=== PATIENT | female | born 1990 | race Caucasian/White ===

== ENCOUNTER 2017-01-31 23:05 | Emergency (ER) | payer OTHER, SELFPAY | END 2017-02-01 01:00 | disposition home or self-care (01) | PROVIDERS: Emergency Provider Emergency Medicine; Family Provider Nurse Practitioner Family; Visit Provider Emergency Medicine | DX: S80.11XA Contusion of right lower leg, initial encounter (principal); S80.12XA Contusion of left lower leg, initial encounter; F41.8 Other specified anxiety disorders; F17.210 Nicotine dependence, cigarettes, uncomplicated; J45.909 Unspecified asthma, uncomplicated; Z88.0 Allergy status to penicillin; Z88.2 Allergy status to sulfonamides; Z88.6 Allergy status to analgesic agent; Z88.7 Allergy status to serum and vaccine | CPT/HCPCS: 73590; 99282 ==

== ENCOUNTER 2017-02-27 19:20 | Emergency (ER) | payer OTHER, SELFPAY | END 2017-02-27 21:00 | disposition home or self-care (01) | PROVIDERS: Emergency Provider Emergency Medicine; Family Provider Nurse Practitioner Family; Visit Provider Emergency Medicine | DX: S83.91XA Sprain of unspecified site of right knee, initial encounter (principal); X50.1XXA Overexertion from prolonged static or awkward postures, initial encounter; Y92.019 Unspecified place in single-family (private) house as the place of occurrence of the external cause; J45.909 Unspecified asthma, uncomplicated; Z72.0 Tobacco use; F41.8 Other specified anxiety disorders; Z88.0 Allergy status to penicillin; Z88.1 Allergy status to other antibiotic agents; Z88.2 Allergy status to sulfonamides; Z88.8 Allergy status to other drugs, medicaments and biological substances | CPT/HCPCS: 73562; 99283 ==

== ENCOUNTER 2017-03-09 03:46 | Emergency (ER) | payer OTHER, SELFPAY | END 2017-03-09 04:45 | disposition home or self-care (01) | PROVIDERS: Emergency Provider Emergency Medicine; Family Provider Nurse Practitioner Family; Visit Provider Emergency Medicine | DX: M79.661 Pain in right lower leg (principal); G89.29 Other chronic pain; J45.909 Unspecified asthma, uncomplicated; F41.8 Other specified anxiety disorders; Z88.0 Allergy status to penicillin; Z88.2 Allergy status to sulfonamides; Z88.7 Allergy status to serum and vaccine; Z88.6 Allergy status to analgesic agent | CPT/HCPCS: 96372 ==

== ENCOUNTER → 2017-04-01 13:24 | Outpatient (CLI) | payer OTHER, SELFPAY ==
--- NOTE | 2017-04-01 13:28 | MR_ITS ---
MR knee RT wo con HISTORY: Right knee pain. Knee gives out ORDERING PHYSICIAN: Rajat Marsh MD PATIENT AGE: 26 years COMPARISON: Radiograph of 02/27/2017 TECHNIQUE: Standard multiplanar multiecho sequences are performed without contrast. FINDINGS: Artifact is present from the previous tibial tuberosity osteotomy over the proximal tibial region. The cruciate ligaments and collateral ligaments appear intact. No meniscal tear Patellar cartilage is intact. There is a small knee joint effusion. No significant degenerative change apparent. No bone marrow edema. No fracture or dislocation. IMPRESSION: 1. No evidence of internal derangement 2. Small knee joint effusion. 3. Artifact from prior proximal tibial surgery
== END ==
PROVIDERS: Family Provider Nurse Practitioner Family; PCP Nurse Practitioner Family; Visit Provider Orthopaedic Surgery
DX: T84.84XA Pain due to internal orthopedic prosthetic devices, implants and grafts, initial encounter (principal); M25.361 Other instability, right knee
CPT/HCPCS: 73721

== ENCOUNTER 2017-04-15 19:36 | Emergency (ER) | payer OTHER, SELFPAY ==
[2017-04-15 20:06] VITALS: BP 112/85; PULSE 98; RESP 14; O2SAT 98; BMI 27.7
--- NOTE | 2017-04-15 21:49 | HMH.EDEYEP ---
ED Disposition Clinical Impression: Blepharitis of both upper and lower eyelid of left eye Qualifiers: Blepharitis type: unspecified type Qualified Code(s): H01.004 - Unspecified blepharitis left upper eyelid; H01.005 - Unspecified blepharitis left lower eyelid Disposition: Home, Self-Care Condition on Discharge: Good Instructions: DI for Blepharitis Additional Instructions: see dr sanz in am Referrals: Deidre Orozco APRN [Primary Care Provider] - - Critical Care Critical Care Time: No Attestation: On 04/15/17, the high probability of a clinically significant, sudden or life threatening deterioration of the following system(s) required my full and direct attention, intervention and personal management. The time I documented below is in addition to time spent performing reported procedures but includes the following listed in this critical care notation. Medical Decision Making - Medical Records Medical records reviewed: Yes: I reviewed the patient's medical records. Vital Signs: 04/15/17 20:06 Pulse Rate [Left Brachial] 98 H Respiratory Rate 14 Blood Pressure [Left Arm] 112/85 Blood Pressure Mean [Left Arm] 94 02 Sat by Pulse Oximetry 98 Oxygen Delivery Method Room Air - Donta Inquiry Pt receiving controlled substance: No Eye Problem HPI - General Chief complaint: Eye Problems Stated complaint: spider bite left eye Time Seen by Provider: 04/15/17 21:51 Mode of Arrival: Ambulatory Source of Information: Patient Limitations: No Limitations - History of Present Illness HPI Narrative: reported insect bite lt eyelid swelling over the lt eyelid over the last 2 days MD chief complaint: eye pain Onset (ago): day(s) Onset description: gradual Duration: constant Location: left eye Eye Symptoms: blurry vision Mechanism: other (insect bite ) If Pain, Quality: aching - Related Data Allergies Allergy/AdvReac Type Severity Reaction Status Date / Time Penicillins [PENICILLINS] Allergy Severe THROAT Unverified 02/25/17 14:53 SWELLING, HIVES, VOMITTING amoxicillin [From AUGMENTIN] Allergy Intermediate I-HIVES Unverified 02/25/17 14:53 clavulanic acid Allergy Intermediate I-HIVES Unverified 02/25/17 14:53 [From AUGMENTIN] diphenhydramine Allergy Intermediate I-HIVES Unverified 02/25/17 14:53 [From BENADRYL] ibuprofen [IBUPROFEN] Allergy Intermediate I-HIVES Unverified 02/25/17 14:53 metoclopramide [From REGLAN] Allergy Intermediate I-HIVES Unverified 02/25/17 14:53 Sulfa (Sulfonamide Allergy Intermediate I-HIVES Unverified 02/25/17 14:53 Antibiotics) [SULFA (SULFONAMIDE ANTIBIOTICS)] tetanus toxoid, adsorbed Allergy Intermediate I-RASH Unverified 02/25/17 14:53 [TETANUS TOXOID, ADSORBED] naproxen [NAPROXEN] Allergy Unknown Unverified 02/25/17 14:53 paroxetine [From PAXIL] Allergy Unknown numbness Unverified 02/25/17 14:53 tongue atomoxetine [From Strattera] AdvReac Mild NA-HALLUCIN Unverified 02/25/17 14:53 ATIONS CONTRAST DYE Allergy Unknown Uncoded 02/25/17 14:53 RUBBING ALCOHOL Allergy Unknown Uncoded 02/27/17 19:33 [facility] History I have reviewed the patient's past medical history: Yes ROS Obtained: Yes All systems reviewed & no additional complaints - Constitutional Constitutional: Denies fever(s) - Eyes Eyes: Reports as per HPI, Reports change in vision, Denies eye discharge, Denies loss of peripheral vision, Denies loss of vision, Reports eye pain - ENT Ears, Nose, Mouth, and Throat: Denies sore throat - Cardiovascular Cardiovascular: Denies chest pain at rest - Respiratory Respiratory: No chest congestion, No cough - Gastrointestinal Gastrointestingal: Denies: vomiting - Musculoskeletal Musculoskeletal: Denies joint pain, Denies joint stiffness - Integumentary/Breasts Skin/Breast: Denies rash - Neurologic Neurologic: Denies seizure-like activity Physical Exam - General General appearance: alert, in no
--- NOTE | 2017-04-15 21:53 | ED_ITS ---
ED Disposition Clinical Impression: Blepharitis of both upper and lower eyelid of left eye Qualifiers: Blepharitis type: unspecified type Qualified Code(s): H01.004 - Unspecified blepharitis left upper eyelid; H01.005 - Unspecified blepharitis left lower eyelid Disposition: Home, Self-Care Condition on Discharge: Good Instructions: DI for Blepharitis Additional Instructions: see dr sanz in am Referrals: Deidre Orozco APRN [Primary Care Provider] - - Critical Care Critical Care Time: No Attestation: On 04/15/17, the high probability of a clinically significant, sudden or life threatening deterioration of the following system(s) required my full and direct attention, intervention and personal management. The time I documented below is in addition to time spent performing reported procedures but includes the following listed in this critical care notation. Medical Decision Making - Medical Records Medical records reviewed: Yes: I reviewed the patient's medical records. Vital Signs: 04/15/17 20:06 Pulse Rate [Left Brachial] 98 H Respiratory Rate 14 Blood Pressure [Left Arm] 112/85 Blood Pressure Mean [Left Arm] 94 02 Sat by Pulse Oximetry 98 Oxygen Delivery Method Room Air - Donta Inquiry Pt receiving controlled substance: No Eye Problem HPI - General Chief complaint: Eye Problems Stated complaint: spider bite left eye Time Seen by Provider: 04/15/17 21:51 Mode of Arrival: Ambulatory Source of Information: Patient Limitations: No Limitations - History of Present Illness HPI Narrative: reported insect bite lt eyelid swelling over the lt eyelid over the last 2 days MD chief complaint: eye pain Onset (ago): day(s) Onset description: gradual Duration: constant Location: left eye Eye Symptoms: blurry vision Mechanism: other (insect bite ) If Pain, Quality: aching - Related Data Allergies Allergy/AdvReac Type Severity Reaction Status Date / Time Penicillins [PENICILLINS] Allergy Severe THROAT Unverified 02/25/17 14:53 SWELLING, HIVES, VOMITTING amoxicillin [From AUGMENTIN] Allergy Intermediate I-HIVES Unverified 02/25/17 14 :53 clavulanic acid Allergy Intermediate I-HIVES Unverified 02/25/17 14:53 [From AUGMENTIN] diphenhydramine Allergy Intermediate I-HIVES Unverified 02/25/17 14:53 [From BENADRYL] ibuprofen [IBUPROFEN] Allergy Intermediate I-HIVES Unverified 02/25/17 14:53 metoclopramide [From REGLAN] Allergy Intermediate I-HIVES Unverified 02/25/17 14 :53 Sulfa (Sulfonamide Allergy Intermediate I-HIVES Unverified 02/25/17 14:53 Antibiotics) [SULFA (SULFONAMIDE ANTIBIOTICS)] tetanus toxoid, adsorbed Allergy Intermediate I-RASH Unverified 02/25/17 14:53 [TETANUS TOXOID, ADSORBED] naproxen [NAPROXEN] Allergy Unknown Unverified 02/25/17 14:53 paroxetine [From PAXIL] Allergy Unknown numbness Unverified 02/25/17 14:53 tongue atomoxetine [From Strattera] AdvReac Mild NA-HALLUCIN Unverified 02/25/17 14:53 ATIONS CONTRAST DYE Allergy Unknown Uncoded 02/25/17 14:53 RUBBING ALCOHOL Allergy Unknown Uncoded 02/27/17 19:33 [facility] History I have reviewed the patient's past medical history: Yes ROS Obtained: Yes All systems reviewed & no additional complaints - Constitutional Constitut
[2017-04-15 22:51] VITALS: BP 0/0; PULSE 0; RESP 18; TEMP -17.7; TEMP 0
== END 2017-04-15 22:40 | disposition home or self-care (01) ==
PROVIDERS: Emergency Provider Emergency Medicine; Family Provider Nurse Practitioner Family; PCP Nurse Practitioner Family
DX: H01.005 Unspecified blepharitis left lower eyelid (principal); H01.004 Unspecified blepharitis left upper eyelid; S00.262A Insect bite (nonvenomous) of left eyelid and periocular area, initial encounter
CPT/HCPCS: 99203

== ENCOUNTER 2017-05-01 15:10 | Emergency (ER) | payer OTHER, SELFPAY ==
[2017-05-01 15:18] VITALS: BP 145/78; PULSE 132; RESP 18; TEMP 38; O2SAT 98; BMI 28.3
--- NOTE | 2017-05-01 15:28 | XR_ITS ---
XR chest 2V HISTORY: ITS.REASON: cough ORDERING PHYSICIAN: Russell Gillespie MD PATIENT AGE: 26 years COMPARISON: 04/24/2013 FINDINGS: The cardiomediastinal silhouette and pulmonary vascularity are within normal limits. The lungs are clear without infiltrates, suspicious nodules, or pleural effusions. There is mild lower thoracic curvature convex left and mild kyphosis of the thoracolumbar junction unchanged No acute bony abnormalities. IMPRESSION: No acute finding
--- NOTE | 2017-05-01 16:06 | HMH.EDGENADL ---
ED Disposition Clinical Impression: Influenza A, Myalgia, Dehydration Disposition: Home, Self-Care Condition on Discharge: Fair Prescriptions: Oseltamivir Phosphate [Tamiflu 75mg Capsule] 75 mg PO BID #9 cap Referrals: Deidre Orozco APRN [Primary Care Provider] - - Critical Care Critical Care Time: No Attestation: On 05/01/17, the high probability of a clinically significant, sudden or life threatening deterioration of the following system(s) required my full and direct attention, intervention and personal management. The time I documented below is in addition to time spent performing reported procedures but includes the following listed in this critical care notation. Medical Decision Making - Medical Records Medical records reviewed: Yes: I reviewed the patient's medical records. Vital Signs: 05/01/17 15:18 Temperature 100.4 F H Temperature Source Oral Pulse Rate [Right Brachial] 132 H Respiratory Rate 18 Blood Pressure [Right Arm] 145/78 Blood Pressure Mean [Right Arm] 100 Blood Pressure Source [Right Arm] Automatic Cuff Blood Pressure Position [Right Arm] Supine 02 Sat by Pulse Oximetry 98 Oxygen Delivery Method Room Air - Lab Data Lab Results 05/01/17 15:20: Influenza Type A Ag Negative, Influenza Type B Ag Positive A 05/01/17 16:20: WBC 5.3, RBC 4.61, Hgb 14.0, Hct 40.9, MCV 88.6, MCH 30.4, MCHC 34.3, RDW 12.4, Plt Count 159, MPV 9.2, Neut % (Auto) 81.3 H, Lymph % (Auto) 12.8, [place] % (Auto) 4.6, Eos % (Auto) 1.0, Baso % (Auto) 0.2, Neut # (Auto) 4.3, Lymph # (Auto) 0.7, [place] # (Auto) 0.3, Eos # (Auto) 0.1, Baso # (Auto) 0.0 05/01/17 16:20: Sodium 137, Potassium 3.8, Chloride 101, Carbon Dioxide 28, Anion Gap 11.8, BUN 7, Creatinine 1.01, Estimated Creat Clear 99, Estimated GFR 66, Est GFR ( Amer) 80, Glucose 86 Result diagrams: 05/01/17 16:20 05/01/17 16:20 Orders (Tests/Meds): ED MEDICATIONS Generic Name Dose Route Start Last Admin Trade Name Carli PRN Reason Stop Dose Admin Sodium Chloride 1,000 mls @ 999 mls/hr 05/01/17 16:15 Sod Chlor 0.9% 1000ml Bag IV 05/01/17 17:15 .Q1H1M ERIKA Oseltamivir Phosphate 75 mg 05/02/17 09:00 Tamiflu 75mg Capsule PO 05/16/17 08:59 DAILY ERIKA Discontinued Medications Generic Name Dose Route Start Last Admin Trade Name Carli PRN Reason Stop Dose Admin Acetaminophen 1,000 mg 05/01/17 16:10 Tylenol 500mg Tablet PO 05/01/17 16:11 ONCE ONE Azithromycin 500 mg/ Sodium 250 mls @ 250 mls/hr 05/01/17 16:27 Chloride IV 05/01/17 16:28 ONCE ONE Protocol ORDERS Category Date Time Status Urinalysis and Microscopic Stat Lab 05/01/17 16:10 Ordered - Radiology Data #1 Image(s): Chest Image Reviewed: Yes I reviewed the patient's radiology image Preliminary Findings: Normal/NAD - Donta Inquiry Pt receiving controlled substance: No Donta was queried for this patient: No Medical Decision Making Narrative: I advised the patient for supportive care and Gatorade. She stated to have no money so I started IV fluids and give her Tylenol. General Adult HPI - General Chief complaint: Fever Stated complaint: Cough, Chills, Runny Nose Mode of Arrival: Family Vehicle Limitations: No Limitations Description of Symptoms (Recalled from ER Triage Doc. by RN): cough,congestion,fever x 4 days - History of Present Illness HPI narrative: 26 years old white female with multiple allergies who presented to the ED with a chief complaint is of cough body aches fever or chills and decreased p.o. intake. She has no primary care physician she has no money. Onset (ago): day(s) (4 days) Radiation: non-radiation (Generalized body ache.) Severity: moderate Consistency: constant Relieving factors: none Exacerbating factors: none Associated symptoms: cough, fever/chills, headaches Treatments prior to arrival: none - Related Data Home Medications Medication Instructions Jean-Pual
--- NOTE | 2017-05-01 16:09 | ED_ITS ---
ED Disposition Clinical Impression: Influenza A, Myalgia, Dehydration Disposition: Home, Self-Care Condition on Discharge: Fair Prescriptions: Oseltamivir Phosphate [Tamiflu 75mg Capsule] 75 mg PO BID #9 cap Referrals: Deidre Orozco APRN [Primary Care Provider] - - Critical Care Critical Care Time: No Attestation: On 05/01/17, the high probability of a clinically significant, sudden or life threatening deterioration of the following system(s) required my full and direct attention, intervention and personal management. The time I documented below is in addition to time spent performing reported procedures but includes the following listed in this critical care notation. Medical Decision Making - Medical Records Medical records reviewed: Yes: I reviewed the patient's medical records. Vital Signs: 05/01/17 15:18 Temperature 100.4 F H Temperature Source Oral Pulse Rate [Right Brachial] 132 H Respiratory Rate 18 Blood Pressure [Right Arm] 145/78 Blood Pressure Mean [Right Arm] 100 Blood Pressure Source [Right Arm] Automatic Cuff Blood Pressure Position [Right Arm] Supine 02 Sat by Pulse Oximetry 98 Oxygen Delivery Method Room Air - Lab Data Lab Results 05/01/17 15:20: Influenza Type A Ag Negative, Influenza Type B Ag Positive A 05/01/17 16:20: WBC 5.3, RBC 4.61, Hgb 14.0, Hct 40.9, MCV 88.6, MCH 30.4, MCHC 34.3, RDW 12.4, Plt Count 159, MPV 9.2, Neut % (Auto) 81.3 H, Lymph % (Auto) 12.8, [place] % (Auto) 4.6, Eos % (Auto) 1.0, Baso % (Auto) 0.2, Neut # (Auto) 4.3 , Lymph # (Auto) 0.7, [place] # (Auto) 0.3, Eos # (Auto) 0.1, Baso # (Auto) 0.0 05/01/17 16:20: Sodium 137, Potassium 3.8, Chloride 101, Carbon Dioxide 28, Anion Gap 11.8, BUN 7, Creatinine 1.01, Estimated Creat Clear 99, Estimated GFR 66, Est GFR ( Amer) 80, Glucose 86 Result diagrams: 05/01/17 16:20 05/01/17 16:20 Orders (Tests/Meds): ED MEDICATIONS Generic Name Dose Route Start Last Admin Trade Name Carli PRN Reason Stop Dose Admin Sodium Chloride 1,000 mls @ 999 mls/hr 05/01/17 16:15 Sod Chlor 0.9% 1000ml Bag IV 05/01/17 17:15 .Q1H1M ERIKA Oseltamivir Phosphate 75 mg 05/02/17 09:00 Tamiflu 75mg Capsule PO 05/16/17 08:59 DAILY ERIKA Discontinued Medications Generic Name Dose Route Start Last Admin Trade Name Carli PRN Reason Stop Dose Admin Acetaminophen 1,000 mg 05/01/17 16:10 Tylenol 500mg Tablet PO 05/01/17 16:11 ONCE ONE Azithromycin 500 mg/ Sodium 250 mls @ 250 mls/hr 05/01/17 16:27 Chloride IV 05/01/17 16:28 ONCE ONE Protocol ORDERS Category Date Time Status Urinalysis and Microscopic Stat Lab 05/01/17 16:10 Ordered - Radiology Data #1 Image(s): Chest Image Reviewed: Yes I reviewed the patient's radiology image Preliminary Findings: Normal/NAD - Donta Inquiry Pt receiving controlled substance: No Donta was queried for this patient: No Medical Decision Making Narrative: I advised the patient for supportive care and Gatorade. She stated to have no money so I started IV fluids and give her Tylenol. General Adult HPI - General Chief complaint: Fever Stated complaint: Cough, Chills, Runny Nose Mode of Arrival: Family Vehicle Limitations
[2017-05-01 16:27] LABS: Basophils % 0.2 % (0.1-2.0); Eosinophils # 0.1 K/mm3 (0.0-0.4); Hematocrit 40.9 % (37.0-47.0); Lymphocytes # 0.7 K/mm3 (0.7-4.5); Lymphocytes % 12.8 K/mm3 (10-50); Mean Corpuscular HGB Conc 34.3 g/dL (31.8-35.4); Mean Corpuscular Hemoglobin 30.4 pg (27.0-31.2); Mean Corpuscular Volume 88.6 fl (81-99); Mean Platelet Volume 9.2 fl (7.4-10.4); Monocytes # 0.3 K/mm3 (0.1-1.0); Monocytes % 4.6 % (1.7-9.3); Neutrophils # 4.3 K/mm3 (1.8-7.8); Neutrophils % 81.3 % (37.0-80.0); Platelet Count 159 K/mm3 (142-424); Red Blood Count 4.61 M/mm3 (4.20-5.40); Red Cell Distribution Width 12.4 % (11.5-17.5); White Blood Count 5.3 K/mm3 (4.8-10.8)
[2017-05-01 16:37] LABS: Anion Gap 11.8 mEq/L (5-15); Blood Urea Nitrogen 7 mg/dL (7-18); Carbon Dioxide 28 mmol/L (21.0-32.0); Chloride 101 mmol/L (98-107); Creatinine Clearance Estimated 99 mL/min (0-300); Creatinine,Serum 1.01 mg/dL (0.55-1.02); Estimated Glomerular Filt Rate 66 ml/min (>60); GFR (African American) 80 ML/MIN (>60); Glucose 86 mg/dL (74-106); Potassium 3.8 mmoL/L (3.5-5.1); Sodium 137 mmol/L (136-145)
[2017-05-01 17:40] VITALS: BP 123/80; PULSE 80; RESP 18; TEMP 36.7; O2SAT 99
== END 2017-05-01 17:39 | disposition home or self-care (01) ==
PROVIDERS: Emergency Provider Emergency Medicine; Family Provider Nurse Practitioner Family; PCP Nurse Practitioner Family
DX: J11.1 Influenza due to unidentified influenza virus with other respiratory manifestations (principal); E86.0 Dehydration; F41.9 Anxiety disorder, unspecified; I10 Essential (primary) hypertension; F17.210 Nicotine dependence, cigarettes, uncomplicated; Z90.49 Acquired absence of other specified parts of digestive tract; Z88.0 Allergy status to penicillin; Z88.2 Allergy status to sulfonamides; Z88.7 Allergy status to serum and vaccine; Z88.8 Allergy status to other drugs, medicaments and biological substances
CPT/HCPCS: 71046; 80048; 85025; 87275; 87276; 96365; 96367; 99281

== ENCOUNTER → 2017-05-22 10:42 | Outpatient (CLI) | payer OTHER, SELFPAY ==
[2017-05-22 11:17] LABS: Basophils % 0.2 % (0.1-2.0); Eosinophils # 0.2 K/mm3 (0.0-0.4); Eosinophils % 1.5 % (0.1-12.0); Hematocrit 45.7 % (37.0-47.0); Hemoglobin 14.8 g/dL (12.2-16.2); Lymphocytes # 1.7 K/mm3 (0.7-4.5); Mean Corpuscular HGB Conc 32.3 g/dL (31.8-35.4); Mean Corpuscular Hemoglobin 29.4 pg (27.0-31.2); Mean Corpuscular Volume 90.8 fl (81-99); Mean Platelet Volume 9.6 fl (7.4-10.4); Monocytes # 0.7 K/mm3 (0.1-1.0); Monocytes % 5.5 % (1.7-9.3); Neutrophils # 9.7 K/mm3 (1.8-7.8); Neutrophils % 78.7 % (37.0-80.0); Platelet Count 269 K/mm3 (142-424); Red Blood Count 5.03 M/mm3 (4.20-5.40); Red Cell Distribution Width 12.6 % (11.5-17.5); White Blood Count 12.3 K/mm3 (4.8-10.8)
[2017-05-22 14:21] LABS: Anion Gap 13.8 mEq/L (5-15); Blood Urea Nitrogen 9 mg/dL (7-18); Carbon Dioxide 27 mmol/L (21.0-32.0); Chloride 103 mmol/L (98-107); Creatinine,Serum 0.71 mg/dL (0.55-1.02); Estimated Glomerular Filt Rate 99 ml/min (>60); GFR (African American) 119 ML/MIN (>60); Glucose 78 mg/dL (74-106); Potassium 4.8 mmoL/L (3.5-5.1); Sodium 139 mmol/L (136-145)
[2017-05-22 14:25] LABS: HCG,Quantitative 0 mIU/mL
== END ==
PROVIDERS: PCP Nurse Practitioner Family; Visit Provider Nurse Practitioner Family
DX: T84.84XA Pain due to internal orthopedic prosthetic devices, implants and grafts, initial encounter (principal); M25.361 Other instability, right knee; Z01.818 Encounter for other preprocedural examination
CPT/HCPCS: 36415; 80048; 84702; 85025

== ENCOUNTER 2017-06-02 07:03 | Day surgery (SDC) | payer OTHER, SELFPAY ==
[2017-05-30 14:09] VITALS: BMI 27.1
[2017-06-02] VITALS (13 sets, daily range): BP systolic 96–118; BP diastolic 62–76; PULSE 55–89; RESP 13–20; TEMP 36.3–43; O2SAT 95–100
--- NOTE | 2017-06-02 | XR_ITS ---
XR knee RT 2V HISTORY: ITS.REASON: NEW LIGAMENT REPLACED IN RT KNEE ORDERING PHYSICIAN: Rajat Marsh MD PATIENT AGE: 26 years COMPARISON: 02/27/2017 FINDINGS: Lateral views obtained of the knee with the C-arm with overlying artifact. Fluoroscopy time: 25 seconds. IMPRESSION: Limited lateral view obtained during surgery with C-arm
--- NOTE | 2017-06-02 07:06 | SUR.PREOP ---
Addendum entered by Sheila Adorno RN 06/02/17 07:07: Original Note: DR COKER NOTIFIED OF ABNORMAL WHITE COUNT ON 05/02/17 VIA PHONE. NO NEW ORDERS.
[2017-06-02 08:02] LABS: Urine Pregnancy, HCG Qual. Negative (Negative)
[2017-06-02 08:20] LABS: Basophils % 0.2 % (0.1-2.0); Eosinophils # 0.3 K/mm3 (0.0-0.4); Hemoglobin 15.1 g/dL (12.2-16.2); Lymphocytes # 1.9 K/mm3 (0.7-4.5); Lymphocytes % 31.4 K/mm3 (10-50); Mean Corpuscular HGB Conc 34.3 g/dL (31.8-35.4); Mean Corpuscular Hemoglobin 30.3 pg (27.0-31.2); Mean Corpuscular Volume 88.3 fl (81-99); Mean Platelet Volume 9.8 fl (7.4-10.4); Monocytes # 0.4 K/mm3 (0.1-1.0); Monocytes % 5.7 % (1.7-9.3); Neutrophils # 3.6 K/mm3 (1.8-7.8); Neutrophils % 58.7 % (37.0-80.0); Platelet Count 249 K/mm3 (142-424); Red Blood Count 4.98 M/mm3 (4.20-5.40); Red Cell Distribution Width 12.5 % (11.5-17.5); White Blood Count 6.2 K/mm3 (4.8-10.8)
--- NOTE | 2017-06-02 09:14 | P.PN_ITS ---
[facility] Anesthesia Checklist - Patient Identification Patient Identification: Arm Band - Structural Data Admitted From: Home Consent for Planned Operative Procedure(s) Verified: Yes Verified Documents: Surgical Consent, History and Physical - NPO Status Verified Time NPO: 00:00 - Additional verifications Patient : No Anesthesia Reactions: No - Airway Assessment C-Spine Mobility Assessed: Yes TMJ Mobility Assessed: Yes Dentition: Edentulous - Neurological Assessment Level of Consciousness: Awake Hx Seizures: No Numbness or tingling in extremities: No - Anesthesia Plan Anesthesia Risk discussed: Yes Anesthesia Plan: Verified ASA Class: II Anesthesia Type: Spinal [facility] Anesthesia HX I have reviewed the patient's past medical history: Yes Medical History: Reports:: Anxiety, Asthma, Hypertension, MRSA Denies:: Cancer, Diabetes Mellitus Type 1, Diabetes Mellitus Type 2, Seizures Other Medical History: Reports: Other. Denies: Blood Transfusion Reaction Laterality Cases: Bilateral: Arthroscopy Knee, Tonsillectomy Other Surgeries: Yes: Other Amputation: No Fractures: Yes *Family Hx:: Hypertension, Cancer, Diabetes, Thyroid Disorder
--- NOTE | 2017-06-02 12:19 | HMH.ANESI ---
[facility] Anesthesia Record Part I Intake, IV Amount: 1,800 Estimated blood loss (mL): 20 Urine output (mL): 0 Blood Products used (#): none Blood Pressure: 104/70 SaO2: 95 Pulse Rate: 81 Respiratory Rate: 13 Temperature: 98.1 F Patient is:: Awake Stable to PACU at:: 12:15
--- NOTE | 2017-06-02 12:20 | HMH.ANESII ---
[facility] Anesthesia Record Part II Discharge Time: 12:45 Destination: Medical Surgical Department PACU nurse assessment reviewed?: Yes Patient Condition:: Good Anesthesia Complications:: None
--- NOTE | 2017-06-02 13:07 | PC.NURSE ---
06/02/17 1240 Elio from physical therapy dept in regarding order for locked T-scope brace to be applied in PACU. States will apply brace in postop when pt is more awake.
--- NOTE | 2017-06-03 09:20 | HMH.OPNOTE ---
Date of procedure: 06/03/17 Pre-op Diagnosis:: Right patella instability Retained hardware right tibia Post-op Diagnosis:: Same Procedure performed:: #1 repair of medial patellofemoral ligament #2 reconstruction of medial patella quadriceps tendon femoral ligament with quadriceps tendon autograft #3 arthroscopy right knee #4 removal hardware right proximal tibia Surgeon:: Rajat Marsh MD Bi Developer(s):: Dr. Riddle Anesthesia: regional, spinal Estimated blood loss (mL): 5 Operative findings:: Findings showed all previous surgical incisions to have healed uneventfully. Previously placed screws to secure an campbell-medialization of the tibial tubercle are palpable but are not tenting the skin, causing redness or erythema, or showing signs of backing out. He graphically the osteotomy has healed uneventfully. The right patella is mobile and can manually be displaced 1.5 quadrants laterally. With the knee flexed, the patella is stabilized by the trochlea. Arthroscopically, the patella contacts the lateral aspect of the trochlea at approximately 30-35? of flexion and then proceeds to centralize at around 45?. No cartilage defects of the patellofemoral joint, medial femoral condyle, lateral femoral condyle, or trochlea are noted. Operative note:: The patient was taken to the operating room after a spinal anesthetic is been applied, the right lower extremity was prepped and draped in the usual sterile fashion. C arm was utilized to confirm the location of the hardware and a previous incision reopened to allow access to the 2 Synthes 3.5 mm fully threaded cortical screws. These were removed, the screw tracks irrigated and curetted, and the tissue was closed with 3-0 Vicryl and 4-0 nylon. Attention was then directed to evaluating patella stability. We were able to laterally displace the patella approximately 1.5 quadrants before a solid endpoint was encountered. We could not manually sublux the patella more than this. The anteroinferior lateral portal site was evaluated and incised with a #11 blade. A 4 mm arthroscope was introduced and used to examine the knee with the above findings. We then withdrew the arthroscope and place the knee and a bone foam hope. We then exsanguinated the limb, inflated the tourniquet, and made an incision just medial to the midline to access the quadriceps tendon and also the attachment of the medial patellofemoral ligament (MPFL) to the patella and quadriceps mechanism. Bluntly dissected down and elevated a portion of the VMO to access the detached portion of the MPFL. We took down the ligament to ensure that it had integrity and did not find conclusive evidence clinically that it was detached from its femoral insertion. As there was just a bit of play in it though we elected to repair it and also to augment with a strip of quadriceps tendon. We centered the knee and the bone foam so that we could obtain a true lateral with the C arm. We then used this to determine the location of Schottle's point and then made a longitudinal incision over this area. The saddle between the medial epicondyle and the abductor tubercle was palpated and a guidepin placed here. We then fine tuned this to coincide with Schottle's point and placed a Beath pin just into the femoral cortex here. We exposed the quadriceps tendon and cleared the anterior aspect of the tendon with a small peraza elevator. Using 1/2 of a sterile vaginal speculum to elevate the soft tissues above the tendon, we harvested a 1 cm wide, 2-3 mm thick portion of the tendon approximately 9 cm long. We had measured the necessary length at 8 cm. Carefully harvested this leaving it attached to the superior patella and reflected it so that the deep surface was now the outermost surface. We sutured a #1 Vicryl into the and of the quadriceps tendon graft for traction. We then carefully dissected between layers 2 and 3 of the medial collateral ligament and passed the gra
--- NOTE | 2017-06-03 09:25 | P.OP_ITS ---
Date of procedure: 06/03/17 Pre-op Diagnosis:: Right patella instability Retained hardware right tibia Post-op Diagnosis:: Same Procedure performed:: #1 repair of medial patellofemoral ligament #2 reconstruction of medial patella quadriceps tendon femoral ligament with quadriceps tendon autograft #3 arthroscopy right knee #4 removal hardware right proximal tibia Surgeon:: Rajat Marsh MD [employer] Attendant(s):: Dr. Riddle Anesthesia: regional, spinal Estimated blood loss (mL): 5 Operative findings:: Findings showed all previous surgical incisions to have healed uneventfully. Previously placed screws to secure an campbell-medialization of the tibial tubercle are palpable but are not tenting the skin, causing redness or erythema , or showing signs of backing out. He graphically the osteotomy has healed uneventfully. The right patella is mobile and can manually be displaced 1.5 quadrants laterally. With the knee flexed, the patella is stabilized by the trochlea. Arthroscopically, the patella contacts the lateral aspect of the trochlea at approximately 30-35? of flexion and then proceeds to centralize at around 45?. No cartilage defects of the patellofemoral joint, medial femoral condyle, lateral femoral condyle, or trochlea are noted. Operative note:: The patient was taken to the operating room after a spinal anesthetic is been applied, the right lower extremity was prepped and draped in the usual sterile fashion. C arm was utilized to confirm the location of the hardware and a previous incision reopened to allow access to the 2 Synthes 3.5 mm fully threaded cortical screws. These were removed, the screw tracks irrigated and curetted, and the tissue was closed with 3-0 Vicryl and 4-0 nylon. Attention was then directed to evaluating patella stability. We were able to laterally displace the patella approximately 1.5 quadrants before a solid endpoint was encountered. We could not manually sublux the patella more than this. The anteroinferior lateral portal site was evaluated and incised with a # 11 blade. A 4 mm arthroscope was introduced and used to examine the knee with the above findings. We then withdrew the arthroscope and place the knee and a bone foam hope. We then exsanguinated the limb, inflated the tourniquet, and made an incision just medial to the midline to access the quadriceps tendon and also the attachment of the medial patellofemoral ligament (MPFL) to the patella and quadriceps mechanism. Bluntly dissected down and elevated a portion of the VMO to access the detached portion of the MPFL. We took down the ligament to ensure that it had integrity and did not find conclusive evidence clinically that it was detached from its femoral insertion. As there was just a bit of play in it though we elected to repair it and also to augment with a strip of quadriceps tendon. We centered the knee and the bone foam so that we could obtain a true lateral with the C arm. We then used this to determine the location of Schottle's point and then made a longitudinal incision over this area. The saddle between the medial epicondyle and the abductor tubercle was palpated and a guidepin placed here. We then fine tuned this to coincide with Schottle's point and placed a Beath pin just into the femoral cortex here. We exposed the quadriceps tendon and cleared the anterior aspect of the tendon with a small peraza elevator. Using 1/2 of a sterile vaginal speculum to elevate the soft tissues above the tendon, we harvested a 1 cm wide, 2-3 mm thick portion of the tendon approximately 9 cm long. We had measured the necessary length at 8 cm. Carefully harvested this leaving it attached to the superior patella
== END 2017-06-02 13:50 | disposition home or self-care (01) ==
PROVIDERS: Family Provider Nurse Practitioner Family; PCP Nurse Practitioner Family; Visit Provider Orthopaedic Surgery
PROC: (CPT 20680; principal; 2017-06-02 08:45)
DX: T84.126A Displacement of internal fixation device of bone of right lower leg, initial encounter (principal); M23.51 Chronic instability of knee, right knee
CPT/HCPCS: 20680; 27427; 73560; 76000; 81025; 85025; 96374; J2405

== ENCOUNTER 2017-06-14 21:40 | Emergency (ER) | payer OTHER, SELFPAY ==
[2017-06-14 22:17] VITALS: BP 117/69; PULSE 79; RESP 20; TEMP 36.8; O2SAT 98; BMI 27.1
[2017-06-15 00:21] VITALS: BP 112/76; PULSE 75; RESP 20; O2SAT 100
--- NOTE | 2017-06-15 00:21 | HMH.EDSKAF ---
ED Disposition Clinical Impression: Post-op pain Disposition: Home, Self-Care Condition on Discharge: Good Instructions: DI for Laceration Repair Additional Instructions: keep appt with pcp as planned Referrals: Deidre Orozco APRN [Primary Care Provider] - - Critical Care Critical Care Time: No Attestation: On 06/14/17, the high probability of a clinically significant, sudden or life threatening deterioration of the following system(s) required my full and direct attention, intervention and personal management. The time I documented below is in addition to time spent performing reported procedures but includes the following listed in this critical care notation. Medical Decision Making - Medical Records Medical records reviewed: Yes: I reviewed the patient's medical records. - Donta Inquiry Pt receiving controlled substance: No Vital Signs: 06/14/17 22:17 Temperature 98.3 F Temperature Source Oral Pulse Rate [Left Radial] 79 Respiratory Rate 20 Blood Pressure [Right Arm] 117/69 Blood Pressure Mean [Right Arm] 85 Blood Pressure Source [Right Arm] Automatic Cuff Blood Pressure Position [Right Arm] Sitting 02 Sat by Pulse Oximetry 98 Oxygen Delivery Method Room Air Skin/Abscess/FB HPI - General Chief complaint: Extremity Injury, Lower Stated complaint: surgery [id number] incision looks infected Time Seen by Provider: 06/15/17 00:21 Mode of Arrival: Ambulatory Source of Information: Patient, Medical Record Limitations: No Limitations Description of Symptoms (Recalled from ER Triage Doc. by RN): pt feels right leg surgical site is red, had surgery on it at end of May, pt is alert and oriented, no fever, no outward sign of infection, has taken no increased interventions and has not called physician - History of Present Illness HPI narrative: concerned about possible infection to surg site complaint: other (surg site) Onset (ago): day(s) Tetanus up to date: yes Location: RLE Severity: moderate Context: other (recent surg) Treatments prior to arrival: none - Related Data Home Medications Medication Instructions Recorded Confirmed albuterol sulfate HFA 90 2 puff INHALATION Q6H 04/23/17 06/14/17 mcg/actuation aerosol inhaler alprazolam 1 mg tablet 0.5 mg PO TID 04/23/17 06/14/17 Allergies Allergy/AdvReac Type Severity Reaction Status Date / Time Penicillins [PENICILLINS] Allergy Severe THROAT Verified 06/14/17 22:31 SWELLING, HIVES, VOMITTING amoxicillin [From AUGMENTIN] Allergy Intermediate I-HIVES Verified 06/14/17 22:31 clavulanic acid Allergy Intermediate I-HIVES Verified 06/14/17 22:31 [From AUGMENTIN] diphenhydramine Allergy Intermediate I-HIVES Verified 06/14/17 22:31 [From BENADRYL] ibuprofen [IBUPROFEN] Allergy Intermediate I-HIVES Verified 06/14/17 22:31 metoclopramide [From REGLAN] Allergy Intermediate I-HIVES Verified 06/14/17 22:31 Sulfa (Sulfonamide Allergy Intermediate I-HIVES Verified 06/14/17 22:31 Antibiotics) [SULFA (SULFONAMIDE ANTIBIOTICS)] tetanus toxoid, adsorbed Allergy Intermediate I-RASH Verified 06/14/17 22:31 [TETANUS TOXOID, ADSORBED] naproxen [NAPROXEN] Allergy Unknown Hives, Verified 06/14/17 22:31 Vomiting paroxetine [From PAXIL] Allergy Unknown numbness Verified 06/14/17 22:31 tongue atomoxetine [From Strattera] AdvReac Mild NA-HALLUCIN Verified 06/02/17 07:55 ATIONS CONTRAST DYE Allergy Unknown Hives, Uncoded 05/30/17 14:01 Vomiting [facility] History I have reviewed the patient's past medical history: Yes Medical History: Reports:: Anxiety, Asthma, Hypertension, MRSA Denies:: Cancer, Diabetes Mellitus Type 1, Diabetes Mellitus Type 2, Seizures Other Medical History: Reports: Other. Denies: Blood Transfusion Reaction Comment: PTSD, Bipolar Laterality Cases: Bilateral: Tonsillectomy Other Surgeries: Yes: Other Amputation: No Fractures: No - Social History Smoking St
--- NOTE | 2017-06-15 00:25 | ED_ITS ---
ED Disposition Clinical Impression: Post-op pain Disposition: Home, Self-Care Condition on Discharge: Good Instructions: DI for Laceration Repair Additional Instructions: keep appt with pcp as planned Referrals: Deidre Orozco APRN [Primary Care Provider] - - Critical Care Critical Care Time: No Attestation: On 06/14/17, the high probability of a clinically significant, sudden or life threatening deterioration of the following system(s) required my full and direct attention, intervention and personal management. The time I documented below is in addition to time spent performing reported procedures but includes the following listed in this critical care notation. Medical Decision Making - Medical Records Medical records reviewed: Yes: I reviewed the patient's medical records. - Donta Inquiry Pt receiving controlled substance: No Vital Signs: 06/14/17 22:17 Temperature 98.3 F Temperature Source Oral Pulse Rate [Left Radial] 79 Respiratory Rate 20 Blood Pressure [Right Arm] 117/69 Blood Pressure Mean [Right Arm] 85 Blood Pressure Source [Right Arm] Automatic Cuff Blood Pressure Position [Right Arm] Sitting 02 Sat by Pulse Oximetry 98 Oxygen Delivery Method Room Air Skin/Abscess/FB HPI - General Chief complaint: Extremity Injury, Lower Stated complaint: surgery [id number] incision looks infected Time Seen by Provider: 06/15/17 00:21 Mode of Arrival: Ambulatory Source of Information: Patient, Medical Record Limitations: No Limitations Description of Symptoms (Recalled from ER Triage Doc. by RN): pt feels right leg surgical site is red, had surgery on it at end of May, pt is alert and oriented, no fever, no outward sign of infection, has taken no increased interventions and has not called physician - History of Present Illness HPI narrative: concerned about possible infection to surg site complaint: other (surg site) Onset (ago): day(s) Tetanus up to date: yes Location: RLE Severity: moderate Context: other (recent surg) Treatments prior to arrival: none - Related Data Home Medications Medication Instructions Recorded Confirmed albuterol sulfate HFA 90 2 puff INHALATION Q6H 04/23/17 06/14/17 mcg/actuation aerosol inhaler alprazolam 1 mg tablet 0.5 mg PO TID 04/23/17 06/14/17 Allergies Allergy/AdvReac Type Severity Reaction Status Date / Time Penicillins [PENICILLINS] Allergy Severe THROAT Verified 06/14/17 22:31 SWELLING, HIVES, VOMITTING amoxicillin [From AUGMENTIN] Allergy Intermediate I-HIVES Verified 06/14/17 22: 31 clavulanic acid Allergy Intermediate I-HIVES Verified 06/14/17 22:31 [From AUGMENTIN] diphenhydramine Allergy Intermediate I-HIVES Verified 06/14/17 22:31 [From BENADRYL] ibuprofen [IBUPROFEN] Allergy Intermediate I-HIVES Verified 06/14/17 22:31 metoclopramide [From REGLAN] Allergy Intermediate I-HIVES Verified 06/14/17 22: 31 Sulfa (Sulfonamide Allergy Intermediate I-HIVES Verified 06/14/17 22:31 Antibiotics) [SULFA (SULFONAMIDE ANTIBIOTICS)] tetanus toxoid, adsorbed Allergy Intermediate I-RASH Verified 06/14/17 22:31 [TETANUS TOXOID, ADSORBED] naproxen [NAPROXEN] Allergy Unknown Hives, Verified 06/14/17 22:31 Vomiting
[2017-06-15 00:31] VITALS: BP 112/76; PULSE 75; RESP 16; TEMP 37; O2SAT 100
== END 2017-06-15 00:32 | disposition home or self-care (01) ==
PROVIDERS: Emergency Provider Emergency Medicine; Family Provider Nurse Practitioner Family; PCP Nurse Practitioner Family
DX: G89.18 Other acute postprocedural pain (principal); M25.561 Pain in right knee; I10 Essential (primary) hypertension; F41.9 Anxiety disorder, unspecified; J45.909 Unspecified asthma, uncomplicated; Z88.0 Allergy status to penicillin; Z88.2 Allergy status to sulfonamides; Z88.7 Allergy status to serum and vaccine
CPT/HCPCS: 99282

== ENCOUNTER → 2017-06-17 09:30 | Outpatient (CLI) | payer OTHER, SELFPAY ==
--- NOTE | 2017-06-17 09:33 | XR_ITS ---
XR knee RT 2V HISTORY: ITS.REASON: S/P RT knee hardware removal and MPFL reconstructi ORDERING PHYSICIAN: Rajat Marsh MD PATIENT AGE: 26 years COMPARISON: 02/27/2017 FINDINGS: The previously noted 2 screws within the tibial tuberosity have been removed.. Prior osteotomy of the tibial tuberosity once again noted. There is some thickening of the region of the quadriceps tendon. There is a faint opacity noted at the medial femoral condyle and may be related to previous surgery versus overlying artifact. IMPRESSION: Postsurgical changes as described above
== END ==
PROVIDERS: PCP Nurse Practitioner Family; Visit Provider Orthopaedic Surgery
DX: Z48.89 Encounter for other specified surgical aftercare (principal)
CPT/HCPCS: 73560

== ENCOUNTER → 2017-09-12 13:55 | Outpatient (CLI) | payer OTHER, SELFPAY ==
[2017-09-12 15:03] LABS: Basophils % 0.5 % (0.1-2.0); Eosinophils # 0.3 K/mm3 (0.0-0.4); Eosinophils % 5.7 % (0.1-12.0); Hematocrit 44.9 % (37.0-47.0); Lymphocytes # 1.7 K/mm3 (0.7-4.5); Lymphocytes % 29.6 K/mm3 (10-50); Mean Corpuscular HGB Conc 31.3 g/dL (31.8-35.4); Mean Corpuscular Hemoglobin 27.9 pg (27.0-31.2); Mean Corpuscular Volume 89.4 fl (81-99); Mean Platelet Volume 8.8 fl (7.4-10.4); Monocytes # 0.3 K/mm3 (0.1-1.0); Monocytes % 5.4 % (1.7-9.3); Neutrophils # 3.4 K/mm3 (1.8-7.8); Neutrophils % 58.7 % (37.0-80.0); Platelet Count 274 K/mm3 (142-424); Red Blood Count 5.02 M/mm3 (4.20-5.40); Red Cell Distribution Width 13.4 % (11.5-17.5); White Blood Count 5.7 K/mm3 (4.8-10.8)
[2017-09-12 15:06] LABS: Anion Gap 10.1 mEq/L (5-15); Blood Urea Nitrogen 6 mg/dL (7-18); Calcium 8.8 mg/dL (8.5-10.1); Carbon Dioxide 29 mmol/L (21.0-32.0); Chloride 102 mmol/L (98-107); Creatinine,Serum 0.91 mg/dL (0.55-1.02); Estimated Glomerular Filt Rate 74 ml/min (>60); GFR (African American) 90 ML/MIN (>60); Glucose 138 mg/dL (74-106); Potassium 4.1 mmoL/L (3.5-5.1); Sodium 137 mmol/L (136-145)
[2017-09-12 19:48] LABS: HCG Qualitative, Serum Negative (Negative)
== END ==
PROVIDERS: Visit Provider Surgery
DX: Z01.818 Encounter for other preprocedural examination (principal); K64.9 Unspecified hemorrhoids
CPT/HCPCS: 36415; 80048; 84703; 85025

== ENCOUNTER → 2017-12-17 10:54 | Outpatient (CLI) | payer OTHER, SELFPAY ==
[2017-12-17 11:12] LABS: Basophils % 0.4 % (0.1-2.0); Eosinophils # 0.4 K/mm3 (0.0-0.4); Eosinophils % 6.9 % (0.1-12.0); Hemoglobin 13.6 g/dL (12.2-16.2); Lymphocytes # 1.7 K/mm3 (0.7-4.5); Lymphocytes % 31.1 K/mm3 (10-50); Mean Corpuscular HGB Conc 33.2 g/dL (31.8-35.4); Mean Corpuscular Hemoglobin 29.6 pg (27.0-31.2); Mean Corpuscular Volume 88.9 fl (81-99); Mean Platelet Volume 7.6 fl (7.4-10.4); Monocytes # 0.3 K/mm3 (0.1-1.0); Monocytes % 4.8 % (1.7-9.3); Neutrophils # 3.2 K/mm3 (1.8-7.8); Neutrophils % 56.7 % (37.0-80.0); Platelet Count 360 K/mm3 (142-424); Red Blood Count 4.61 M/mm3 (4.20-5.40); Red Cell Distribution Width 13.2 % (11.5-17.5); White Blood Count 5.6 K/mm3 (4.8-10.8)
[2017-12-17 11:36] LABS: Anion Gap 11.8 mEq/L (5-15); Blood Urea Nitrogen 4 mg/dL (7-18); Calcium 8.7 mg/dL (8.5-10.1); Carbon Dioxide 27 mmol/L (21.0-32.0); Chloride 107 mmol/L (98-107); Creatinine,Serum 0.68 mg/dL (0.55-1.02); Estimated Glomerular Filt Rate 103 ml/min (>60); GFR (African American) 125 ML/MIN (>60); Glucose 90 mg/dL (74-106); Potassium 3.8 mmoL/L (3.5-5.1); Sodium 142 mmol/L (136-145)
[2017-12-17 11:46] LABS: HCG Qualitative, Serum Negative (Negative)
== END ==
PROVIDERS: Family Provider Nurse Practitioner Family; PCP Nurse Practitioner Family; Visit Provider Surgery
DX: K64.9 Unspecified hemorrhoids (principal)
CPT/HCPCS: 36415; 80048; 84703; 85025

== ENCOUNTER → 2018-01-21 11:15 | Outpatient (CLI) | payer OTHER, SELFPAY ==
[2018-01-21 11:54] LABS: Hematocrit 43.1 % (37.0-47.0); Hemoglobin 13.8 g/dL (12.2-16.2)
== END ==
PROVIDERS: Visit Provider Surgery
DX: K64.9 Unspecified hemorrhoids (principal)
CPT/HCPCS: 36415; 85014; 85018

== ENCOUNTER → 2018-03-09 14:29 | Outpatient (CLI) | payer OTHER, SELFPAY ==
--- NOTE | 2018-03-09 14:32 | XR_ITS ---
XR knee LT 4V Ordering Physician: Nazia Acosta MD Patient Age: 27 years: Female HISTORY: ITS.REASON: Lt knee pain Left knee pain TECHNIQUE: Technique: Weightbearing AP, lateral and Menjivar views were performed as well as oblique. COMPARISON : A left lower leg study from 02/01/2017 & right knee 2 view from June 2017 . Also there is a preoperative left knee available in PACS from June 2015 & December 2013 left knee which can be found [facility] FINDINGS 2 threaded screws enter at the anterior lateral aspect of the tibial tubercle here at proximal LEFT TIBIA. These appear unchanged position since January 2017 left lower leg study.. There does seems to been progressive bone healing of at what may been osteotomy site here of tibial tubercle since that 2016 study. On previous study 2016 there was somewhat inhomogeneous appearing bone here but there has been interval healing. Also note that contralateral RIGHT knee radiograph from 2017. June showed tracts of similar positioned previously removed screws here at proximal right tibia . Patellofemoral relationships appear satisfactory on the sunrise view. Only borderline narrowing at the lateral patellofemoral joint. No joint effusion. The medial lateral compartment joint spaces well-maintained. IMPRESSION ...... 2 screws enter at the anterior lateral aspect of the tibial tubercle reflect reflecting the previous procedure here . Knee/otherwise unremarkable Joint spaces well-maintained. No effusion.
== END ==
PROVIDERS: PCP Nurse Practitioner Family; Visit Provider Orthopaedic Surgery
DX: M25.569 Pain in unspecified knee (principal)
CPT/HCPCS: 73564

== ENCOUNTER → 2018-03-25 13:54 | Outpatient (CLI) | payer OTHER, SELFPAY ==
--- NOTE | 2018-03-25 13:56 | XR_ITS ---
XR tibia fibula LT 2V CLINICAL INDICATION: ITS.REASON: Status post hardware removal ORDERING PHYSICIAN: Nazia Acosta MD PATIENT AGE: 27 years Comparison: 03/09/2018 FINDINGS: Proximal tibial screws have been removed with tracks present from no screws. Normal alignment. The remaining tib-fib has an unremarkable appearance. No fracture or dislocation. IMPRESSION: Interval hardware removal otherwise negative
== END ==
PROVIDERS: PCP Nurse Practitioner Family; Visit Provider Orthopaedic Surgery
DX: Z98.890 Other specified postprocedural states (principal)
CPT/HCPCS: 73590

== ENCOUNTER → 2018-11-19 11:24 | Outpatient (CLI) | payer OTHER, SELFPAY ==
--- NOTE | 2018-11-19 11:35 | XR_ITS ---
PROCEDURE: XR THORACIC SPINE 3V CLINICAL INDICATION: THORACIC SPINE PAIN Scoliosis COMPARISON: TSP THORACIC SPINE-3V SWIMMERS from 02/09/2016 FINDINGS: There is a mild lower thoracic scoliosis convex left measuring 10 degrees previously measuring 4 degrees. There is a lumbar scoliosis convex right measuring 18 degrees not previously measurable. No congenital anomaly evident. There are degenerative changes at the thoracolumbar junction with mild kyphosis. There is mild wedging involving T11 and T12 not significantly changed IMPRESSION: Thoracolumbar scoliosis as described above which is increased from the previous exam with kyphosis at the thoracolumbar junction Dictated by: Elias Copeland MD 11/19/2018 17:25 Electronically signed by Elias Copeland MD in [place] 11/19/2018 17:25
== END ==
PROVIDERS: PCP Nurse Practitioner; Visit Provider Nurse Practitioner
DX: M54.6 Pain in thoracic spine (principal)
CPT/HCPCS: 72072

== ENCOUNTER → 2019-02-24 14:11 | Outpatient (CLI) | payer OTHER, SELFPAY ==
--- NOTE | 2019-02-24 14:13 | US_ITS ---
PROCEDURE: US EXTREMITY RT LIMITED CLINICAL INDICATION: CYST Palpable area in the right axilla COMPARISON: No exams were available for comparison FINDINGS: There is a subcutaneous hypoechoic nodule in the right axilla which measures 5 by 5 mm. There is enhanced through transmission of sound with some low level echoes within the lesion. A 2nd area is also noted measuring 5 by 5 mm with enhanced through transmission of sound and no obvious internal echoes. These are consistent with cystic lesions. Definite etiology is indeterminate IMPRESSION: There are 2 subcutaneous cystic lesions in the right axilla as described Dictated by: Elias Copeland MD 02/24/2019 17:55 Electronically signed by Elias Copeland MD in [place] 02/24/2019 17:55
--- NOTE | 2019-02-24 14:30 | XR_ITS ---
PROCEDURE: XR CHEST 2V CLINICAL HISTORY: COUGH Cough, smoker COMPARISON: CXR1VP XR chest portable from 11/14/2017 CXR1VP XR chest portable from 06/02/2018 Chest from 08/24/2018 FINDINGS: The cardiomediastinal silhouette and pulmonary vascularity are within normal limits. The lungs are clear without infiltrates, suspicious nodules, or pleural effusions. Faint nodular opacity is present in the retrocardiac region on the lateral view possibly due to overlying summation artifact vessel in ribs. This may be confirmed follow-up. Mild thoracic curvature convex left. There is mild kyphosis of the lower thoracic spine. IMPRESSION: No acute findings. Nonspecific retrocardiac nodular opacity possibly due to summation density and may be confirmed with follow-up to exclude developing nodule Dictated by: Elias Copeland MD 02/24/2019 14:59 Electronically signed by Elias Copeland MD in [place] 02/24/2019 14:59
== END ==
PROVIDERS: PCP Nurse Practitioner; Visit Provider Nurse Practitioner
DX: L72.3 Sebaceous cyst (principal); R05 Cough
CPT/HCPCS: 71046; 76882

== ENCOUNTER → 2019-03-12 10:24 | Outpatient (CLI) | payer MEDICAID, SELFPAY ==
--- NOTE | 2019-03-12 10:30 | CT_ITS ---
PROCEDURE: CT CHEST W CON CLINCAL INDICATION: PULMONARY NODULE Cough, pulmonary nodule, abnormal chest x-ray COMPARISON: NECKWO CT SOFT TISSUE NECK W/O CONT from 10/07/2012 XR CHEST 2V from 02/24/2019 TECHNIQUE: IV Contrast: 75ml Optiray 350 Axial images obtained with sagittal and coronal reformats. All CT scans at the facility use one or more dose reduction, viz: automated exposure control, ma/kV adjustment per patient size (including targeted exams where dose is matched to indication, i.e. head), or iterative reconstruction technique. FINDINGS: Regarding the thyroid gland, there is a 7 mm nodule along the right aspect of the isthmus. Scattered small nodes are present in the axilla. No mediastinal or hilar mass or adenopathy. There is mild hyperinflation. No suspicious pulmonary nodules are evident. There is a small calcified lymph node along the left aspect of the mid esophagus which may have contributed to the radiographic abnormality. There are degenerative changes in the thoracic spine with mild kyphosis at the thoracolumbar junction. IMPRESSION: 1. No suspicious pulmonary nodule evident. 2. Hyperinflation suggesting small airway disease. 3. 7 mm nodule of the isthmus of the thyroid gland Dictated by: Elias Copeland MD 03/13/2019 10:31 Electronically signed by Elias Copeland MD in [place] 03/13/2019 10:31
== END ==
PROVIDERS: PCP Nurse Practitioner; Visit Provider Nurse Practitioner
DX: R91.1 Solitary pulmonary nodule (principal)
CPT/HCPCS: 71260; Q9967

== ENCOUNTER → 2019-03-17 14:08 | Outpatient (CLI) | payer MEDICAID, SELFPAY ==
[2019-03-17 15:13] LABS: HCG Qualitative, Serum Negative (Negative)
== END ==
PROVIDERS: Visit Provider Surgery
DX: L72.3 Sebaceous cyst (principal)
CPT/HCPCS: 36415; 84703

== ENCOUNTER → 2019-03-19 10:06 | Outpatient (CLI) | payer MEDICAID, SELFPAY ==
--- NOTE | 2019-03-19 10:17 | XR_ITS ---
PROCEDURE: XR KNEE RT 4V CLINICAL INDICATION: knee pain COMPARISON: [id number] XR knee LT 4V from 03/09/2018 KNEELMLT XR knee LT 2V from 03/17/2018 XR KNEE LT 3V from 11/06/2018 XR KNEE RT 3V from 11/06/2018 FINDINGS: No fracture or dislocation. No lytic or blastic change. There is normal mineralization. The joint spaces are well-preserved. No significant degenerative/arthritic changes. No erosive changes evident. Other findings:Lucencies are present in the proximal tibia from old screw tracks IMPRESSION: No change with no acute finding Dictated by: Elias Copeland MD 03/19/2019 11:14 Electronically signed by Elias Copeland MD in [place] 03/19/2019 11:14
--- NOTE | 2019-03-19 10:17 | XR_ITS ---
PROCEDURE: XR KNEE LT 4V CLINICAL INDICATION: knee pain COMPARISON: [id number] XR knee LT 4V from 03/09/2018 KNEELMLT XR knee LT 2V from 03/17/2018 XR KNEE LT 3V from 11/06/2018 XR KNEE RT 3V from 11/06/2018 FINDINGS: No fracture or dislocation. No lytic or blastic change. There is normal mineralization. The joint spaces are well-preserved. No significant degenerative/arthritic changes. No erosive changes evident. Other findings:Lucencies are present in the proximal tibia representing old screw tracks IMPRESSION: No change with no acute finding. Dictated by: Elias Copeland MD 03/19/2019 11:25 Electronically signed by Elias Copeland MD in [place] 03/19/2019 11:25
== END ==
PROVIDERS: PCP Nurse Practitioner; Visit Provider Orthopaedic Surgery
DX: M25.562 Pain in left knee (principal); M25.561 Pain in right knee
CPT/HCPCS: 73564

== ENCOUNTER → 2019-03-22 09:59 | Outpatient (CLI) | payer MEDICAID, SELFPAY ==
--- NOTE | 2019-03-22 10:01 | US_ITS ---
PROCEDURE: US THYROID CLINICAL INDICATION: THYROID NODULE COMPARISON: THY US THYROID from 02/03/2013 FINDINGS: Right lobe: 4.9 x 1.5 x 1.5 cm. Hypoechoic nodule lower pole at 7 mm unchanged.. 8 x 6 mm isoechoic nodule mid polar region unchanged Left lobe: 5.3 x 1.3 x 1.8 cm. Isthmus: 7 mm hypoechoic nodule which has developed in the interval. This is well-circumscribed with central area of increased echogenicity. Additional findings: Nodes are present in the right neck measuring up to 1.5 cm IMPRESSION: Enlarged thyroid gland. No change in the right-sided nodules. There is new nodule in the isthmus TR level 3. Six-month follow-up is suggested. Dictated by: Elias Copeland MD 03/23/2019 07:06 Electronically signed by Elias Copeland MD in [place] 03/23/2019 07:06
== END ==
PROVIDERS: PCP Nurse Practitioner; Visit Provider Nurse Practitioner
DX: E04.1 Nontoxic single thyroid nodule (principal)
CPT/HCPCS: 76536

== ENCOUNTER → 2019-04-02 14:35 | Outpatient (CLI) | payer MEDICAID, SELFPAY | LOC: LAB 14:36 → LAB.DROPOF 14:37 | PROVIDERS: Visit Provider Nurse Practitioner Obstetrics & Gynecology | DX: N76.4 Abscess of vulva (principal) | CPT/HCPCS: 87070; 87205 ==

== ENCOUNTER 2019-06-18 20:33 | Emergency (ER) | payer MEDICAID, SELFPAY ==
--- NOTE | 2019-06-18 20:44 | XR_ITS ---
PROCEDURE: XR ANKLE RT MIN 3V CLINICAL INDICATION: PAIN COMPARISON: No exams were available for comparison FINDINGS: Medial and lateral malleolus appear intact. The ankle mortise is normal. There is no significant soft tissue swelling. IMPRESSION: No acute findings. Dictated by: Dr. Alan Bellamy MD 06/19/2019 09:[address] Alan Bellamy MD in [place] 06/19/2019 09:19
[2019-06-18 21:08] VITALS: BP 125/87; PULSE 93; RESP 18; TEMP 36.4; O2SAT 99; BMI 32.1
--- NOTE | 2019-06-18 21:09 | HMH.EDUTC ---
[facility] Clinical Impression: Right ankle sprain Qualifiers: Encounter type: initial encounter Involved ligament of ankle: anterior talofibular ligament Qualified Code(s): S93.491A - Sprain of other ligament of right ankle, initial encounter Disposition: Home, Self-Care Condition on Discharge: Good Instructions: DI for Ankle Sprain Prescriptions: Diclofenac Sodium [Voltaren 100gm Topical Gel] 1 applicatio TP QID 10 Days #80 gm Transmission Status: Received by [facility] Referrals: Pauline Mansfield APRN [Primary Care Provider] - Time of Disposition: 21:16 Medical Decision Making - Donta Inquiry Pt receiving controlled substance: No Vital Signs: 06/18/19 21:08 Temperature 97.5 F L Temperature Source Oral Pulse Rate [Right Brachial] 93 H Respiratory Rate 18 Blood Pressure [Right Arm] 125/87 Blood Pressure Mean [Right Arm] 99 Blood Pressure Source [Right Arm] Automatic Cuff Blood Pressure Position [Right Arm] Sitting 02 Sat by Pulse Oximetry 99 Oxygen Delivery Method Room Air Orders (Tests/Meds): ORDERS Category Date Time Status Ankle XR -Right minimum 3 Views [XR ankle RT min 3V] Exams 06/18/19 20:44 Taken Stat - Radiology Data #1 Image(s): Ankle Image Reviewed: Yes I reviewed the patient's radiology image Preliminary Findings: Normal/NAD, No Fracture [place] [facility] [place] - General Stated complaint: R ankle pain Time Seen by Provider: 06/18/19 21:09 - History of Present Illness Provider Complaint: Right ankle pain X 1 week. No inciting injury. Has history of prior ankle injuries. Hurts with weight bearing and at rest. Can point and flex but cannot rotate ankle. Onset (ago): week(s) (1) Location: right, lower extremity Relieving factors: none Exacerbating factors: none Associated symptoms: denies other symptoms Treatments prior to arrival: cold therapy - Related Data Home Medications Medication Instructions Recorded Confirmed ALPRAZolam [Xanax 0.5mg tab] 0.5 mg PO BID 10/01/17 04/07/19 Cyclobenzaprine HCl 10 mg PO TID 01/06/19 04/07/19 [Cyclobenzaprine 10mg Tab] Previous Rx's Medication Instructions Recorded Albuterol Sulfate [Proventil-HFA 1 - 2 puffs IH Q6HP PRN #1 inh 11/14/17 90mcg/puff Inh] Diclofenac Sodium [Voltaren 100gm 1 applicatio TP QID 10 Days #80 gm 06/18/19 Topical Gel] Allergies Allergy/AdvReac Type Severity Reaction Status Date / Time Penicillins [PENICILLINS] Allergy Severe THROAT Verified 04/07/19 13:20 SWELLING, HIVES, VOMITTING amoxicillin [From AUGMENTIN] Allergy Intermediate I-HIVES Verified 04/07/19 13:20 clavulanic acid Allergy Intermediate I-HIVES Verified 04/07/19 13:20 [From AUGMENTIN] diphenhydramine Allergy Intermediate I-HIVES Verified 04/07/19 13:20 [From BENADRYL] ibuprofen [IBUPROFEN] Allergy Intermediate I-HIVES Verified 04/07/19 13:20 metoclopramide [From REGLAN] Allergy Intermediate I-HIVES Verified 04/07/19 13:20 Sulfa (Sulfonamide Allergy Intermediate I-HIVES Verified 04/07/19 13:20 Antibiotics) [SULFA (SULFONAMIDE ANTIBIOTICS)] tetanus toxoid, adsorbed Allergy Intermediate I-RASH Verified 04/07/19 13:20 [TETANUS TOXOID, ADSORBED] naproxen [NAPROXEN] Allergy Unknown Hives, Verified 04/07/19 13:20 Vomiting paroxetine [From PAXIL] Allergy Unknown numbness Verified 04/07/19 13:20 tongue atomoxetine [From Strattera] AdvReac Mild NA-HALLUCIN Verified 04/07/19 13:20 [facility] - Hepatitis A Screen Attestation statement:: This patient has been screened for Hepatitis A risk factors. I have reviewed the patient's past medical history: Yes Medical History: Reports:: Anxiety, Asthma, Hypertension, Lung Disease, Renal Disease Denies:: Cancer, Diabetes Mellitus Type 1, Diabetes Mellitus Type 2, Internal Pacemaker, MRSA, Seizures Other Medical History: Reports: Other. Denies: Blood Transfusion Reaction Commen
[2019-06-18 21:31] VITALS: BP 125/87; PULSE 93; RESP 18; TEMP 36.4; O2SAT 99
== END 2019-06-18 21:33 | disposition home or self-care (01) ==
PROVIDERS: Emergency Provider Physician Assistant; PCP Nurse Practitioner
DX: S93.491A Sprain of other ligament of right ankle, initial encounter (principal); F41.8 Other specified anxiety disorders; I10 Essential (primary) hypertension; J45.909 Unspecified asthma, uncomplicated; F17.210 Nicotine dependence, cigarettes, uncomplicated; Z90.49 Acquired absence of other specified parts of digestive tract; Z88.0 Allergy status to penicillin; Z88.8 Allergy status to other drugs, medicaments and biological substances
CPT/HCPCS: 29515; 73610; 99203

== ENCOUNTER 2019-07-05 18:35 | Emergency (ER) | payer MEDICAID, SELFPAY ==
[2019-07-05 18:54] VITALS: BP 140/94; PULSE 102; RESP 20; TEMP 36.5; O2SAT 100; BMI 28.4
--- NOTE | 2019-07-05 19:01 | HMH.EDUTC ---
[facility] [place]ression: Foot pain, right Disposition: Home, Self-Care Condition on Discharge: Good Instructions: DI for Chronic Pain -- Adult, How to Use a Walking Boot, How to Apply an Elliott Wrap Additional Instructions: Follow instructions given to you by Dr Stevens's office Make sure to check acewrap and walking boot frequently throughout the day to make sure that they are not too tight *Keep foot elevated when at rest and sitting Follow up with Dr Stevens immediately if symptoms continued or if discoloration returns Return if needed Straight to ER if any life threatening symptoms Referrals: Pauline Mansfield APRN [Primary Care Provider] - Pastora Stevens DPM [Staff Physician] - Time of Disposition: 19:18 Medical Decision Making - Donta Inquiry Pt receiving controlled substance: No Donta was queried for this patient: No Vital Signs: 07/05/19 18:54 Temperature 97.7 F Temperature Source Oral Pulse Rate [Right Brachial] 102 H Respiratory Rate 20 Blood Pressure [Right Arm] 140/94 H Blood Pressure Mean [Right Arm] 109 Blood Pressure Source [Right Arm] Automatic Cuff Blood Pressure Position [Right Arm] Sitting 02 Sat by Pulse Oximetry 100 Oxygen Delivery Method Room Air Medical Decision Narrative: Patient educated to make sure to check both acewrap and boot after application to make sure that they are not too tight and that she is able to get a finger between acewrap and foot, boot and foot. Applying them too tight can decrease circulation and cause discoloration. Patient verbalized understanding. Again no discoloration noted of toes or foot at this time. [facility] [place] - General Stated complaint: Pain R foot, toes purple Time Seen by Provider: 07/05/19 18:55 Mode of Arrival: Ambulatory Source of Information: Patient Limitations: No Limitations Description of Symptoms (Recalled from Triage Doc. by RN): PATIENT C/O RIGHT FOOT PAIN. SHE WAS SEEN AT [facility] A FEW WEEKS AGO AND FOLLOWED UP WITH DR. STEVENS FOR THE FOOT PAIN. HOWEVER TODAY SHE STATES SHE IS CONCERNED BECAUSE HER TOES ON HER RIGHT FOOT HAVE TURNED PURPLE AND THE PAIN IS STILL THERE HEENT Symptoms (Recalled from RN notes): No Resp Symptoms (Recalled from RN notes): No Skin Symptoms (Recalled from RN notes): No MS Symptoms (Recalled from RN notes): Yes Functional Status (Recalled from RN notes): WNL - History of Present Illness Provider Complaint: Patient states that she noticed earlier that her right toes looked a little swollen and bluish purple States that she has been seeing Dr Stevens States that she might have had her elliott wrap under her walking boot a little too tight but she wanted to come in and have someone look at it and help her reapply her acewrap and boot States that after she got here discoloration was gone but still wanted to have her foot looked at - Related Data Home Medications Medication Instructions Recorded Confirmed ALPRAZolam [Xanax 0.5mg tab] 0.5 mg PO BID 10/01/17 06/29/19 Cyclobenzaprine HCl 10 mg PO TID 01/06/19 06/29/19 [Cyclobenzaprine 10mg Tab] Previous Rx's Medication Instructions Recorded Albuterol Sulfate [Proventil-HFA 1 - 2 puffs IH Q6HP PRN #1 inh 11/14/17 90mcg/puff Inh] Allergies Allergy/AdvReac Type Severity Reaction Status Date / Time Penicillins [PENICILLINS] Allergy Severe THROAT Verified 06/29/19 10:46 SWELLING, HIVES, VOMITTING amoxicillin [From AUGMENTIN] Allergy Intermediate I-HIVES Verified 06/29/19 10:46 clavulanic acid Allergy Intermediate I-HIVES Verified 06/29/19 10:46 [From AUGMENTIN] diphenhydramine Allergy Intermediate I-HIVES Verified 06/29/19 10:46 [From BENADRYL] ibuprofen [IBUPROFEN] Allergy Intermediate I-HIVES Verified 06/29/19 10:46 metoclopramide [From REGLAN] Allergy Intermediate I-HIVES Verified 06/29/19 10:46 Sulfa (Sulfonamide Allergy Intermediate I-HIVES Verified 06/29/19 10:46 Antibiotics) [SULFA (SULFONAMIDE
[2019-07-05 19:26] VITALS: BP 140/94; PULSE 102; RESP 20; TEMP 36.5; O2SAT 100
== END 2019-07-05 19:29 | disposition home or self-care (01) ==
PROVIDERS: Emergency Provider Nurse Practitioner; PCP Nurse Practitioner
DX: M79.671 Pain in right foot (principal); R60.0 Localized edema; F41.9 Anxiety disorder, unspecified; J45.909 Unspecified asthma, uncomplicated; F17.210 Nicotine dependence, cigarettes, uncomplicated; I10 Essential (primary) hypertension; Z88.0 Allergy status to penicillin; Z88.2 Allergy status to sulfonamides; Z88.7 Allergy status to serum and vaccine; Z90.09 Acquired absence of other part of head and neck
CPT/HCPCS: 99201

== ENCOUNTER → 2019-07-28 09:07 | Outpatient (CLI) | payer MEDICAID, SELFPAY ==
--- NOTE | 2019-07-28 09:28 | MR_ITS ---
PROCEDURE: MR ANKLE RT WO/W CON CLINICAL INDICATION: Right Ankle pain Right ankle sprain, possible ATFL and peroneal tendon tear, pain and swelling COMPARISON: XR ANKLE RT MIN 3V from 06/18/2019 TECHNIQUE: Routine multiplanar multi echo sequences are performed without and with gadolinium enhancement. FINDINGS: No fracture or dislocation. No obvious bone marrow edema. Prominent soft tissue edema is present along the medial aspect of the ankle. Tibiofibular ligaments appear intact. A normal anterior talofibular ligament is not identified consistent with tear of the ATFL.. PT FL appears intact. There is some heterogeneous increased T2 signal at the deltoid ligament and could be due to sprain or partial tear. The peroneal tendons appear intact. There is some edema of the soft tissues around the peroneal tendons at the retro malleolar groove region but no definite tendon tear. There is a small amount of fluid between the tibialis posterior tendon and flexor digitorum longus. The Achilles tendon appears intact. There is small amount of fluid present at the posterior talocalcaneal region with small amount fluid in the adjacent soft tissues suggesting bursitis. IMPRESSION: 1. Findings compatible with tear of the ATFL 2. Heterogeneous signal intensity of the deltoid ligament suggesting sprain or partial tear 3. Small amount fluid in the posterior talocalcaneal junction with some suggestion of some bursitis in this area Dictated by: Elias Copeland MD 07/30/2019 11:37 Electronically signed by Elias Copeland MD in [place] 07/30/2019 11:37
== END ==
PROVIDERS: PCP Nurse Practitioner; Visit Provider Podiatrist
DX: M25.571 Pain in right ankle and joints of right foot (principal); R60.0 Localized edema; S93.491A Sprain of other ligament of right ankle, initial encounter
CPT/HCPCS: 73723; A9576

== ENCOUNTER 2019-08-31 18:16 | Emergency (ER) | payer MEDICAID, SELFPAY ==
[2019-08-31 18:24] VITALS: BP 133/95; PULSE 98; RESP 18; TEMP 36.7; O2SAT 98; BMI 25.0
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
[2019-08-31 19:29] VITALS: BP 133/95; PULSE 98; RESP 18; TEMP 36.7; O2SAT 98
== END 2019-08-31 19:31 | disposition home or self-care (01) ==
PROVIDERS: Emergency Provider Nurse Practitioner; PCP Nurse Practitioner
DX: S63.91XA Sprain of unspecified part of right wrist and hand, initial encounter (principal); W20.8XXA Other cause of strike by thrown, projected or falling object, initial encounter; Y92.018 Other place in single-family (private) house as the place of occurrence of the external cause; F41.9 Anxiety disorder, unspecified; J45.909 Unspecified asthma, uncomplicated; Z90.49 Acquired absence of other specified parts of digestive tract; I10 Essential (primary) hypertension; F17.210 Nicotine dependence, cigarettes, uncomplicated
CPT/HCPCS: 29125; 73130; 99201; 99202

== ENCOUNTER 2020-04-10 00:23 | Emergency (ER) | payer MEDICAID, SELFPAY ==
[2020-04-10 00:30] VITALS: BP 120/75; PULSE 112; RESP 16; TEMP 36.7; O2SAT 98; BMI 25.8
[2020-04-10 00:50] LABS: Microscopic, Urine URINE MICROSCOPIC (MICROSCOPIC)
[2020-04-10 00:54] LABS: Appearance,Urine CLEAR (Clear); Bilirubin,Urine Negative (Negative); Blood, Urine 3+ (Negative); Color,Urine YELLOW (Yellow); Glucose,Urine (UA) Negative (Negative); Ketones,Urine Negative (Negative); Leukocyte Esterase,Urine TRACE (Negative); Nitrate,Urine Negative (Negative); Protein,Urine TRACE (Negative); Specific Gravity, Urine <= 1.005 (1.005-1.030); Urobilinogen,Urine 0.2 EU/dl (0.2)
[2020-04-10 00:57] LABS: Urine Pregnancy, HCG Qual. Positive (Negative)
[2020-04-10 00:59] LABS: Basophils # 0.1 K/mm3 (0-0.2); Basophils % 0.7 % (0.1-2.0); Chloride 101 mmol/L (98-107); Eosinophils # 0.2 K/mm3 (0.0-0.4); Hematocrit 43.8 % (37.0-47.0); Hemoglobin 15.1 g/dL (12.2-16.2); Lymphocytes % 33.7 % (10-50); Mean Corpuscular HGB Conc 34.5 g/dL (31.8-35.4); Mean Corpuscular Hemoglobin 29.9 pg (27.0-31.2); Mean Corpuscular Volume 86.9 fl (81-99); Mean Platelet Volume 9.3 fl (7.4-10.4); Monocytes # 0.6 K/mm3 (0.1-1.0); Monocytes % 6.7 % (1.7-9.3); Neutrophils # 5.1 K/mm3 (1.8-7.8); Neutrophils % 56.9 % (37.0-80.0); Platelet Count 337 K/mm3 (142-424); Potassium 3.6 mmoL/L (3.5-5.1); Red Blood Count 5.04 M/mm3 (4.20-5.40); Red Cell Distribution Width 13.9 % (11.5-17.5); Sodium 137 mmol/L (136-145)
--- NOTE | 2020-04-10 01:00 | US_ITS ---
PROCEDURE: US OB TRANSVAGINAL CLINICAL INDICATION: vaginal bleeding Early with vaginal bleeding COMPARISON: No exams were available for comparison FINDINGS: There is an intrauterine gestational sac present. A pole is present and measures 0.32 cm with an estimated date of 6 weeks. Heart flicker is identified but heart tracings were not able to be obtained. There is a yolk sac present. There is a small amount fluid around the upper aspect of the gestational sac. Unremarkable adnexa. IMPRESSION: There is an intrauterine gestational sac present with a pole measuring 6 weeks. Heart flicker is present however heart tracings are unable to be obtained. Cannot definitely confirm viability at this time. Small amount of fluid is present along the upper aspect of the gestational sac. Recommend continued follow-up as well as correlation with serial beta HCGs to confirm viability. Dictated by: Elias Copeland MD 04/10/2020 05:28 Elias Copeland MD in [place] 04/10/2020 05:28
[2020-04-10 01:02] LABS: Anion Gap 15.6 mEq/L (5-15); Blood Urea Nitrogen 7 mg/dl (7-17); Calcium 9.9 mg/dl (8.4-10.2); Carbon Dioxide 24 mmol/L (22.0-30.0); Creatinine Clearance Estimated 118 mL/min (50-200); Estimated Glomerular Filt Rate 84 ml/min (>60); GFR (African American) 102 ML/MIN (>60); Glucose 139 mg/dl (74-100)
[2020-04-10 01:07] LABS: RBC,Urine 20-50 #/hpf (0-3)
[2020-04-10 01:08] LABS: Amphetamine/Metha Screen,Urine Negative ng/ml (<1000)
[2020-04-10 01:09] LABS: Barbiturates Screen,Urine Negative ng/ml (<200)
[2020-04-10 01:10] LABS: Benzodiazepines Screen,Urine Negative ng/ml (<200); Cannabinoid Screen,Urine Positive ng/ml (<50)
[2020-04-10 01:11] LABS: Cocaine Screen,Urine Negative ng/ml (<300); Methadone Screen,Urine Negative ng/ml (<300)
[2020-04-10 01:12] LABS: Opiate Screen,Urine Negative ng/ml (<300)
[2020-04-10 01:13] LABS: Phencyclidine Screen,Urine Negative ng/ml (<25)
[2020-04-10 01:26] LABS: HCG,Quantitative 3861 mIU/ml (0-5.42)
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
[2020-04-10 03:06] VITALS: BP 126/72; PULSE 92; RESP 16; TEMP 36.7; O2SAT 99
== END 2020-04-10 03:09 | disposition home or self-care (01) ==
PROVIDERS: Emergency Provider Emergency Medicine; PCP Nurse Practitioner
DX: O20.9 Hemorrhage in early pregnancy, unspecified (principal); Z3A.01 Less than 8 weeks gestation of pregnancy; F12.10 Cannabis abuse, uncomplicated; I10 Essential (primary) hypertension; F17.210 Nicotine dependence, cigarettes, uncomplicated; F41.9 Anxiety disorder, unspecified; Z88.0 Allergy status to penicillin; Z88.2 Allergy status to sulfonamides; Z88.7 Allergy status to serum and vaccine
CPT/HCPCS: 76817; 80048; 80305; 81001; 81025; 84702; 85025; 99283

== ENCOUNTER → 2020-04-11 12:12 | Outpatient (CLI) | payer MEDICAID, SELFPAY ==
[2020-04-11 12:55] LABS: Basophils % 0.5 % (0.1-2.0); Eosinophils # 0.1 K/mm3 (0.0-0.4); Eosinophils % 1.9 % (0.1-12.0); Hematocrit 43.1 % (37.0-47.0); Hemoglobin 14.3 g/dL (12.2-16.2); Lymphocytes # 1.5 K/mm3 (0.7-4.5); Mean Corpuscular Hemoglobin 29.8 pg (27.0-31.2); Mean Corpuscular Volume 90.3 fl (81-99); Mean Platelet Volume 8.8 fl (7.4-10.4); Monocytes # 0.3 K/mm3 (0.1-1.0); Monocytes % 5.2 % (1.7-9.3); Neutrophils # 4.3 K/mm3 (1.8-7.8); Neutrophils % 68.5 % (37.0-80.0); Platelet Count 307 K/mm3 (142-424); Red Blood Count 4.78 M/mm3 (4.20-5.40); Red Cell Distribution Width 13.7 % (11.5-17.5); White Blood Count 6.3 K/mm3 (4.8-10.8)
[2020-04-12 08:36] LABS: HIV Screen 4th Generation wRfx Non Reactive (Non Reactive)
[2020-04-12 13:44] LABS: Rapid Plasma Reagin Ab Titer Non Reactive (NonRea<1:1)
[2020-04-13 10:16] LABS: Hepatitis B Surface Antigen Negative (Negative); Hepatitis C Antibody <0.1 s/co ratio (0.0-0.9); Rubella Antibodies, IgG 0.97 index (Immune >0.99)
== END ==
PROVIDERS: Visit Provider Nurse Practitioner Obstetrics & Gynecology
DX: Z34.90 Encounter for supervision of normal pregnancy, unspecified, unspecified trimester (principal)
CPT/HCPCS: 36415; 85025; 86592; 86703; 86762; 86850; 87340; 87380; G0432

== ENCOUNTER 2020-04-13 18:07 | Emergency (ER) | payer MEDICAID, SELFPAY ==
[2020-04-13 18:09] VITALS: BP 131/87; PULSE 111; RESP 16; TEMP 37.1; O2SAT 98; BMI 26.6
--- NOTE | 2020-04-13 18:21 | HMH.EDGENADL ---
ED Disposition Clinical Impression: Threatened , First trimester bleeding Disposition: Home, Self-Care Condition on Discharge: Fair Instructions: DI for Vaginal Bleeding During , Early Bleeding Additional Instructions: You have been evaluated for vaginal bleeding in early . Concern for threatened miscarriage. Please monitor your symptoms at home. Use pelvic rest. Follow-up with your [employer], Dr. Snell, as soon as available. You need to have a repeat hCG in 24 to 48 hours. Return to the emergency department if you have any new or worsening symptoms. Prescriptions: Doxylamine/Pyridoxine HCl [Diclegis 10mg-10mg tablet] 1 tab PO Q8 PRN #24 tablet.[address] MELTON Reason: Nausea Transmission Status: Received by [facility] Referrals: Pauline Mansfield APRN [Primary Care Provider] - Time of Disposition: 19:30 - Critical Care Critical Care Time: No Attestation: On 04/13/20, the high probability of a clinically significant, sudden or life threatening deterioration of the following system(s) required my full and direct attention, intervention and personal management. The time I documented below is in addition to time spent performing reported procedures but includes the following listed in this critical care notation. Medical Decision Making - Medical Records Medical records reviewed: Yes: I reviewed the patient's medical records. - Donta Inquiry Pt receiving controlled substance: No Vital Signs: 04/13/20 18:09 Temperature 98.7 F Temperature Source Oral Pulse Rate [Radial] 111 H Respiratory Rate 16 Blood Pressure [Right Arm] 131/87 Blood Pressure Mean [Right Arm] 101 Blood Pressure Position [Right Arm] Sitting 02 Sat by Pulse Oximetry 98 Oxygen Delivery Method Room Air - Lab Data Lab Results 04/13/20 18:15: Urine Color Yellow, Urine Appearance Cloudy, Urine pH 6.0, Ur Specific [place] 1.025, Urine Protein 1+, Urine Glucose (UA) Negative, Urine Ketones Negative, Urine Blood 3+, Urine Nitrate Negative, Urine Bilirubin Negative, Urine Urobilinogen 1.0, Ur Leukocyte Esterase Negative, Urine RBC 5-10, Urine WBC 3-5, Ur Squamous Epith Cells 5-10, Urine Bacteria 2+ 04/13/20 18:40: WBC 6.2, RBC 4.49, Hgb 13.3, Hct 40.5, MCV 90.2, MCH 29.7, MCHC 32.9, RDW 13.2, Plt Count 325, MPV 8.8, Neut % (Auto) 65.4, Lymph % (Auto) 27.3, [place] % (Auto) 4.8, Eos % (Auto) 2.0, Baso % (Auto) 0.5, Neut # (Auto) 4.0, Lymph # (Auto) 1.7, [place] # (Auto) 0.3, Eos # (Auto) 0.1, Baso # (Auto) 0.0 04/13/20 18:40: HCG, Quant 8074 H Result diagrams: 04/13/20 18:40 Orders (Tests/Meds): ORDERS Category Date Time Status Urine Culture Stat Micro 04/13/20 18:15 Received - US Data US Images: Abdomen ED US Reviewed: Yes: I have viewed radiologist's interpretation Findings Narrative: US from 04/10/20 IMPRESSION: There is an intrauterine gestational sac present with a pole measuring 6 weeks. Heart flicker is present however heart tracings are unable to be obtained. Cannot definitely confirm viability at this time. Small amount of fluid is present along the upper aspect of the gestational sac. Recommend continued follow-up as well as correlation with serial beta HCGs to confirm viability. Medical Decision Narrative: In summary this is a 29-year-old female presenting to the emergency department with vaginal bleeding. Patient clinically stable on arrival. Vital signs within normal limits. Concern for threatened miscarriage, inevitable miscarriage, completed miscarriage. Will obtain CBC, hCG, urinalysis. Bedside ultrasound shows gestational sac in the uterus. Unable to visualize definitive fetus or heart tones. She is blood type is A positive. Does not require RhoGam. Pelvic exam shows closed cervical os. Small amount of dark red blood in the vaginal vault. No lesions, lacerations, other abnormalities. The hCG is uptrending, 8000 today. Most rec
[2020-04-13 18:35] LABS: Microscopic, Urine URINE MICROSCOPIC (MICROSCOPIC)
[2020-04-13 18:39] LABS: Appearance,Urine CLOUDY (Clear); Bilirubin,Urine Negative (Negative); Blood, Urine 3+ (Negative); Color,Urine YELLOW (Yellow); Glucose,Urine (UA) Negative (Negative); Ketones,Urine Negative (Negative); Leukocyte Esterase,Urine Negative (Negative); Nitrate,Urine Negative (Negative); Protein,Urine 1+ (Negative); Specific Gravity, Urine 1.025 (1.005-1.030)
[2020-04-13 18:52] LABS: Basophils % 0.5 % (0.1-2.0); Eosinophils # 0.1 K/mm3 (0.0-0.4); Hematocrit 40.5 % (37.0-47.0); Hemoglobin 13.3 g/dL (12.2-16.2); Lymphocytes # 1.7 K/mm3 (0.7-4.5); Lymphocytes % 27.3 % (10-50); Mean Corpuscular HGB Conc 32.9 g/dL (31.8-35.4); Mean Corpuscular Hemoglobin 29.7 pg (27.0-31.2); Mean Corpuscular Volume 90.2 fl (81-99); Mean Platelet Volume 8.8 fl (7.4-10.4); Monocytes # 0.3 K/mm3 (0.1-1.0); Monocytes % 4.8 % (1.7-9.3); Neutrophils % 65.4 % (37.0-80.0); Platelet Count 325 K/mm3 (142-424); Red Blood Count 4.49 M/mm3 (4.20-5.40); Red Cell Distribution Width 13.2 % (11.5-17.5); White Blood Count 6.2 K/mm3 (4.8-10.8)
[2020-04-13 18:56] LABS: Bacteria,Urine 2+ /lpf
--- NOTE | 2020-04-13 18:57 | PC.NURSE ---
pelvic exam per dr rivera with female nurse at bedside
[2020-04-13 19:17] LABS: HCG,Quantitative 8074 mIU/ml (0-5.42)
[2020-04-13 19:47] VITALS: BP 137/68; PULSE 98; RESP 18; TEMP 37.1; O2SAT 98
== END 2020-04-13 19:50 | disposition home or self-care (01) ==
PROVIDERS: Emergency Provider Emergency Medicine; PCP Nurse Practitioner
DX: O20.0 Threatened abortion (principal); Z3A.01 Less than 8 weeks gestation of pregnancy; F17.210 Nicotine dependence, cigarettes, uncomplicated; I10 Essential (primary) hypertension; Z88.0 Allergy status to penicillin; Z88.2 Allergy status to sulfonamides; Z88.7 Allergy status to serum and vaccine; Z88.8 Allergy status to other drugs, medicaments and biological substances
CPT/HCPCS: 81001; 84702; 85025; 87086; 99282

== ENCOUNTER 2020-04-15 18:32 | Emergency (ER) | payer MEDICAID, SELFPAY ==
[2020-04-15 18:34] VITALS: BP 143/82; PULSE 100; RESP 18; TEMP 36.9; O2SAT 100; BMI 27.1
[2020-04-15 19:00] VITALS: BP 111/71; PULSE 82; RESP 17; O2SAT 100
[2020-04-15 19:05] LABS: Microscopic, Urine URINE MICROSCOPIC (MICROSCOPIC)
[2020-04-15 19:08] LABS: Appearance,Urine CLOUDY (Clear); Bilirubin,Urine Negative (Negative); Blood, Urine 3+ (Negative); Color,Urine RED (Yellow); Glucose,Urine (UA) Negative (Negative); Ketones,Urine Negative (Negative); Leukocyte Esterase,Urine Negative (Negative); Nitrate,Urine Negative (Negative); Protein,Urine 2+ (Negative); Specific Gravity, Urine 1.025 (1.005-1.030)
[2020-04-15 19:09] LABS: RBC,Urine TNTC #/hpf (0-3)
[2020-04-15 19:30] VITALS: BP 121/80; PULSE 82; RESP 15; O2SAT 100
--- NOTE | 2020-04-15 19:32 | HMH.EDGENADL ---
ED Disposition Condition on Discharge: Fair - Critical Care Critical Care Time: No <RafNazario naidu - Last Filed: 04/15/20 20:18> <Andre Novoa - Last Filed: 04/15/20 21:44> Clinical Impression: Vaginal bleeding affecting early Disposition: Home, Self-Care Instructions: DI for Vaginal Bleeding During Additional Instructions: call ob on friday Referrals: Pauline Mansfield APRN [Primary Care Provider] - Attestation: On 04/15/20, the high probability of a clinically significant, sudden or life threatening deterioration of the following system(s) required my full and direct attention, intervention and personal management. The time I documented below is in addition to time spent performing reported procedures but includes the following listed in this critical care notation. Medical Decision Making - Medical Records Medical records reviewed: Yes: I reviewed the patient's medical records. MR Comment: Records reviewed from ED visit on 04/10 and 04/13 and OB visit reviewed from 04/11. Ultrasound result from 04/10/2020 reviewed, see below. Quantitative beta-hCG on 04/10 was 3861, on 04/13 was 8074. - Donta Inquiry Pt receiving controlled substance: No - Physician Consults Physician Consulted: Ela Time: 20:00 Reason -: Obstetrical Eval/Care Comment/Response: Requests US pelvis, call him back when result obtained. <Nazario Chahal - Last Filed: 04/15/20 20:18> - Lab Data Lab results reviewed: Yes: I reviewed the patient's lab results. - US Data US Images: Pelvis ED US Reviewed: Yes: I discussed the US results w/the radiologist <Andre Novoa - Last Filed: 04/15/20 21:44> Vital Signs: 04/15/20 18:34 04/15/20 19:00 04/15/20 19:30 Temperature 98.5 F Temperature Source Oral Pulse Rate [Right Radial] 100 H 82 82 Respiratory Rate 18 17 15 Blood Pressure [Right Arm] 143/82 H 111/71 121/80 Blood Pressure Mean [Right Arm] 102 84 93 Blood Pressure Source [Right Arm] Automatic Cuff Automatic Cuff Automatic Cuff Blood Pressure Position [Right Arm] Sitting Supine Supine 02 Sat by Pulse Oximetry 100 100 100 Oxygen Delivery Method Room Air Room Air Room Air 04/15/20 20:00 04/15/20 20:30 Temperature Temperature Source Pulse Rate [Right Radial] 78 78 Respiratory Rate 17 17 Blood Pressure [Right Arm] 132/87 141/79 H Blood Pressure Mean [Right Arm] 102 99 Blood Pressure Source [Right Arm] Automatic Cuff Automatic Cuff Blood Pressure Position [Right Arm] Supine Supine 02 Sat by Pulse Oximetry 98 99 Oxygen Delivery Method Room Air Room Air - Lab Data Lab Results 04/15/20 18:45: Urine Color Red, Urine Appearance Cloudy, Urine pH 6.0, Ur Specific [place] 1.025, Urine Protein 2+, Urine Glucose (UA) Negative, Urine Ketones Negative, Urine Blood 3+, Urine Nitrate Negative, Urine Bilirubin Negative, Urine Urobilinogen 1.0, Ur Leukocyte Esterase Negative, Urine RBC Tntc, Urine WBC 5-10, Ur Squamous Epith Cells 10-20 04/15/20 18:58: HCG, Quant 00130 H Orders (Tests/Meds): ORDERS Category Date Time Status US OB transvaginal Stat Ultrasound 04/15/20 20:01 Ordered - US Data Findings Narrative: viable fetus (Andre Novoa) Medical Decision Narrative: 8:00 PM: At shift change, I have discussed the patient with Dr. Novoa, who will assume care of the patient at this time. I have discussed all clinical information including history, physical and diagnostic study results. Preliminary diagnoses based on information available at this point have been recorded by me. Controlled substance administration and critical care statement are also preliminary, as of the time of handoff. (Nazario Chahal) u/s still with viable fetus at this time (Andre Novoa) General Adult HPI - General Mode of Arrival: Ambulatory Limitations: No Limitations Description of Symptoms (Recalled from ER Triage Doc. by RN): Pt reports possible miscarriage. 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
[2020-04-15 19:35] LABS: HCG,Quantitative 11255 mIU/ml (0-5.42)
--- NOTE | 2020-04-15 19:57 | PC.NURSE ---
Rodrigue Millan on phone with Dr garcia @ this time
[2020-04-15 20:00] VITALS: BP 132/87; PULSE 78; RESP 17; O2SAT 98
--- NOTE | 2020-04-15 20:01 | US_ITS ---
PROCEDURE: US OB TRANSVAGINAL Referring Doctor: Nazario Chahal Patient Age:29Y CLINICAL INDICATION: bleeding, , r/o miscarriage Early with bleeding. Passing clots rule out miscarriage. Patient had previous ultrasound 04/10/2020. Report called to Dr. Mahmood Follow-up ultrasound scheduled for Friday04/17/2020 COMPARISON: US US OB TRANSVAGINAL from 04/10/2020 FINDINGS: Small viable intrauterine gestation Small pole with with heartbeat identified, CRL = 4.6 mm = 6 weeks 2 days yolk sac identified = 4.2 mm size On previous April 10 2020 ultrasound there is a scant amount of fluid just at the superior aspect of the sac. On today's there is increased more pronounced fluid along superior aspect of gestational sac along.. Slight above this, more superiorly at endometrial cavity there seems to be some additional heterogeneous material possibly/questionably reflecting some clotted material.. Overall these findings suggest likely progression and additional subchorionic hemorrhage collection here since prior study. Understand patient been bleeding and passing some clots today. Also note g sac appears somewhat inferiorly positioned at the endometrial cavity Mean Sac Size today = 1.87 cm = 6 weeks 3 days. Average Ultrasound Age, AUA = 6 weeks 3 days (This is compared to Gestational Age 7 weeks 4 days based on LMP 02/22/2020) Ovaries appear normal in size. A with normal flow. No fluid at cul-de-sac. Right ovary 1.9 x 1.6 x 1.3 cm Left ovary 1.6 x 0.75 cm x 1.4 cm IMPRESSION: 1. Single viable intrauterine gestation.-. Faint cardiac activity visualized and documented CRL =6 weeks 2 days 2..Appearance suggest progressive subchorionic hemorrhage -noting increased size, and more pronounced collection superior to the gestational sac seen today than previous ultrasound of April 10, 2020 3 Close follow-up recommended Dictated by: Darron Ramos MD 04/22/2020 13:05 Darron Ramos MD in [place] 04/22/2020 13:05
[2020-04-15 20:30] VITALS: BP 141/79; PULSE 78; RESP 17; O2SAT 99
--- NOTE | 2020-04-15 21:40 | PC.NURSE ---
speaking to dr. garcia at this time.
[2020-04-15 21:48] VITALS: BP 136/80; PULSE 76; RESP 16; TEMP 36.9; O2SAT 98
== END 2020-04-15 21:54 | disposition home or self-care (01) ==
PROVIDERS: Emergency Provider Emergency Medicine; PCP Nurse Practitioner
DX: O20.9 Hemorrhage in early pregnancy, unspecified (principal); Z3A.08 8 weeks gestation of pregnancy; F41.9 Anxiety disorder, unspecified; I10 Essential (primary) hypertension; F17.210 Nicotine dependence, cigarettes, uncomplicated; Z88.0 Allergy status to penicillin; Z88.2 Allergy status to sulfonamides; Z88.7 Allergy status to serum and vaccine; Z88.8 Allergy status to other drugs, medicaments and biological substances
CPT/HCPCS: 76817; 81001; 84702; 99284

== ENCOUNTER → 2020-04-16 10:38 | Outpatient (CLI) | payer MEDICAID, SELFPAY ==
[2020-04-16 13:25] LABS: HCG,Quantitative 13372 mIU/ml (0-5.42)
== END ==
PROVIDERS: PCP Nurse Practitioner; Visit Provider Nurse Practitioner Obstetrics & Gynecology
DX: Z34.90 Encounter for supervision of normal pregnancy, unspecified, unspecified trimester (principal)
CPT/HCPCS: 36415; 84702

== ENCOUNTER 2020-04-29 21:51 | Emergency (ER) | payer MEDICAID, SELFPAY ==
[2020-04-29 21:53] VITALS: BP 120/82; PULSE 83; RESP 14; TEMP 36.6; O2SAT 100; BMI 27.2
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
[2020-04-29 23:22] VITALS: BP 124/70; PULSE 84; RESP 14; TEMP 37.1; O2SAT 97
== END 2020-04-29 23:24 | disposition home or self-care (01) ==
PROVIDERS: Emergency Provider Emergency Medicine; PCP Nurse Practitioner
DX: S60.221A Contusion of right hand, initial encounter (principal); S63.501A Unspecified sprain of right wrist, initial encounter; W22.8XXA Striking against or struck by other objects, initial encounter; Y92.89 Other specified places as the place of occurrence of the external cause; I10 Essential (primary) hypertension; J45.909 Unspecified asthma, uncomplicated; F41.9 Anxiety disorder, unspecified; F17.210 Nicotine dependence, cigarettes, uncomplicated; Z88.0 Allergy status to penicillin; Z88.2 Allergy status to sulfonamides; Z88.8 Allergy status to other drugs, medicaments and biological substances
CPT/HCPCS: 29125; 73110; 73130; 99282

== ENCOUNTER 2020-05-07 19:35 | Emergency (ER) | payer MEDICAID, SELFPAY ==
[2020-05-07 19:35] VITALS: BP 117/75; PULSE 88; RESP 20; TEMP 36.7; O2SAT 100; BMI 26.1
--- NOTE | 2020-05-07 19:53 | XR_ITS ---
PROCEDURE: XR WRIST RT MIN 3V CLINICAL INDICATION: injury Posttraumatic pain COMPARISON: CR WRR3 WRIST-3 VIEWS-RT from 04/09/2015 CR WRR3 WRIST-3 VIEWS-RT from 11/24/2015 CR XR WRIST RT MIN 3V from 11/06/2018 CR XR WRIST RT MIN 3V from 04/29/2020 FINDINGS: No fracture or dislocation. No lytic or blastic change. There is normal mineralization. The joint spaces are well-preserved. No significant degenerative/arthritic changes. No erosive changes evident. Other findings:None. IMPRESSION: No acute findings. Dictated by: Elias Copeland MD 05/08/2020 05:53 Elias Copeland MD in [place] 05/08/2020 05:53
--- NOTE | 2020-05-07 19:53 | XR_ITS ---
PROCEDURE: XR HAND RT MIN 3V CLINICAL INDICATION: injury Posttraumatic pain COMPARISON: CR HANDR3 HAND-RT 3 VIEWS from 11/22/2015 CR HANDR3 HAND-RT 3 VIEWS from 03/25/2016 CR XR HAND RT MIN 3V from 08/31/2019 CR XR HAND RT MIN 3V from 04/29/2020 FINDINGS: No fracture or dislocation. No lytic or blastic change. There is normal mineralization. The joint spaces are well-preserved. No significant degenerative/arthritic changes. No erosive changes evident. Other findings:None. IMPRESSION: No acute findings. Dictated by: Elias Copeland MD 05/08/2020 05:53 Elias Copeland MD in [place] 05/08/2020 05:53
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
[2020-05-07 20:26] VITALS: BP 117/75; PULSE 88; RESP 20; TEMP 36.7; O2SAT 100
== END 2020-05-07 20:27 | disposition home or self-care (01) ==
PROVIDERS: Emergency Provider Nurse Practitioner Family; PCP Nurse Practitioner
DX: M65.841 Other synovitis and tenosynovitis, right hand (principal); S67.21XD Crushing injury of right hand, subsequent encounter; I10 Essential (primary) hypertension; F41.9 Anxiety disorder, unspecified; F17.210 Nicotine dependence, cigarettes, uncomplicated; Z88.0 Allergy status to penicillin; Z88.2 Allergy status to sulfonamides; Z88.7 Allergy status to serum and vaccine
CPT/HCPCS: 73110; 73130; 99202; G0463

== ENCOUNTER 2020-07-19 17:06 | Emergency (ER) | payer MEDICAID, SELFPAY ==
[2020-07-19 17:11] VITALS: BP 131/94; PULSE 94; RESP 19; TEMP 36.8; O2SAT 100; BMI 25.4
--- NOTE | 2020-07-19 17:17 | XR_ITS ---
PROCEDURE INFORMATION: Exam: XR Right Ribs with PA Chest Exam date and time: 07/19/2020 5:17 PM Age: 29 years old Clinical indication: Other: PT awoke with right rib pain, this morning, no known injury. ; Patient HX: PT awoke with right rib pain this morning, no known injury. TECHNIQUE: Imaging protocol: XR Right ribs with PA chest. Views: 3 views COMPARISON: CT CHEST W CON 03/12/2019 10:47 AM FINDINGS: Lungs: Unremarkable. No consolidation. Pleural spaces: Unremarkable. No pleural effusion. No pneumothorax. Heart/Mediastinum: Unremarkable. No cardiomegaly. Bones/joints: No rib abnormality. Mild dextroconvex lumbar curvature. IMPRESSION: No acute findings.
[2020-07-19 17:22] VITALS: BP 131/94; PULSE 94; RESP 19; TEMP 36.8; O2SAT 100
--- NOTE | 2020-07-19 18:20 | HMH.EDUTC ---
[facility] [place]: Rib pain on right side, Pleurisy Disposition: Home, Self-Care Condition on Discharge: Good Additional Instructions: Drink plenty of fluids. Take ibuprofen for pain or fever. Take the medications as directed. Follow up with your regular doctor. GO TO THE ER FOR ANY WORSENING SYMPTOMS Referrals: Pauline Mansfield APRN [Primary Care Provider] - Time of Disposition: 18:33 Medical Decision Making - Medical Records Medical records reviewed: No: I reviewed the patient's medical records. - Donta Inquiry Pt receiving controlled substance: No Vital Signs: 07/19/20 17:11 07/19/20 17:22 Temperature 98.2 F 98.2 F Temperature Source Oral Pulse Rate 94 H Pulse Rate [Left] 94 H Respiratory Rate 19 19 Blood Pressure 131/94 H Blood Pressure [Right Arm] 131/94 H Blood Pressure Mean [Right Arm] 106 02 Sat by Pulse Oximetry 100 Oxygen Delivery Method Room Air [facility] [place] - General Stated complaint: rt side rib pain Time Seen by Provider: 07/19/20 18:20 Mode of Arrival: Ambulatory Source of Information: Patient Limitations: No Limitations Description of Symptoms (Recalled from Triage Doc. by RN): Right rib pain-No injury HEENT Symptoms (Recalled from RN notes): No Resp Symptoms (Recalled from RN notes): No Skin Symptoms (Recalled from RN notes): No MS Symptoms (Recalled from RN notes): Yes Functional Status (Recalled from RN notes): wnl - History of Present Illness Provider Complaint: She reports that since this morning she has had right rib pain that is worse when she breathes deep. She denies any injury of recent falls. She denies any cough or congestion. - Related Data Home Medications Medication Instructions Recorded Confirmed Albuterol Sulfate [Albuterol 2 puff IH Q6HP PRN 07/20/20 07/20/20 Sulfate Hfa] Allergies Allergy/AdvReac Type Severity Reaction Status Date / Time Penicillins [PENICILLINS] Allergy Severe THROAT Verified 07/19/20 17:22 SWELLING, HIVES, VOMITTING amoxicillin [From AUGMENTIN] Allergy Intermediate I-HIVES Verified 07/19/20 17:22 clavulanic acid Allergy Intermediate I-HIVES Verified 07/19/20 17:22 [From AUGMENTIN] diphenhydramine Allergy Intermediate I-HIVES Verified 07/19/20 17:22 [From BENADRYL] ibuprofen [IBUPROFEN] Allergy Intermediate I-HIVES Verified 07/19/20 17:22 metoclopramide [From REGLAN] Allergy Intermediate I-HIVES Verified 07/19/20 17:22 Sulfa (Sulfonamide Allergy Intermediate I-HIVES Verified 07/19/20 17:22 Antibiotics) [SULFA (SULFONAMIDE ANTIBIOTICS)] tetanus toxoid, adsorbed Allergy Intermediate I-RASH Verified 07/19/20 17:22 [TETANUS TOXOID, ADSORBED] naproxen [NAPROXEN] Allergy Unknown Hives, Verified 07/19/20 17:22 Vomiting paroxetine [From PAXIL] Allergy Unknown numbness Verified 07/19/20 17:22 tongue atomoxetine [From Strattera] AdvReac Mild NA-HALLUCIN Verified 07/19/20 17:22 ATIONS - Worker's Comp Is this a Worker's Comp case?: No H History - Hepatitis A Screen Drug use history?: No High risk sexual behaviors?: No History of sexually transmitted infection?: No Currently employed?: No Childcare worker?: No Do you have indoor plumbing?: Yes Do you have electricity?: Yes Attestation statement:: This patient has been screened for Hepatitis A risk factors. I have reviewed the patient's past medical history: Yes Medical History: Reports:: Anxiety, Asthma, Hypertension, Lung Disease, Renal Disease Denies:: Cancer, Diabetes Mellitus Type 1, Diabetes Mellitus Type 2, Internal Pacemaker, MRSA, Seizures Other Medical History: Reports: Other. Denies: Blood Transfusion Reaction Comment: PTSD, Bipolar Laterality Cases: Bilateral: Arthroscopy Knee, Tonsillectomy, Other Other Surgeries: Yes: Cholecystectomy, Colonoscopy, Diagnostic Lap, Other. No: Pacemaker Amputation: No Fractures: No Comment: hemorrhoidectomy, axillary/groin
== END 2020-07-19 18:40 | disposition home or self-care (01) ==
PROVIDERS: Emergency Provider Nurse Practitioner Family; PCP Nurse Practitioner
DX: R07.81 Pleurodynia (principal); R09.1 Pleurisy; I10 Essential (primary) hypertension; F41.9 Anxiety disorder, unspecified; Z88.0 Allergy status to penicillin; Z88.2 Allergy status to sulfonamides; Z88.7 Allergy status to serum and vaccine; Z88.8 Allergy status to other drugs, medicaments and biological substances
CPT/HCPCS: 71101; 99202; G0463

== ENCOUNTER 2020-07-20 15:50 | Emergency (ER) | payer MEDICAID, SELFPAY ==
[2020-07-20 16:00] VITALS: BP 139/87; PULSE 114; RESP 20; TEMP 37.1; O2SAT 97; BMI 25.3
[2020-07-20 16:36] LABS: UTC Strep Screen (Rapid) Negative (Negative)
[2020-07-20 16:37] LABS: UTC Influenza A Antigen Negative (Negative); UTC Influenza B Antigen Negative (Negative)
--- NOTE | 2020-07-20 17:16 | HMH.EDUTC ---
[facility] [place] Clinical Impression: Viral syndrome Disposition: Home, Self-Care Condition on Discharge: Good Instructions: DI for Viral Syndrome, Preventing the Spread of Coronavirus Discharge Instructions Additional Instructions: Drink plenty of fluids. Take tylenol for pain or fever. Return if you begin to have difficulty breathing. Follow up with your regular doctor. GO TO THE ER FOR ANY WORSENING SYMPTOMS Referrals: Pauline Mansfield APRN [Primary Care Provider] - Time of Disposition: 17:23 Medical Decision Making - Medical Records Medical records reviewed: No: I reviewed the patient's medical records. - Donta Inquiry Pt receiving controlled substance: No Vital Signs: 07/20/20 16:00 07/20/20 17:22 Temperature 98.7 F 98.7 F Temperature Source Oral Pulse Rate 114 H Pulse Rate [Right Brachial] 114 H Respiratory Rate 20 20 Blood Pressure 139/87 Blood Pressure [Right Arm] 139/87 Blood Pressure Mean [Right Arm] 104 Blood Pressure Source [Right Arm] Automatic Cuff Blood Pressure Position [Right Arm] Sitting 02 Sat by Pulse Oximetry 97 Oxygen Delivery Method Room Air - Lab Data Lab Results 07/20/20 16:05: Influenza Type A Ag Negative, Influenza Type B Ag Negative 07/20/20 16:05: Strep Scn Rapid Clinic Negative Orders (Tests/Meds): ED MEDICATIONS Discontinued Medications Generic Name Dose Route Start Last Admin Trade Name Carli PRN Reason Stop Dose Admin Acetaminophen 1,000 mg 07/20/20 16:51 07/20/20 16:51 Acetaminophen 500mg Tab PO 07/20/20 16:52 1,000 mg ONCE ONE Administration ORDERS Category Date Time Status Strep Screen Confirmation Stat Micro 07/20/20 16:05 Received [facility] [place] HPI - General Stated complaint: congestion,fever Time Seen by Provider: 07/20/20 17:16 Mode of Arrival: Ambulatory Source of Information: Patient Limitations: No Limitations Description of Symptoms (Recalled from Triage Doc. by RN): PATIENT C/O BODY ACHES, SORE THROAT, EAR PAIN, HEADACE, COUGHING, AND SNEEZING SINCE YESTERDA HEENT Symptoms (Recalled from RN notes): Yes Resp Symptoms (Recalled from RN notes): Yes Skin Symptoms (Recalled from RN notes): No MS Symptoms (Recalled from RN notes): No Functional Status (Recalled from RN notes): WNL - History of Present Illness Provider Complaint: She states that she started having chilling and fever during last night. She denies the rib pain today that she was having yesterday. - Related Data Home Medications Medication Instructions Recorded Confirmed Albuterol Sulfate [Albuterol 2 puff IH Q6HP PRN 07/20/20 07/20/20 Sulfate Hfa] Allergies Allergy/AdvReac Type Severity Reaction Status Date / Time Penicillins [PENICILLINS] Allergy Severe THROAT Verified 07/19/20 17:22 SWELLING, HIVES, VOMITTING amoxicillin [From AUGMENTIN] Allergy Intermediate I-HIVES Verified 07/19/20 17:22 clavulanic acid Allergy Intermediate I-HIVES Verified 07/19/20 17:22 [From AUGMENTIN] diphenhydramine Allergy Intermediate I-HIVES Verified 07/19/20 17:22 [From BENADRYL] ibuprofen [IBUPROFEN] Allergy Intermediate I-HIVES Verified 07/19/20 17:22 metoclopramide [From REGLAN] Allergy Intermediate I-HIVES Verified 07/19/20 17:22 Sulfa (Sulfonamide Allergy Intermediate I-HIVES Verified 07/19/20 17:22 Antibiotics) [SULFA (SULFONAMIDE ANTIBIOTICS)] tetanus toxoid, adsorbed Allergy Intermediate I-RASH Verified 07/19/20 17:22 [TETANUS TOXOID, ADSORBED] naproxen [NAPROXEN] Allergy Unknown Hives, Verified 07/19/20 17:22 Vomiting paroxetine [From PAXIL] Allergy Unknown numbness Verified 07/19/20 17:22 tongue atomoxetine [From Strattera] AdvReac Mild NA-HALLUCIN Verified 07/19/20 17:22 ATIONS - Worker's Comp Is this a Worker's Comp case?: No [facility] History - Hepatitis A Screen Drug use history?: No High risk sexual behaviors?: No History of sexually transmitted infe
[2020-07-20 17:22] VITALS: BP 139/87; PULSE 114; RESP 20; TEMP 37.1; O2SAT 97
== END 2020-07-20 17:25 | disposition home or self-care (01) ==
PROVIDERS: Emergency Provider Nurse Practitioner Family; PCP Nurse Practitioner
DX: B34.9 Viral infection, unspecified (principal); Z20.822 Contact with and (suspected) exposure to COVID-19; I10 Essential (primary) hypertension; F41.9 Anxiety disorder, unspecified; F17.210 Nicotine dependence, cigarettes, uncomplicated; Z88.0 Allergy status to penicillin; Z88.7 Allergy status to serum and vaccine; Z79.899 Other long term (current) drug therapy
CPT/HCPCS: 87804; 87880; 99202; G0463; U0003

== ENCOUNTER 2020-07-29 13:27 | Emergency (ER) | payer MEDICAID, SELFPAY ==
[2020-07-29 13:39] VITALS: BP 126/84; PULSE 95; RESP 17; TEMP 36.8; O2SAT 98; BMI 25.3
[2020-07-29 13:50] VITALS: BP 126/84; PULSE 95; RESP 17; TEMP 36.8; O2SAT 98
--- NOTE | 2020-07-29 14:09 | HMH.EDUTC ---
[facility] [place] Disposition Clinical Impression: Sinusitis Qualifiers: Sinusitis location: unspecified location Chronicity: acute Recurrence: non-recurrent Qualified Code(s): J01.90 - Acute sinusitis, unspecified Disposition: Home, Self-Care Condition on Discharge: Good Instructions: DI for Sinusitis Prescriptions: Doxycycline Hyclate [Doxycycline 100mg Capsule] 100 mg PO Q12 10 Days #20 cap Transmission Status: Received by [facility] predniSONE [Prednisone 20mg Tab] 20 mg PO BID 4 Days #8 tab [facility]: [facility] Referrals: Pauline Mansfield APRN [Primary Care Provider] - Medical Decision Making - Medical Records Medical records reviewed: No: I reviewed the patient's medical records. - Donta Inquiry Pt receiving controlled substance: No Vital Signs: 07/29/20 13:39 07/29/20 13:50 Temperature 98.2 F 98.2 F Temperature Source Oral Pulse Rate 95 H Pulse Rate [Left] 95 H Respiratory Rate 17 17 Blood Pressure 126/84 Blood Pressure [Right Arm] 126/84 Blood Pressure Mean [Right Arm] 98 02 Sat by Pulse Oximetry 98 [facility] [place] HPI - General Stated complaint: left facial swelling,cough Time Seen by Provider: 07/29/20 14:09 Mode of Arrival: Ambulatory Source of Information: Patient Limitations: No Limitations Description of Symptoms (Recalled from Triage Doc. by RN): Pt states that she thinks she has a sinus infection. Pt complain of sinus pressure in her jaw and green nasal drainage HEENT Symptoms (Recalled from RN notes): No Resp Symptoms (Recalled from RN notes): Yes Skin Symptoms (Recalled from RN notes): No MS Symptoms (Recalled from RN notes): No Functional Status (Recalled from RN notes): wnl - History of Present Illness Provider Complaint: She states that for the past 2 days she has had left sided facial tenderness and sinus drainage and congestion. She denies any fever or chills. - Related Data Home Medications Medication Instructions Recorded Confirmed Albuterol Sulfate [Albuterol 2 puff IH Q6HP PRN 07/20/20 07/20/20 Sulfate Hfa] Previous Rx's Medication Instructions Recorded Doxycycline Hyclate [Doxycycline 100 mg PO Q12 10 Days #20 cap 07/29/20 100mg Capsule] predniSONE [Prednisone 20mg 20 mg PO BID 4 Days #8 tab 07/29/20 Tab] Allergies Allergy/AdvReac Type Severity Reaction Status Date / Time Penicillins [PENICILLINS] Allergy Severe THROAT Verified 07/29/20 13:48 SWELLING, HIVES, VOMITTING amoxicillin [From AUGMENTIN] Allergy Intermediate I-HIVES Verified 07/29/20 13:48 clavulanic acid Allergy Intermediate I-HIVES Verified 07/29/20 13:48 [From AUGMENTIN] diphenhydramine Allergy Intermediate I-HIVES Verified 07/29/20 13:48 [From BENADRYL] ibuprofen [IBUPROFEN] Allergy Intermediate I-HIVES Verified 07/29/20 13:48 metoclopramide [From REGLAN] Allergy Intermediate I-HIVES Verified 07/29/20 13:48 Sulfa (Sulfonamide Allergy Intermediate I-HIVES Verified 07/29/20 13:48 Antibiotics) [SULFA (SULFONAMIDE ANTIBIOTICS)] tetanus toxoid, adsorbed Allergy Intermediate I-RASH Verified 07/29/20 13:48 [TETANUS TOXOID, ADSORBED] naproxen [NAPROXEN] Allergy Unknown Hives, Verified 07/29/20 13:48 Vomiting paroxetine [From PAXIL] Allergy Unknown numbness Verified 07/29/20 13:48 tongue atomoxetine [From Strattera] AdvReac Mild NA-HALLUCIN Verified 07/29/20 13:48 ATIONS - Worker's Comp Is this a Worker's Comp case?: No H History - Hepatitis A Screen Drug use history?: No High risk sexual behaviors?: No History of sexually transmitted infection?: No Currently employed?: No Childcare worker?: No Do you have indoor plumbing?: Yes Do you have electricity?: Yes Attestation statement:: This patient has been screened for Hepatitis A risk factors. I have reviewed the patient's past medical history: Yes Medical History: Reports:: Anxiety, Asthma, Hypert
== END 2020-07-29 14:18 | disposition home or self-care (01) ==
PROVIDERS: Emergency Provider Nurse Practitioner Family; PCP Nurse Practitioner
DX: J01.90 Acute sinusitis, unspecified (principal); I10 Essential (primary) hypertension; J45.909 Unspecified asthma, uncomplicated; F17.210 Nicotine dependence, cigarettes, uncomplicated; Z88.0 Allergy status to penicillin; Z88.2 Allergy status to sulfonamides; Z88.7 Allergy status to serum and vaccine; Z88.8 Allergy status to other drugs, medicaments and biological substances
CPT/HCPCS: 99202; G0463

== ENCOUNTER 2020-09-14 16:14 | Emergency (ER) | payer MEDICAID, SELFPAY ==
[2020-09-14 16:31] VITALS: BP 127/79; PULSE 91; RESP 19; TEMP 36.8; O2SAT 99; BMI 23.8
--- NOTE | 2020-09-14 17:03 | HMH.EDUTC ---
[facility] [place] Clinical Impression: Laceration of left index finger Qualifiers: Encounter type: initial encounter Damage to nail status: without damage Foreign body presence: without foreign body Qualified Code(s): S61.211A - Laceration without foreign body of left index finger without damage to nail, initial encounter Disposition: Home, Self-Care Condition on Discharge: Good Instructions: How to Care for a Laceration After Repair, DI for Laceration Repair Additional Instructions: Keep the wound clean and dry. Keep a dressing on it if you are going to be getting it dirty. Watch the for signs of infection, such as redness, swelling, drainage, fever. etc. Take tylenol for pain. Follow up with your regular doctor. Return in 10 days to have the sutures removed. GO TO THE ER FOR ANY WORSENING SYMPTOMS OR CONCERNS. Referrals: Pauline Mansfield APRN [Primary Care Provider] - Medical Decision Making - Medical Records Medical records reviewed: No: I reviewed the patient's medical records. - Donta Inquiry Pt receiving controlled substance: No Vital Signs: 09/14/20 16:31 09/14/20 17:56 Temperature 98.3 F 98 F Temperature Source Oral Pulse Rate 85 Pulse Rate [Right] 91 H Respiratory Rate 19 20 Blood Pressure 126/74 Blood Pressure [Right Arm] 127/79 Blood Pressure Mean [Right Arm] 95 02 Sat by Pulse Oximetry 99 [facility] [place]PI - General Stated complaint: [id number] cut index finger left hand Time Seen by Provider: 09/14/20 17:00 Mode of Arrival: Ambulatory Source of Information: Patient Limitations: No Limitations Description of Symptoms (Recalled from Triage Doc. by RN): pt presents with a lac on her left index finger. she states she cut it doing dishes around 1530. HEENT Symptoms (Recalled from RN notes): No Resp Symptoms (Recalled from RN notes): No Skin Symptoms (Recalled from RN notes): Yes (L index finger lac) MS Symptoms (Recalled from RN notes): No Functional Status (Recalled from RN notes): na - History of Present Illness Provider Complaint: She states that she was washing dishes when she stuck her hand into the water and touched a broken glass. She has a laceration on her left index finger. She states that she is allergic to tetanus immunizations. - Related Data Home Medications Medication Instructions Recorded Confirmed Albuterol Sulfate [Albuterol 2 puff IH Q6HP PRN 07/20/20 07/20/20 Sulfate Hfa] Previous Rx's Medication Instructions Recorded Doxycycline Hyclate [Doxycycline 100 mg PO Q12 10 Days #20 cap 07/29/20 100mg Capsule] predniSONE [Prednisone 20mg 20 mg PO BID 4 Days #8 tab 07/29/20 Tab] Allergies Allergy/AdvReac Type Severity Reaction Status Date / Time Penicillins [PENICILLINS] Allergy Severe THROAT Verified 09/14/20 16:36 SWELLING, HIVES, VOMITTING amoxicillin [From AUGMENTIN] Allergy Intermediate I-HIVES Verified 09/14/20 16:36 clavulanic acid Allergy Intermediate I-HIVES Verified 09/14/20 16:36 [From AUGMENTIN] diphenhydramine Allergy Intermediate I-HIVES Verified 09/14/20 16:36 [From BENADRYL] ibuprofen [IBUPROFEN] Allergy Intermediate I-HIVES Verified 09/14/20 16:36 metoclopramide [From REGLAN] Allergy Intermediate I-HIVES Verified 09/14/20 16:36 Sulfa (Sulfonamide Allergy Intermediate I-HIVES Verified 09/14/20 16:36 Antibiotics) [SULFA (SULFONAMIDE ANTIBIOTICS)] tetanus toxoid, adsorbed Allergy Intermediate I-RASH Verified 09/14/20 16:36 [TETANUS TOXOID, ADSORBED] naproxen [NAPROXEN] Allergy Unknown Hives, Verified 09/14/20 16:36 Vomiting paroxetine [From PAXIL] Allergy Unknown numbness Verified 09/14/20 16:36 tongue atomoxetine [From Strattera] AdvReac Mild NA-HALLUCIN Verified 07/29/20 13:48 ATIONS - Worker's Comp Is this a Worker's Comp case?: No [facility] History - Hepatitis A Screen Drug use history?: No High risk sexual behaviors?: No History of sexua
[2020-09-14 17:56] VITALS: BP 126/74; PULSE 85; RESP 20; TEMP 36.6
== END 2020-09-14 18:06 | disposition home or self-care (01) ==
PROVIDERS: Emergency Provider Nurse Practitioner Family; PCP Nurse Practitioner
DX: S61.211A Laceration without foreign body of left index finger without damage to nail, initial encounter (principal); W25.XXXA Contact with sharp glass, initial encounter; Y92.010 Kitchen of single-family (private) house as the place of occurrence of the external cause; I10 Essential (primary) hypertension; F41.9 Anxiety disorder, unspecified; Z88.0 Allergy status to penicillin; Z88.2 Allergy status to sulfonamides; Z88.6 Allergy status to analgesic agent; Z88.8 Allergy status to other drugs, medicaments and biological substances
CPT/HCPCS: 12001; 96372; 99202; G0463

== ENCOUNTER 2020-09-16 22:23 | Emergency (ER) | payer MEDICAID, SELFPAY ==
[2020-09-16 23:45] VITALS: BP 125/107; PULSE 92; RESP 16; TEMP 37.1; O2SAT 100; BMI 23.7
[2020-09-17 01:06] VITALS: BP 00/00; PULSE 0; RESP 0; TEMP -17.7; TEMP 0; O2SAT 0
== END 2020-09-17 01:07 | disposition left against medical advice (07) ==
LOC: ER 09-17 00:01
PROVIDERS: Emergency Provider Emergency Medicine; PCP Physician Assistant
DX: S61.211D Laceration without foreign body of left index finger without damage to nail, subsequent encounter (principal); R60.0 Localized edema
CPT/HCPCS: 99211

== ENCOUNTER 2020-10-05 17:15 | Emergency (ER) | payer MEDICAID, SELFPAY ==
[2020-10-05 17:20] VITALS: BP 116/75; PULSE 78; RESP 19; TEMP 36.8; O2SAT 98; BMI 23.7
--- NOTE | 2020-10-05 17:30 | HMH.EDUTC ---
[facility] [place] Disposition Clinical Impression: Ganglion cyst Disposition: Home, Self-Care Condition on Discharge: Good Instructions: Ganglion Cyst, DI Ganglion Cyst Additional Instructions: Over the counter Motrin may help with pain and discomfort and help with anti-inflammatory associations with the cyst Follow up with your Family Doctor if no improvement or any worsening of symptoms Return if needed Elliott bandage may help with pain and discomfort Straight to ER if any life threatening symptoms Referrals: Pauline Mansfield APRN [Primary Care Provider] - As needed Time of Disposition: 17:49 Medical Decision Making - Donta Inquiry Pt receiving controlled substance: No Donta was queried for this patient: No Vital Signs: 10/05/20 17:20 10/05/20 18:05 Temperature 98.2 F 98.3 F Temperature Source Oral Pulse Rate 82 Pulse Rate [Left] 78 Respiratory Rate 19 20 Blood Pressure 112/74 Blood Pressure [Right Arm] 116/75 Blood Pressure Mean [Right Arm] 88 02 Sat by Pulse Oximetry 98 - Radiology Data #1 Image(s): Ankle Image Reviewed: Yes I reviewed the patient's radiology image Preliminary Findings: No Fracture Seen [facility] [place] HPI - General Stated complaint: knot L foot Time Seen by Provider: 10/05/20 17:38 Mode of Arrival: Ambulatory Source of Information: Patient Limitations: No Limitations Description of Symptoms (Recalled from Triage Doc. by RN): pt c/o of a knot on the front of her L ankle. ongoing for one week. HEENT Symptoms (Recalled from RN notes): No Resp Symptoms (Recalled from RN notes): No Skin Symptoms (Recalled from RN notes): Yes (small nodule place on the front of the lower L leg) MS Symptoms (Recalled from RN notes): No Functional Status (Recalled from RN notes): na - History of Present Illness Provider Complaint: Patient states that she noticed a small bruised knot like area on her left ankle States that she wasnt sure if she may have hit it or if it was a small cyst States that she has a history of cysts States that area is tender to the touch and it is moveable so she came in tonight to get it checked - Related Data Home Medications Medication Instructions Recorded Confirmed Albuterol Sulfate [Albuterol 2 puff IH Q6HP PRN 07/20/20 07/20/20 Sulfate Hfa] Previous Rx's Medication Instructions Recorded Doxycycline Hyclate [Doxycycline 100 mg PO Q12 10 Days #20 cap 07/29/20 100mg Capsule] predniSONE [Prednisone 20mg 20 mg PO BID 4 Days #8 tab 07/29/20 Tab] Allergies Allergy/AdvReac Type Severity Reaction Status Date / Time Penicillins [PENICILLINS] Allergy Severe THROAT Verified 10/05/20 17:26 SWELLING, HIVES, VOMITTING amoxicillin [From AUGMENTIN] Allergy Intermediate I-HIVES Verified 10/05/20 17:26 clavulanic acid Allergy Intermediate I-HIVES Verified 10/05/20 17:26 [From AUGMENTIN] diphenhydramine Allergy Intermediate I-HIVES Verified 10/05/20 17:26 [From BENADRYL] ibuprofen [IBUPROFEN] Allergy Intermediate I-HIVES Verified 10/05/20 17:26 metoclopramide [From REGLAN] Allergy Intermediate I-HIVES Verified 10/05/20 17:26 Sulfa (Sulfonamide Allergy Intermediate I-HIVES Verified 10/05/20 17:26 Antibiotics) [SULFA (SULFONAMIDE ANTIBIOTICS)] tetanus toxoid, adsorbed Allergy Intermediate I-RASH Verified 10/05/20 17:26 [TETANUS TOXOID, ADSORBED] naproxen [NAPROXEN] Allergy Unknown Hives, Verified 10/05/20 17:26 Vomiting paroxetine [From PAXIL] Allergy Unknown numbness Verified 10/05/20 17:26 tongue atomoxetine [From Strattera] AdvReac Mild NA-HALLUCIN Verified 10/05/20 17:26 ATIONS - Worker's Comp Is this a Worker's Comp case?: No [facility] History - Hepatitis A Screen Drug use history?: No High risk sexual behaviors?: No History of sexually transmitted infection?: No Currently employed?: No Childcare worker?: No Do you have indoor plumbing?: Yes Do you have electricity?: Yes Attestation stat
--- NOTE | 2020-10-05 17:38 | XR_ITS ---
PROCEDURE INFORMATION: Exam: XR Left Ankle Exam date and time: 10/05/2020 5:38 PM Age: 29 years old Clinical indication: Ankle; Left; Patient HX: PT states pain x 2 wks lt ant TECHNIQUE: Imaging protocol: XR Left ankle. Views: 3 or more views. Total images: 3 COMPARISON: CR ANKCMLT XR ankle LT min 3V 10/01/2017 1:11 AM FINDINGS: Bones/joints: No fractures. No blastic or lytic lesions. The ankle mortise joint is well maintained. No joint effusion. The visualized hindfoot and midfoot are grossly well aligned. No hindfoot coalition. Soft tissues: No periostitis or osteolysis. No gross soft tissue abnormalities. No radiopaque foreign bodies. IMPRESSION: No acute findings.
[2020-10-05 18:05] VITALS: BP 112/74; PULSE 82; RESP 20; TEMP 36.8
== END 2020-10-05 18:05 | disposition home or self-care (01) ==
PROVIDERS: Emergency Provider Nurse Practitioner; PCP Nurse Practitioner
DX: M67.472 Ganglion, left ankle and foot (principal); I10 Essential (primary) hypertension; F41.9 Anxiety disorder, unspecified; F17.210 Nicotine dependence, cigarettes, uncomplicated; Z88.0 Allergy status to penicillin; Z88.2 Allergy status to sulfonamides; Z88.7 Allergy status to serum and vaccine
CPT/HCPCS: 73610; 99202; G0463

== ENCOUNTER 2020-10-12 14:22 | Emergency (ER) | payer MEDICAID, SELFPAY ==
[2020-10-12 14:25] VITALS: BP 129/86; PULSE 109; RESP 20; TEMP 36.7; O2SAT 99; BMI 23.7
[2020-10-12 14:36] VITALS: BMI 23.7
--- NOTE | 2020-10-12 14:37 | XR_ITS ---
PROCEDURE: XR RIBS RT MIN 3V W CXR1V CLINICAL INDICATION: FELT POP /PAIN COMPARISON: CR Chest from 08/24/2018 CR XR CHEST 2V from 02/24/[address] CHEST W CON from 03/12/2019 CR XR RIBS RT MIN 3V W CXR1V from 07/19/2020 FINDINGS: Frontal view of the chest shows no acute finding. Multiple views of the right ribs show no obvious fracture or dislocation. There is lumbar scoliosis convex right. IMPRESSION: No acute findings. Dictated by: Elias Copeland MD 10/12/2020 15:10 Elias Copeland MD in [place] 10/12/2020 15:12
[2020-10-12 14:45] VITALS: BP 129/86; PULSE 109; RESP 20; TEMP 36.7; O2SAT 99
--- NOTE | 2020-10-12 15:41 | HMH.EDUTC ---
[facility] [place] Disposition Clinical Impression: Rib pain on right side Costochondral separation Qualifiers: Encounter type: initial encounter Qualified Code(s): S23.29XA - Dislocation of other parts of thorax, initial encounter Disposition: Home, Self-Care Condition on Discharge: Good Instructions: DI for Rib Contusion Additional Instructions: Use the incentive spirometer 10 times every 2 hours while you are awake for the next 2 weeks or so. Take the medication as directed. Follow up with your primary care doctor. GO TO THE ER FOR ANY WORSENING SYMPTOMS OR CONCERNS Prescriptions: Cyclobenzaprine HCl [Cyclobenzaprine 10mg Tab] 10 mg PO BIDP PRN #20 tab PRN Reason: Muscle Spasm Transmission Status: Received by [email or web address] predniSONE [Prednisone 20mg Tab] 20 mg PO BID 5 Days #19 tab Transmission Status: Received by [facility] Referrals: Pauline Mansfield APRN [Primary Care Provider] - Time of Disposition: 15:48 Medical Decision Making - Medical Records Medical records reviewed: No: I reviewed the patient's medical records. - Donta Inquiry Pt receiving controlled substance: No Vital Signs: 10/12/20 14:25 10/12/20 14:45 Temperature 98.0 F 98.0 F Temperature Source Temporal Artery Scan Pulse Rate 109 H Pulse Rate [Right Brachial] 109 H Respiratory Rate 20 20 Blood Pressure 129/86 Blood Pressure [Right Arm] 129/86 Blood Pressure Mean [Right Arm] 100 Blood Pressure Source [Right Arm] Automatic Cuff Blood Pressure Position [Right Arm] Sitting 02 Sat by Pulse Oximetry 99 Oxygen Delivery Method Room Air Orders (Tests/Meds): ED MEDICATIONS Discontinued Medications Generic Name Dose Route Start Last Admin Trade Name Freq PRN Reason Stop Dose Admin Ketorolac Tromethamine 60 mg 10/12/20 14:57 10/12/20 15:02 Ketorolac 60mg/2ml Vial IM 10/12/20 14:58 60 mg ONCE ONE Administration - Radiology Data #1 Image(s): Chest Image Reviewed: Yes I reviewed the patient's radiology image, Yes I have reviewed radiologist's interpretation Preliminary Findings: Normal/NAD no fractured ribs [facility] [place] HPI - General Stated complaint: felt something pop Rt side Time Seen by Provider: 10/12/20 15:41 Mode of Arrival: Ambulatory Source of Information: Patient Limitations: No Limitations Description of Symptoms (Recalled from Triage Doc. by RN): PATIENT STATES SHE WAS HELPING A FAMILY MEMBER BUILD A DECK WHEN SHE FELT A POP TO HER RIGHT RIB AREA; C/O PAIN HEENT Symptoms (Recalled from RN notes): No Resp Symptoms (Recalled from RN notes): No Skin Symptoms (Recalled from RN notes): No MS Symptoms (Recalled from RN notes): Yes Functional Status (Recalled from RN notes): WNL - History of Present Illness Provider Complaint: She states that she was carrying boards to build a deck this morning when she felt a pop in her right ribs. She began having right rib pain after that. She states the pain is worse when she breathes deep or coughs. - Related Data Previous Rx's Medication Instructions Recorded Cyclobenzaprine HCl 10 mg PO BIDP PRN #20 tab 10/12/20 [Cyclobenzaprine 10mg Tab] predniSONE [Prednisone 20mg 20 mg PO BID 5 Days #19 tab 10/12/20 Tab] Allergies Allergy/AdvReac Type Severity Reaction Status Date / Time Penicillins [PENICILLINS] Allergy Severe THROAT Verified 10/05/20 17:26 SWELLING, HIVES, VOMITTING amoxicillin [From AUGMENTIN] Allergy Intermediate I-HIVES Verified 10/05/20 17:26 clavulanic acid Allergy Intermediate I-HIVES Verified 10/05/20 17:26 [From AUGMENTIN] diphenhydramine Allergy Intermediate I-HIVES Verified 10/05/20 17:26 [From BENADRYL] ibuprofen [IBUPROFEN] Allergy Intermediate I-HIVES Verified 10/05/20 17:26 metoclopramide [From REGLAN] Allergy Intermediate I-HIVES Verified 10/05/20 17:26 Sulfa (Sulfonamide Allergy Intermediate I-HIVES Verified 10/05/20 17:26 Antibiotics)
== END 2020-10-12 15:54 | disposition home or self-care (01) ==
PROVIDERS: Emergency Provider Nurse Practitioner Family; PCP Nurse Practitioner
DX: S23.29XA Dislocation of other parts of thorax, initial encounter (principal); X50.0XXA Overexertion from strenuous movement or load, initial encounter; Y92.89 Other specified places as the place of occurrence of the external cause; I10 Essential (primary) hypertension; J45.909 Unspecified asthma, uncomplicated; F17.210 Nicotine dependence, cigarettes, uncomplicated; Z88.0 Allergy status to penicillin; Z88.2 Allergy status to sulfonamides; Z88.8 Allergy status to other drugs, medicaments and biological substances
CPT/HCPCS: 71101; 96372; 99202; G0463

== ENCOUNTER 2020-10-25 17:26 | Emergency (ER) | payer MEDICAID, SELFPAY ==
[2020-10-25 19:29] VITALS: BP 0/0; PULSE 0; RESP 0; TEMP -17.7; TEMP 0
== END 2020-10-25 19:31 | disposition left against medical advice (07) ==
LOC: UTC 17:30
PROVIDERS: Emergency Provider Nurse Practitioner Family; PCP Nurse Practitioner
DX: Z53.21 Procedure and treatment not carried out due to patient leaving prior to being seen by health care provider (principal)
CPT/HCPCS: 99202; G0463

== ENCOUNTER 2020-10-25 23:05 | Emergency (ER) | payer MEDICAID, SELFPAY ==
[2020-10-25 23:07] VITALS: BP 115/75; PULSE 97; RESP 16; TEMP 36.8; O2SAT 100; BMI 23.8
--- NOTE | 2020-10-25 23:26 | XR_ITS ---
PROCEDURE INFORMATION: Exam: XR Right Shoulder Exam date and time: 10/25/2020 11:26 PM Age: 29 years old Clinical indication: Shoulder; Right; Patient HX: Pain and popping after picking something up TECHNIQUE: Imaging protocol: XR Right shoulder. Views: 2 or more views. Total images: 3 COMPARISON: CR XR SHOULDER RT MIN 2V 01/06/2019 4:48 PM FINDINGS: Bones/joints: Similar appearance of partial widening of the right acromioclavicular joint from prior though not convincingly pathological. Soft tissues: Unremarkable. IMPRESSION: 1. Similar appearance of partial widening of the right acromioclavicular joint from prior though not convincingly pathological. Recommend correlation for focal tenderness. 2. No acute fracture identified.
--- NOTE | 2020-10-25 23:41 | HMH.EDGENADL ---
ED Disposition Clinical Impression: Shoulder injury Qualifiers: Encounter type: initial encounter Laterality: right Qualified Code(s): S49.91XA - Unspecified injury of right shoulder and upper arm, initial encounter Disposition: Home, Self-Care Condition on Discharge: Good Instructions: DI for Shoulder Pain Additional Instructions: ice and use meds and see pcp and ortho for follow up Prescriptions: predniSONE [Prednisone 20mg Tab] 20 mg PO BID #10 tab Transmission Status: Pending to [facility] Referrals: Pauline Mansfield APRN [Primary Care Provider] - - Critical Care Critical Care Time: No Attestation: On , the high probability of a clinically significant, sudden or life threatening deterioration of the following system(s) required my full and direct attention, intervention and personal management. The time I documented below is in addition to time spent performing reported procedures but includes the following listed in this critical care notation. Medical Decision Making - Medical Records Medical records reviewed: Yes: I reviewed the patient's medical records. - Donta Inquiry Pt receiving controlled substance: No Vital Signs: 10/25/20 23:07 Temperature 98.3 F Temperature Source Oral Pulse Rate [Right Radial] 97 H Respiratory Rate 16 Blood Pressure [Right Arm] 115/75 Blood Pressure Mean [Right Arm] 88 Blood Pressure Source [Right Arm] Automatic Cuff Blood Pressure Position [Right Arm] Sitting 02 Sat by Pulse Oximetry 100 Oxygen Delivery Method Room Air - Lab Data Lab results reviewed: Yes: I reviewed the patient's lab results. Orders (Tests/Meds): ORDERS Category Date Time Status XR shoulder RT min 2V Stat Exams 10/25/20 23:26 Taken - Radiology Data #1 Image(s): Shoulder Image Reviewed: Yes I reviewed the patient's radiology image, Yes I have reviewed radiologist's interpretation Preliminary Findings: No Fracture Seen Medical Decision Narrative: acute rt shoulder tendenitis klever need meds and ortho eval General Adult HPI - General Chief complaint: PAIN Stated complaint: AO 10/25/20 12:00 Imjury to right shoulder Time Seen by Provider: 10/25/20 23:15 Mode of Arrival: Ambulatory Source of Information: Patient, Medical Record Limitations: No Limitations Description of Symptoms (Recalled from ER Triage Doc. by RN): Pt reports hurting her right shoulder when she went to lift up some cat litter at [employer] at noon. No obvious deformity. - History of Present Illness HPI narrative: rt shoulder injury lifting cat food and heard pop rt ant shoulder with pain and dec rom Onset (ago): hour(s) Location: upper extremity Severity: moderate Quality: sharp Consistency: constant Associated symptoms: denies other symptoms Treatments prior to arrival: none - Related Data Previous Rx's Medication Instructions Recorded Cyclobenzaprine HCl 10 mg PO BIDP PRN #20 tab 10/12/20 [Cyclobenzaprine 10mg Tab] predniSONE [Prednisone 20mg 20 mg PO BID 5 Days #19 tab 10/12/20 Tab] predniSONE [Prednisone 20mg 20 mg PO BID #10 tab 10/25/20 Tab] Allergies Allergy/AdvReac Type Severity Reaction Status Date / Time Penicillins [PENICILLINS] Allergy Severe THROAT Verified 10/05/20 17:26 SWELLING, HIVES, VOMITTING amoxicillin [From AUGMENTIN] Allergy Intermediate I-HIVES Verified 10/05/20 17:26 clavulanic acid Allergy Intermediate I-HIVES Verified 10/05/20 17:26 [From AUGMENTIN] diphenhydramine Allergy Intermediate I-HIVES Verified 10/05/20 17:26 [From BENADRYL] ibuprofen [IBUPROFEN] Allergy Intermediate I-HIVES Verified 10/05/20 17:26 metoclopramide [From REGLAN] Allergy Intermediate I-HIVES Verified 10/05/20 17:26 Sulfa (Sulfonamide Allergy Intermediate I-HIVES Verified 10/05/20 17:26 Antibiotics) [SULFA (SULFONAMIDE ANTIBIOTICS)] tetanus toxoid, adsorbed Allergy Intermediate I-RASH Verified 10/05/20 17:
[2020-10-26 01:02] VITALS: BP 115/75; PULSE 97; RESP 16; TEMP 36.6; O2SAT 100
== END 2020-10-26 01:04 | disposition home or self-care (01) ==
LOC: ER 23:54
PROVIDERS: Emergency Provider Emergency Medicine; PCP Nurse Practitioner
DX: S49.91XA Unspecified injury of right shoulder and upper arm, initial encounter (principal); X50.0XXA Overexertion from strenuous movement or load, initial encounter; Y92.89 Other specified places as the place of occurrence of the external cause; I10 Essential (primary) hypertension; F41.9 Anxiety disorder, unspecified; F17.210 Nicotine dependence, cigarettes, uncomplicated
CPT/HCPCS: 73030; 99282

== ENCOUNTER 2020-11-20 09:51 | Outpatient (RCR) | payer MEDICAID, SELFPAY ==
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
== END 2020-11-20 09:55 | disposition home or self-care (01) ==
LOC: OT 09:51
PROVIDERS: PCP Nurse Practitioner; Visit Provider Orthopaedic Surgery
DX: M25.511 Pain in right shoulder (principal)
CPT/HCPCS: 97165

== ENCOUNTER → 2020-11-28 09:16 | Outpatient (CLI) | payer MEDICAID, SELFPAY | PROVIDERS: PCP Nurse Practitioner; Visit Provider Nurse Practitioner | DX: Z20.822 Contact with and (suspected) exposure to COVID-19 (principal) | CPT/HCPCS: C9803; U0003; U0005 ==

== ENCOUNTER 2020-12-05 09:31 | Emergency (ER) | payer MEDICAID, SELFPAY ==
[2020-12-05 09:41] VITALS: BP 108/74; PULSE 97; RESP 21; TEMP 36.9; O2SAT 99; BMI 25.0
--- NOTE | 2020-12-05 10:04 | HMH.EDUTC ---
[facility] Clinical Impression: Bronchitis Sinusitis Qualifiers: Sinusitis location: unspecified location Chronicity: unspecified Qualified Code(s): J32.9 - Chronic sinusitis, unspecified Disposition: Home, Self-Care Condition on Discharge: Good Instructions: Sinusitis, DI for Sinusitis, DI for Cough -- Adult, Sore Throat Additional Instructions: *Monitor Temp, Over the counter Motrin or Tylenol as directed/as needed Tylenol every 4 hours and Motrin every 6 hours (as long as your family doctor has told you that you can take it) for fever or pain. and straight to ER if unable to lower temp less than 101.0 after medication given *Warm salt water gargles may help to soothe the throat *Throat Lozenges *Warm fluids like tea with honey may help to soothe the throat *Sleep elevated *Humidifier/Vaporizer Your throat swab was sent for culture. Those results are typically sent to your primary care. Be sure to follow up in 2-3 days with your family doctor/primary care physician if no improvement so they can review those result and treat if necessary. If you don?t have a primary care doctor, I recommend you get one but in the mean time, you will have to return to a walk in clinic Follow up IMMEDIATELY for new or worsening symptoms or no Noticeable improvement over the next 48-72 hours. 911 for difficulty breathing or swallowing You were tested for today for COVID19 your test result should be back in the next 24-48 hours, you may call to the [facility] to see if your test results are back in the next 48 hours [phone] [facility] hours are 9am-9pm You was given a handout with instructions for Self Quarantine and Self isolation for while you wait on test results and what to do if they are positive If you are positive the Health Dept will be contacting you also Make sure to take your Vitamins Vit. C Vit D and Zinc if you can take them Prescriptions: Albuterol Sulfate [Proventil-HFA 90mcg/puff Inh] 1 - 2 puffs IH Q6HP PRN #1 each PRN Reason: Shortness Of Breath Transmission Status: Pending to [facility] Doxycycline Monohydrate [Doxycycline [place] 100mg Tab] 100 mg PO Q12 7 Days #14 tab Transmission Status: Pending to [facility] predniSONE [Prednisone 20mg Tab] 20 mg PO BID 5 Days #10 tab Transmission Status: [facility] to [facility] Referrals: Pauline Mansfield APRN [Primary Care Provider] - As needed Forms: Work/School Release Time of Disposition: 10:30 Medical Decision Making - Donta Inquiry Pt receiving controlled substance: No Donta was queried for this patient: No Vital Signs: 12/05/20 09:41 12/05/20 10:07 Temperature 98.4 F 98.5 F Temperature Source Oral Pulse Rate 78 Pulse Rate [Left] 97 H Respiratory Rate 21 19 Blood Pressure 117/77 Blood Pressure [Right Arm] 108/74 L Blood Pressure Mean [Right Arm] 85 02 Sat by Pulse Oximetry 99 - Lab Data Lab results reviewed: Yes: I reviewed the patient's lab results. Lab Results 12/05/20 09:51: Strep Scn Rapid Clinic Negative Orders (Tests/Meds): ORDERS Category Date Time Status Strep Screen Confirmation Stat Micro 12/05/20 09:51 Received [facility] [place] - General Stated complaint: sore throat, cough, soa, headache Time Seen by Provider: 12/05/20 10:05 Mode of Arrival: Ambulatory Source of Information: Patient Limitations: No Limitations Description of Symptoms (Recalled from Triage Doc. by RN): pt c/o productive cough sneezing, runny nose, upset stomach, sore throat and painful ears. HEENT Symptoms (Recalled from RN notes): Yes (sneezing, sore throat, nasal drainage, and bilateral ear pain) Resp Symptoms (Recalled from RN notes): Yes (productive cough) Skin Symptoms (Recalled from RN notes): No MS Symptoms (Recalled from RN notes): No Functional Status (Recalled from RN notes): na - History of Present Illness Provider Complaint: Patient states that she has been having sore throat, sinu
[2020-12-05 10:07] VITALS: BP 117/77; PULSE 78; RESP 19; TEMP 36.9
[2020-12-05 10:18] LABS: UTC Strep Screen (Rapid) Negative (Negative)
== END 2020-12-05 10:39 | disposition home or self-care (01) ==
PROVIDERS: Emergency Provider Nurse Practitioner; PCP Nurse Practitioner
DX: J20.9 Acute bronchitis, unspecified (principal); J32.9 Chronic sinusitis, unspecified; Z20.822 Contact with and (suspected) exposure to COVID-19; I10 Essential (primary) hypertension; F17.210 Nicotine dependence, cigarettes, uncomplicated
CPT/HCPCS: 87880; 99203; C9803; G0463; U0003; U0005

== ENCOUNTER → 2021-01-02 14:02 | Outpatient (CLI) | payer MEDICAID, SELFPAY ==
--- NOTE | 2021-01-02 14:02 | MR_ITS ---
PROCEDURE INFORMATION: Exam: MR Right Upper Extremity Joint Without Contrast; Shoulder Exam date and time: 01/02/2021 2:02 PM Age: 30 years old Clinical indication: Pain; Shoulder; Right; Additional info: RT shoulder pain TECHNIQUE: Imaging protocol: MR of the Right upper extremity without contrast. Exam focused on the shoulder. COMPARISON: 1. CR XR SHOULDER RT MIN 2V 10/25/2020 11:23 PM 2. CR XR SHOULDER RT MIN 2V 01/06/2019 4:48 PM 3. CR SHOU3R [id number] VIEWS 10/03/2014 10:19 PM FINDINGS: Limitations: Motion artifact. Bones and cartilage: There is no acute fracture or dislocation. No aggressive bone lesions are present. A benign subchondral cyst with surrounding bone marrow edema involves the anterior humeral head near the subscapularis tendon insertion. The undersurface of the acromion is flat, consistent with a type I acromion. Joint spaces: A normal amount of fluid is present in the glenohumeral joint. Glenoid labrum: Unremarkable. No evidence of tear. Bursae: A mild amount of fluid is present in the subacromial-subdeltoid bursa. Supraspinatus tendon: No tear or significant tendinosis involves the supraspinatus tendon. Infraspinatus tendon: No tear or significant tendinosis involves the infraspinatus tendon. Subscapularis tendon: Mild tendinosis involves the subscapularis tendon. Teres minor tendon: No tear or significant tendinosis involves the teres minor tendon. Tendon of biceps brachii: The long head of the biceps tendon is normally situated within the bicipital groove. Glenohumeral ligaments: Unremarkable. Muscles: The rotator cuff musculature demonstrates no significant edema or atrophy. Soft tissues: Unremarkable. IMPRESSION: 1. Mild supraspinatus tendinosis. 2. Mild subacromial-subdeltoid bursitis. 3. Subchondral cyst with surrounding edema along the anterior aspect of the humeral head near the subscapularis tendon insertion. 4. No evidence of acromioclavicular separation injury.
== END ==
PROVIDERS: PCP Nurse Practitioner; Visit Provider Orthopaedic Surgery
DX: S43.101A Unspecified dislocation of right acromioclavicular joint, initial encounter (principal)
CPT/HCPCS: 73221

== ENCOUNTER 2021-01-09 19:12 | Emergency (ER) | payer MEDICAID, SELFPAY ==
--- NOTE | 2021-01-09 19:57 | XR_ITS ---
PROCEDURE INFORMATION: Exam: XR Right Foot Exam date and time: 01/09/2021 7:57 PM Age: 30 years old Clinical indication: Pain; Toes; Patient HX: PT stubbed right second toe, PT states its swollen and crooked TECHNIQUE: Imaging protocol: XR Right foot. Views: 3 or more views. COMPARISON: CR FTR3 FOOT-RT-3 VIEWS 01/09/2017 11:33 AM FINDINGS: Bones/joints: No fracture. No malalignment. Soft tissues: Normal. IMPRESSION: No acute findings. For persistent symptoms, recommend follow-up of the toe is in 7-10 days.
[2021-01-09 20:22] VITALS: BP 144/94; PULSE 88; RESP 16; TEMP 36.9; O2SAT 99; BMI 24.2
--- NOTE | 2021-01-09 20:46 | HMH.EDUTC ---
[facility] [place] Clinical Impression: Crushing injury of right foot and toe Qualifiers: Encounter type: initial encounter Qualified Code(s): S97.81XA - Crushing injury of right foot, initial encounter Disposition: Home, Self-Care Condition on Discharge: Good Instructions: DI for Toe Sprain, DI for Crush Injury Additional Instructions: Rest the extremity, Elevate the extremity as tolerated while you are resting. Take tylenol for pain Follow up with Dr. Stevens (podiatry). Sometimes there can be fractures that don't show up well on the first set of x-rays. So, you should follow up if you continue to have symptoms. I put in a referral but you need to call her office and schedule an appointment. Follow up with your regular doctor. GO TO THE ER FOR ANY WORSENING SYMPTOMS Referrals: Pauline Mansfield APRN [Primary Care Provider] - Pastora Stevens DPM [Staff Physician] - Time of Disposition: 20:51 Medical Decision Making - Medical Records Medical records reviewed: No: I reviewed the patient's medical records. - Donta Inquiry Pt receiving controlled substance: No Vital Signs: 01/09/21 20:22 01/09/21 20:53 Temperature 98.5 F 98.5 F Temperature Source Oral Pulse Rate 88 Pulse Rate [Left] 88 Respiratory Rate 16 18 Blood Pressure 144/94 H Blood Pressure [Right Arm] 144/94 H Blood Pressure Mean [Right Arm] 110 02 Sat by Pulse Oximetry 99 - Radiology Data #1 Image(s): Foot/Toes Image Reviewed: Yes I reviewed the patient's radiology image, Yes I have reviewed radiologist's interpretation Preliminary Findings: No Fracture Seen PROCEDURE INFORMATION: Exam: XR Right Foot Exam date and time: 01/09/2021 7:57 PM Age: 30 years old Clinical indication: Pain; Toes; Patient HX: PT stubbed right second toe, PT states its swollen and crooked TECHNIQUE: Imaging protocol: XR Right foot. Views: 3 or more views. COMPARISON: CR FTR3 FOOT-RT-3 VIEWS 01/09/2017 11:33 AM FINDINGS: Bones/joints: No fracture. No malalignment. Soft tissues: Normal. IMPRESSION: No acute findings. For persistent symptoms, recommend follow-up of the toe is in 7-10 days. [facility] [place] HPI - General Stated complaint: injured R 2nd toe Time Seen by Provider: 01/09/21 20:46 Mode of Arrival: Ambulatory Source of Information: Patient Limitations: No Limitations Description of Symptoms (Recalled from Triage Doc. by RN): pt caught her R foot middle toe in a door on 01/06. pt is still having pain in this foot. HEENT Symptoms (Recalled from RN notes): No Resp Symptoms (Recalled from RN notes): No Skin Symptoms (Recalled from RN notes): No MS Symptoms (Recalled from RN notes): Yes (R foot middle toe pain) Functional Status (Recalled from RN notes): na - History of Present Illness Provider Complaint: She states that 3 days ago a heavy wood door slammed and caught her rigth 1st and 2nd toe in it. Since then she has had pain and swelling of the 2nd toe. She denies any other injury. It did not hurt her nail or cause a wound. - Related Data Previous Rx's Medication Instructions Recorded Cyclobenzaprine HCl 10 mg PO BIDP PRN #20 tab 10/12/20 [Cyclobenzaprine 10mg Tab] Albuterol Sulfate [Proventil-HFA 1 - 2 puffs IH Q6HP PRN #1 each 12/05/20 90mcg/puff Inh] Doxycycline Monohydrate 100 mg PO Q12 7 Days #14 tab 12/05/20 [Doxycycline [place] 100mg Tab] Allergies Allergy/AdvReac Type Severity Reaction Status Date / Time Penicillins [PENICILLINS] Allergy Severe THROAT Verified 12/15/20 09:32 SWELLING, HIVES, VOMITTING amoxicillin [From AUGMENTIN] Allergy Intermediate I-HIVES Verified 12/15/20 09:32 clavulanic acid Allergy Intermediate I-HIVES Verified 12/15/20 09:32 [From AUGMENTIN] diphenhydramine Allergy Intermediate I-HIVES Verified 12/15/20 09:32 [From BENADRYL] ibuprofen [IBUPROFEN]
[2021-01-09 20:53] VITALS: BP 144/94; PULSE 88; RESP 18; TEMP 36.9
== END 2021-01-09 20:55 | disposition home or self-care (01) ==
PROVIDERS: Emergency Provider Nurse Practitioner Family; PCP Nurse Practitioner
DX: S97.81XA Crushing injury of right foot, initial encounter (principal); W23.1XXA Caught, crushed, jammed, or pinched between stationary objects, initial encounter; Y92.89 Other specified places as the place of occurrence of the external cause; I10 Essential (primary) hypertension; Z88.0 Allergy status to penicillin; Z88.2 Allergy status to sulfonamides
CPT/HCPCS: 73630; 99202; G0463

== ENCOUNTER 2021-01-10 20:59 | Emergency (ER) | payer MEDICAID, SELFPAY ==
[2021-01-10 21:01] VITALS: BP 132/94; PULSE 100; RESP 16; TEMP 36.9; O2SAT 100; BMI 24.2
[2021-01-10 21:48] VITALS: BP 118/78; PULSE 84; RESP 16; TEMP 36.9; O2SAT 98
--- NOTE | 2021-01-10 22:16 | HMH.EDUPEXT ---
ED Disposition Clinical Impression: Tendonitis of shoulder, right Disposition: Home, Self-Care Condition on Discharge: Fair Instructions: Shoulder Tendinopathy Additional Instructions: Limited use of your right upper extremity until cleared by your primary care physician. Apply cold packs followed by heat packs to the affected area. Take [id number] anti-inflammatory such as ibuprofen and/or Advil. Into the emergency department if you feel worse in any way. Referrals: Pauline Mansfield APRN [Primary Care Provider] - - Critical Care Critical Care Time: No Attestation: On 01/10/21, the high probability of a clinically significant, sudden or life threatening deterioration of the following system(s) required my full and direct attention, intervention and personal management. The time I documented below is in addition to time spent performing reported procedures but includes the following listed in this critical care notation. Medical Decision Making - Medical Records Medical records reviewed: Yes: I reviewed the patient's medical records. - Donta Inquiry Pt receiving controlled substance: No Vital Signs: 01/10/21 21:01 01/10/21 21:48 Temperature 98.4 F 98.4 F Temperature Source Oral Oral Pulse Rate 80 Pulse Rate [Left] 100 H Respiratory Rate 16 16 Blood Pressure 118/78 Blood Pressure [Left Arm] 132/94 H Blood Pressure Mean [Left Arm] 106 02 Sat by Pulse Oximetry 100 Oxygen Delivery Method Room Air Medical Decision Narrative: The results from the MRI performed on the of last month were reviewed by me. It does not show any evidence of AC separation but shows tendinitis consistent with the patient's pain. I feel that there is no need for further work-up. The patient needs to follow-up with her primary care providers for further management and possibly physical therapy. Upper Extremity HPI - General Chief Complaint: Extremity Injury, Upper Stated Complaint: R shoulder and neck pain AC seperation Time Seen by Provider: 01/10/21 22:16 Mode of Arrival: Ambulatory Limitations: No Limitations Description of Symptoms (Recalled from ER Triage Doc. by RN): pt states that she is in unbarable pain in the right shoulder down the arm that is from an injury. pt states she has an appointment to get her mri results on the 12 - History of Present Illness HPI narrative: Patient presents to the emergency department complaining of right shoulder pain that happened after lifting cat litter approximately several weeks ago. He had an MRI on 01/02 to rule out AC separation. Does not yet have the results for that. Denies any other problems. MD complaint: injury to: right, shoulder - Related Data Previous Rx's Medication Instructions Recorded Cyclobenzaprine HCl 10 mg PO BIDP PRN #20 tab 10/12/20 [Cyclobenzaprine 10mg Tab] Albuterol Sulfate [Proventil-HFA 1 - 2 puffs IH Q6HP PRN #1 each 12/05/20 90mcg/puff Inh] Doxycycline Monohydrate 100 mg PO Q12 7 Days #14 tab 12/05/20 [Doxycycline [place] 100mg Tab] Allergies Allergy/AdvReac Type Severity Reaction Status Date / Time Penicillins [PENICILLINS] Allergy Severe THROAT Verified 12/15/20 09:32 SWELLING, HIVES, VOMITTING amoxicillin [From AUGMENTIN] Allergy Intermediate I-HIVES Verified 12/15/20 09:32 clavulanic acid Allergy Intermediate I-HIVES Verified 12/15/20 09:32 [From AUGMENTIN] diphenhydramine Allergy Intermediate I-HIVES Verified 12/15/20 09:32 [From BENADRYL] ibuprofen [IBUPROFEN] Allergy Intermediate I-HIVES Verified 12/15/20 09:32 metoclopramide [From REGLAN] Allergy Intermediate I-HIVES Verified 12/15/20 09:32 Sulfa (Sulfonamide Allergy Intermediate I-HIVES Verified 12/15/20 09:32 Antibiotics) [SULFA (SULFONAMIDE ANTIBIOTICS)] tetanus toxoid, adsorbed Allergy Intermediate I-RASH Verified 12/15/20 09:32 [TETANUS TOXOID, ADSORBED] naproxen [NAPROXEN] Allergy Unknown Hives,
== END 2021-01-10 22:34 | disposition home or self-care (01) ==
PROVIDERS: Emergency Provider Emergency Medicine; PCP Nurse Practitioner
DX: M75.01 Adhesive capsulitis of right shoulder (principal); I10 Essential (primary) hypertension; F41.9 Anxiety disorder, unspecified; F17.210 Nicotine dependence, cigarettes, uncomplicated; Z88.0 Allergy status to penicillin; Z88.2 Allergy status to sulfonamides
CPT/HCPCS: 99281

== ENCOUNTER → 2021-02-12 12:41 | Outpatient (CLI) | payer MEDICAID, SELFPAY | PROVIDERS: PCP Nurse Practitioner; Visit Provider Nurse Practitioner | DX: Z20.822 Contact with and (suspected) exposure to COVID-19 (principal) | CPT/HCPCS: C9803; U0003; U0005 ==

== ENCOUNTER → 2021-04-10 17:35 | Outpatient (CLI) | payer MEDICAID, SELFPAY | PROVIDERS: PCP Nurse Practitioner; Visit Provider Nurse Practitioner | DX: U07.1 COVID-19 (principal) | CPT/HCPCS: C9803; U0003; U0005 ==

== ENCOUNTER 2021-05-16 14:00 | Outpatient (RCR) | payer MEDICAID, SELFPAY ==
--- NOTE | 2021-05-07 14:59 | HMH.OTOPEV ---
OT Inpatient Evaluation Rehab OT Outpatient Eval Start: 05/07/21 14:42 Freq: Status: Active Protocol: Document 05/07/21 14:42 GANESH (Rec: 05/07/21 14:58 GANESH [id number]) Electronically Signed By Lexus Hoang OT 05/07/21 14:42 Outpatient Therapy Subjective History Subjective History Patient is a 30-year-old right -hand-dominant female who presents to the office today for a follow-up for her right shoulder pain. She is accompanied today by her . She has previously been under the care of Dr. Richmond for her right shoulder who referred her to Dr. Riddle. She states that in October 2020 she injured her right shoulder lifting a 38 lb bag and felt/heard a loud pop in her shoulder at that time. She reports that she had immediate pain in the right shoulder that has not improved since that time. She reports that her pain is localized to the right shoulder but reports that she has tingling/ numbness that radiates down into her arm. She denies neck pain or back pain. She rates her pain a 6 out of 10 at its worst and states that any movements aggravate her pain. She reports that she had tried Tylenol, heat, and ice for her pain with little to no relief. Under the care of Dr Kalani Richmond, she completed formal physical therapy, had MRI of the right shoulder, and received a biceps tendon steroid injection with little to no relief. MRI findings: 1. Mild supraspinatus tendinosis. 2. Mild subacromial-subdeltoid bursitis. 3. Subchondral cyst with surrounding edema along the anterior aspect of the humeral
== END 2021-05-16 14:05 | disposition home or self-care (01) ==
LOC: OT 14:00
PROVIDERS: PCP Nurse Practitioner; Visit Provider Orthopaedic Surgery
DX: M25.511 Pain in right shoulder (principal)
CPT/HCPCS: 97010; 97014; 97035; 97140; 97165; 97530; G0283

== ENCOUNTER 2021-06-19 12:58 | Emergency (ER) | payer MEDICAID, SELFPAY ==
[2021-06-19 13:40] VITALS: BP 110/63; PULSE 121; RESP 22; TEMP 37.2; O2SAT 100; BMI 25.0
[2021-06-19 14:05] LABS: UTC Influenza A Antigen Positive (Negative); UTC Influenza B Antigen Negative (Negative)
[2021-06-19 14:18] VITALS: BP 110/63; PULSE 121; RESP 22; TEMP 37.2; O2SAT 100
--- NOTE | 2021-06-19 14:54 | HMH.EDUTC ---
[facility] – [place] Dis[place] Clinical Impression: Influenza A Disposition: Home, Self-Care Condition on Discharge: Good Instructions: Influenza, DI for Influenza -- Adult Additional Instructions: Drink plenty of fluids. Take tylenol or ibuprofen for pain or fever. Take the medications as directed. Follow up with your regular doctor. GO TO THE ER FOR ANY WORSENING SYMPTOMS Prescriptions: Albuterol Sulfate [Albuterol Sulfate Hfa] 2 puffs IH Q6HP PRN 30 Days #1 each PRN Reason: Shortness Of Breath Transmission Status: Received by [facility] Promethazine/Dextromethorphan [Promethazine-Dm Syrup] 5 ml PO Q6HP PRN #240 ml PRN Reason: Cough Transmission Status: Received by [facility] methylPREDNISolone [Medrol] 4 mg PO DIRECTED 6 Days #21 packet Transmission Status: Received by [facility] Oseltamivir Phosphate [Tamiflu 75mg Capsule] 75 mg PO BID #10 cap Transmission Status: Received by [facility] Azithromycin [Z-Ender 250mg Tab*] 250 mg PO UD DOSE PK #6 tab Transmission Status: Received by [facility] Referrals: Pauline Mansfield APRN [Primary Care Provider] - Forms: Work/School Release Time of Disposition: 14:57 Medical Decision Making - Medical Records Medical records reviewed: No: I reviewed the patient's medical records. - Donta Inquiry Pt receiving controlled substance: No Vital Signs: 06/19/21 13:40 06/19/21 14:18 Temperature 99.0 F 99.0 F Temperature Source Oral Pulse Rate 121 H Pulse Rate [Right Brachial] 121 H Respiratory Rate 22 22 Blood Pressure 110/63 Blood Pressure [Right Arm] 110/63 Blood Pressure Mean [Right Arm] 78 Blood Pressure Source [Right Arm] Automatic Cuff Blood Pressure Position [Right Arm] Sitting 02 Sat by Pulse Oximetry 100 Oxygen Delivery Method Room Air - Lab Data Lab results reviewed: Yes: I reviewed the patient's lab results. Lab Results 06/19/21 13:47: Influenza Type A Ag Positive A, Influenza Type B Ag Negative Orders (Tests/Meds): ED MEDICATIONS Discontinued Medications Generic Name Dose Route Start Last Admin Trade Name Freq PRN Reason Stop Dose Admin Acetaminophen 650 mg 06/19/21 14:02 06/19/21 14:05 Acetaminophen 325mg Tab PO 06/19/21 14:03 650 mg ONCE ONE Administration [facility] [place] HPI - General Stated complaint: bodyaches, chills, fever, cough Time Seen by Provider: 06/19/21 14:54 Mode of Arrival: Ambulatory Source of Information: Patient Limitations: No Limitations Description of Symptoms (Recalled from Triage Doc. by RN): PATEINT C/O COUGH, SNEEZING, RUNNY NOSE, HOT FLASHES AND COLD SWEATS THAT STARTED TODAY HEENT Symptoms (Recalled from RN notes): Yes Resp Symptoms (Recalled from RN notes): Yes Skin Symptoms (Recalled from RN notes): No MS Symptoms (Recalled from RN notes): No Functional Status (Recalled from RN notes): WNL - History of Present Illness Provider Complaint: She c/o sore throat, chills, body aches and malaise since this morning. - Related Data Previous Rx's Medication Instructions Recorded Albuterol Sulfate [Proventil-HFA 1 - 2 puffs IH Q6HP PRN #1 each 12/05/20 90mcg/puff Inh] Albuterol Sulfate [Albuterol 2 puffs IH Q6HP PRN 30 Days #1 each 06/19/21 Sulfate Hfa] Azithromycin [Z-Ender 250mg Tab*] 250 mg PO UD DOSE PK #6 tab 06/19/21 Oseltamivir Phosphate [Tamiflu 75 mg PO BID #10 cap 06/19/21 75mg Capsule] Promethazine/Dextromethorphan 5 ml PO Q6HP PRN #240 ml 06/19/21 [Promethazine-Dm Syrup] methylPREDNISolone [Medrol] 4 mg PO DIRECTED 6 Days #21 06/19/21 packet Allergies Allergy/AdvReac Type Severity Reaction Status Date / Time Penicillins [PENICILLINS] Allergy Severe THROAT Verified 05/24/21 09:43 SWELLING, HIVES, VOMITTING amoxicillin [From AUGMENTIN] Allergy Intermediate I-HIVES Verified 05/24/21 09:43 clavulanic acid Allergy Intermediate I-HIVES [place]
== END 2021-06-19 15:11 | disposition home or self-care (01) ==
PROVIDERS: Emergency Provider Nurse Practitioner Family; PCP Nurse Practitioner
DX: J10.1 Influenza due to other identified influenza virus with other respiratory manifestations (principal); I10 Essential (primary) hypertension; F41.9 Anxiety disorder, unspecified; F17.210 Nicotine dependence, cigarettes, uncomplicated; Z79.899 Other long term (current) drug therapy; Z88.0 Allergy status to penicillin; Z88.2 Allergy status to sulfonamides; Z88.8 Allergy status to other drugs, medicaments and biological substances
CPT/HCPCS: 87804

== ENCOUNTER → 2021-06-27 14:16 | Outpatient (CLI) | payer MEDICAID, SELFPAY ==
[2021-06-27 14:23] LABS: Microscopic, Urine URINE MICROSCOPIC (MICROSCOPIC)
--- NOTE | 2021-06-27 14:30 | XR_ITS ---
FINAL REPORT CLINICAL HISTORY: pre-op for shoulder surgery, asymptomatic at this time. COMPARISON: October 13 2019 FINDINGS: Two views of the chest were obtained. The heart size and pulmonary vascularity are within normal limits. The mediastinum is normal. No acute pulmonary abnormality is identified. There is no pneumothorax. The bony thorax is intact. IMPRESSION: No active cardiopulmonary disease. Reviewed, Interpreted and Dictated by Pablo Amezcua III, MD Transcribed by Hannah Perdomo Authenticated by Pablo Amezcua III, MD on 06/27/2021 04:10:43 PM [facility]
[2021-06-27 14:58] LABS: Basophils # 0.1 K/mm3 (0-0.2); Basophils % 1.7 % (0.1-2.0); Eosinophils # 0.2 K/mm3 (0.0-0.4); Eosinophils % 2.6 % (0.1-12.0); Hematocrit 42.6 % (37.0-47.0); Lymphocytes # 2.9 K/mm3 (0.7-4.5); Lymphocytes % 47.6 % (10-50); Mean Corpuscular Hemoglobin 29.5 pg (27.0-31.2); Mean Corpuscular Volume 89.4 fl (81-99); Mean Platelet Volume 10.4 fl (7.4-10.4); Monocytes # 0.3 K/mm3 (0.1-1.0); Monocytes % 5.6 % (1.7-9.3); Neutrophils # 2.6 K/mm3 (1.8-7.8); Neutrophils % 42.6 % (37.0-80.0); Platelet Count 286 K/mm3 (142-424); Red Blood Count 4.76 M/mm3 (4.20-5.40); Red Cell Distribution Width 14.4 % (11.5-17.5)
[2021-06-27 15:42] LABS: Alanine Aminotransferase 53 U/L (12-78); Albumin Level 4.5 g/dl (3.5-5.0); Albumin/Globulin Ratio 1.6 (1.1-1.8); Alkaline Phosphatase 53 U/L (38-126); Anion Gap 10.6 mEq/L (5-15); Aspartate Amino Transferase 32 U/L (14-36); Bilirubin,Total 0.3 mg/dl (0.2-1.3); Blood Urea Nitrogen 12 mg/dl (7-17); Calcium 9.1 mg/dl (8.4-10.2); Carbon Dioxide 29 mmol/L (22.0-30.0); Chloride 101 mmol/L (98-107); Estimated Glomerular Filt Rate 98 ml/min (>60); GFR (African American) 118 ML/MIN (>60); Globulin 2.9 g/dL (1.3-3.2); Glucose 112 mg/dl (74-100); Potassium 4.6 mmoL/L (3.5-5.1); Sodium 136 mmol/L (136-145); Total Protein,Serum 7.4 g/dl (6.3-8.2)
[2021-06-27 16:25] LABS: Urine Pregnancy, HCG Qual. Negative (Negative)
[2021-06-27 16:28] LABS: Bilirubin,Urine Negative (Negative); Blood, Urine Negative (Negative); Color,Urine YELLOW (Yellow); Glucose,Urine (UA) Negative (Negative); Ketones,Urine Negative (Negative); Leukocyte Esterase,Urine 2+ (Negative); Nitrate,Urine Negative (Negative); Protein,Urine Negative (Negative); Specific Gravity, Urine <= 1.005 (1.005-1.030); Urobilinogen,Urine 0.2 EU/dl (0.2)
[2021-06-27 16:29] LABS: Appearance,Urine Slightly Cloudy (Clear)
[2021-06-27 16:52] LABS: Bacteria,Urine Trace /lpf
== END ==
PROVIDERS: PCP Nurse Practitioner; Visit Provider Orthopaedic Surgery
DX: Z01.818 Encounter for other preprocedural examination (principal); M25.511 Pain in right shoulder; G89.29 Other chronic pain; M75.41 Impingement syndrome of right shoulder; M75.51 Bursitis of right shoulder; M75.21 Bicipital tendinitis, right shoulder
CPT/HCPCS: 36415; 71046; 80053; 81001; 81025; 85025; 86850; 87086

== ENCOUNTER → 2021-07-09 08:09 | Outpatient (CLI) | payer MEDICAID, SELFPAY | PROVIDERS: Visit Provider Orthopaedic Surgery | DX: Z01.812 Encounter for preprocedural laboratory examination (principal); Z11.52 Encounter for screening for COVID-19; M75.41 Impingement syndrome of right shoulder | CPT/HCPCS: C9803; U0003; U0005 ==

== ENCOUNTER 2021-07-11 07:42 | Day surgery (SDC) | payer MEDICAID, SELFPAY ==
[2021-07-09 10:18] VITALS: BMI 31.2
[2021-07-11] VITALS (10 sets, daily range): BP systolic 99–165; BP diastolic 60–98; PULSE 67–101; RESP 10–18; TEMP 36.1–43; O2SAT 92–100
[2021-07-11 08:46] LABS: Microscopic, Urine URINE MICROSCOPIC (MICROSCOPIC)
[2021-07-11 08:53] LABS: Urine Pregnancy, HCG Qual. Negative (Negative)
[2021-07-11 08:54] LABS: Appearance,Urine SL CLOUDY (Clear); Bilirubin,Urine Negative (Negative); Blood, Urine Negative (Negative); Color,Urine YELLOW (Yellow); Glucose,Urine (UA) Negative (Negative); Ketones,Urine Negative (Negative); Leukocyte Esterase,Urine 3+ (Negative); Nitrate,Urine Negative (Negative); Protein,Urine Negative (Negative); Specific Gravity, Urine 1.015 (1.005-1.030)
[2021-07-11 09:17] LABS: Bacteria,Urine 1+ /lpf
--- NOTE | 2021-07-11 11:13 | HMH.ANESCL ---
[facility] Anesthesia Checklist - Patient Identification Patient Identification: Arm Band, Verbal (Name & ) - Structural Data Admitted From: Home Planned Operative Procedure/s: Right Shoulder Arthroscopy Consent for Planned Operative Procedure(s) Verified: Yes Verified Documents: Surgical Consent - NPO Status Verified Time NPO: 00:00 - Chart Verification Results Verified: CBC - Additional verifications Anesthesia Reactions: No Hx Blood Transfusions: Yes Blood Transfusion Reaction: No - Airway Assessment C-Spine Mobility Assessed: Yes TMJ Mobility Assessed: Yes Dentition: Edentulous - Neurological Assessment Level of Consciousness: Awake, Alert, Appropriate - Anesthesia Plan Anesthesia Risk discussed: Yes ASA Class: II Anesthesia Type: General w/block [facility] History I have reviewed the patient's past medical history: Yes Medical History: Reports:: Anxiety, Asthma, Hypertension, Lung Disease, Renal Disease Denies:: Cancer, Diabetes Mellitus Type 1, Diabetes Mellitus Type 2, Internal Pacemaker, MRSA, Seizures *Have you ever received a pneumonia vaccine?: No *Have you received a flu vaccine this season?: No Other Medical History: Reports: Other. Denies: Blood Transfusion Reaction Anesthesia experience/problems:: none Laterality Cases: Bilateral: Arthroscopy Knee, Tonsillectomy, Other Other Surgeries: Yes: Cholecystectomy, Colonoscopy, Diagnostic Lap, Other. No: Pacemaker Amputation: No Fractures: Yes - *Social History Last grade of school completed: 11th or 12th Smoking Status: Current every day smoker Tobacco Type: cigarettes # Packs/Day (cigarettes): 1 Alcohol Intake: never Alcohol Intake Frequency:: holidays/special occasions only Substance Use Type: marijuana *Occupational Status:: employed Housing: house Household Members: none *Travel in the last 8 weeks: None - Psychiatric History Pschychiatric History:: Reports:: Anxiety Family Hx:: No significant family history
--- NOTE | 2021-07-11 13:40 | SUR.OPER ---
1340-family updated at this time per Melissa,RN
--- NOTE | 2021-07-11 13:56 | SUR.OPER ---
late entry- 1050-f/c was not inserted prior to procedure per MD orders r/t pt's urinalysis results of 3+ leuk bernice, and Anesthesia both aware
--- NOTE | 2021-07-11 15:27 | P.PN_ITS ---
[facility] [place] Anesthesia Record Part I Intake, IV Amount: 1,500 Estimated blood loss (mL): 20 Urine output (mL): 0 Blood Products used (#): none Blood Pressure: 128/75 SaO2: 93 Pulse Rate: 70 Respiratory Rate: 10 Temperature: 97.0 F Patient is:: Drowsy Stable to PACU at:: 15:18
--- NOTE | 2021-07-11 16:08 | PC.NURSE ---
154-detailed report called to [facility] 1873-pt transported to post op via stretcher w/kane rails up and left in care of [facility] with bed locked in lowest position, vss, pt stable
--- NOTE | 2021-07-11 18:50 | HMH.OPNOTE ---
Date of procedure: 07/11/21 Pre-op Diagnosis:: 1. Chronic pain, RIGHT shoulder 2. Biceps tendinitis, RIGHT shoulder 3. Subacromial bursitis, RIGHT shoulder 4. Subacromial impingement, RIGHT shoulder Post-op Diagnosis:: 1. Rotator cuff tear, RIGHT shoulder-small full-thickness tear of the anterior supraspinatus tendon 2. Subacromial bursitis, RIGHT shoulder 3. Subacromial impingement, RIGHT shoulder 4. Degenerative labrum, RIGHT glenohumeral joint 5. Biceps tendinitis, right shoulder Procedure performed:: 1. Arthroscopic rotator cuff repair, RIGHT shoulder. 2. Arthroscopic subacromial decompression with subacromial and subdeltoid bursectomy and bony acromioplasty, RIGHT shoulder. 3. Arthroscopic glenohumeral joint debridement, RIGHT shoulder. 4. Arthroscopic biceps tenodesis, RIGHT shoulder Surgeon:: Gilbert Riddle MD Conventional Machinist(s):: Tila Page PA-C WAREHOUSE PRICING AND INVENTORY CLERK:: Other (Shon Alcaraz) Anesthesia: GETA, regional (Interscalene nerve block) Estimated blood loss (mL): 5 Clinical Note:: Patient is a 30-year-old [id number] female with history of pain and disability in her right shoulder for a long time. Her symptoms started following an injury in October 2020. She has weakness and difficulty with the use of the arm. She failed to respond satisfactorily to prolonged course of conservative management including NSAIDs, local steroid injections and physical therapy. Preoperative evaluation was consistent with the above mentioned diagnosis. After discussion of the risks and benefits of the surgical versus nonsurgical management, patient elected to proceed with surgical remediation. Please refer to my office note for full details. Operative findings:: There was a small full-thickness rotator cuff tear involving the anterior supraspinatus tendon. The intra-articular biceps tendon was normal without any tearing or synovitis. The labrum was detached and frayed around the biceps anchor. The biceps tendon was pulled into the joint with a probe to visualize the extra-articular part. There was synovitis in the bicipital groove and some fraying of the extra-articular tendon. There was some minor scuffing of the superior border of the subscapularis tendon but overall the subscapular tendon was intact. The pouch was normal; the rotator interval was synovitic. The articular surface of the humerus and glenoid were without any significant degenerative changes. There was extensive subacromial and subdeltoid bursitis and the acromion had undersurface spurring over the anterolateral margin. Operative note:: On the day of the procedure, the patient was positively identified in the preoperative area; his surgical site was marked and initialed by me. I reviewed the clinical, x- ray and MRI findings with the patient. We again had a detailed discussion about the diagnosis, implications of the same, natural history and management options including both nonsurgical and surgical options for his shoulder. Nonsurgical alternatives explained as well which in his case would be physical therapy, activity modification and effective pain management. Given his symptoms, clinical and MRI findings, functional status, he is opting for surgical management. The proposed surgical management for him includes an arthroscopic glenohumeral joint debridement, biceps tenotomy versus tenodesis if indicated at the time of surgery, sub acromial decompression and rotator cuff repair. I told him that there were no guarantees with surgery; he could be no better or even worse. The complications discussed include but are not limited to infection, injury to nerves and blood vessels, bleeding, hematoma, tendon injury, fluid extravasation, chondrolysis, injury to the articular surface, instrument failure, DVT/PE, incomplete relief/continued pain, failure of the condition to improve, incomplete return of function, shoulder instability, arthritis, stiffness, complex regional pain syndrome (CRPS), recurrence,
[2021-07-12 07:44] VITALS: BP 143/82; PULSE 86; TEMP 36.3
--- NOTE | 2021-07-12 07:44 | HMH.ANESII ---
[facility] Anesthesia Record Part II Discharge Time: 15:48 Destination: Home PACU nurse assessment reviewed?: Yes Patient Condition:: Good Anesthesia Complications:: None none Swallowing reflex intact?: Yes Cyanosis?: No Blood Pressure: 143/82 Pulse Rate: 86 Temperature: 97.3 F Mental Status: Alert & Oriented Pain level:: 0 Nausea and/or vomitting:: None Intake, IV Amount: 0
== END 2021-07-11 16:23 | disposition home or self-care (01) ==
LOC: OR 07:43
PROVIDERS: PCP Nurse Practitioner; Visit Provider Orthopaedic Surgery
PROC: (CPT 29805; principal; 2021-07-11 10:30)
DX: M75.121 Complete rotator cuff tear or rupture of right shoulder, not specified as traumatic (principal); M75.21 Bicipital tendinitis, right shoulder; M75.41 Impingement syndrome of right shoulder
CPT/HCPCS: 29827; 29828; 29826; 81001; 81025; 87086; 96374; C1713; J2405

== ENCOUNTER 2021-09-05 15:00 | Outpatient (RCR) | payer MEDICAID, SELFPAY ==
--- NOTE | 2021-08-10 16:46 | HMH.OTOPEV ---
OT Inpatient Evaluation Rehab OT Outpatient Eval Start: 08/10/21 16:22 Freq: Status: Active Protocol: Document 08/10/21 16:23 ANNALISACALISTA (Rec: 08/10/21 16:42 GANESH [id number]) Electronically Signed By Lexus Hoang OT 08/10/21 16:23 Outpatient Therapy Subjective History Subjective History 30 year old female referred to skilled OP OT skilled services for s/p arthroscopic rotator cuff repair-partial thickness tear of the anterior supraspinatus tendon, arthroscopic subacromial decompression with subacromial and subdeltoid bursectomy and bony acromioplasty, right shoulder. Arthroscopic glenhumeral joint debridement, right shoulder and arthroscopic bicepes tendosis, right shoulder. 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 Patient verbalize no pain during rest and/or movement. Chief Complaint Pain,Weakness,Decreased Liability Claims Adjuster Strength Prior Functional Limitations None Current Functional Limitations Reaching,Lifting,Recreation Activity Symptom Description Constant and Continuous Level of pain today (0-10) 0 Pain scale - at its best (0-10) 0 Pain scale - at its worst (0-10) 0 Shoulder/Elbow Eval Shoulder Objective Measurements Shoulder ROM Right Shoulder Abduction Active Range of 145 Motion (degrees) Shoulder Flexion Active Range of Motion 135 (degrees) Query Text: Shoulder External Rotation Active Range 70 of Motion (degrees) Shoulder Internal Rotation Active Range 70 of Motion (degrees) Shoulder MMT Shoulder Abduction Strength Grade 3 Fair Shoulder Extension Strength Grade 3 Fair Shoulder Flexion Strength Grade 3 Fair Shoulder Horizontal Abduction Strength 3 Fair Grade Shoulder Horizontal Adduction Strength 3 Fair Grade Infraspinatus/Teres Minor Strength Grade 3 Fair Shoulder External Rotation Strength 3 Fair Grade Shoulder Internal Rotation Strength 3 Fair Grade Elbow Objective Measurements Wrist/Hand Eval Liability Claims Adjuster/Pinch Strength Right
== END 2021-09-05 15:05 | disposition home or self-care (01) ==
LOC: OT 15:00
PROVIDERS: PCP Physician Assistant; Visit Provider Orthopaedic Surgery
DX: M25.511 Pain in right shoulder (principal); G89.29 Other chronic pain; M75.41 Impingement syndrome of right shoulder; M75.51 Bursitis of right shoulder; M75.21 Bicipital tendinitis, right shoulder
CPT/HCPCS: 97010; 97014; 97110; 97140; 97165; 97530; G0283

== ENCOUNTER 2021-09-26 09:20 | Emergency (ER) | payer MEDICAID, SELFPAY ==
--- NOTE | 2021-09-26 09:33 | HMH.EDUTC ---
[facility] [place] Disposition Clinical Impression: Viral syndrome, Exposure to COVID-19 virus Disposition: Home, Self-Care Condition on Discharge: Good Instructions: DI for Viral Syndrome, DI for COVID-19 (Suspected or Confirmed ), Preventing the Spread of Coronavirus Discharge Instructions Additional Instructions: Drink plenty of fluids. Take tylenol or ibuprofen for pain or fever. Take the medications as directed. Follow up with your regular doctor. GO TO THE ER FOR ANY WORSENING SYMPTOMS Quarantine until you know the results of your covid-19 test. Notify your school or workplace of your results and follow their instructions regarding return to work/school. Prescriptions: Ondansetron [Zofran 4mg ODT] 4 mg PO Q8HP PRN #12 tab PRN Reason: Nausea Transmission Status: Received by [facility] Benzonatate [Benzonatate 100mg cap] 100 mg PO TIDP PRN #30 cap PRN Reason: Cough Transmission Status: Received by [facility] Azithromycin [Z-Ender 250mg Tab*] 250 mg PO UD DOSE PK #6 tab Transmission Status: Received by [facility] Referrals: Gisele Mansfield PA [Primary Care Provider] - Forms: Work/School Release Time of Disposition: 10:12 Medical Decision Making - Medical Records Medical records reviewed: No: I reviewed the patient's medical records. - Donta Inquiry Pt receiving controlled substance: No Vital Signs: 09/26/21 09:56 09/26/21 10:24 Temperature 97.5 F L 97.5 F L Temperature Source Oral Oral Pulse Rate 81 Pulse Rate [Left Radial] 79 Respiratory Rate 18 17 Blood Pressure 119/77 Blood Pressure [Right Arm] 120/87 Blood Pressure Mean [Right Arm] 98 02 Sat by Pulse Oximetry 100 Oxygen Delivery Method Room Air [facility] [place] HPI - General Stated complaint: cough,wheezing,runny nose Time Seen by Provider: 09/26/21 09:33 - History of Present Illness Provider Complaint: She c/o body aches, chills, sore throat and feeling bad for the past 2 days. - Related Data Previous Rx's Medication Instructions Recorded Albuterol Sulfate [Albuterol 2 puffs IH Q6HP PRN 30 Days #1 each 06/19/21 Sulfate Hfa] cyclobenzaprine 5 mg tablet 5 mg PO TID PRN #20 tab 07/11/21 ondansetron HCl 4 mg tablet 4 mg PO Q8H PRN #20 tab 07/11/21 Azithromycin [Z-Ender 250mg Tab*] 250 mg PO UD DOSE PK #6 tab 09/26/21 Benzonatate [Benzonatate 100mg 100 mg PO TIDP PRN #30 cap 09/26/21 cap] Ondansetron [Zofran 4mg ODT] 4 mg PO Q8HP PRN #12 tab 09/26/21 Allergies Allergy/AdvReac Type Severity Reaction Status Date / Time Penicillins [PENICILLINS] Allergy Severe THROAT Verified 09/04/21 13:42 SWELLING, HIVES, VOMITTING amoxicillin [From AUGMENTIN] Allergy Intermediate I-HIVES Verified 09/04/21 13:42 clavulanic acid Allergy Intermediate I-HIVES Verified 09/04/21 13:42 [From AUGMENTIN] diphenhydramine Allergy Intermediate I-HIVES Verified 09/04/21 13:42 [From BENADRYL] ibuprofen [IBUPROFEN] Allergy Intermediate I-HIVES Verified 09/04/21 13:42 metoclopramide [From REGLAN] Allergy Intermediate I-HIVES Verified 09/04/21 13:42 Sulfa (Sulfonamide Allergy Intermediate I-HIVES Verified 09/04/21 13:42 Antibiotics) [SULFA (SULFONAMIDE ANTIBIOTICS)] tetanus toxoid, adsorbed Allergy Intermediate I-RASH Verified 09/04/21 13:42 [TETANUS TOXOID, ADSORBED] naproxen [NAPROXEN] Allergy Unknown Hives, Verified 09/04/21 13:42 Vomiting paroxetine [From PAXIL] Allergy Unknown numbness Verified 09/04/21 13:42 tongue atomoxetine [From Strattera] AdvReac Mild NA-HALLUCIN Verified 09/04/21 13:42 [facility] History - Hepatitis A Screen Attestation statement:: This patient has been screened for Hepatitis A risk factors. I have reviewed the patient's past medical history: Yes Medical History: Reports:: Anxiety, Asthma, Hypertension, Lung Disease, Renal Disease Denies:: Cancer, Diabetes Mellitus Type 1,
[2021-09-26 09:56] VITALS: BP 120/87; PULSE 79; RESP 18; TEMP 36.4; O2SAT 100; BMI 24.3
[2021-09-26 10:24] VITALS: BP 119/77; PULSE 81; RESP 17; TEMP 36.4; O2SAT 100
== END 2021-09-26 10:25 | disposition home or self-care (01) ==
PROVIDERS: Emergency Provider Nurse Practitioner Family; PCP Physician Assistant
DX: Z20.822 Contact with and (suspected) exposure to COVID-19 (principal); R05.9 Cough, unspecified; R06.2 Wheezing; J02.9 Acute pharyngitis, unspecified; R50.9 Fever, unspecified
CPT/HCPCS: 99212; C9803; G0463; U0003; U0005

== ENCOUNTER → 2021-10-02 14:28 | Outpatient (CLI) | payer MEDICAID, SELFPAY ==
--- NOTE | 2021-10-02 14:38 | XR_ITS ---
FINAL REPORT CLINICAL HISTORY: shoulder pain COMPARISON: October 25, 2020 FINDINGS: Internal and external rotation views of the right shoulder were obtained. There is no fracture or dislocation. On the frontal view there appears to be slight elevation of the distal clavicle with respect to the acromion which is possibly positional given that there is no widening the acromioclavicular joint. The glenohumeral joint is intact. Soft tissues are normal. IMPRESSION: Elevation of the distal clavicle without widening of the acromioclavicular joint, possibly positional. Otherwise, no acute abnormality. Reviewed, Interpreted and Dictated by Clara Dubose MD Transcribed by Pauline Chanel Authenticated and [facility]
== END ==
PROVIDERS: PCP Nurse Practitioner; Visit Provider Physician Assistant Surgical
DX: M25.511 Pain in right shoulder (principal); Z09 Encounter for follow-up examination after completed treatment for conditions other than malignant neoplasm
CPT/HCPCS: 73030

== ENCOUNTER 2021-10-06 10:45 | Emergency (ER) | payer MEDICAID, SELFPAY ==
[2021-10-06 11:06] VITALS: BP 117/70; PULSE 91; RESP 16; TEMP 36.7; O2SAT 99; BMI 24.2
--- NOTE | 2021-10-06 11:15 | HMH.EDUTC ---
[facility] [place] Disposition Clinical Impression: Acute bronchitis Qualifiers: Bronchitis organism: unspecified organism Qualified Code(s): J20.9 - Acute bronchitis, unspecified Disposition: Home, Self-Care Condition on Discharge: Good Instructions: DI for Viral Syndrome Additional Instructions: Drink plenty of fluids. Take tylenol or ibuprofen for pain or fever. Take the medications as directed. Follow up with your regular doctor. GO TO THE ER FOR ANY WORSENING SYMPTOMS Prescriptions: Ondansetron [Zofran 4mg ODT] 4 mg PO Q8HP PRN #20 tab PRN Reason: Nausea Transmission Status: Received by [facility] [employer] methylPREDNISolone [Medrol] 4 mg PO DIRECTED 6 Days #21 packet Transmission Status: Received by [facility] Referrals: Pauline Mansfield APRN [Primary Care Provider] - Forms: Work/School Release Time of Disposition: 11:54 Medical Decision Making - Medical Records Medical records reviewed: No: I reviewed the patient's medical records. - Donta Inquiry Pt receiving controlled substance: No Vital Signs: 10/06/21 11:06 10/06/21 12:02 Temperature 98.0 F 98.0 F Temperature Source Oral Pulse Rate 91 H Pulse Rate [Left] 91 H Respiratory Rate 16 16 Blood Pressure 117/70 Blood Pressure [Right Arm] 117/70 Blood Pressure Mean [Right Arm] 85 02 Sat by Pulse Oximetry 99 - Lab Data Lab Results 10/06/21 11:04: Strep Scn Rapid Clinic Negative Orders (Tests/Meds): ORDERS Category Date Time Status Strep Screen Confirmation Stat Micro 10/06/21 11:04 Received [facility] [place] HPI - General Stated complaint: runny nose, cough, sore throat Time Seen by Provider: 10/06/21 11:15 Mode of Arrival: Ambulatory Source of Information: Patient Limitations: No Limitations Description of Symptoms (Recalled from Triage Doc. by RN): patient comes in with complaints of cough, sore throat, painful period cramps. patient states symptoms have continued since last visit and has not gotten better. HEENT Symptoms (Recalled from RN notes): Yes Resp Symptoms (Recalled from RN notes): Yes Skin Symptoms (Recalled from RN notes): No MS Symptoms (Recalled from RN notes): No Functional Status (Recalled from RN notes): n/a - History of Present Illness Provider Complaint: She c/o cough and chest congestion for the past 2 weeks. She denies any fever or chills. Her significant other has similar symptoms - Related Data Previous Rx's Medication Instructions Recorded Albuterol Sulfate [Albuterol 2 puffs IH Q6HP PRN 30 Days #1 each 06/19/21 Sulfate Hfa] cyclobenzaprine 5 mg tablet 5 mg PO TID PRN #20 tab 07/11/21 Azithromycin [Z-Ender 250mg Tab*] 250 mg PO UD DOSE PK #6 tab 09/26/21 Benzonatate [Benzonatate 100mg 100 mg PO TIDP PRN #30 cap 09/26/21 cap] Ondansetron [Zofran 4mg ODT] 4 mg PO Q8HP PRN #12 tab 09/26/21 Ondansetron [Zofran 4mg ODT] 4 mg PO Q8HP PRN #20 tab 10/06/21 methylPREDNISolone [Medrol] 4 mg PO DIRECTED 6 Days #21 10/06/21 packet Allergies Allergy/AdvReac Type Severity Reaction Status Date / Time Penicillins [PENICILLINS] Allergy Severe THROAT Verified 10/06/21 11:10 SWELLING, HIVES, VOMITTING amoxicillin [From AUGMENTIN] Allergy Intermediate I-HIVES Verified 10/06/21 11:10 clavulanic acid Allergy Intermediate I-HIVES Verified 10/06/21 11:10 [From AUGMENTIN] diphenhydramine Allergy Intermediate I-HIVES Verified 10/06/21 11:10 [From BENADRYL] ibuprofen [IBUPROFEN] Allergy Intermediate I-HIVES Verified 10/06/21 11:10 metoclopramide [From REGLAN] Allergy Intermediate I-HIVES Verified 10/06/21 11:10 Sulfa (Sulfonamide Allergy Intermediate I-HIVES Verified 10/06/21 11:10 Antibiotics) [SULFA (SULFONAMIDE ANTIBIOTICS)] tetanus toxoid, adsorbed Allergy Intermediate I-RASH Verified 10/06/21 11:10 [TETANUS TOXOID, ADSORBED] naproxen [NAPROXEN] Allergy Unknown Hives, Verified 10/06/21 11:10 Vomiting
[2021-10-06 11:20] LABS: UTC Strep Screen (Rapid) Negative (Negative)
[2021-10-06 12:02] VITALS: BP 117/70; PULSE 91; RESP 16; TEMP 36.7
== END 2021-10-06 12:03 | disposition home or self-care (01) ==
PROVIDERS: Emergency Provider Nurse Practitioner Family; PCP Nurse Practitioner
DX: J20.9 Acute bronchitis, unspecified (principal); F17.210 Nicotine dependence, cigarettes, uncomplicated; Z20.822 Contact with and (suspected) exposure to COVID-19
CPT/HCPCS: 87880; 99212; C9803; G0463; U0003; U0005

== ENCOUNTER 2021-10-14 13:17 | Emergency (ER) | payer MEDICAID, SELFPAY ==
[2021-10-14 13:30] VITALS: BP 122/75; PULSE 90; RESP 18; TEMP 36.5; O2SAT 98; BMI 24.9
--- NOTE | 2021-10-14 13:44 | XR_ITS ---
PROCEDURE INFORMATION: Exam: XR Chest Exam date and time: 10/14/2021 1:40 PM Age: 30 years old Clinical indication: Cough and shortness of breath TECHNIQUE: Imaging protocol: Radiologic exam of the chest. Views: 2 views. COMPARISON: CR XR CHEST 2V 06/27/2021 2:33 PM FINDINGS: Airway: Patent Lungs: Bilateral perihilar interstitial prominence. Bilateral segmental bronchial wall thickening. No airspace consolidations. Pleural spaces: Unremarkable. No pleural effusion. No pneumothorax. Heart/Mediastinum: Normal cardiomediastinal silhouette and central airways. Bones/joints: Acute skeletal abnormality or aggressive osseous lesion. IMPRESSION: Findings favor a mild acute viral illness/bronchitis. No evidence for lobar pneumonia.
--- NOTE | 2021-10-14 13:49 | HMH.EDUTC ---
[facility] [place] Disposition Clinical Impression: Bronchitis Disposition: Home, Self-Care Condition on Discharge: Good Instructions: DI for Acute Bronchitis, Acute Bronchitis, Tips to Help You Stop Smoking, Serious Ways to Stop Smoking Additional Instructions: ? Monitor temp. Tylenol every 4 hours as needed and / or ibuprofen every 6 hours as needed ( As long as your primary care physician has told you that it ok to take both. For fever/aches/pains ER if no less than 101 despite Tylenol or Motrin ? Humidifier/vaporizer or hot steamy shower ? Inhaler every 4-6 hours as needed like we discussed. If unsure how to use it, ask pharmacist to demonstrate how. Should help open airways and improve cough, wheezing, and shortness of breath *Promethazine DM cough syrup will cause drowsiness. Use only at night. No driving, operating machinery or caring for small children after taking it Stop smoking Follow up IMMEDIATELY for new or worsening of symptoms OR no noticeable improvement over the next 48-72 hours. 911 immediately for any life threatening symptoms such as chest pain or difficulty breathing Prescriptions: Promethazine/Dextromethorphan [Promethazine-Dm Syrup] 2.5 - 5 ml PO Q6H PRN #150 ml PRN Reason: Cough Transmission Status: Pending to [facility] Referrals: Pauline Mansfield APRN [Primary Care Provider] - As needed Forms: Work/School Release Time of Disposition: 14:28 Medical Decision Making - Donta Inquiry Pt receiving controlled substance: No Donta was queried for this patient: No Vital Signs: 10/14/21 13:30 Temperature 97.7 F Temperature Source Oral Pulse Rate [Left Brachial] 90 Respiratory Rate 18 Blood Pressure [Left Arm] 122/75 Blood Pressure Mean [Left Arm] 90 Blood Pressure Source [Left Arm] Automatic Cuff Blood Pressure Position [Left Arm] Sitting 02 Sat by Pulse Oximetry 98 Oxygen Delivery Method Room Air - Radiology Data #1 Image(s): Chest Image Reviewed: Yes I have reviewed radiologist's interpretation IMPRESSION: Findings favor a mild acute viral illness/bronchitis. No evidence for lobar pneumonia. [facility] [place] HPI - General Stated complaint: cough, congestion, runny nose Time Seen by Provider: 10/14/21 13:49 Mode of Arrival: Ambulatory Source of Information: Patient Limitations: No Limitations Description of Symptoms (Recalled from Triage Doc. by RN): PATIENT C/O SORE THROAT, COUGH, AND RUNNY NOSE X 3 WEEKS. SHE STATES SHE HAS BEEN ON A FEW ANTIBIOTICS AND IS NOT BETTER HEENT Symptoms (Recalled from RN notes): Yes Resp Symptoms (Recalled from RN notes): Yes Skin Symptoms (Recalled from RN notes): No MS Symptoms (Recalled from RN notes): No Functional Status (Recalled from RN notes): WNL - History of Present Illness Provider Complaint: Patient states that she has been having cough, congestion and runny nose for about 3 weeks States that last night she was up most of the night coughing again States that today she wasnt able to work so she came in to get checked out - Related Data Previous Rx's Medication Instructions Recorded Albuterol Sulfate [Albuterol 2 puffs IH Q6HP PRN 30 Days #1 each 06/19/21 Sulfate Hfa] cyclobenzaprine 5 mg tablet 5 mg PO TID PRN #20 tab 07/11/21 Azithromycin [Z-Ender 250mg Tab*] 250 mg PO UD DOSE PK #6 tab 09/26/21 Benzonatate [Benzonatate 100mg 100 mg PO TIDP PRN #30 cap 09/26/21 cap] Ondansetron [Zofran 4mg ODT] 4 mg PO Q8HP PRN #12 tab 09/26/21 Ondansetron [Zofran 4mg ODT] 4 mg PO Q8HP PRN #20 tab 10/06/21 methylPREDNISolone [Medrol] 4 mg PO DIRECTED 6 Days #21 10/06/21 packet Promethazine/Dextromethorphan 2.5 - 5 ml PO Q6H PRN #150 ml 10/14/21 [Promethazine-Dm Syrup] Allergies Allergy/AdvReac Type Severity Reaction Status Date / Time Penicillins [PENICILLINS] Allergy Severe THROAT Verified 10/06/21 11:10 SWELLING, HIVES, VOMITTING amoxicillin [From AUGMENTIN] Allergy Intermediate I-HIVES Verifie
[2021-10-14 14:39] VITALS: BP 122/75; PULSE 90; RESP 18; TEMP 36.5; O2SAT 98
[2021-10-14 15:00] LABS: Adenovirus,PCR Not Detected (NotDetected); Bordetella Pertussis Not Detected (NotDetected); Chlamydophila Pneumoniae, PCR Not Detected (NotDetected); Coronavirus 19, PCR Not Detected (NotDetected); Coronavirus 229E Not Detected (NotDetected); Coronavirus NL63 Not Detected (NotDetected); Coronavirus OC43 Not Detected (NotDetected); Coronovirus HKU1,PCR Not Detected (NotDetected); Human Metapneumovirus Not Detected (NotDetected); Influenza A, PCR Not Detected (NotDetected); Influenza AH1, 2009 Not Detected (NotDetected); Influenza AH1, PCR Not Detected (NotDetected); Influenza AH3,PCR Not Detected (NotDetected); Influenza B, PCR Not Detected (NotDetected); Mycoplasma Pneumoniae, PCR Not Detected (NotDetected); Parainfluenza 1, PCR Not Detected (NotDetected); Parainfluenza 2, PCR Not Detected (NotDetected); Parainfluenza 3, PCR Not Detected (NotDetected); Parainfluenza 4, PCR Not Detected (NotDetected); Respiratory Syncytial Virus Not Detected (NotDetected); Rhinovirus/Enterovirus Not Detected (NotDetected)
== END 2021-10-14 14:46 | disposition home or self-care (01) ==
PROVIDERS: Emergency Provider Nurse Practitioner; PCP Nurse Practitioner
DX: J40 Bronchitis, not specified as acute or chronic (principal); B34.9 Viral infection, unspecified; F17.210 Nicotine dependence, cigarettes, uncomplicated
CPT/HCPCS: 71046; 87581; 87632; 87798; 99212; C9803; G0463; U0003; U0005

== ENCOUNTER 2021-11-07 11:55 | Emergency (ER) | payer MEDICAID, SELFPAY ==
--- NOTE | 2021-11-07 12:44 | EXP.UTC ---
Discharge Plan Disposition Patient Disposition: Home, Self-Care Condition: Good Prescriptions Prescriptions: New ondansetron 4 mg Tablet,Disintegrating 4 mg PO Q8H PRN (Reason: Nausea) Qty: 20 0RF No Action cyclobenzaprine 5 mg tablet 5 mg PO TID PRN (Reason: muscle spasm) Qty: 20 0RF methylprednisolone 4 MG tablets,dose pack 4 mg PO DIRECTED 6 Days Qty: 21 0RF ondansetron 4 MG tablet,disintegrating 4 mg PO Q8HP PRN (Reason: Nausea) Qty: 20 0RF albuterol sulfate 8.5 GM HFA aerosol inhaler 2 puffs IH Q6HP PRN (Reason: Shortness Of Breath) 30 Days Qty: 1 5RF azithromycin 250 MG tablet 250 mg PO UD DOSE PK Qty: 6 0RF Rx Instructions: Take two (2) tablets today, then one (1) tablet days #2 thru #5 ondansetron 4 MG tablet,disintegrating 4 mg PO Q8HP PRN (Reason: Nausea) Qty: 12 0RF benzonatate 100 MG capsule 100 mg PO TIDP PRN (Reason: Cough) Qty: 30 0RF promethazine-DM 120 ML syrup 2.5 - 5 ml PO Q6H PRN (Reason: Cough) Qty: 150 0RF Referrals Follow up/Referrals: Gisele Mansfield PA [Primary Care Provider] - See instructions Activity Restrictions/Add. Instructions Additional Instructions/Restrictions: Drink plenty of fluids. Take tylenol for pain or fever. Take the medications as directed. Follow up with your regular doctor. GO TO THE ER FOR ANY WORSENING SYMPTOMS Clinical Impressions Clinical Impression: Gastroenteritis Stand Alone Forms Stand Alone Forms: Work/School Release Instructions Patient Instructions: DI for Viral Gastroenteritis -- Adult Discharge ED Provider: Rajat Alvarez [facility] General Stated complaint: stomach pain, vomiting Time Seen by Provider: 11/07/21 12:44 History of Present Illness Provider Complaint: She states that since about 0600 am today she has had n/v. She has vomited multiple times. She always has diarrhea, so she cannot tell a difference in her b.m.s. She denies abdominal pain but she has had some cramping. Related Data Previous Rx's Medication Instructions Recorded albuterol sulfate 90 mcg/actuation 2 puffs inhalation Q6HP PRN 06/19/21 aerosol inhaler Shortness Of Breath 30 days #1 ea cyclobenzaprine 5 mg tablet 5 mg PO TID PRN muscle spasm #20 07/11/21 tabs azithromycin 250 mg tablet 250 mg PO UD DOSE PK #6 tabs 09/26/21 benzonatate 100 mg capsule 100 mg PO TIDP PRN Cough #30 caps 09/26/21 ondansetron 4 mg disintegrating 4 mg PO Q8HP PRN Nausea #12 tabs 09/26/21 tablet methylprednisolone 4 mg tablets in 4 mg PO DIRECTED 6 days #21 10/06/21 a dose pack packets ondansetron 4 mg disintegrating 4 mg PO Q8HP PRN Nausea #20 tabs 10/06/21 tablet promethazine-DM 6.25 mg-15 mg/5 mL 2.5 - 5 ml PO Q6H PRN Cough #150 mL 10/14/21 oral syrup ondansetron 4 mg disintegrating 4 mg PO Q8H PRN Nausea #20 tabs 11/07/21 tablet Allergies Allergy/AdvReac Type Severity Reaction Status Date / Time Penicillins [PENICILLINS] Allergy Severe THROAT Verified 11/07/21 12:48 SWELLING, HIVES, VOMITTING amoxicillin [From AUGMENTIN] Allergy Intermediate I-HIVES Verified 11/07/21 12:48 clavulanic acid Allergy Intermediate I-HIVES Verified 11/07/21 12:48 [From AUGMENTIN] diphenhydramine Allergy Intermediate I-HIVES Verified 11/07/21 12:48 [From BENADRYL] ibuprofen [IBUPROFEN] Allergy Intermediate I-HIVES Verified 11/07/21 12:48 metoclopramide [From REGLAN] Allergy Intermediate I-HIVES Verified 11/07/21 12:48 Sulfa (Sulfonamide Allergy Intermediate I-HIVES Verified 11/07/21 12:48 Antibiotics) [SULFA (SULFONAMIDE ANTIBIOTICS)] tetanus toxoid, adsorbed Allergy Intermediate I-RASH Verified 11/07/21 12:48 [TETANUS TOXOID, ADSORBED] naproxen [NAPROXEN] Allergy Unknown Hives, Verified 11/07/21 12:48 Vomiting paroxetine [From PAXIL] Allergy Unknown numbness Verified 11/07/21 12:48 tongue atomoxetine [From Strattera] AdvReac Mild NA-HALLUCIN Verified 11/07/21 12
[2021-11-07 12:46] VITALS: BP 112/70; PULSE 65; RESP 17; TEMP 36.5; O2SAT 99; BMI 24.2
[2021-11-07 12:50] LABS: UTC Strep Screen (Rapid) Negative (Negative)
[2021-11-07 13:32] VITALS: BP 112/70; PULSE 65; RESP 17; TEMP 36.5
== END 2021-11-07 13:33 | disposition home or self-care (01) ==
PROVIDERS: Emergency Provider Nurse Practitioner Family; PCP Physician Assistant
DX: K52.9 Noninfective gastroenteritis and colitis, unspecified (principal); Z20.822 Contact with and (suspected) exposure to COVID-19
CPT/HCPCS: 87880; 99212; C9803; G0463; U0003; U0005

== ENCOUNTER 2021-11-08 15:26 | Emergency (ER) | payer MEDICAID, SELFPAY ==
--- NOTE | 2021-11-08 15:48 | EXP.UTC ---
Discharge Plan Disposition Patient Disposition: Home, Self-Care Condition: Good Prescriptions Prescriptions: No Action cyclobenzaprine 5 mg tablet 5 mg PO TID PRN (Reason: muscle spasm) Qty: 20 0RF methylprednisolone 4 MG tablets,dose pack 4 mg PO DIRECTED 6 Days Qty: 21 0RF ondansetron 4 MG tablet,disintegrating 4 mg PO Q8HP PRN (Reason: Nausea) Qty: 20 0RF albuterol sulfate 8.5 GM HFA aerosol inhaler 2 puffs IH Q6HP PRN (Reason: Shortness Of Breath) 30 Days Qty: 1 5RF azithromycin 250 MG tablet 250 mg PO UD DOSE PK Qty: 6 0RF Rx Instructions: Take two (2) tablets today, then one (1) tablet days #2 thru #5 ondansetron 4 MG tablet,disintegrating 4 mg PO Q8HP PRN (Reason: Nausea) Qty: 12 0RF benzonatate 100 MG capsule 100 mg PO TIDP PRN (Reason: Cough) Qty: 30 0RF promethazine-DM 120 ML syrup 2.5 - 5 ml PO Q6H PRN (Reason: Cough) Qty: 150 0RF ondansetron 4 mg Tablet,Disintegrating 4 mg PO Q8H PRN (Reason: Nausea) Qty: 20 0RF Referrals Follow up/Referrals: Gisele Mansfield PA [Primary Care Provider] - See instructions Clinical Impressions Clinical Impression: Fibroid Abdominal pain Qualifiers: Abdominal location: generalized Qualified Code(s): R10.84 - Generalized abdominal pain Stand Alone Forms Stand Alone Forms: Work/School Release Instructions Patient Instructions: DI for Acute Abdominal Pain Discharge ED Provider: Aleks Leon [facility] General Chief complaint: Abdominal Pain Stated complaint: stomach ache Time Seen by Provider: 11/08/21 15:49 History of Present Illness Provider Complaint: She c/o abdominal pain. She was seen here yesterday with nausea and gi cramps. But, she states that since this morning she has had continuous abdominal pain. Related Data Previous Rx's Medication Instructions Recorded albuterol sulfate 90 mcg/actuation 2 puffs inhalation Q6HP PRN 06/19/21 aerosol inhaler Shortness Of Breath 30 days #1 ea cyclobenzaprine 5 mg tablet 5 mg PO TID PRN muscle spasm #20 07/11/21 tabs azithromycin 250 mg tablet 250 mg PO UD DOSE PK #6 tabs 09/26/21 benzonatate 100 mg capsule 100 mg PO TIDP PRN Cough #30 caps 09/26/21 ondansetron 4 mg disintegrating 4 mg PO Q8HP PRN Nausea #12 tabs 09/26/21 tablet methylprednisolone 4 mg tablets in 4 mg PO DIRECTED 6 days #21 10/06/21 a dose pack packets ondansetron 4 mg disintegrating 4 mg PO Q8HP PRN Nausea #20 tabs 10/06/21 tablet promethazine-DM 6.25 mg-15 mg/5 mL 2.5 - 5 ml PO Q6H PRN Cough #150 mL 10/14/21 oral syrup ondansetron 4 mg disintegrating 4 mg PO Q8H PRN Nausea #20 tabs 11/07/21 tablet Allergies Allergy/AdvReac Type Severity Reaction Status Date / Time Penicillins [PENICILLINS] Allergy Severe THROAT Verified 11/07/21 12:48 SWELLING, HIVES, VOMITTING amoxicillin [From AUGMENTIN] Allergy Intermediate I-HIVES Verified 11/07/21 12:48 clavulanic acid Allergy Intermediate I-HIVES Verified 11/07/21 12:48 [From AUGMENTIN] diphenhydramine Allergy Intermediate I-HIVES Verified 11/07/21 12:48 [From BENADRYL] ibuprofen [IBUPROFEN] Allergy Intermediate I-HIVES Verified 11/07/21 12:48 metoclopramide [From REGLAN] Allergy Intermediate I-HIVES Verified 11/07/21 12:48 Sulfa (Sulfonamide Allergy Intermediate I-HIVES Verified 11/07/21 12:48 Antibiotics) [SULFA (SULFONAMIDE ANTIBIOTICS)] tetanus toxoid, adsorbed Allergy Intermediate I-RASH Verified 11/07/21 12:48 [TETANUS TOXOID, ADSORBED] naproxen [NAPROXEN] Allergy Unknown Hives, Verified 11/07/21 12:48 Vomiting paroxetine [From PAXIL] Allergy Unknown numbness Verified 11/07/21 12:48 tongue atomoxetine [From Strattera] AdvReac Mild NA-HALLUCIN Verified 11/07/21 12:48 [facility] Social History Smoking Status: Current every day smoker tobacco type: cigarettes packs per day: 1 second hand exposure:
[2021-11-08 15:54] VITALS: BP 122/58; PULSE 75; RESP 16; TEMP 37.1; O2SAT 99; BMI 24.2
[2021-11-08 16:05] VITALS: BP 154/83; PULSE 73; RESP 16; TEMP 37.1; O2SAT 98; BMI 24.2
[2021-11-08 16:37] LABS: Microscopic, Urine URINE MICROSCOPIC (MICROSCOPIC)
--- NOTE | 2021-11-08 16:41 | CT_ITS ---
PROCEDURE INFORMATION: Exam: CT Abdomen And Pelvis With Contrast Exam date and time: 11/08/2021 4:46 PM Age: 31 years old Clinical indication: Abdominal pain; Additional info: Diffuse abdominal pain TECHNIQUE: Imaging protocol: Computed tomography of the abdomen and pelvis with contrast. Radiation optimization: All CT scans at this facility use at least one of these dose optimization techniques: automated exposure control; mA and/or kV adjustment per patient size (includes targeted exams where dose is matched to clinical indication); or iterative reconstruction. Contrast material: ISOVUE; Contrast volume: 75 ml; Contrast route: IV; COMPARISON: US OB TRANSVAGINAL 04/15/2020 9:06 PM FINDINGS: Liver: Normal. No mass. Gallbladder and bile ducts: Cholecystectomy. 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 No surrounding inflammatory change. Spleen: Normal. No splenomegaly. Adrenal glands: Normal. No mass. Kidneys and ureters: Normal. No hydronephrosis. Stomach and bowel: No diverticulitis. No bowel obstruction or evidence of appendicitis. Appendix: Normal appendix. Intraperitoneal space: Unremarkable. No free air. No significant fluid collection. Vasculature: Unremarkable. No abdominal aortic aneurysm. Lymph nodes: Unremarkable. No enlarged lymph nodes. Urinary bladder: Unremarkable as visualized. Reproductive: Possible uterine fibroids with heterogeneous appearance to the uterus. Bones/joints: Unremarkable. No acute fracture. Soft tissues: Unremarkable. Other findings: No other acute pathology seen. As above. IMPRESSION: 1. No diverticulitis. No bowel obstruction or evidence of appendicitis. 2. 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 No surrounding inflammatory change. 3. Possible uterine fibroids with heterogeneous appearance to the uterus. 4. No other acute pathology seen. As above.
[2021-11-08 16:42] LABS: Appearance,Urine CLEAR (Clear); Bilirubin,Urine Negative (Negative); Blood, Urine Negative (Negative); Color,Urine YELLOW (Yellow); Glucose,Urine (UA) Negative (Negative); Ketones,Urine Negative (Negative); Leukocyte Esterase,Urine Negative (Negative); Nitrate,Urine Negative (Negative); Protein,Urine Negative (Negative); Specific Gravity, Urine 1.025 (1.005-1.030); Urine Pregnancy, HCG Qual. Negative (Negative); Urobilinogen,Urine 0.2 EU/dl (0.2)
[2021-11-08 16:43] LABS: Basophils # 0.1 K/mm3 (0-0.2); Basophils % 1.2 % (0.1-2.0); Eosinophils # 0.2 K/mm3 (0.0-0.4); Eosinophils % 2.8 % (0.1-12.0); Hematocrit 41.7 % (37.0-47.0); Hemoglobin 13.4 g/dL (12.2-16.2); Lymphocytes # 2.1 K/mm3 (0.7-4.5); Lymphocytes % 35.3 % (10-50); Mean Corpuscular HGB Conc 32.2 g/dL (31.8-35.4); Mean Corpuscular Hemoglobin 29.1 pg (27.0-31.2); Mean Corpuscular Volume 90.2 fl (81-99); Mean Platelet Volume 9.3 fl (7.4-10.4); Monocytes # 0.3 K/mm3 (0.1-1.0); Monocytes % 5.1 % (1.7-9.3); Neutrophils # 3.3 K/mm3 (1.8-7.8); Neutrophils % 55.5 % (37.0-80.0); Platelet Count 354 K/mm3 (142-424); Red Blood Count 4.62 M/mm3 (4.20-5.40); Red Cell Distribution Width 13.5 % (11.5-17.5); White Blood Count 5.9 K/mm3 (4.8-10.8)
--- NOTE | 2021-11-08 16:43 | HMH.EDGENADL ---
Discharge Plan Disposition Patient Disposition: Home, Self-Care Condition: Good Prescriptions Prescriptions: No Action cyclobenzaprine 5 mg tablet 5 mg PO TID PRN (Reason: muscle spasm) Qty: 20 0RF methylprednisolone 4 MG tablets,dose pack 4 mg PO DIRECTED 6 Days Qty: 21 0RF ondansetron 4 MG tablet,disintegrating 4 mg PO Q8HP PRN (Reason: Nausea) Qty: 20 0RF albuterol sulfate 8.5 GM HFA aerosol inhaler 2 puffs IH Q6HP PRN (Reason: Shortness Of Breath) 30 Days Qty: 1 5RF azithromycin 250 MG tablet 250 mg PO UD DOSE PK Qty: 6 0RF Rx Instructions: Take two (2) tablets today, then one (1) tablet days #2 thru #5 ondansetron 4 MG tablet,disintegrating 4 mg PO Q8HP PRN (Reason: Nausea) Qty: 12 0RF benzonatate 100 MG capsule 100 mg PO TIDP PRN (Reason: Cough) Qty: 30 0RF promethazine-DM 120 ML syrup 2.5 - 5 ml PO Q6H PRN (Reason: Cough) Qty: 150 0RF ondansetron 4 mg Tablet,Disintegrating 4 mg PO Q8H PRN (Reason: Nausea) Qty: 20 0RF Referrals Follow up/Referrals: Gisele Mansfield PA [Primary Care Provider] - See instructions Clinical Impressions Clinical Impression: Fibroid Abdominal pain Qualifiers: Abdominal location: generalized Qualified Code(s): R10.84 - Generalized abdominal pain Stand Alone Forms Stand Alone Forms: Work/School Release Instructions Patient Instructions: DI for Acute Abdominal Pain Discharge ED Provider: Aleks Leon General Adult HPI General Chief complaint: Abdominal Pain Stated complaint: stomach ache Time Seen by Provider: 11/08/21 15:49 Mode of Arrival: Ambulatory Limitations: No Limitations Description of Symptoms (Recalled from ER Triage Doc. by RN): to ed pt sent from [facility] for eval due to abd pain pt seen yesterday in [facility] for same. pt states pain worse. pt c/o generalized abd pain radiating to rt side back, nausea, vomiting x 2 day. c/o chronic diarrhea after having gallbladder removed. pt states last po intake at 1pm today pizza and bread sticks . History of Present Illness HPI narrative: This is a 31-year-old female with history of asthma and anxiety who is presenting with abdominal pain. Abdominal pain started 2 days ago while she was lying in bed and has been crescendo in nature. It is diffuse, radiates to the right flank, associated with nausea and vomiting. Vomiting is nonbloody, nonbilious. Patient has diarrhea at baseline secondary to cholecystectomy in 2017, bowel movements have not changed. Nonbloody, not mucousy. She has not noticed anything that makes it better and nothing in particular makes it worse other than moving around. Denies dysuria, hematuria, fevers, chills, cough, chest pain, shortness of breath, abnormal vaginal discharge or bleeding, recent travel, trauma, or any other concerning history Related Data Previous Rx's Medication Instructions Recorded albuterol sulfate 90 mcg/actuation 2 puffs inhalation Q6HP PRN 06/19/21 aerosol inhaler Shortness Of Breath 30 days #1 ea cyclobenzaprine 5 mg tablet 5 mg PO TID PRN muscle spasm #20 07/11/21 tabs azithromycin 250 mg tablet 250 mg PO UD DOSE PK #6 tabs 09/26/21 benzonatate 100 mg capsule 100 mg PO TIDP PRN Cough #30 caps 09/26/21 ondansetron 4 mg disintegrating 4 mg PO Q8HP PRN Nausea #12 tabs 09/26/21 tablet methylprednisolone 4 mg tablets in 4 mg PO DIRECTED 6 days #21 10/06/21 a dose pack packets ondansetron 4 mg disintegrating 4 mg PO Q8HP PRN Nausea #20 tabs 10/06/21 tablet promethazine-DM 6.25 mg-15 mg/5 mL 2.5 - 5 ml PO Q6H PRN Cough #150 mL 10/14/21 oral syrup ondansetron 4 mg disintegrating 4 mg PO Q8H PRN Nausea #20 tabs 11/07/21 tablet Allergies Allergy/AdvReac Type Severity Reaction Status Date / Time Penicillins [PENICILLINS] Allergy Severe THROAT Verified 11/07/21 12:48 SWELLING, HIVES, VOMITTING amoxicillin [From AUGMENTIN] Allergy Intermediate I-HIVES Verified 11/07/21 12:48 clavulanic acid Larry
--- NOTE | 2021-11-08 16:54 | PC.NURSE ---
PT GONE TO CT
[2021-11-08 16:55] LABS: Alanine Aminotransferase 17 U/L (12-78); Albumin Level 4.6 g/dl (3.5-5.0); Albumin/Globulin Ratio 1.5 (1.1-1.8); Alkaline Phosphatase 60 U/L (38-126); Anion Gap 9.9 mEq/L (5-15); Aspartate Amino Transferase 29 U/L (14-36); Blood Urea Nitrogen 5 mg/dl (7-17); Calcium 9.3 mg/dl (8.4-10.2); Carbon Dioxide 28 mmol/L (22.0-30.0); Chloride 107 mmol/L (98-107); Creatinine Clearance Estimated 124 mL/min (50-200); Estimated Glomerular Filt Rate 97 ml/min (>60); GFR (African American) 117 ML/MIN (>60); Globulin 3.1 g/dL (1.3-3.2); Glucose 109 mg/dl (74-100); Lactic Acid 0.8 mmol/L (0.7-2.1); Lipase 103 U/L (23-300); Potassium 3.9 mmoL/L (3.5-5.1); Sodium 141 mmol/L (136-145); Total Protein,Serum 7.7 g/dl (6.3-8.2)
[2021-11-08 16:58] LABS: Bilirubin,Total < 0.1 mg/dl (0.2-1.3)
[2021-11-08 17:17] LABS: Bacteria,Urine Trace /lpf; Squamous Epithelial Cell,Urine Occasional #/hpf (0-5); WBC,Urine Occasional #/hpf (0-3)
[2021-11-08 18:48] VITALS: BP 133/85; PULSE 70; RESP 18; TEMP 37.1; O2SAT 99
== END 2021-11-08 18:50 | disposition home or self-care (01) ==
LOC: UTC 15:54 → ER 16:01
PROVIDERS: Emergency Provider Emergency Medicine; PCP Physician Assistant
DX: D21.4 Benign neoplasm of connective and other soft tissue of abdomen (principal); Z79.899 Other long term (current) drug therapy; Z88.0 Allergy status to penicillin; Z88.1 Allergy status to other antibiotic agents; Z88.2 Allergy status to sulfonamides; Z88.8 Allergy status to other drugs, medicaments and biological substances; Z88.7 Allergy status to serum and vaccine; Z72.0 Tobacco use; F14.90 Cocaine use, unspecified, uncomplicated
CPT/HCPCS: 74177; 80053; 81001; 81025; 83605; 83690; 85025; 96374; 96375; 99284; J2405; Q9967

== ENCOUNTER 2021-11-16 13:26 | Emergency (ER) | payer MEDICAID, SELFPAY ==
[2021-11-16 14:26] VITALS: BP 129/84; PULSE 87; RESP 18; TEMP 36.8; O2SAT 99; BMI 24.2
--- NOTE | 2021-11-16 14:39 | EXP.UTC ---
Discharge Plan Disposition Patient Disposition: Home, Self-Care Condition: Good Prescriptions Prescriptions: New mupirocin 2 % ointment 1 applic topical BID Qty: 22 0RF No Action cyclobenzaprine 5 mg tablet 5 mg PO TID PRN (Reason: muscle spasm) Qty: 20 0RF methylprednisolone 4 MG tablets,dose pack 4 mg PO DIRECTED 6 Days Qty: 21 0RF ondansetron 4 MG tablet,disintegrating 4 mg PO Q8HP PRN (Reason: Nausea) Qty: 20 0RF albuterol sulfate 8.5 GM HFA aerosol inhaler 2 puffs IH Q6HP PRN (Reason: Shortness Of Breath) 30 Days Qty: 1 5RF azithromycin 250 MG tablet 250 mg PO UD DOSE PK Qty: 6 0RF Rx Instructions: Take two (2) tablets today, then one (1) tablet days #2 thru #5 ondansetron 4 MG tablet,disintegrating 4 mg PO Q8HP PRN (Reason: Nausea) Qty: 12 0RF benzonatate 100 MG capsule 100 mg PO TIDP PRN (Reason: Cough) Qty: 30 0RF promethazine-DM 120 ML syrup 2.5 - 5 ml PO Q6H PRN (Reason: Cough) Qty: 150 0RF ondansetron 4 mg Tablet,Disintegrating 4 mg PO Q8H PRN (Reason: Nausea) Qty: 20 0RF Referrals Follow up/Referrals: Pauline Mansfield APRN [Primary Care Provider] - See instructions Activity Restrictions/Add. Instructions Additional Instructions/Restrictions: Follow up with Pauline Mansfield if not improving Keep clean and dry Watch for signs of infection Clinical Impressions Clinical Impression: Acute pain of right wrist, Fall, Abrasion of skin of right upper arm, Superficial laceration of right hand Instructions Patient Instructions: DI for Abrasion Discharge ED Provider: Gisele Mansfield [facility] [place] General Stated complaint: AO [id number] FALL, RIGHT ARM PAIN Mode of Arrival: Ambulatory Source of Information: Patient Limitations: No Limitations Time Seen by Provider: 11/16/21 15:00 Description of Symptoms (Recalled from Triage Doc. by RN): pt comes in with laceration to her right hand. pt states she was fishing and slid down the bank. incident happened toay HEENT Symptoms (Recalled from RN notes): No Resp Symptoms (Recalled from RN notes): No Skin Symptoms (Recalled from RN notes): Yes MS Symptoms (Recalled from RN notes): No Functional Status (Recalled from RN notes): n/a History of Present Illness Provider Complaint: Patient was fishing earlier today, got tangled up, slid down the [place] bank. Fell on outstretched right hand. Lacerations to palm of hand and forearm. Pain and swelling in left wrist. Onset (ago): hour(s) (3) Location: right and upper extremity Radiation: non-radiation Quality: burning Consistency: constant Relieving factors: immobilization Exacerbating factors: movement Associated symptoms: denies other symptoms Treatments prior to arrival: none Related Data Previous Rx's Medication Instructions Recorded albuterol sulfate 90 mcg/actuation 2 puffs inhalation Q6HP PRN 06/19/21 aerosol inhaler Shortness Of Breath 30 days #1 ea cyclobenzaprine 5 mg tablet 5 mg PO TID PRN muscle spasm #20 07/11/21 tabs azithromycin 250 mg tablet 250 mg PO UD DOSE PK #6 tabs 09/26/21 benzonatate 100 mg capsule 100 mg PO TIDP PRN Cough #30 caps 09/26/21 ondansetron 4 mg disintegrating 4 mg PO Q8HP PRN Nausea #12 tabs 09/26/21 tablet methylprednisolone 4 mg tablets in 4 mg PO DIRECTED 6 days #21 10/06/21 a dose pack packets ondansetron 4 mg disintegrating 4 mg PO Q8HP PRN Nausea #20 tabs 10/06/21 tablet promethazine-DM 6.25 mg-15 mg/5 mL 2.5 - 5 ml PO Q6H PRN Cough #150 mL 10/14/21 oral syrup ondansetron 4 mg disintegrating 4 mg PO Q8H PRN Nausea #20 tabs 11/07/21 tablet mupirocin 2 % topical ointment 1 applic topical BID #22 grams 11/16/21 Allergies Allergy/AdvReac Type Severity Reaction Status Date / Time Penicillins [PENICILLINS] Allergy Severe THROAT Verified 11/16/21 14:29 SWELLING, HIVES, VOMITTING amoxicillin [From AUGMENTIN] Allergy Intermediate I-HIVES Verified 11/16/21 14:29 clavulanic acid Larry
--- NOTE | 2021-11-16 14:44 | XR_ITS ---
FINAL REPORT CLINICAL HISTORY: fall FINDINGS: RIGHT WRIST Three views of the right wrist demonstrate no acute fracture or dislocation. The visualized joint spaces are normally aligned. The soft tissues are unremarkable. IMPRESSION: No acute bony abnormality. Reviewed, Interpreted and Dictated by Pablo Amezcua III, MD Transcribed by Hannah Perdomo Authenticated and [facility]
--- NOTE | 2021-11-16 14:44 | XR_ITS ---
FINAL REPORT CLINICAL HISTORY: fall COMPARISON: May 07, 2020 FINDINGS: RIGHT HAND Three views of the right hand demonstrate no acute fracture or dislocation. The visualized joint spaces are normally aligned. The soft tissues are unremarkable. IMPRESSION: No acute bony abnormality. Reviewed, Interpreted and Dictated by Pablo Amezcua III, MD Transcribed by Hannah Perdomo Authenticated and . [facility]
[2021-11-16 15:55] VITALS: BP 129/84; PULSE 87; RESP 18; TEMP 36.8
== END 2021-11-16 15:59 | disposition home or self-care (01) ==
PROVIDERS: Emergency Provider Physician Assistant; PCP Nurse Practitioner
DX: S51.811A Laceration without foreign body of right forearm, initial encounter (principal); S61.411A Laceration without foreign body of right hand, initial encounter; M25.531 Pain in right wrist; M25.532 Pain in left wrist; R06.02 Shortness of breath; M62.838 Other muscle spasm; R11.2 Nausea with vomiting, unspecified; I10 Essential (primary) hypertension; I25.2 Old myocardial infarction; J45.909 Unspecified asthma, uncomplicated; F10.20 Alcohol dependence, uncomplicated; F17.210 Nicotine dependence, cigarettes, uncomplicated; Z79.899 Other long term (current) drug therapy; Z88.1 Allergy status to other antibiotic agents; Z88.2 Allergy status to sulfonamides; Z88.3 Allergy status to other anti-infective agents; Z88.6 Allergy status to analgesic agent; Z88.8 Allergy status to other drugs, medicaments and biological substances; Z88.7 Allergy status to serum and vaccine; Z85.9 Personal history of malignant neoplasm, unspecified; W17.89XA Other fall from one level to another, initial encounter
CPT/HCPCS: 73110; 73130; 99213; G0463

== ENCOUNTER → 2021-11-27 14:34 | Outpatient (CLI) | payer MEDICAID, SELFPAY ==
[2021-11-27 17:04] LABS: Basophils # 0.1 K/mm3 (0-0.2); Basophils % 0.7 % (0.1-2.0); Eosinophils # 0.1 K/mm3 (0.0-0.4); Eosinophils % 2.2 % (0.1-12.0); Hematocrit 40.2 % (37.0-47.0); Hemoglobin 13.1 g/dL (12.2-16.2); Lymphocytes # 2.1 K/mm3 (0.7-4.5); Lymphocytes % 33.1 % (10-50); Mean Corpuscular HGB Conc 32.7 g/dL (31.8-35.4); Mean Corpuscular Hemoglobin 29.1 pg (27.0-31.2); Mean Platelet Volume 10.1 fl (7.4-10.4); Monocytes # 0.4 K/mm3 (0.1-1.0); Monocytes % 6.6 % (1.7-9.3); Neutrophils # 3.6 K/mm3 (1.8-7.8); Neutrophils % 57.4 % (37.0-80.0); Platelet Count 298 K/mm3 (142-424); Red Blood Count 4.51 M/mm3 (4.20-5.40); Red Cell Distribution Width 13.2 % (11.5-17.5); White Blood Count 6.3 K/mm3 (4.8-10.8)
[2021-11-27 17:58] LABS: Alanine Aminotransferase 16 U/L (12-78); Albumin Level 4.4 g/dl (3.5-5.0); Albumin/Globulin Ratio 1.5 (1.1-1.8); Alkaline Phosphatase 52 U/L (38-126); Anion Gap 17.2 mEq/L (5-15); Aspartate Amino Transferase 27 U/L (14-36); Blood Urea Nitrogen 8 mg/dl (7-17); Calcium 8.9 mg/dl (8.4-10.2); Carbon Dioxide 25 mmol/L (22.0-30.0); Chloride 99 mmol/L (98-107); Estimated Glomerular Filt Rate 97 ml/min (>60); GFR (African American) 117 ML/MIN (>60); Glucose 82 mg/dl (74-100); Potassium 4.2 mmoL/L (3.5-5.1); Sodium 137 mmol/L (136-145); Total Protein,Serum 7.4 g/dl (6.3-8.2)
[2021-11-27 18:16] LABS: Bilirubin,Total 0.1 mg/dl (0.2-1.3)
[2021-11-27 20:42] LABS: Thyroid Stimulating Hormone 2.11 uIU/mL (0.465-4.68)
== END ==
PROVIDERS: PCP Physician Assistant; Visit Provider Obstetrics & Gynecology
DX: R10.9 Unspecified abdominal pain (principal); R09.89 Other specified symptoms and signs involving the circulatory and respiratory systems
CPT/HCPCS: 36415; 80053; 84443; 85025

== ENCOUNTER → 2021-11-28 13:23 | Outpatient (CLI) | payer MEDICAID, SELFPAY ==
--- NOTE | 2021-11-28 13:23 | US_ITS ---
FINAL REPORT CLINICAL HISTORY: pelvic pain; heavy, painful, prolonged periods FINDINGS: Transvaginal sonographic images of the pelvis were obtained. The endometrium is prominent at 2 cm. There is a hyperechoic myometrial mass near the fundus of the uterus eccentric to the right measuring 2.2 cm consistent with a fibroid. The ovaries are unremarkable. There are small follicles bilaterally. There is no free fluid in the pelvis. IMPRESSION: Prominent endometrium. Small follicles bilaterally. Fibroid uterus. Reviewed, Interpreted and Dictated by Marc Moreno MD Transcribed by Ana Paula Lozano Authenticated and [facility]
== END ==
PROVIDERS: PCP Nurse Practitioner; Visit Provider Obstetrics & Gynecology
DX: R10.2 Pelvic and perineal pain (principal)
CPT/HCPCS: 76830

== ENCOUNTER 2021-12-28 12:51 | Emergency (ER) | payer MEDICAID, SELFPAY ==
--- NOTE | 2021-12-28 13:01 | XR_ITS ---
FINAL REPORT CLINICAL HISTORY: Lt ankle pain, stepped off porch twisted ankle 1 day ago, pain to lateral side. COMPARISON: 10/05/2020 FINDINGS: Left ankle Three views were obtained. There is no acute fracture or dislocation. The joint spaces appear normal. There is mild irregularity of the inferior lateral malleolus which is stable, may represent sequela of prior injury. There is lateral soft tissue swelling. IMPRESSION: No acute process. Reviewed, Interpreted and Dictated by Pablo Amezcua III, MD Transcribed by Ana Paula Lozano Authenticated and . [facility]
[2021-12-28 13:13] VITALS: BP 115/76; PULSE 112; RESP 19; TEMP 36.6; O2SAT 97; BMI 25.8
--- NOTE | 2021-12-28 13:30 | EXP.UTC ---
Discharge Plan Disposition Patient Disposition: Home, Self-Care Condition: Good Prescriptions Prescriptions: No Action ondansetron 8 mg tablet,disintegrating 8 mg PO Q8H PRN (Reason: nausea and vomiting) Qty: 30 0RF meloxicam 15 mg tablet 15 mg PO DAILY Qty: 30 2RF albuterol sulfate 8.5 GM HFA aerosol inhaler 2 puffs IH Q6HP PRN (Reason: Shortness Of Breath) 30 Days Qty: 1 5RF Referrals Follow up/Referrals: Gisele Mansfield PA [Primary Care Provider] - See instructions Activity Restrictions/Add. Instructions Additional Instructions/Restrictions: REST, ICE, COMPRESSION, ELEVATION Clinical Impressions Clinical Impression: Left ankle sprain Discharge ED Provider: Gisele Mansfield [facility] General Stated complaint: AO [id number], left ankle home accident Mode of Arrival: Ambulatory Source of Information: Patient Limitations: No Limitations Time Seen by Provider: 12/28/21 13:30 Description of Symptoms (Recalled from Triage Doc. by RN): Pt c/o lt ankle pain after falling off the porch HEENT Symptoms (Recalled from RN notes): No Resp Symptoms (Recalled from RN notes): No Skin Symptoms (Recalled from RN notes): No MS Symptoms (Recalled from RN notes): Yes (Lt ankle pain) Functional Status (Recalled from RN notes): n/a History of Present Illness Provider Complaint: Left ankle pain after falling off the porch last night. Pain on the outside of left ankle. Onset (ago): day(s) Location: left and lower extremity Radiation: non-radiation Quality: aching Relieving factors: immobilization Associated symptoms: denies other symptoms Treatments prior to arrival: none Related Data Previous Rx's Medication Instructions Recorded albuterol sulfate 90 mcg/actuation 2 puffs inhalation Q6HP PRN 06/19/21 aerosol inhaler Shortness Of Breath 30 days #1 ea meloxicam 15 mg tablet 15 mg PO DAILY #30 tabs 12/12/21 ondansetron 8 mg disintegrating 8 mg PO Q8H PRN nausea and 12/12/21 tablet vomiting #30 tabs Allergies Allergy/AdvReac Type Severity Reaction Status Date / Time Penicillins [PENICILLINS] Allergy Severe THROAT Verified 12/12/21 09:21 SWELLING, HIVES, VOMITTING amoxicillin [From AUGMENTIN] Allergy Intermediate I-HIVES Verified 12/12/21 09:21 clavulanic acid Allergy Intermediate I-HIVES Verified 12/12/21 09:21 [From AUGMENTIN] diphenhydramine Allergy Intermediate I-HIVES Verified 12/12/21 09:21 [From BENADRYL] ibuprofen [IBUPROFEN] Allergy Intermediate I-HIVES Verified 12/12/21 09:21 metoclopramide [From REGLAN] Allergy Intermediate I-HIVES Verified 12/12/21 09:21 Sulfa (Sulfonamide Allergy Intermediate I-HIVES Verified 12/12/21 09:21 Antibiotics) [SULFA (SULFONAMIDE ANTIBIOTICS)] tetanus toxoid, adsorbed Allergy Intermediate I-RASH Verified 12/12/21 09:21 [TETANUS TOXOID, ADSORBED] naproxen [NAPROXEN] Allergy Unknown Hives, Verified 12/12/21 09:21 Vomiting paroxetine [From PAXIL] Allergy Unknown numbness Verified 12/12/21 09:21 tongue atomoxetine [From Strattera] AdvReac Mild NA-HALLUCIN Verified 12/12/21 09:21 ATIONS Worker's Comp Is this a Worker's Comp case?: No [facility] Medical History (Updated 12/28/21 @ 14:02 by BRIT Manriquez) Costochondral separation Ganglion cyst History of deviated nasal septum Nausea & vomiting Surgical History History of cholecystectomy History of tonsillectomy and adenoidectomy Family History Other Alcoholism Asthma Cancer Diabetes Heart attack Hyperlipidemia Hypertension Social History Smoking Status: Current every day smoker tobacco type: cigarettes packs per day: 1 second hand exposure: No alcohol intake: current counseling provided: none substance use type: marijuana current occupational status: e
[2021-12-28 14:15] VITALS: BP 115/76; PULSE 112; RESP 19; TEMP 36.6; O2SAT 97
== END 2021-12-28 14:15 | disposition home or self-care (01) ==
PROVIDERS: Emergency Provider Physician Assistant; PCP Physician Assistant
DX: S93.402A Sprain of unspecified ligament of left ankle, initial encounter (principal); W17.89XA Other fall from one level to another, initial encounter; Y92.008 Other place in unspecified non-institutional (private) residence as the place of occurrence of the external cause
CPT/HCPCS: 73610; 99212; G0463

== ENCOUNTER → 2022-01-15 10:17 | Outpatient (CLI) | payer MEDICAID, SELFPAY ==
[2022-01-15 11:13] LABS: Basophils # 0.1 K/mm3 (0-0.2); Basophils % 1.1 % (0.1-2.0); Eosinophils # 0.1 K/mm3 (0.0-0.4); Hemoglobin 14.6 g/dL (12.2-16.2); Lymphocytes # 1.4 K/mm3 (0.7-4.5); Lymphocytes % 26.3 % (10-50); Mean Corpuscular HGB Conc 32.5 g/dL (31.8-35.4); Mean Corpuscular Hemoglobin 28.9 pg (27.0-31.2); Mean Corpuscular Volume 88.9 fl (81-99); Monocytes # 0.3 K/mm3 (0.1-1.0); Monocytes % 5.3 % (1.7-9.3); Neutrophils # 3.5 K/mm3 (1.8-7.8); Neutrophils % 65.2 % (37.0-80.0); Platelet Count 393 K/mm3 (142-424); Red Blood Count 5.06 M/mm3 (4.20-5.40); Red Cell Distribution Width 12.9 % (11.5-17.5); White Blood Count 5.3 K/mm3 (4.8-10.8)
[2022-01-15 12:02] LABS: Chloride 103 mmol/L (98-107); Potassium 4.7 mmoL/L (3.5-5.1); Sodium 141 mmol/L (136-145)
[2022-01-15 12:04] LABS: Alanine Aminotransferase 18 U/L (12-78); Aspartate Amino Transferase 27 U/L (14-36); Blood Urea Nitrogen 7 mg/dl (7-17); Estimated Glomerular Filt Rate 97 ml/min (>60); GFR (African American) 117 ML/MIN (>60)
[2022-01-15 12:05] LABS: Albumin Level 4.9 g/dl (3.5-5.0); Albumin/Globulin Ratio 1.8 (1.1-1.8); Alkaline Phosphatase 51 U/L (38-126); Anion Gap 15.7 mEq/L (5-15); Bilirubin,Total 0.3 mg/dl (0.2-1.3); Calcium 10.1 mg/dl (8.4-10.2); Carbon Dioxide 27 mmol/L (22.0-30.0); Globulin 2.8 g/dL (1.3-3.2); Glucose 88 mg/dl (74-100); Total Protein,Serum 7.7 g/dl (6.3-8.2)
[2022-01-15 12:26] LABS: HCG,Quantitative < 2 mIU/ml (0-5.42)
== END ==
PROVIDERS: PCP Physician Assistant; Visit Provider Obstetrics & Gynecology
DX: Z01.812 Encounter for preprocedural laboratory examination (principal); D25.9 Leiomyoma of uterus, unspecified
CPT/HCPCS: 36415; 80053; 84702; 85025

== ENCOUNTER 2022-01-17 06:23 | Observation (INO) | payer MEDICAID, SELFPAY ==
[2022-01-16 10:00] VITALS: BMI 25.8
[2022-01-17] VITALS (29 sets, daily range): BP systolic 102–162; BP diastolic 60–112; PULSE 79–116; RESP 14–24; TEMP 36.3–43; O2SAT 90–100
--- NOTE | 2022-01-17 07:00 | HMH.PHAINT1 ---
Pharmacy Intervention Comments: MEDICATION RECONCILIATION COMPLETED ON PATIENT USING EXTERNAL FILL HISTORY FROM PHARMACY. -STEPHANIE LOGAN, KRISTYD
--- NOTE | 2022-01-17 07:12 | EXP.ANES.CKL ---
[facility] Medical History Abdominal pain Abnormal uterine bleeding Allergies Anxiety Asthma Costochondral separation Depression Eczema Ganglion cyst Hearing loss in right ear Hemorrhoid History of COVID-19 History of deviated nasal septum Migraine Nausea Nausea & vomiting Scoliosis Uterine fibroid Surgical History History of cholecystectomy History of surgery History of surgery History of surgery History of tonsillectomy and adenoidectomy Family History Other Alcoholism Asthma Cancer Diabetes Heart attack Hyperlipidemia Hypertension Social History (Updated 01/17/22 @ 06:23 by Suzanne Lopez, [facility]) Smoking Status: Current every day smoker tobacco type: cigarettes packs per day: 1 years smoked: 16 second hand exposure: Yes alcohol intake: current counseling provided: none substance use type: denies use current occupational status: disabled Travel in the last 8 weeks: None household members: family and children housing: house current occupation: [employer] current occupational exposures/hazards: No caffeine: Yes [facility] Anesthesia Checklist Patient Identification Patient Identification: Arm Band and Family Structural Data Admitted From: Home Planned Operative Procedure/s: Laproscopic RJ Consent for Planned Operative Procedure(s) Verified: Yes Verified Documents: Surgical Consent and History and Physical NPO Status Verified Time NPO: 00:00 Additional verifications Patient : No Anesthesia Reactions: No Hx Blood Transfusions: Yes Blood Transfusion Reaction: No Cephalosporin Allergy: No Previous Colonoscopy: No Airway Assessment C-Spine Mobility Assessed: Yes TMJ Mobility Assessed: Yes Dentition: Edentulous Neurological Assessment Level of Consciousness: Awake, Appropriate and Follows Commands Hx Seizures: Yes Numbness or tingling in extremities: Yes Genitourinary Assessment 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
[2022-01-17 07:18] LABS: Coronavirus 19, PCR Not Detected (NotDetected); Influenza A, PCR Not Detected (NotDetected); Influenza B, PCR Not Detected (NotDetected)
--- NOTE | 2022-01-17 07:19 | EXP.HP ---
History of Present Illness *Admission Date: 01/17/22 *Reason for visit:: Abnormal uterine bleeding, dysmenorrhea, uterine fibroid *History of present illness: Ms Natividad Snell is a 31 yo [address] [facility] for scheduled surgery. ?She complains of abdominal pain and nausea. She went to the ED 11/07 for nausea, vomiting and abdominal pain. She states BMs are always loose since cholecystectomy. CT scan demonstrated?no diverticulitis. No bowel obstruction or evidence of appendicitis. 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 No surrounding inflammatory change. Possible uterine fibroids with heterogeneous appearance to the uterus.. She reports periods have always been very heavy, painful and irregular.?Pelvic ultrasound 11/28 revealed prominent endometrium at 2 cm; a hyperechoic myometrial mass near the fundus of the uterus eccentric to the right measuring 2.2 cm consistent with a fibroid.? The ovaries are unremarkable.? There are small follicles bilaterally.? There is no free fluid in the pelvis. History of x 1. History of cholecystectomy. She desires definitive surgical intervention with hysterectomy [facility] Medical History (Updated 01/17/22 @ 07:23 by Devika Luu DO) Abdominal pain Abnormal uterine bleeding Allergies Anxiety Asthma Costochondral separation Depression Dysmenorrhea Eczema Ganglion cyst Hearing loss in right ear Hemorrhoid History of COVID-19 History of deviated nasal septum Migraine Nausea Nausea & vomiting Scoliosis Uterine fibroid Surgical History History of cholecystectomy History of surgery History of surgery History of surgery History of tonsillectomy and adenoidectomy Family History Other Alcoholism Asthma Cancer Diabetes Heart attack Hyperlipidemia Hypertension Social History Smoking Status: Current every day smoker tobacco type: cigarettes packs per day: 1 years smoked: 16 second hand exposure: Yes alcohol intake: current counseling provided: none substance use type: denies use current occupational status: disabled Travel in the last 8 weeks: None household members: family and children housing: house current occupation: [employer] current occupational exposures/hazards: No caffeine: Yes Meds Home Medications and Allergies Home Medications Medication Instructions Recorded Confirmed Type albuterol sulfate 90 mcg/actuation 2 puffs inhalation Q6HP PRN 06/19/21 01/17/22 Rx aerosol inhaler Shortness Of Breath 30 days #1 ea meloxicam 15 mg tablet 15 mg PO DAILY Pain 01/17/22 01/17/22 History ondansetron 8 mg disintegrating 8 mg PO Q8HP PRN nausea and 01/17/22 01/17/22 History tablet vomiting New Prescriptions to Start Prescriptions: Allergies Allergy/AdvReac Type Severity Reaction Status Date / Time Penicillins [PENICILLINS] Allergy Severe THROAT Verified 01/17/22 06:19 SWELLING, HIVES, VOMITTING amoxicillin [From AUGMENTIN] Allergy Intermediate I-HIVES Verified 01/17/22 06:19 clavulanic acid Allergy Intermediate I-HIVES Verified 01/17/22 06:19 [From AUGMENTIN] diphenhydramine Allergy Intermediate I-HIVES Verified 01/17/22 06:19 [From BENADRYL] ibuprofen [IBUPROFEN] Allergy Intermediate I-HIVES Verified 01/17/22 06:19 metoclopramide [From REGLAN] Allergy Intermediate I-HIVES Verified 01/17/22 06:19 Sulfa (Sulfonamide Allergy Intermediate I-HIVES Verified 01/17/22 06:19 Antibiotics) [SULFA (SULFONAMIDE ANTIBIOTICS)] tetanus toxoid, adsorbed Allergy Intermediate I-RASH Verified 01/17/22 06:19 [TETANUS TOXOID, ADSORBED] naproxen [NAPROXEN] Allergy Unknown Hives, Verified 01/17/22 06:19 Vomiting paroxetine [From PAXIL] Allergy Unknown numbness Verified 01/17/22 06:19 tongue atomoxetine [From Strattera] AdvReac Mild NA-HALLU
--- NOTE | 2022-01-17 08:50 | SUR.OPER ---
0850- pt family updated of current status via audie keen
--- NOTE | 2022-01-17 10:48 | P.PNANES_ITS ---
[facility] Anesthesia Record Part I Anesthesia Record I Intake, IV Amount: 1,000 Estimated blood loss (mL): 100 Urine output (mL): 0 Blood Pressure: 156/112 SaO2: 98 Pulse Rate: 114 Respiratory Rate: 24 Temperature: 97.3 F Patient is:: Drowsy and Stable Stable to PACU at:: 10:40
--- NOTE | 2022-01-17 11:31 | EXP.OP.NOTE ---
Date of procedure: 01/17/22 Pre-op Diagnosis:: 1. Abnormal uterine bleeding 2. Abdominal pain 3. Dysmenorrhea 4. Uterine fibroid 5. Nausea Post-op Diagnosis:: 1. Abnormal uterine bleeding 2. Abdominal pain 3. Dysmenorrhea 4. Uterine fibroid 5. Nausea 6. Vaginal discharge 7. Bilateral patent ureters 8. Lesion in the bladder Procedure performed:: Total laparoscopic hysterectomy, bilateral salpingectomy, right oophorectomy, cystoscopy Surgeon:: Devika Luu DO Speech And Language Assistant(s):: Lexus Marshall MD Anesthesia: GETA Estimated blood loss (mL): 100 Clinical Note:: Ms Natividad Snell is a 31 yo 1011 who presents to [facility] for scheduled surgery. ?She complains of abdominal pain and nausea. She went to the ED 11/07 for nausea, vomiting and abdominal pain. She states BMs are always loose since cholecystectomy. CT scan demonstrated?no diverticulitis. No bowel obstruction or evidence of appendicitis. 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 No surrounding inflammatory change. Possible uterine fibroids with heterogeneous appearance to the uterus.. She reports periods have always been very heavy, painful and irregular.?Pelvic ultrasound 11/28 revealed prominent endometrium at 2 cm; a hyperechoic myometrial mass near the fundus of the uterus eccentric to the right measuring 2.2 cm consistent with a fibroid.? The ovaries are unremarkable.? There are small follicles bilaterally.? There is no free fluid in the pelvis. History of x 1. History of cholecystectomy. She desires definitive surgical intervention with hysterectomy. Operative findings:: Upon bimanual exam, uterus retroverted and slightly enlarged. No adenxal masses palpated. White discharge noted covering cervix and vaginal jean. Upon laparoscopic exam, grossly normal appearing liver, stomach, bowel and omentum. Gallbladder surgically absent. Grossly normal appearing uterus, cervix, bilateral fallopian tubes and ovaries. No evidence of adhesions or endometriosis. Operative note:: Discussed risks, benefits, alternatives, expectations and possible complications of surgery. All questions addressed and answered. Patient wished to proceed with surgery. Patient was wheeled back to the operating room and placed under general anesthesia without difficulty. She was placed in the dorsal lithotomy position. She was prepped and draped in normal sterile fashion. Beginning at the vagina, a rangel catheter was inserted into the bladder and draining clear urine prior to the start of the procedure. Weighted Auvuard was placed in the vaginal vault. Anterior lip of the cervix was grasped with single tooth tenaculum. Uterus sounded to 10. Kyler dilators were used to dilate the cervix. Advincula uterine manipulator was inserted into the cervix with the colpotomy cup covering the cervix. Single tooth tenaculum was removed prior to complete placement of colpotomy cup over cervix. Uterine balloon was filled with 10cc of air. Vaginal balloon was filled with 60 cc of air. Weighted Auvard was removed. Attention was then turned to the abdomen. Skin just below the umbilicus was injected with 0.5% marcaine. A 2cm infraumbilical incision was made. Veress needle was tested and inserted intrabdominally. Opening pressure was 6 mm Hg. The peritoneal cavity was insulflated to 15 mm Hg. Laparoscope within 11 mm blunt trocar was inserted intrabdominally under direct visualization. Obturator and scope were removed. Laparoscope was inserted into the trocar sleeve. Abdomen and pelvis was viewed in its entirety. Examination of the peritoneal cavity revealed no signs of injury from entry and normal anatomic structures. See findings above. Pictures were taken. Bowel was swept cephalad with blunt probe. RLQ port site was transilluminated and injected with 0.5% marcaine. A 2 cm incision was made and 11m trocar was inserted intraabdominally under direct laparoscopic visualization. Obturator was removed and sleeve was left in place. Same procedure was performed in [facility]
--- NOTE | 2022-01-17 11:43 | SUR.OPER ---
1020- family updated of pt current staus via audie keen
--- NOTE | 2022-01-17 12:00 | PC.NURSE ---
PATIENT ARRIVED TO FLOOR AT THIS TIME. POC EXPLAINED AND SHE V/U. BED LOCKED IN LOWEST POSITION. PATIENT ASLEEP- AWAKENS TO VERBAL STIMULI. VITALS WNL
--- NOTE | 2022-01-17 12:19 | EXP.ANES.II ---
[facility] Anesthesia Record Part II Anesthesia Record Part II Discharge Time: 11:40 Destination: Obstetric PACU nurse assessment reviewed?: Yes Patient Condition:: Good Anesthesia Complications:: None Swallowing reflex intact?: Yes Cyanosis?: No Blood Pressure: 130/78 Pulse Rate: 88 Temperature: 97.3 F Mental Status: Alert & Oriented Pain level:: 0 Nausea and/or vomitting:: None Intake, IV Amount: 0
--- NOTE | 2022-01-17 16:22 | PC.NURSE ---
reassessment completed at this time. no changes noted from previous assessment. lungs cta, bowels active x4. iv infusing at this time without difficulty. scuds in place bilat. no edema noted. a/ox4. Has rested most of this shift. no nausea/vomiting. call light within reach
--- NOTE | 2022-01-17 17:10 | PC.NURSE ---
3 LAP SITES NOTED- UNCHANGED FROM PREVIOUS ASSESSMENT. DERMABOND OVER INCISIONS
[2022-01-18] VITALS: BP 130/74; PULSE 85; RESP 18; TEMP 36.7; O2SAT 100
[2022-01-18 03:38] VITALS: RESP 18
[2022-01-18 03:51] VITALS: BP 154/80; PULSE 90; RESP 18; TEMP 36.8; O2SAT 100
--- NOTE | 2022-01-18 03:52 | PC.NURSE ---
Addendum entered by Arlet Nazario RN 01/18/22 03:57: ADDENDUM: PT C/O R SHOULDER AND RIB PAIN MORE THAN ABDOMINAL PAIN. PRN SIMETHICONE HAS BEEN GIVEN AND PT HAS BEEN ENCOURAGED TO AMBULATE. INCENTIVE SPIROMETER HAS ALSO BEEN GIVEN AND EXPLAINED, HOWEVER PT HAS NOT USED. Original Note: PT HAS RESTED BETWEEN ORAL PRN PAIN MEDICINE ADMINISTRATION. PT ONLY BECOMES TEARFUL AND VOICES DISCOMFORT WHEN AMBULATING. PT REQUIRES AT LEAST ONE PERSON TO WALK WITH HER TO AND FROM THE BATHROOM. LUNGS ARE CTA BILATERALLY. ABDOMINAL INCISIONS ARE CDI WITH DERMABOND IN PLACE, NO SIGNS OF INFECTION NOTED. BS ARE PRESENT AND NORMOACTIVE IN ALL QUADRANTS. SCANT VAGINAL BLEEDING PRESENT ON PAD. PT IS VOIDING WITHOUT DIFFICULTY. REFUSES TO WEAR BLE SCUDDS. REMAINS AT BEDSIDE. CALL LIGHT WITHIN REACH.
--- NOTE | 2022-01-18 06:59 | PC.NURSE ---
06:30 PT AMBULATED IN HALLWAY WITH THIS RN AND TOLERATED WELL.
--- NOTE | 2022-01-18 07:58 | PC.NURSE ---
DR. POWERS AT BEDSIDE.
[2022-01-18 08:05] VITALS: BP 97/63; PULSE 74; RESP 18; TEMP 36.8; O2SAT 99
--- NOTE | 2022-01-18 08:05 | PC.NURSE ---
patient assessment completed. lungs cta, and bowel sounds active x4. Reports passing gas- no bm. 3 lap sites noted. no drainage noted. iv saline locked. no edema noted. small amont vag bleeding per patient. pt eager to go home.
--- NOTE | 2022-01-18 08:18 | EXP.DC.SUM ---
General Admission date:: 01/17/22 Discharge date: 01/18/22 HPI HPI HPI: POD # 1 s/p TLH, BS, right oophorectomy, cystoscopy Doing okay. Pain controlled. Tolerating regular diet. No nausea or vomiting. Voiding without difficulty. Passing flatus. Denies fever/chills, chest pain and shortness of breath. No lower extremity swelling. Hospital Course Hospital Course Hospital Course: Ms Natividad Snell is a 31 yo 1011 who presents to [facility] for scheduled surgery. ?She complains of abdominal pain and nausea. She went to the ED 11/07 for nausea, vomiting and abdominal pain. She states BMs are always loose since cholecystectomy. CT scan demonstrated?no diverticulitis. No bowel obstruction or evidence of appendicitis. 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 No surrounding inflammatory change. Possible uterine fibroids with heterogeneous appearance to the uterus.. She reports periods have always been very heavy, painful and irregular.?Pelvic ultrasound 11/28 revealed prominent endometrium at 2 cm; a hyperechoic myometrial mass near the fundus of the uterus eccentric to the right measuring 2.2 cm consistent with a fibroid.? The ovaries are unremarkable.? There are small follicles bilaterally.? There is no free fluid in the pelvis. History of x 1. History of cholecystectomy. She desires definitive surgical intervention with hysterectomy POD #1 she was doing well postoperatively. Pain controlled. She was tolerating regular diet. Voiding without difficulty. and passing flatus. Heart was regular rate and rhythm. Lungs clear to auscultation. Abdomen soft, appropriate tenderness to palpation, normal BS. Vital signs stable, afebrile. Normal hospital course. AM labs are pending. Exam Data for Last 24 hours Vital signs and Labs for Last 24 Hours: Temp Pulse Resp BP Pulse Ox 98.2 F 90 18 154/80 H 100 01/18/22 03:51 01/18/22 03:51 01/18/22 03:51 01/18/22 03:51 01/18/22 03:51 I & O for Last 24 hours: Intake & Output 01/15/22 01/16/22 01/17/22 01/18/22 23:59 23:59 23:59 23:59 Intake Total 1000 / 1000 1452 / 1452 Output Total 1450 / 1450 1950 / 1950 Balance -450 / -450 -498 / -498 Weight 160 lb Constitutional Constitutional: no acute distress and cooperative *Routine HEENT Exam Head: Present normocephalic Eye: Absent conjunctivae pink ENT: Present mucous membranes moist; Absent dentition normal *Routine Neck Exam Neck: Present full ROM *Routine Respiratory Exam Respiratory: Present CTA bilaterally and normal respiratory effort *Routine Cardiovascular Exam Cardiovascular: Present RRR *Routine Abdominal Exam Abdominal: Present soft, normoactive bowel sounds and tenderness (appropriate tenderness to palpation); Absent distended or guarding Comments: Laparoscopic incisions without drainage. Dermabond covering incisions. No erythema, no drainage *Routine Extremities Exam Extremities: Present full ROM; Absent edema or calf tenderness *Routine Neurological Exam Neurological: Present alert, oriented X3 and moving all extremities Routine Psychiatric Exam Psychiatric: Present normal affect and cooperative DS: Diagnosis Discharge Diagnosis (1) Abnormal uterine bleeding: Status: Acute (2) Abdominal pain: Status: Acute (3) Dysmenorrhea: Status: Acute (4) Nausea: Status: Acute (5) Uterine fibroid: Status: Acute (6) Cigarette smoker: Status: Chronic Meds Home Medications and Allergies Home Medications Medication Instructions Recorded Confirmed Type albuterol sulfate 90 mcg/actuation 2 puffs inhalation Q6HP PRN 06/19/21 01/17/22 Rx aerosol inhaler Shortness Of Breath 30 days #1 ea meloxicam 15 mg tablet 15 mg PO DAILY Pain 01/17/22 01/17/22 History ondansetron 8 mg disintegrating 8 mg PO Q8HP PRN nausea and 01/17/22 01/17/22 History tablet vomiting acetaminophen 500 mg capsule 500 mg PO Q6H PRN fever #30 caps 01/18/22 Rx oxycodone 5 mg tablet 5 mg PO Q4HP PRN Modera
--- NOTE | 2022-01-18 08:25 | PC.NURSE ---
LAB AT BEDSIDE
[2022-01-18 08:36] LABS: Basophils % 0.2 % (0.1-2.0); Eosinophils # 0.1 K/mm3 (0.0-0.4); Eosinophils % 0.3 % (0.1-12.0); Hematocrit 35.9 % (37.0-47.0); Hemoglobin 11.8 g/dL (12.2-16.2); Lymphocytes # 1.7 K/mm3 (0.7-4.5); Lymphocytes % 10.8 % (10-50); Mean Corpuscular HGB Conc 32.8 g/dL (31.8-35.4); Mean Corpuscular Hemoglobin 29.3 pg (27.0-31.2); Mean Corpuscular Volume 89.4 fl (81-99); Mean Platelet Volume 9.3 fl (7.4-10.4); Monocytes # 0.7 K/mm3 (0.1-1.0); Monocytes % 4.2 % (1.7-9.3); Neutrophils # 13.2 K/mm3 (1.8-7.8); Neutrophils % 84.5 % (37.0-80.0); Platelet Count 309 K/mm3 (142-424); Red Blood Count 4.01 M/mm3 (4.20-5.40); Red Cell Distribution Width 13.4 % (11.5-17.5); White Blood Count 15.6 K/mm3 (4.8-10.8)
[2022-01-18 08:37] LABS: MANUAL DIFFERENTIAL MANUAL DIFFERENTIAL (MANUAL DIFF)
[2022-01-18 08:49] LABS: Lymphocytes % 16 % (10-50); Monocytes % 3 % (2-9); Neutrophils % 81 % (42-76); Platelet Estimate Normal; RBC Morphology Normal; Total Cells Counted 100
[2022-01-18 08:56] LABS: Blood Urea Nitrogen 5 mg/dl (7-17); Calcium 8.7 mg/dl (8.4-10.2); Carbon Dioxide 22 mmol/L (22.0-30.0); Chloride 103 mmol/L (98-107); Creatinine Clearance Estimated 154 mL/min (50-200); Estimated Glomerular Filt Rate 116 ml/min (>60); GFR (African American) 140 ML/MIN (>60); Glucose 188 mg/dl (74-100); Sodium 138 mmol/L (136-145)
[2022-01-18 09:01] LABS: Anion Gap 16.8 mEq/L (5-15); Potassium 3.8 mmoL/L (3.5-5.1)
--- NOTE | 2022-01-18 09:15 | PC.NURSE ---
D/C EDUCATION PROVIDED AT THIS TIME. ENCOURAGED QUESTIONS. SHE V/U
== END 2022-01-18 09:18 | disposition home or self-care (01) ==
LOC: OB 06:23
PROVIDERS: Admitting Provider Obstetrics & Gynecology; PCP Physician Assistant; Visit Provider Obstetrics & Gynecology
PROC: (CPT 58552; principal; 2022-01-17 07:30)
DX: N94.6 Dysmenorrhea, unspecified (principal); D25.9 Leiomyoma of uterus, unspecified; D41.4 Neoplasm of uncertain behavior of bladder; F17.210 Nicotine dependence, cigarettes, uncomplicated; Z20.822 Contact with and (suspected) exposure to COVID-19
CPT/HCPCS: 58552; 80048; 85007; 85025; 96374; C9803; G0378; J2405; U0003; U0005

== ENCOUNTER 2022-03-02 13:07 | Emergency (ER) | payer MEDICAID, SELFPAY ==
[2022-03-02 13:20] VITALS: BP 104/62; PULSE 88; RESP 18; TEMP 36.1; O2SAT 98; BMI 28.3
--- NOTE | 2022-03-02 13:44 | EXP.UTC ---
Discharge Plan Disposition Patient Disposition: Home, Self-Care Condition: Good Prescriptions Prescriptions: New benzonatate 100 mg capsule 100 mg PO TID PRN (Reason: cough) Qty: 30 0RF No Action ondansetron 8 mg tablet,disintegrating 8 mg PO Q12H PRN (Reason: nausea and vomiting) Qty: 20 0RF prazosin 1 mg capsule 1 mg PO HS Qty: 30 2RF duloxetine [Cymbalta] 20 mg capsule,delayed release(DR/EC) 20 mg PO BID Qty: 60 2RF duloxetine [Cymbalta] 30 mg capsule,delayed release(DR/EC) 30 mg PO BID Qty: 60 2RF pregabalin [Lyrica] 25 mg capsule 25 mg PO BID Qty: 60 2RF prazosin 2 mg capsule 2 mg PO HS Qty: 30 2RF albuterol sulfate 8.5 GM HFA aerosol inhaler 2 puffs IH Q6HP PRN (Reason: Shortness Of Breath) 30 Days Qty: 1 5RF Referrals Follow up/Referrals: Gisele Mansfield PA [Primary Care Provider] - See instructions Activity Restrictions/Add. Instructions Additional Instructions/Restrictions: *Monitor Temp, Over the counter Motrin or Tylenol as directed/as needed Tylenol every 4 hours and Motrin every 6 hours (as long as your family doctor has told you that you can take it) for fever or pain. and straight to ER if unable to lower temp less than 101.0 after medication given *Warm salt water gargles may help to soothe the throat *Throat Lozenges? *Warm fluids like tea with honey may help to soothe the throat? *Sleep elevated *Humidifier/Vaporizer *Flonase 2 sprays in each nostril daily but be aware that it may take 2-3 days before you notice improvement *Bromfed may cause drowsiness. Know how it effects you (your child) before driving, caring for small child, or sending your child to school. Not other antihistamines/allergy medications while taking bromfed Your throat swab was sent for culture. Those results are typically sent to your primary care. Be sure to follow up in 2-3 days with your family doctor/primary care physician if no improvement so they can review those result and treat if necessary. If you don?t have a primary care doctor, I recommend you get one but in the mean time, you will have to return to a walk in clinic Follow up IMMEDIATELY for new or worsening symptoms or no Noticeable improvement over the next 48-72 hours. 911 for difficulty breathing or swallowing You were tested for today for Upper Respiratory Panel with COVID19 your test result should be back in the next 24-48 hours, you may check your results on the [facility] Clinical Impressions Clinical Impression: Viral upper respiratory tract infection with cough Stand Alone Forms Stand Alone Forms: Work/School Release Instructions Patient Instructions: Cough, DI for Viral Upper Respiratory Infection -- Adult Discharge ED Provider: Rocío Gomez [facility] HPI General Stated complaint: cough, runny nose, sore throat Mode of Arrival: Ambulatory Source of Information: Patient Limitations: No Limitations Time Seen by Provider: 03/02/22 13:44 Description of Symptoms (Recalled from Triage Doc. by RN): PATIENT C/O WHEEZING, SORE THROAT, COUGH, AND BODY ACHES THAT STARTED TODAY HEENT Symptoms (Recalled from RN notes): Yes Resp Symptoms (Recalled from RN notes): Yes Skin Symptoms (Recalled from RN notes): No MS Symptoms (Recalled from RN notes): No Functional Status (Recalled from RN notes): WNL History of Present Illness Provider Complaint: Patient states that she woke up not feeling well States that she has had a cough, nasal congestion and had a little wheezing earlier with body aches Related Data Previous Rx's Medication Instructions Recorded albuterol sulfate 90 mcg/actuation 2 puffs inhalation Q6HP PRN 06/19/21 aerosol inhaler Shortness Of Breath 30 days #1 ea duloxetine 20 mg capsule,delayed 20 mg PO BID #60 caps 02/04/22 release (Cymbalta) ondansetron 8 mg disintegrating 8 mg PO Q12H PRN nausea and 02/04/22 tablet vomiting #20 tabs prazosin 1 mg capsule 1 mg PO HS
[2022-03-02 13:47] LABS: UTC Influenza A Antigen Negative (Negative); UTC Influenza B Antigen Negative (Negative); UTC Strep Screen (Rapid) Negative (Negative)
[2022-03-02 13:53] VITALS: BP 104/62; PULSE 88; RESP 18; TEMP 36.1; O2SAT 98
== END 2022-03-02 14:04 | disposition home or self-care (01) ==
PROVIDERS: Emergency Provider Nurse Practitioner; PCP Physician Assistant
DX: J06.9 Acute upper respiratory infection, unspecified (principal)
CPT/HCPCS: 87804; 87880; 99212; G0463

== ENCOUNTER 2022-03-09 12:35 | Emergency (ER) | payer MEDICAID, SELFPAY ==
--- NOTE | 2022-03-09 14:20 | EXP.UTC ---
Discharge Plan Disposition Patient Disposition: Home, Self-Care Condition: Good Prescriptions Prescriptions: New methylprednisolone 4 mg Tablets,Dose Pack 4 mg PO DIRECTED Qty: 21 0RF guaifenesin [Mucinex] 600 mg tablet extended release 12hr 600 - 1,200 mg PO BIDP PRN (Reason: Congestion) Qty: 30 0RF azithromycin [Zithromax] 250 mg tablet 250 mg PO UD DOSE PK Qty: 6 0RF Rx Instructions: Take two (2) tablets today, then one (1) tablet days #2 thru #5 promethazine-DM 6.25-15 mg/5 mL Syrup 5 ml PO Q6H PRN (Reason: Cough) Qty: 240 0RF No Action ondansetron 8 mg tablet,disintegrating 8 mg PO Q12H PRN (Reason: nausea and vomiting) Qty: 20 0RF prazosin 1 mg capsule 1 mg PO HS Qty: 30 2RF duloxetine [Cymbalta] 20 mg capsule,delayed release(DR/EC) 20 mg PO BID Qty: 60 2RF duloxetine [Cymbalta] 30 mg capsule,delayed release(DR/EC) 30 mg PO BID Qty: 60 2RF pregabalin [Lyrica] 25 mg capsule 25 mg PO BID Qty: 60 2RF prazosin 2 mg capsule 2 mg PO HS Qty: 30 2RF benzonatate 100 mg capsule 100 mg PO TID PRN (Reason: cough) Qty: 30 0RF albuterol sulfate 8.5 GM HFA aerosol inhaler 2 puffs IH Q6HP PRN (Reason: Shortness Of Breath) 30 Days Qty: 1 5RF Referrals Follow up/Referrals: Gisele Mansfield PA [Primary Care Provider] - See instructions Activity Restrictions/Add. Instructions Additional Instructions/Restrictions: Drink plenty of fluids. Take tylenol or ibuprofen for pain or fever. Take the medications as directed. Follow up with your regular doctor. GO TO THE ER FOR ANY WORSENING SYMPTOMS Clinical Impressions Clinical Impression: Acute bronchitis, Acute viral syndrome Stand Alone Forms Stand Alone Forms: Work/School Release Instructions Patient Instructions: DI for Acute Bronchitis, DI for Viral Syndrome Discharge ED Provider: Rajat Alvarez [facility] General Stated complaint: Cough,Runny nose,Sore throat Time Seen by Provider: 03/09/22 14:20 History of Present Illness Provider Complaint: she c/o cough, chest congestion, sinus congestion and malaise for the past 4 days. She is coughing up yellowish sputum. Related Data Previous Rx's Medication Instructions Recorded albuterol sulfate 90 mcg/actuation 2 puffs inhalation Q6HP PRN 06/19/21 aerosol inhaler Shortness Of Breath 30 days #1 ea duloxetine 20 mg capsule,delayed 20 mg PO BID #60 caps 02/04/22 release (Cymbalta) ondansetron 8 mg disintegrating 8 mg PO Q12H PRN nausea and 02/04/22 tablet vomiting #20 tabs prazosin 1 mg capsule 1 mg PO HS #30 caps 02/04/22 duloxetine 30 mg capsule,delayed 30 mg PO BID #60 caps 02/20/22 release (Cymbalta) prazosin 2 mg capsule 2 mg PO HS #30 caps 02/20/22 pregabalin 25 mg capsule (Lyrica) 25 mg PO BID #60 caps 02/20/22 benzonatate 100 mg capsule 100 mg PO TID PRN cough #30 caps 03/02/22 azithromycin 250 mg tablet 250 mg PO UD DOSE PK #6 tabs 03/09/22 (Zithromax) guaifenesin 600 mg tablet, 600 - 1,200 mg PO BIDP PRN 03/09/22 extended release 12 hr (Mucinex) Congestion #30 tabs methylprednisolone 4 mg tablets in 4 mg PO DIRECTED #21 tabs 03/09/22 a dose pack promethazine-DM 6.25 mg-15 mg/5 mL 5 ml PO Q6H PRN Cough #240 mL 03/09/22 oral syrup Allergies Allergy/AdvReac Type Severity Reaction Status Date / Time Penicillins [PENICILLINS] Allergy Severe THROAT Verified 03/09/22 14:33 SWELLING, HIVES, VOMITTING amoxicillin [From AUGMENTIN] Allergy Intermediate I-HIVES Verified 03/09/22 14:33 clavulanic acid Allergy Intermediate I-HIVES Verified 03/09/22 14:33 [From AUGMENTIN] diphenhydramine Allergy Intermediate I-HIVES Verified 03/09/22 14:33 [From BENADRYL] ibuprofen [IBUPROFEN] Allergy Intermediate I-HIVES Verified 03/09/22 14:33 metoclopramide [From REGLAN] Allergy Intermediate I-HIVES Verified 03/09/22 14:33 Sulfa (Sulfonamide Allergy Intermediate I-HIVES Verified 03/09/22 14:33 Antibioti
--- NOTE | 2022-03-09 14:28 | XR_ITS ---
PROCEDURE INFORMATION: Exam: XR Chest Exam date and time: 03/09/2022 2:24 PM Age: 31 years old Clinical indication: Shortness of breath; Additional info: Cough TECHNIQUE: Imaging protocol: Radiologic exam of the chest. Views: 2 views. COMPARISON: CR XR CHEST 2V 10/14/2021 1:40 PM FINDINGS: Lungs: Unremarkable. No consolidation. Pleural spaces: Unremarkable. No pleural effusion. No pneumothorax. Heart/Mediastinum: Unremarkable. No cardiomegaly. Bones/joints: Chronic compression fracture deformities in the lower thoracic spine. Findings stable IMPRESSION: No evidence of acute cardiopulmonary disease.
[2022-03-09 14:31] VITALS: BP 123/92; PULSE 111; RESP 16; TEMP 36.8; O2SAT 96; BMI 25.8
[2022-03-09 15:55] VITALS: BP 123/92; PULSE 111; RESP 16; TEMP 36.8
[2022-03-09 16:12] LABS: Adenovirus,PCR Not Detected (NotDetected); Bordetella Pertussis Not Detected (NotDetected); Chlamydophila Pneumoniae, PCR Not Detected (NotDetected); Coronavirus 19, PCR Not Detected (NotDetected); Coronavirus 229E Not Detected (NotDetected); Coronavirus NL63 Not Detected (NotDetected); Coronavirus OC43 Not Detected (NotDetected); Coronovirus HKU1,PCR Not Detected (NotDetected); Human Metapneumovirus Not Detected (NotDetected); Influenza A, PCR Not Detected (NotDetected); Influenza AH1, 2009 Not Detected (NotDetected); Influenza AH1, PCR Not Detected (NotDetected); Influenza AH3,PCR Not Detected (NotDetected); Influenza B, PCR Not Detected (NotDetected); Mycoplasma Pneumoniae, PCR Not Detected (NotDetected); Parainfluenza 1, PCR Not Detected (NotDetected); Parainfluenza 2, PCR Not Detected (NotDetected); Parainfluenza 3, PCR Not Detected (NotDetected); Parainfluenza 4, PCR Not Detected (NotDetected); Respiratory Syncytial Virus Not Detected (NotDetected)
[2022-03-09 19:25] LABS: Rhinovirus/Enterovirus Detected (NotDetected)
== END 2022-03-09 15:56 | disposition home or self-care (01) ==
PROVIDERS: Emergency Provider Nurse Practitioner Family; PCP Physician Assistant
DX: J20.6 Acute bronchitis due to rhinovirus (principal)
CPT/HCPCS: 71046; 87581; 87632; 87798; 96372; 99212; 99213; C9803; G0463; U0003; U0005

== ENCOUNTER 2022-03-11 01:12 | Emergency (ER) | payer MEDICAID, SELFPAY ==
[2022-03-11 01:15] VITALS: BP 146/94; PULSE 77; RESP 19; TEMP 36.5; O2SAT 100; BMI 25.8
--- NOTE | 2022-03-11 02:10 | HMH.EDWNDL ---
Discharge Plan Disposition Patient Disposition: Home, Self-Care Chief Complaint: Wound/Laceration Prescriptions Prescriptions: No Action prazosin 1 mg capsule 1 mg PO HS Qty: 30 2RF duloxetine [Cymbalta] 20 mg capsule,delayed release(DR/EC) 20 mg PO BID Qty: 60 2RF duloxetine [Cymbalta] 30 mg capsule,delayed release(DR/EC) 30 mg PO BID Qty: 60 2RF pregabalin [Lyrica] 25 mg capsule 25 mg PO BID Qty: 60 2RF prazosin 2 mg capsule 2 mg PO HS Qty: 30 2RF benzonatate 100 mg capsule 100 mg PO TID PRN (Reason: cough) Qty: 30 0RF guaifenesin [Mucinex] 600 mg tablet extended release 12hr 600 - 1,200 mg PO BIDP PRN (Reason: Congestion) Qty: 30 0RF albuterol sulfate 8.5 GM HFA aerosol inhaler 2 puffs IH Q6HP PRN (Reason: Shortness Of Breath) 30 Days Qty: 1 5RF Referrals Follow up/Referrals: Gisele Mansfield PA [Primary Care Provider] - See instructions Clinical Impressions Clinical Impression: Laceration Instructions Patient Instructions: DI for Laceration Repair Discharge ED Provider: Andre Novoa Wound/Laceration HPI General Chief Complaint: Wound/Laceration Stated Complaint: AO 03/11/22 00:13 Laceration right thumb Time Seen by Provider: 03/11/22 02:10 Mode of Arrival: Family Vehicle Source of Information: Patient, Significant Other and Medical Record Limitations: No Limitations Description of Symptoms (Recalled from ER Triage Doc. by RN): Pt c/o laceration to R thumb that occured 1 hr [employer] (0030). States she was cleaning dishes when a knife cut it. Scant amount of blood present when bandaid removed. Pt refuses tetanus injection at this time. History of Present Illness HPI narrative: lac distal rt thumb while cleaning dishes Onset (ago): hour(s) Extremity Location: Right: hand Place: home Patient tetanus UTD: No Context: accidental Associated symptoms: none Related Data Previous Rx's Medication Instructions Recorded albuterol sulfate 90 mcg/actuation 2 puffs inhalation Q6HP PRN 06/19/21 aerosol inhaler Shortness Of Breath 30 days #1 ea duloxetine 20 mg capsule,delayed 20 mg PO BID #60 caps 11/28/22 release (Cymbalta) prazosin 1 mg capsule 1 mg PO HS #30 caps 02/04/22 duloxetine 30 mg capsule,delayed 30 mg PO BID #60 caps 02/20/22 release (Cymbalta) prazosin 2 mg capsule 2 mg PO HS #30 caps 02/20/22 pregabalin 25 mg capsule (Lyrica) 25 mg PO BID #60 caps 02/20/22 benzonatate 100 mg capsule 100 mg PO TID PRN cough #30 caps 03/02/22 guaifenesin 600 mg tablet, 600 - 1,200 mg PO BIDP PRN 03/09/22 extended release 12 hr (Mucinex) Congestion #30 tabs Allergies Allergy/AdvReac Type Severity Reaction Status Date / Time Penicillins [PENICILLINS] Allergy Severe THROAT Verified 03/09/22 14:33 SWELLING, HIVES, VOMITTING amoxicillin [From AUGMENTIN] Allergy Intermediate I-HIVES Verified 03/09/22 14:33 clavulanic acid Allergy Intermediate I-HIVES Verified 03/09/22 14:33 [From AUGMENTIN] diphenhydramine Allergy Intermediate I-HIVES Verified 03/09/22 14:33 [From BENADRYL] ibuprofen [IBUPROFEN] Allergy Intermediate I-HIVES Verified 03/09/22 14:33 metoclopramide [From REGLAN] Allergy Intermediate I-HIVES Verified 03/09/22 14:33 Sulfa (Sulfonamide Allergy Intermediate I-HIVES Verified 03/09/22 14:33 Antibiotics) [SULFA (SULFONAMIDE ANTIBIOTICS)] tetanus toxoid, adsorbed Allergy Intermediate I-RASH Verified 03/09/22 14:33 [TETANUS TOXOID, ADSORBED] naproxen [NAPROXEN] Allergy Unknown Hives, Verified 03/09/22 14:33 Vomiting paroxetine [From PAXIL] Allergy Unknown numbness Verified 03/09/22 14:33 tongue atomoxetine [From Strattera] AdvReac Mild NA-HALLUCIN Verified 03/09/22 14:33 [facility] Disclaimer: The information contained in this section may have been updated after the patient was seen, as this information can be updated by other users. Medical History (Reviewed 03/10/22 @ 21:08 by Rajat Ruggiero
[2022-03-11 02:19] VITALS: BP 139/78; PULSE 70; RESP 16; TEMP 36.5; O2SAT 100
== END 2022-03-11 02:24 | disposition home or self-care (01) ==
PROVIDERS: Emergency Provider Emergency Medicine; PCP Physician Assistant
DX: S61.011A Laceration without foreign body of right thumb without damage to nail, initial encounter (principal); W26.0XXA Contact with knife, initial encounter; Y93.G1 Activity, food preparation and clean up; F17.210 Nicotine dependence, cigarettes, uncomplicated
CPT/HCPCS: 12001; 99283; 99284

== ENCOUNTER 2022-03-23 12:40 | Emergency (ER) | payer MEDICAID, SELFPAY ==
[2022-03-23 12:50] VITALS: BP 135/83; PULSE 90; RESP 20; TEMP 36.6; O2SAT 100; BMI 28.9
--- NOTE | 2022-03-23 12:59 | XR_ITS ---
PROCEDURE INFORMATION: Exam: XR Right Ankle Exam date and time: 03/23/2022 1:04 PM Age: 31 years old Clinical indication: Pain; Ankle and knee; Right; Bilateral TECHNIQUE: Imaging protocol: Radiologic exam of the Right ankle. Views: 3 or more views. Total images: 3 COMPARISON: MR ANKLE RT WO/W CON 07/28/2019 9:57 AM FINDINGS: Bones/joints: No evidence of acute fracture or dislocation. Soft tissues: Soft tissues are within normal limits. IMPRESSION: No evidence of acute fracture or dislocation.
--- NOTE | 2022-03-23 12:59 | XR_ITS ---
PROCEDURE INFORMATION: Exam: XR Right Knee Exam date and time: 03/23/2022 1:01 PM Age: 31 years old Clinical indication: Pain; Ankle and knee; Right; Bilateral TECHNIQUE: Imaging protocol: Radiologic exam of the Right knee. Views: 3 views. Total images: 3 COMPARISON: CR XR KNEE RT 4V 03/19/2019 10:30 AM FINDINGS: Bones/joints: No evidence of acute fracture or dislocation. Soft tissues: Soft tissues are within normal limits. IMPRESSION: No evidence of acute fracture or dislocation.
--- NOTE | 2022-03-23 14:10 | EXP.UTC ---
Discharge Plan Disposition Patient Disposition: Home, Self-Care Condition: Good Prescriptions Prescriptions: No Action prazosin 1 mg capsule 1 mg PO HS Qty: 30 2RF duloxetine [Cymbalta] 20 mg capsule,delayed release(DR/EC) 20 mg PO BID Qty: 60 2RF cefdinir 300 mg capsule 300 mg PO Q12H 10 Days Qty: 20 0RF prednisone 20 mg tablet 20 mg PO DAILY Qty: 18 0RF Rx Instructions: TID X 3 days, BID X 3 days, QD X 3 days albuterol sulfate 90 mcg/actuation HFA aerosol inhaler 2 inh inhalation Q6HP PRN (Reason: Shortness Of Breath) 30 Days Qty: 1 5RF duloxetine [Cymbalta] 30 mg capsule,delayed release(DR/EC) 30 mg PO BID Qty: 60 2RF pregabalin [Lyrica] 25 mg capsule 25 mg PO BID Qty: 60 2RF prazosin 2 mg capsule 2 mg PO HS Qty: 30 2RF promethazine-codeine 6.25-10 mg/5 mL syrup 5 ml PO Q6H PRN (Reason: cough) Qty: 60 0RF Dulera 50-5 mcg/actuation HFA aerosol inhaler 2 puff inhalation Q12H Qty: 13 2RF benzonatate 100 mg capsule 100 mg PO TID PRN (Reason: cough) Qty: 30 0RF guaifenesin [Mucinex] 600 mg tablet extended release 12hr 600 - 1,200 mg PO BIDP PRN (Reason: Congestion) Qty: 30 0RF Referrals Follow up/Referrals: Gisele Mansfield PA [Primary Care Provider] - See instructions Activity Restrictions/Add. Instructions Additional Instructions/Restrictions: Follow up with ortho. Clinical Impressions Clinical Impression: Chronic joint pain Instructions Patient Instructions: How To Perform RICE (Rest, Ice, Compress, Elevate) Discharge ED Provider: Carmella Romero [facility] General Stated complaint: no accident, Right Knee and ankle Mode of Arrival: Ambulatory Source of Information: Patient and Spouse Time Seen by Provider: 03/23/22 13:16 Description of Symptoms (Recalled from Triage Doc. by RN): right knee pain, and right swollen ankle. Has had knee surgery in past. HAs appt 04/12/2022 with surgeon. HEENT Symptoms (Recalled from RN notes): Yes Resp Symptoms (Recalled from RN notes): No Skin Symptoms (Recalled from RN notes): No MS Symptoms (Recalled from RN notes): No Functional Status (Recalled from RN notes): n/a History of Present Illness Provider Complaint: Pt states that she has had several surgeries on her knees and is having a lot of pain in her right knee and ankle. She has taken Tylenol for her symptoms. Related Data Previous Rx's Medication Instructions Recorded duloxetine 20 mg capsule,delayed 20 mg PO BID #60 caps 02/04/22 release (Cymbalta) prazosin 1 mg capsule 1 mg PO HS #30 caps 02/04/22 duloxetine 30 mg capsule,delayed 30 mg PO BID #60 caps 02/20/22 release (Cymbalta) prazosin 2 mg capsule 2 mg PO HS #30 caps 02/20/22 pregabalin 25 mg capsule (Lyrica) 25 mg PO BID #60 caps 02/20/22 benzonatate 100 mg capsule 100 mg PO TID PRN cough #30 caps 03/02/22 guaifenesin 600 mg tablet, 600 - 1,200 mg PO BIDP PRN 03/09/22 extended release 12 hr (Mucinex) Congestion #30 tabs albuterol sulfate 90 mcg/actuation 2 inh inhalation Q6HP PRN 03/14/22 aerosol inhaler Shortness Of Breath 30 days #1 ea cefdinir 300 mg capsule 300 mg PO Q12H 10 days #20 caps 03/14/22 prednisone 20 mg tablet 20 mg PO DAILY #18 tabs 03/14/22 promethazine 6.25 mg-codeine 10 5 ml PO Q6H PRN cough #60 mL 03/14/22 mg/5 mL syrup mometasone-formoterol HFA 50 mcg-5 2 puff inhalation Q12H #13 grams 03/21/22 mcg/actuation aerosol inhaler (Dulera) Allergies Allergy/AdvReac Type Severity Reaction Status Date / Time Penicillins [PENICILLINS] Allergy Severe THROAT Verified 03/23/22 12:59 SWELLING, HIVES, VOMITTING amoxicillin [From AUGMENTIN] Allergy Intermediate I-HIVES Verified 03/23/22 12:59 clavulanic acid Allergy Intermediate I-HIVES Verified 03/23/22 12:59 [From AUGMENTIN] diphenhydramine Allergy Intermediate I-HIVES Verified 03/23/22 12:59 [From BENADRYL] ibuprofen [IBUPROFEN] Allergy Intermediate I-HIVES Verified
[2022-03-23 14:39] VITALS: BP 134/83; PULSE 90; RESP 22; TEMP 36.6; O2SAT 100
== END 2022-03-23 14:39 | disposition home or self-care (01) ==
PROVIDERS: Emergency Provider Nurse Practitioner Family; PCP Physician Assistant
DX: G89.29 Other chronic pain (principal); M25.561 Pain in right knee; M25.571 Pain in right ankle and joints of right foot
CPT/HCPCS: 73562; 73610; 99213; G0463

== ENCOUNTER 2022-04-01 11:24 | Emergency (ER) | payer MEDICAID, SELFPAY ==
[2022-04-01 12:25] VITALS: BP 154/94; PULSE 107; RESP 20; TEMP 36.7; O2SAT 98; BMI 29.0
--- NOTE | 2022-04-01 12:30 | EXP.UTC ---
Discharge Plan Disposition Patient Disposition: Home, Self-Care Condition: Good Prescriptions Prescriptions: New triamcinolone acetonide 0.1 % cream 1 applic topical BID PRN (Reason: itching) Qty: 15 0RF methylprednisolone 4 mg Tablets,Dose Pack 4 mg PO DIRECTED Qty: 21 0RF No Action prazosin 1 mg capsule 1 mg PO HS Qty: 30 2RF duloxetine [Cymbalta] 20 mg capsule,delayed release(DR/EC) 20 mg PO BID Qty: 60 2RF cefdinir 300 mg capsule 300 mg PO Q12H 10 Days Qty: 20 0RF prednisone 20 mg tablet 20 mg PO DAILY Qty: 18 0RF Rx Instructions: TID X 3 days, BID X 3 days, QD X 3 days albuterol sulfate 90 mcg/actuation HFA aerosol inhaler 2 inh inhalation Q6HP PRN (Reason: Shortness Of Breath) 30 Days Qty: 1 5RF duloxetine [Cymbalta] 30 mg capsule,delayed release(DR/EC) 30 mg PO BID Qty: 60 2RF pregabalin [Lyrica] 25 mg capsule 25 mg PO BID Qty: 60 2RF prazosin 2 mg capsule 2 mg PO HS Qty: 30 2RF Dulera 50-5 mcg/actuation HFA aerosol inhaler 2 puff inhalation Q12H Qty: 13 2RF ondansetron 8 mg tablet,disintegrating See Rx Instructions .ROUTE .COMPLEX Qty: 30 0RF Dose Instruction: DISSOLVE 1 TABLET ON THE TONGUE EVERY 8 HOURS NEEDED FOR NAUSEA AND VOMITING Rx Instructions: DISSOLVE 1 TABLET ON THE TONGUE EVERY 8 HOURS NEEDED FOR NAUSEA AND VOMITING benzonatate 100 mg capsule 100 mg PO TID PRN (Reason: cough) Qty: 30 0RF guaifenesin [Mucinex] 600 mg tablet extended release 12hr 600 - 1,200 mg PO BIDP PRN (Reason: Congestion) Qty: 30 0RF Referrals Follow up/Referrals: Yolande Coronado MD [Referring] - See instructions Gisele Mansfield PA [Primary Care Provider] - See instructions Activity Restrictions/Add. Instructions Additional Instructions/Restrictions: Try to avoid contact with anything that might be contributing to this rash. Don't put the topical steroids (triamcinolone) on your face or your groin. Follow up with your regular doctor. I put in a referral to a sanitary engineering teacher (Dr. Coronado). You should call and get an appointment with her to be checked. GO TO THE ER FOR ANY WORSENING SYMPTOMS OR CONCERNS Clinical Impressions Clinical Impression: Contact dermatitis Stand Alone Forms Stand Alone Forms: Work/School Release Instructions Patient Instructions: Contact Dermatitis, DI for Contact Dermatitis Discharge ED Provider: Rajat Alvarez [facility] General Stated complaint: rash Time Seen by Provider: 04/01/22 12:30 History of Present Illness Provider Complaint: She states that since yesterday she has had a rash on her trunk and face. She states that is has itched and been uncomfortable. She denies any exposure to any known allergens. She denies fever/chills/body aches. Related Data Previous Rx's Medication Instructions Recorded duloxetine 20 mg capsule,delayed 20 mg PO BID #60 caps 02/04/22 release (Cymbalta) prazosin 1 mg capsule 1 mg PO HS #30 caps 02/04/22 duloxetine 30 mg capsule,delayed 30 mg PO BID #60 caps 02/20/22 release (Cymbalta) prazosin 2 mg capsule 2 mg PO HS #30 caps 02/20/22 pregabalin 25 mg capsule (Lyrica) 25 mg PO BID #60 caps 02/20/22 benzonatate 100 mg capsule 100 mg PO TID PRN cough #30 caps 03/02/22 guaifenesin 600 mg tablet, 600 - 1,200 mg PO BIDP PRN 03/09/22 extended release 12 hr (Mucinex) Congestion #30 tabs albuterol sulfate 90 mcg/actuation 2 inh inhalation Q6HP PRN 03/14/22 aerosol inhaler Shortness Of Breath 30 days #1 ea cefdinir 300 mg capsule 300 mg PO Q12H 10 days #20 caps 03/14/22 prednisone 20 mg tablet 20 mg PO DAILY #18 tabs 03/14/22 mometasone-formoterol HFA 50 mcg-5 2 puff inhalation Q12H #13 grams 03/21/22 mcg/actuation aerosol inhaler (Dulera) ondansetron 8 mg disintegrating See Rx Instructions .Route 03/28/22 tablet .COMPLEX #30 tabs methylprednisolone 4 mg tablets in 4 mg PO DIRECTED #21 tabs 04/01/22 a dose pack triamcinolone
[2022-04-01 13:39] VITALS: BP 154/94; PULSE 107; RESP 20; TEMP 36.7; O2SAT 98
== END 2022-04-01 13:38 | disposition home or self-care (01) ==
PROVIDERS: Emergency Provider Nurse Practitioner Family; PCP Physician Assistant
DX: L25.9 Unspecified contact dermatitis, unspecified cause (principal); B95.7 Other staphylococcus as the cause of diseases classified elsewhere; Z16.39 Resistance to other specified antimicrobial drug
CPT/HCPCS: 87070; 87077; 87186; 87205; 99212; 99214; G0463

== ENCOUNTER 2022-04-02 16:10 | Emergency (ER) | payer MEDICAID, SELFPAY ==
[2022-04-02 16:12] VITALS: BP 138/94; PULSE 98; RESP 18; TEMP 36.7; O2SAT 96; BMI 29.0
--- NOTE | 2022-04-02 16:23 | PC.NURSE ---
DR. CALDERA AT BEDSIDE FOR EVALUATION
--- NOTE | 2022-04-02 16:36 | HMH.EDGENADL ---
Discharge Plan Disposition Patient Disposition: Home, Self-Care Condition: Good Prescriptions Prescriptions: New prednisone 20 mg tablet 20 mg PO DAILY Qty: 18 0RF Rx Instructions: Please take 3 tablets daily for 3 days, 2 tablets daily for 3 days followed by 1 tablet daily for 3 days No Action prazosin 1 mg capsule 1 mg PO HS Qty: 30 2RF duloxetine [Cymbalta] 20 mg capsule,delayed release(DR/EC) 20 mg PO BID Qty: 60 2RF cefdinir 300 mg capsule 300 mg PO Q12H 10 Days Qty: 20 0RF prednisone 20 mg tablet 20 mg PO DAILY Qty: 18 0RF Rx Instructions: TID X 3 days, BID X 3 days, QD X 3 days albuterol sulfate 90 mcg/actuation HFA aerosol inhaler 2 inh inhalation Q6HP PRN (Reason: Shortness Of Breath) 30 Days Qty: 1 5RF duloxetine [Cymbalta] 30 mg capsule,delayed release(DR/EC) 30 mg PO BID Qty: 60 2RF pregabalin [Lyrica] 25 mg capsule 25 mg PO BID Qty: 60 2RF prazosin 2 mg capsule 2 mg PO HS Qty: 30 2RF Dulera 50-5 mcg/actuation HFA aerosol inhaler 2 puff inhalation Q12H Qty: 13 2RF ondansetron 8 mg tablet,disintegrating See Rx Instructions .ROUTE .COMPLEX Qty: 30 0RF Dose Instruction: DISSOLVE 1 TABLET ON THE TONGUE EVERY 8 HOURS NEEDED FOR NAUSEA AND VOMITING Rx Instructions: DISSOLVE 1 TABLET ON THE TONGUE EVERY 8 HOURS NEEDED FOR NAUSEA AND VOMITING benzonatate 100 mg capsule 100 mg PO TID PRN (Reason: cough) Qty: 30 0RF guaifenesin [Mucinex] 600 mg tablet extended release 12hr 600 - 1,200 mg PO BIDP PRN (Reason: Congestion) Qty: 30 0RF triamcinolone acetonide 0.1 % cream 1 applic topical BID PRN (Reason: itching) Qty: 15 0RF methylprednisolone 4 mg Tablets,Dose Pack 4 mg PO DIRECTED Qty: 21 0RF Referrals Follow up/Referrals: Gisele Mansfield PA [Primary Care Provider] - See instructions Clinical Impressions Clinical Impression: Contact dermatitis Instructions Patient Instructions: DI for Contact Dermatitis Discharge ED Provider: Case Vicente General Adult HPI General Chief complaint: Skin/Abscess/Foreign Body Stated complaint: rash Time Seen by Provider: 04/02/22 16:20 Mode of Arrival: Ambulatory Limitations: No Limitations Description of Symptoms (Recalled from ER Triage Doc. by RN): PT REPORTS RASH TO TRUNK THAT IS SPREADING TO ARMS AND WAIST, STARTED ABOUT 4 DAYS AGO. SEEN IN [place] YESTERDAY, STARTED ON STEROID PACK AND CREAM. STATES IT'S NOT HELPING History of Present Illness HPI narrative: Patient is a 31-year-old female who presents with concern for rash. She was seen in the urgent care yesterday and started on a steroid pack as well as a steroid cream. She says that its not getting better today so she wanted to come in for evaluation. She denies any fever or chills. She says it is very itchy. She says that they have washed all of her clothing and bed sheets already. She denies any shortness of breath. She says that are intermittently itchy and when she itches them they seem to ooze afterwards. Related Data Previous Rx's Medication Instructions Recorded duloxetine 20 mg capsule,delayed 20 mg PO BID #60 caps 02/04/22 release (Cymbalta) prazosin 1 mg capsule 1 mg PO HS #30 caps 02/04/22 duloxetine 30 mg capsule,delayed 30 mg PO BID #60 caps 02/20/22 release (Cymbalta) prazosin 2 mg capsule 2 mg PO HS #30 caps 02/20/22 pregabalin 25 mg capsule (Lyrica) 25 mg PO BID #60 caps 02/20/22 benzonatate 100 mg capsule 100 mg PO TID PRN cough #30 caps 03/02/22 guaifenesin 600 mg tablet, 600 - 1,200 mg PO BIDP PRN 03/09/22 extended release 12 hr (Mucinex) Congestion #30 tabs albuterol sulfate 90 mcg/actuation 2 inh inhalation Q6HP PRN 03/14/22 aerosol inhaler Shortness Of Breath 30 days #1 ea cefdinir 300 mg capsule 300 mg PO Q12H 10 days #20 caps 03/14/22 prednisone 20 mg tablet 20 mg PO DAILY #18 tabs 03/14/22 mometasone-formoterol HFA 50 mcg-5 2 puff inhalation Q12H #13 g
[2022-04-02 16:38] VITALS: BP 127/79; PULSE 88; RESP 17; TEMP 36.7; O2SAT 100
== END 2022-04-02 16:40 | disposition home or self-care (01) ==
PROVIDERS: Emergency Provider Student in an Organized Health Care Education/Training Program; PCP Physician Assistant
DX: L25.9 Unspecified contact dermatitis, unspecified cause (principal); F41.9 Anxiety disorder, unspecified; J45.909 Unspecified asthma, uncomplicated; N93.9 Abnormal uterine and vaginal bleeding, unspecified; M41.9 Scoliosis, unspecified; Z86.16 Personal history of COVID-19; Z90.49 Acquired absence of other specified parts of digestive tract; Z81.1 Family history of alcohol abuse and dependence; Z80.9 Family history of malignant neoplasm, unspecified; Z82.49 Family history of ischemic heart disease and other diseases of the circulatory system; Z82.5 Family history of asthma and other chronic lower respiratory diseases; Z83.3 Family history of diabetes mellitus; Z83.42 Family history of familial hypercholesterolemia; F17.210 Nicotine dependence, cigarettes, uncomplicated
CPT/HCPCS: 99283; 99284

== ENCOUNTER 2022-04-09 20:48 | Emergency (ER) | payer MEDICAID, SELFPAY ==
[2022-04-09 20:49] VITALS: BP 146/97; PULSE 98; RESP 14; TEMP 36.9; O2SAT 98; BMI 29.0
[2022-04-09 21:00] VITALS: BP 136/88; PULSE 102; RESP 18; O2SAT 98
--- NOTE | 2022-04-09 21:09 | PC.NURSE ---
Dr. Novoa speaking with pt
--- NOTE | 2022-04-09 21:25 | HMH.EDSKAF ---
Discharge Plan Disposition Patient Disposition: Home, Self-Care Prescriptions Prescriptions: New loratadine [Claritin] 10 mg tablet 10 mg PO DAILY Qty: 30 0RF No Action duloxetine [Cymbalta] 20 mg capsule,delayed release(DR/EC) 20 mg PO BID Qty: 60 2RF albuterol sulfate 90 mcg/actuation HFA aerosol inhaler 2 inh inhalation Q6HP PRN (Reason: Shortness Of Breath) 30 Days Qty: 1 5RF duloxetine [Cymbalta] 30 mg capsule,delayed release(DR/EC) 30 mg PO BID Qty: 60 2RF pregabalin [Lyrica] 25 mg capsule 25 mg PO BID Qty: 60 2RF prazosin 2 mg capsule 2 mg PO HS Qty: 30 2RF famotidine 20 mg tablet 20 mg PO DAILY Qty: 30 2RF tramadol 50 mg tablet 50 mg PO Q6H PRN (Reason: pain) Qty: 14 0RF Dulera 50-5 mcg/actuation HFA aerosol inhaler 2 puff inhalation Q12H Qty: 13 2RF ondansetron 8 mg tablet,disintegrating See Rx Instructions .ROUTE .COMPLEX Qty: 30 0RF Dose Instruction: DISSOLVE 1 TABLET ON THE TONGUE EVERY 8 HOURS NEEDED FOR NAUSEA AND VOMITING Rx Instructions: DISSOLVE 1 TABLET ON THE TONGUE EVERY 8 HOURS NEEDED FOR NAUSEA AND VOMITING guaifenesin [Mucinex] 600 mg tablet extended release 12hr 600 - 1,200 mg PO BIDP PRN (Reason: Congestion) Qty: 30 0RF triamcinolone acetonide 0.1 % cream 1 applic topical BID PRN (Reason: itching) Qty: 15 0RF methylprednisolone 4 mg Tablets,Dose Pack 4 mg PO DIRECTED Qty: 21 0RF prednisone 20 mg tablet 20 mg PO DAILY Qty: 18 0RF Rx Instructions: Please take 3 tablets daily for 3 days, 2 tablets daily for 3 days followed by 1 tablet daily for 3 days Referrals Follow up/Referrals: Gisele Mansfield PA [Primary Care Provider] - See instructions Clinical Impressions Clinical Impression: Pityriasis rosea Instructions Patient Instructions: DI for Pityriasis Rosea Discharge ED Provider: Bright (ED)Andre Skin/Abscess/FB HPI General Chief complaint: Skin/Abscess/Foreign Body Stated complaint: RASH Time Seen by Provider: 04/09/22 21:25 Mode of Arrival: Ambulatory Source of Information: Patient and Medical Record Limitations: No Limitations Description of Symptoms (Recalled from ER Triage Doc. by RN): pt c/o rash x 2 weeks and have several er visits and to pcp. pt states rash is no better History of Present Illness HPI narrative: ongoing rash to trunk with itching and seen ed and pcp - no response to steroids MD complaint: rash Onset (ago): week(s) Location: generalized Severity: moderate Associated symptoms: itching Treatments prior to arrival: corticosteroid Related Data Previous Rx's Medication Instructions Recorded duloxetine 20 mg capsule,delayed 20 mg PO BID #60 caps 02/04/22 release (Cymbalta) duloxetine 30 mg capsule,delayed 30 mg PO BID #60 caps 02/20/22 release (Cymbalta) prazosin 2 mg capsule 2 mg PO HS #30 caps 02/20/22 pregabalin 25 mg capsule (Lyrica) 25 mg PO BID #60 caps 02/20/22 guaifenesin 600 mg tablet, 600 - 1,200 mg PO BIDP PRN 03/09/22 extended release 12 hr (Mucinex) Congestion #30 tabs albuterol sulfate 90 mcg/actuation 2 inh inhalation Q6HP PRN 03/14/22 aerosol inhaler Shortness Of Breath 30 days #1 ea mometasone-formoterol HFA 50 mcg-5 2 puff inhalation Q12H #13 grams 03/21/22 mcg/actuation aerosol inhaler (Dulera) ondansetron 8 mg disintegrating See Rx Instructions .Route 03/28/22 tablet .COMPLEX #30 tabs methylprednisolone 4 mg tablets in 4 mg PO DIRECTED #21 tabs 04/01/22 a dose pack triamcinolone acetonide 0.1 % 1 applic topical BID PRN itching 04/01/22 topical cream #15 grams prednisone 20 mg tablet 20 mg PO DAILY #18 tabs 04/02/22 famotidine 20 mg tablet 20 mg PO DAILY #30 tabs 04/03/22 tramadol 50 mg tablet 50 mg PO Q6H PRN pain #14 tabs 04/03/22 loratadine 10 mg tablet (Claritin) 10 mg PO DAILY #30 tabs 04/09/22 Allergies Allergy/AdvReac Type Severity Reaction Status Date / Time Penicillins [PENICILLINS] Allergy Sev
[2022-04-09 21:37] VITALS: BP 123/87; PULSE 81; RESP 16; TEMP 36.9; O2SAT 97
== END 2022-04-09 21:38 | disposition home or self-care (01) ==
PROVIDERS: Emergency Provider Emergency Medicine; PCP Physician Assistant
DX: L42 Pityriasis rosea (principal); F41.9 Anxiety disorder, unspecified; J45.909 Unspecified asthma, uncomplicated; Z86.16 Personal history of COVID-19; M41.9 Scoliosis, unspecified; G43.909 Migraine, unspecified, not intractable, without status migrainosus; Z90.49 Acquired absence of other specified parts of digestive tract; Z80.9 Family history of malignant neoplasm, unspecified; Z83.3 Family history of diabetes mellitus; Z82.49 Family history of ischemic heart disease and other diseases of the circulatory system; F17.210 Nicotine dependence, cigarettes, uncomplicated
CPT/HCPCS: 99283; 99284

== ENCOUNTER → 2022-04-11 12:09 | Outpatient (CLI) | payer MEDICAID, SELFPAY ==
--- NOTE | 2022-04-11 12:20 | XR_ITS ---
FINAL REPORT CLINICAL HISTORY: R Knee pain COMPARISON: 03/23/2022 FINDINGS: RIGHT KNEE 4 views of the right knee were obtained. There are presumed postoperative changes in the proximal tibia, stable. There is no acute fracture or dislocation. The joint spaces are intact. There is no soft tissue abnormality. IMPRESSION: No acute bony abnormality. Reviewed, Interpreted and Dictated by Pablo Amezcua III, MD Transcribed by Hannah Perdomo Authenticated and [facility]
== END ==
PROVIDERS: PCP Physician Assistant; Visit Provider Nurse Practitioner Family
DX: M25.561 Pain in right knee (principal)
CPT/HCPCS: 73564

== ENCOUNTER 2022-05-08 08:51 | Emergency (ER) | payer MEDICAID, SELFPAY ==
--- NOTE | 2022-05-08 09:37 | EXP.UTC ---
Discharge Plan Disposition Patient Disposition: Home, Self-Care Condition: Good Prescriptions Prescriptions: New ondansetron 4 mg Tablet,Disintegrating 8 mg PO Q8H PRN (Reason: Nausea) Qty: 20 0RF No Action albuterol sulfate 90 mcg/actuation HFA aerosol inhaler 2 inh inhalation Q6HP PRN (Reason: Shortness Of Breath) 30 Days Qty: 1 5RF zinc oxide 5 % cream 1 applic topical QID Qty: 45 0RF pregabalin [Lyrica] 50 mg capsule 50 mg PO BID Qty: 60 1RF mometasone 0.1 % cream 1 applic topical DAILY PRN (Reason: itching) Qty: 45 3RF tramadol 50 mg tablet 50 mg PO TID PRN (Reason: pain) Qty: 45 0RF duloxetine [Cymbalta] 30 mg capsule,delayed release(DR/EC) 30 mg PO BID Qty: 60 2RF prazosin 2 mg capsule 2 mg PO HS Qty: 30 2RF Dulera 50-5 mcg/actuation HFA aerosol inhaler 2 puff inhalation Q12H Qty: 13 2RF ondansetron 8 mg tablet,disintegrating See Rx Instructions .ROUTE .COMPLEX Qty: 30 0RF Dose Instruction: DISSOLVE 1 TABLET ON THE TONGUE EVERY 8 HOURS NEEDED FOR NAUSEA AND VOMITING Rx Instructions: DISSOLVE 1 TABLET ON THE TONGUE EVERY 8 HOURS NEEDED FOR NAUSEA AND VOMITING ketoconazole 2 % shampoo 1 applic topical ONCE Qty: 120 1RF Rx Instructions: Apply like body wash from head to toe, leave on for 10 minutes, then rinse; repeat in 1 week betamethasone dipropionate 0.05 % ointment 1 applic topical QID Qty: 45 0RF mupirocin 2 % ointment 1 applic topical QID Qty: 22 0RF valacyclovir 1 gram tablet See Rx Instructions .ROUTE .COMPLEX Qty: 30 3RF Dose Instruction: TAKE ONE TABLET BY MOUTH 2 TIMES A DAY Rx Instructions: TAKE ONE TABLET BY MOUTH 2 TIMES A DAY triamcinolone acetonide 0.1 % cream 1 applic topical BID PRN (Reason: itching) Qty: 15 0RF loratadine [Claritin] 10 mg tablet 10 mg PO DAILY Qty: 30 0RF Referrals Follow up/Referrals: Gisele Mansfield PA [Primary Care Provider] - See instructions Activity Restrictions/Add. Instructions Additional Instructions/Restrictions: Drink plenty of fluids. Take tylenol or ibuprofen for pain or fever. Take the medications as directed. Follow up with your regular doctor. GO TO THE ER FOR ANY WORSENING SYMPTOMS Clinical Impressions Clinical Impression: Gastroenteritis Instructions Patient Instructions: DI for Viral Gastroenteritis -- Adult, Ondansetron Discharge ED Provider: Rajat Alvarez [facility] General Stated complaint: vomiting, diarrhea, TRAN Time Seen by Provider: 05/08/22 09:37 History of Present Illness Provider Complaint: She states that for the past 2 days she has had n/v/d. She denies any abdominal pain. She has had chilling but no documented fever. Related Data Previous Rx's Medication Instructions Recorded duloxetine 30 mg capsule,delayed 30 mg PO BID #60 caps 02/20/22 release (Cymbalta) prazosin 2 mg capsule 2 mg PO HS #30 caps 02/20/22 albuterol sulfate 90 mcg/actuation 2 inh inhalation Q6HP PRN 03/14/22 aerosol inhaler Shortness Of Breath 30 days #1 ea mometasone-formoterol HFA 50 mcg-5 2 puff inhalation Q12H #13 grams 03/21/22 mcg/actuation aerosol inhaler (Dulera) ondansetron 8 mg disintegrating See Rx Instructions .Route 03/28/22 tablet .COMPLEX #30 tabs triamcinolone acetonide 0.1 % 1 applic topical BID PRN itching 04/01/22 topical cream #15 grams loratadine 10 mg tablet (Claritin) 10 mg PO DAILY #30 tabs 04/09/22 pregabalin 50 mg capsule (Lyrica) 50 mg PO BID #60 caps 04/11/22 zinc oxide 5 % topical cream 1 applic topical QID #45 mL 04/11/22 betamethasone dipropionate 0.05 % 1 applic topical QID #45 grams 04/17/22 topical ointment ketoconazole 2 % shampoo 1 applic topical ONCE #120 mL 04/17/22 mupirocin 2 % topical ointment 1 applic topical QID #22 grams 04/17/22 valacyclovir 1 gram tablet See Rx Instructions .Route 04/22/22 .COMPLEX #30 tabs mometasone 0.1 % topical cream 1 applic topical
[2022-05-08 09:45] VITALS: BP 148/73; PULSE 97; RESP 20; TEMP 36.7; O2SAT 98; BMI 30.7
[2022-05-08 10:46] VITALS: BP 148/73; PULSE 97; RESP 20; TEMP 36.7; O2SAT 98
== END 2022-05-08 10:46 | disposition home or self-care (01) ==
PROVIDERS: Emergency Provider Nurse Practitioner Family; PCP Physician Assistant
DX: K52.9 Noninfective gastroenteritis and colitis, unspecified (principal)
CPT/HCPCS: 99212; 99213; G0463

== ENCOUNTER 2022-05-16 21:46 | Emergency (ER) | payer MEDICAID, SELFPAY ==
--- NOTE | 2022-05-16 21:56 | XR_ITS ---
PROCEDURE INFORMATION: Exam: XR Right Humerus Exam date and time: 05/16/2022 10:18 PM Age: 31 years old Clinical indication: Injury or trauma; Fall; Blunt trauma (contusions or hematomas); Arm, upper; Right; Prior surgery TECHNIQUE: Imaging protocol: Radiologic exam of the right humerus. Views: 2 or more views. COMPARISON: CR XR SHOULDER RT MIN 2V 10/02/2021 2:42 PM FINDINGS: Bones/joints: Normal. Soft tissues: Normal. IMPRESSION: No acute findings.
--- NOTE | 2022-05-16 21:56 | XR_ITS ---
PROCEDURE INFORMATION: Exam: XR Right Knee Exam date and time: 05/16/2022 10:07 PM Age: 31 years old Clinical indication: Injury or trauma; Fall; Blunt trauma; Knee; Right TECHNIQUE: Imaging protocol: Radiologic exam of the right knee. Views: 3 views. COMPARISON: CR XR KNEE RT 4V 04/11/2022 12:30 PM FINDINGS: Bones/joints: Normal. Soft tissues: Normal. IMPRESSION: No acute findings.
--- NOTE | 2022-05-16 21:56 | XR_ITS ---
PROCEDURE INFORMATION: Exam: XR Right Elbow Exam date and time: 05/16/2022 10:18 PM Age: 31 years old Clinical indication: Injury or trauma; Fall; Blunt trauma (contusions or hematomas); Elbow; Right TECHNIQUE: Imaging protocol: Radiologic exam of the right elbow. Views: 1 or 2 views. COMPARISON: CR XR ELBOW RT MIN 3V 11/06/2018 12:20 AM FINDINGS: Bones/joints: Normal. Soft tissues: Normal. IMPRESSION: No acute findings.
--- NOTE | 2022-05-16 21:56 | XR_ITS ---
PROCEDURE INFORMATION: Exam: XR Right Forearm Exam date and time: 05/16/2022 10:18 PM Age: 31 years old Clinical indication: Injury or trauma; Fall; Blunt trauma (contusions or hematomas); Arm, lower; Right TECHNIQUE: Imaging protocol: Radiologic exam of the right forearm. Views: 2 views. COMPARISON: CR XR WRIST RT MIN 3V 11/16/2021 2:48 PM FINDINGS: Bones/joints: Normal. Soft tissues: Normal. IMPRESSION: No acute findings.
--- NOTE | 2022-05-16 21:56 | XR_ITS ---
PROCEDURE INFORMATION: Exam: XR Right Hip Exam date and time: 05/16/2022 10:04 PM Age: 31 years old Clinical indication: Injury or trauma; Fall; Blunt trauma (contusions or hematomas); Right; Hip and pelvic region TECHNIQUE: Imaging protocol: Radiologic exam of the right hip. Views: 2 or 3 views hip with pelvis when performed. COMPARISON: CT ABDOMEN PELVIS W CON 11/08/2021 4:46 PM FINDINGS: Bones/joints: Unremarkable. No acute fracture. Soft tissues: Unremarkable. IMPRESSION: No acute findings.
--- NOTE | 2022-05-16 21:56 | XR_ITS ---
PROCEDURE INFORMATION: Exam: XR Right Femur Exam date and time: 05/16/2022 10:05 PM Age: 31 years old Clinical indication: Injury or trauma; Fall; Blunt trauma; Thigh or upper leg; Right TECHNIQUE: Imaging protocol: Radiologic exam of the right femur. Views: 2 views. COMPARISON: CR XR HIP RT 2-3V W/PELVIS 05/16/2022 10:04 PM FINDINGS: Bones/joints: Unremarkable. No acute fracture. Soft tissues: Unremarkable. IMPRESSION: No acute findings.
--- NOTE | 2022-05-16 21:56 | XR_ITS ---
PROCEDURE INFORMATION: Exam: XR Right Tibia and Fibula Exam date and time: 05/16/2022 10:08 PM Age: 31 years old Clinical indication: Injury or trauma; Fall; Blunt trauma; Lower leg; Right TECHNIQUE: Imaging protocol: Radiologic exam of the right tibia and fibula. Views: 2 views. COMPARISON: CR XR ANKLE RT MIN 3V 03/23/2022 1:04 PM FINDINGS: Bones/joints: Normal. Soft tissues: Normal. IMPRESSION: No acute findings.
--- NOTE | 2022-05-16 21:56 | XR_ITS ---
PROCEDURE INFORMATION: Exam: XR Right Shoulder Exam date and time: 05/16/2022 10:18 PM Age: 31 years old Clinical indication: Injury or trauma; Fall; Work related; Blunt trauma (contusions or hematomas); Shoulder; Right; Prior surgery TECHNIQUE: Imaging protocol: Radiologic exam of the right shoulder. Views: 2 or more views. COMPARISON: CR XR SHOULDER RT MIN 2V 10/02/2021 2:42 PM FINDINGS: Bones/joints: Normal. Soft tissues: Normal. IMPRESSION: No acute findings.
[2022-05-16 21:57] VITALS: BP 166/114; PULSE 113; RESP 19; TEMP 36.4; O2SAT 98; BMI 26.1
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
--- NOTE | 2022-05-16 22:39 | XR_ITS ---
PROCEDURE INFORMATION: Exam: XR Left Hand Exam date and time: 05/16/2022 10:53 PM Age: 31 years old Clinical indication: Injury or trauma; Fall; Blunt trauma (contusions or hematomas); Left; Middle finger TECHNIQUE: Imaging protocol: Radiologic exam of the left hand. Views: 3 or more views. COMPARISON: No relevant prior studies available. FINDINGS: Bones/joints: Normal. Soft tissues: Normal. IMPRESSION: No acute findings.
--- NOTE | 2022-05-16 22:39 | PC.NURSE ---
PT GONE TO SCAN
--- NOTE | 2022-05-16 22:45 | PC.NURSE ---
PT BACK IN ROOM
[2022-05-16 23:35] VITALS: BP 154/95; PULSE 85; RESP 19; TEMP 36.8; O2SAT 98
== END 2022-05-16 23:38 | disposition home or self-care (01) ==
PROVIDERS: Emergency Provider Student in an Organized Health Care Education/Training Program; PCP Physician Assistant
DX: M54.50 Low back pain, unspecified (principal); M25.561 Pain in right knee; M79.641 Pain in right hand; M25.521 Pain in right elbow; M25.511 Pain in right shoulder; W19.XXXA Unspecified fall, initial encounter; J45.909 Unspecified asthma, uncomplicated; F32.A Depression, unspecified; G43.909 Migraine, unspecified, not intractable, without status migrainosus; Z86.16 Personal history of COVID-19; Z90.49 Acquired absence of other specified parts of digestive tract; Z90.710 Acquired absence of both cervix and uterus; Z87.891 Personal history of nicotine dependence; Z81.1 Family history of alcohol abuse and dependence; Z80.9 Family history of malignant neoplasm, unspecified; Z83.3 Family history of diabetes mellitus; Z82.49 Family history of ischemic heart disease and other diseases of the circulatory system; Z82.5 Family history of asthma and other chronic lower respiratory diseases
CPT/HCPCS: 73030; 73060; 73070; 73090; 73130; 73502; 73552; 73562; 73590; 99285

== ENCOUNTER 2022-06-09 11:14 | Emergency (ER) | payer MEDICAID, SELFPAY ==
[2022-06-09 12:15] VITALS: BP 119/77; PULSE 89; RESP 22; TEMP 36.8; O2SAT 100; BMI 29.7
--- NOTE | 2022-06-09 12:58 | EXP.UTC ---
Discharge Plan Disposition Patient Disposition: Home, Self-Care Condition: Good Prescriptions Prescriptions: New methocarbamol 750 mg tablet 750 mg PO TID PRN (Reason: muscle spasm) Qty: 12 0RF No Action albuterol sulfate 90 mcg/actuation HFA aerosol inhaler 2 inh inhalation Q6HP PRN (Reason: Shortness Of Breath) 30 Days Qty: 1 5RF pregabalin [Lyrica] 50 mg capsule 50 mg PO BID Qty: 60 1RF ketoconazole 2 % shampoo 1 applic topical ONCE Qty: 120 1RF Rx Instructions: Apply like body wash from head to toe, leave on for 10 minutes, then rinse; repeat in 1 week betamethasone dipropionate 0.05 % ointment 1 applic topical QID Qty: 45 0RF duloxetine 30 mg capsule,delayed release(DR/EC) See Rx Instructions .ROUTE .COMPLEX Qty: 60 0RF Dose Instruction: TAKE ONE CAPSULE BY MOUTH 2 TIMES A DAY Rx Instructions: TAKE ONE CAPSULE BY MOUTH 2 TIMES A DAY prazosin 2 mg capsule See Rx Instructions .ROUTE .COMPLEX Qty: 30 0RF Dose Instruction: TAKE ONE CAPSULE BY MOUTH AT BEDTIME Rx Instructions: TAKE ONE CAPSULE BY MOUTH AT BEDTIME loratadine [Claritin] 10 mg tablet 10 mg PO DAILY Qty: 30 0RF methocarbamol [Methocarbamol] 750 mg tablet 750 mg PO Q6 PRN (Reason: Muscle Spasm) Qty: 30 0RF Referrals Follow up/Referrals: Gisele Mansfield PA [Primary Care Provider] - See instructions Activity Restrictions/Add. Instructions Additional Instructions/Restrictions: * Tylenol every 4 hours as needed if you need something else for pain *Ice 20 minutes every 2 hours for the first 48 hours after the initial injury followed by moist heat every 20 minutes 3-4 times a day to affected area *Muscle relaxer every 8 hours as needed for muscle spasms but remember, it WILL cause drowsiness You cannot take it and drive, operate machinery or care for small children. *Keep this area active, no movement leads to more stiffness, However take it easy and avoid heavy lifting pushing or pulling *Follow up with you family doctor if no improvement for further treatment Clinical Impressions Clinical Impression: Muscle spasm Instructions Patient Instructions: DI for Muscle Spasm Discharge ED Provider: Rocío Gomez [facility] General Stated complaint: ao fall 05/18, right shoulder pain Mode of Arrival: Ambulatory Source of Information: Patient Limitations: No Limitations Time Seen by Provider: 06/09/22 12:58 Description of Symptoms (Recalled from Triage Doc. by RN): PATIENT C/O RIGHT SHOULDER PAIN THAT RADIATES TO BACK OF NECK SINCE YESTERDAY. PATIENT HAS RECENTLY BEEN MOVING HEENT Symptoms (Recalled from RN notes): No Resp Symptoms (Recalled from RN notes): No Skin Symptoms (Recalled from RN notes): No MS Symptoms (Recalled from RN notes): Yes Functional Status (Recalled from RN notes): WNL History of Present Illness Provider Complaint: Patient states that she had a fall back around the and hurt her shoulder and was seen and treated for that States that she has been doing alot of heavy lifting and pulling and tugging and got it aggravated again and is having muscle spasm like pain in her right shoulder that goes up into her neck States that she hasnt fallen or anything and the pain started again after lifting heavy boxes and she is out of her muscle relaxers Related Data Previous Rx's Medication Instructions Recorded albuterol sulfate 90 mcg/actuation 2 inh inhalation Q6HP PRN 03/14/22 aerosol inhaler Shortness Of Breath 30 days #1 ea loratadine 10 mg tablet (Claritin) 10 mg PO DAILY #30 tabs 04/09/22 pregabalin 50 mg capsule (Lyrica) 50 mg PO BID #60 caps 04/11/22 betamethasone dipropionate 0.05 % 1 applic topical QID #45 grams 04/17/22 topical ointment ketoconazole 2 % shampoo 1 applic topical ONCE #120 mL 04/17/22 methocarbamol 750 mg tablet 750 mg PO Q6 PRN Muscle Spasm #30 05/16/22 tabs duloxetine 30 mg capsule,delayed See Rx Instructions .Route 05/29/22 relea
[2022-06-09 13:14] VITALS: BP 119/77; PULSE 89; RESP 22; TEMP 36.8; O2SAT 100
== END 2022-06-09 13:16 | disposition home or self-care (01) ==
PROVIDERS: Emergency Provider Nurse Practitioner; PCP Physician Assistant
DX: M25.511 Pain in right shoulder (principal); M62.838 Other muscle spasm; X50.0XXA Overexertion from strenuous movement or load, initial encounter
CPT/HCPCS: 99212; 99214; G0463

== ENCOUNTER 2022-06-23 13:06 | Emergency (ER) | payer MEDICAID, SELFPAY ==
--- NOTE | 2022-06-23 13:11 | XR_ITS ---
PROCEDURE INFORMATION: Exam: XR Right Shoulder Exam date and time: 06/23/2022 1:08 PM Age: 31 years old Clinical indication: Injury or trauma; Fall; Blunt trauma (contusions or hematomas); Shoulder; Right TECHNIQUE: Imaging protocol: Radiologic exam of the right shoulder. Views: 2 or more views. COMPARISON: CR XR SHOULDER RT MIN 2V 05/16/2022 10:18 PM FINDINGS: Bones/joints: Normal. Soft tissues: Normal. IMPRESSION: No acute findings.
--- NOTE | 2022-06-23 13:11 | XR_ITS ---
PROCEDURE INFORMATION: Exam: XR Left Knee Exam date and time: 06/23/2022 1:10 PM Age: 31 years old Clinical indication: Injury or trauma; Fall; Blunt trauma; Knee; Left TECHNIQUE: Imaging protocol: Radiologic exam of the left knee. Views: 3 views. COMPARISON: CR XR KNEE LT 4V 03/19/2019 10:30 AM FINDINGS: Bones/joints: No acute fracture or dislocation. Transverse tracts from previous surgical screws proximal tibia. Soft tissues: Normal. IMPRESSION: No acute findings.
[2022-06-23 13:30] VITALS: BP 133/85; PULSE 83; RESP 18; TEMP 37; O2SAT 99; BMI 33.6
--- NOTE | 2022-06-23 13:49 | EXP.UTC ---
Discharge Plan Disposition Patient Disposition: Home, Self-Care Condition: Good Prescriptions Prescriptions: No Action albuterol sulfate 90 mcg/actuation HFA aerosol inhaler 2 inh inhalation Q6HP PRN (Reason: Shortness Of Breath) 30 Days Qty: 1 5RF pregabalin [Lyrica] 50 mg capsule 50 mg PO BID Qty: 60 1RF ketoconazole 2 % shampoo 1 applic topical ONCE Qty: 120 1RF Rx Instructions: Apply like body wash from head to toe, leave on for 10 minutes, then rinse; repeat in 1 week betamethasone dipropionate 0.05 % ointment 1 applic topical QID Qty: 45 0RF duloxetine 30 mg capsule,delayed release(DR/EC) See Rx Instructions .ROUTE .COMPLEX Qty: 60 0RF Dose Instruction: TAKE ONE CAPSULE BY MOUTH 2 TIMES A DAY Rx Instructions: TAKE ONE CAPSULE BY MOUTH 2 TIMES A DAY prazosin 2 mg capsule See Rx Instructions .ROUTE .COMPLEX Qty: 30 0RF Dose Instruction: TAKE ONE CAPSULE BY MOUTH AT BEDTIME Rx Instructions: TAKE ONE CAPSULE BY MOUTH AT BEDTIME loratadine [Claritin] 10 mg tablet 10 mg PO DAILY Qty: 30 0RF methocarbamol [Methocarbamol] 750 mg tablet 750 mg PO Q6 PRN (Reason: Muscle Spasm) Qty: 30 0RF methocarbamol 750 mg tablet 750 mg PO TID PRN (Reason: muscle spasm) Qty: 12 0RF Referrals Follow up/Referrals: Gisele Mansfield PA [Primary Care Provider] - See instructions Activity Restrictions/Add. Instructions Additional Instructions/Restrictions: *weight bearing as tolerated *RICE, Rest the extremity, Ice 15-20 minutes 3-4 times daily, Compress- wear the dejuan wrap as discussed as much as possible to help reduce swelling and pain, Elevate the extremity when at rest *Elevate when resting? * Tylenol for pain Immediately follow up with your family doctor for new or worsening of symptoms, or no noticeable improvement over the next 3-5 days Clinical Impressions Clinical Impression: Fall Instructions Patient Instructions: Contusion, DI for Contusion Discharge ED Provider: Rocío Gomez [facility] HPI General Stated complaint: [email or web address] pain in Rt shoulder/left knee Time Seen by Provider: 06/23/22 13:54 History of Present Illness Provider Complaint: Patient states that she was packing boxes helping move lost her balance and fell into a pole States that she has a bruise on her right shoulder and having pain in her left knee States that she fell on Friday but it hasnt got any better Related Data Previous Rx's Medication Instructions Recorded albuterol sulfate 90 mcg/actuation 2 inh inhalation Q6HP PRN 03/14/22 aerosol inhaler Shortness Of Breath 30 days #1 ea loratadine 10 mg tablet (Claritin) 10 mg PO DAILY #30 tabs 04/09/22 pregabalin 50 mg capsule (Lyrica) 50 mg PO BID #60 caps 04/11/22 betamethasone dipropionate 0.05 % 1 applic topical QID #45 grams 04/17/22 topical ointment ketoconazole 2 % shampoo 1 applic topical ONCE #120 mL 04/17/22 methocarbamol 750 mg tablet 750 mg PO Q6 PRN Muscle Spasm #30 05/16/22 tabs duloxetine 30 mg capsule,delayed See Rx Instructions .Route 05/29/22 release .COMPLEX #60 caps prazosin 2 mg capsule See Rx Instructions .Route 05/29/22 .COMPLEX #30 caps methocarbamol 750 mg tablet 750 mg PO TID PRN muscle spasm #12 06/09/22 tabs Allergies Allergy/AdvReac Type Severity Reaction Status Date / Time Penicillins [PENICILLINS] Allergy Severe THROAT Verified 05/08/22 09:57 SWELLING, HIVES, VOMITTING amoxicillin [From AUGMENTIN] Allergy Intermediate I-HIVES Verified 05/08/22 09:57 clavulanic acid Allergy Intermediate I-HIVES Verified 05/08/22 09:57 [From AUGMENTIN] diphenhydramine Allergy Intermediate I-HIVES Verified 05/08/22 09:57 [From BENADRYL] ibuprofen [IBUPROFEN] Allergy Intermediate I-HIVES Verified 05/08/22 09:57 metoclopramide [From REGLAN] Allergy Intermediate I-HIVES Verified 05/08/22 09:57 Sulfa (Sulfonamide Allergy Intermediate I-HIVES Verified 05/08/22 09:
[2022-06-23 14:01] VITALS: BP 133/85; PULSE 83; RESP 18; TEMP 37; O2SAT 99
== END 2022-06-23 14:05 | disposition home or self-care (01) ==
PROVIDERS: Emergency Provider Nurse Practitioner; PCP Physician Assistant
DX: M25.562 Pain in left knee (principal); M25.511 Pain in right shoulder; W18.39XA Other fall on same level, initial encounter; Z87.891 Personal history of nicotine dependence
CPT/HCPCS: 73030; 73562; 99212; 99214; G0463

== ENCOUNTER 2022-10-23 19:14 | Emergency (ER) | payer MEDICAID, SELFPAY ==
[2022-10-23 19:14] VITALS: BP 153/98; PULSE 82; RESP 18; TEMP 36.5; O2SAT 97; BMI 29.8
--- NOTE | 2022-10-23 19:44 | EXP.UTC ---
Discharge Plan Disposition Patient Disposition: Home, Self-Care Condition: Good Prescriptions Prescriptions: New ondansetron 4 mg Tablet,Disintegrating 4 mg PO Q8H PRN (Reason: Nausea) Qty: 12 0RF No Action albuterol sulfate 90 mcg/actuation HFA aerosol inhaler 2 inh inhalation Q6HP PRN (Reason: Shortness Of Breath) 30 Days Qty: 1 5RF cetirizine 10 mg tablet 10 mg PO Dulera 100-5 mcg/actuation HFA aerosol inhaler inhalation ondansetron HCl 8 mg tablet 8 mg PO BID PRN (Reason: nausea and vomiting) Qty: 60 3RF pregabalin [Lyrica] 100 mg capsule 100 mg PO BID PRN (Reason: pain) Qty: 60 3RF prazosin 2 mg capsule See Rx Instructions .ROUTE .COMPLEX Qty: 90 3RF Dose Instruction: TAKE ONE CAPSULE BY MOUTH AT BEDTIME Rx Instructions: TAKE ONE CAPSULE BY MOUTH AT BEDTIME tramadol 50 mg tablet 50 mg PO BID PRN (Reason: pain) Qty: 20 0RF cyclobenzaprine 10 mg tablet 10 mg PO BID PRN (Reason: muscle spasm) Qty: 180 0RF duloxetine 30 mg capsule,delayed release(DR/EC) See Rx Instructions .ROUTE .COMPLEX Qty: 180 0RF Dose Instruction: TAKE ONE CAPSULE BY MOUTH 2 TIMES A DAY Rx Instructions: TAKE ONE CAPSULE BY MOUTH 2 TIMES A DAY ondansetron 8 mg tablet,disintegrating 8 mg PO Q12H PRN (Reason: nausea and vomiting) Qty: 30 0RF loratadine [Claritin] 10 mg tablet 10 mg PO DAILY Qty: 30 0RF Referrals Follow up/Referrals: Be Putnam MD [Primary Care Provider] - See instructions Activity Restrictions/Add. Instructions Additional Instructions/Restrictions: Drink plenty of fluids. Take tylenol or ibuprofen for pain or fever. Take the medications as directed. Follow up with your regular doctor. GO TO THE ER FOR ANY WORSENING SYMPTOMS Clinical Impressions Clinical Impression: Acute viral syndrome Stand Alone Forms Stand Alone Forms: Work/School Release Instructions Patient Instructions: DI for Viral Syndrome, Promethazine Discharge ED Provider: Rajat Alvarez [facility] General Stated complaint: fever,vomiting Mode of Arrival: Ambulatory Source of Information: Patient Limitations: No Limitations Time Seen by Provider: 10/23/22 19:44 Description of Symptoms (Recalled from Triage Doc. by RN): Patient reports throwing up, wheezing, and diarrhea since yesterday. HEENT Symptoms (Recalled from RN notes): No Resp Symptoms (Recalled from RN notes): No Skin Symptoms (Recalled from RN notes): No MS Symptoms (Recalled from RN notes): No Functional Status (Recalled from RN notes): wnl History of Present Illness Provider Complaint: She states that she has had n/v/d for the past 1 day. She denies abdominal pain. Related Data Home Medications Medication Instructions Recorded Confirmed cetirizine 10 mg tablet 10 mg PO 06/27/22 06/27/22 mometasone-formoterol HFA 100 g inhalation 06/27/22 06/27/22 mcg-5 mcg/actuation aerosol inhaler (Dulera) Previous Rx's Medication Instructions Recorded albuterol sulfate 90 mcg/actuation 2 inh inhalation Q6HP PRN 03/14/22 aerosol inhaler Shortness Of Breath 30 days #1 ea loratadine 10 mg tablet (Claritin) 10 mg PO DAILY #30 tabs 04/09/22 ondansetron HCl 8 mg tablet 8 mg PO BID PRN nausea and 06/27/22 vomiting #60 tabs prazosin 2 mg capsule See Rx Instructions .Route 06/27/22 .COMPLEX #90 caps pregabalin 100 mg capsule (Lyrica) 100 mg PO BID PRN pain #60 caps 06/27/22 tramadol 50 mg tablet 50 mg PO BID PRN pain #20 tabs 06/27/22 cyclobenzaprine 10 mg tablet 10 mg PO BID PRN muscle spasm #180 07/26/22 tabs duloxetine 30 mg capsule,delayed See Rx Instructions .Route 07/26/22 release .COMPLEX #180 caps ondansetron 8 mg disintegrating 8 mg PO Q12H PRN nausea and 07/26/22 tablet vomiting #30 tabs ondansetron 4 mg disintegrating 4 mg PO Q8H PRN Nausea #12 tabs 10/23/22 tablet Allergies Allergy/AdvReac Type Severity Reaction Status Date / Time Penicillins [PENICILL
[2022-10-23 20:00] VITALS: BP 153/98; PULSE 82; RESP 18; TEMP 36.5; O2SAT 97
== END 2022-10-23 20:01 | disposition home or self-care (01) ==
PROVIDERS: Emergency Provider Nurse Practitioner Family; PCP Family Medicine
DX: B34.9 Viral infection, unspecified (principal); R11.2 Nausea with vomiting, unspecified; R19.7 Diarrhea, unspecified; J45.909 Unspecified asthma, uncomplicated; F41.9 Anxiety disorder, unspecified; F32.A Depression, unspecified; Z87.891 Personal history of nicotine dependence
CPT/HCPCS: 99212; 99214; G0463

== ENCOUNTER → 2022-11-07 00:02 | Outpatient (CLI) | payer MEDICAID, SELFPAY | PROVIDERS: PCP Nurse Practitioner Family; Visit Provider Nurse Practitioner Family | DX: J02.9 Acute pharyngitis, unspecified (principal) | CPT/HCPCS: 87070 ==

== ENCOUNTER → 2022-11-07 11:29 | Outpatient (CLI) | payer MEDICAID, SELFPAY ==
--- NOTE | 2022-11-07 11:43 | XR_ITS ---
FINAL REPORT CLINICAL HISTORY: Dyspnea FINDINGS: TWO-VIEW CHEST The heart size is normal. The mediastinum is normal. The lungs are clear. There is no pneumothorax. IMPRESSION: No acute cardiopulmonary process. Reviewed, Interpreted and Dictated by Marc Moreno MD Transcribed by Ana Paula Lozano Authenticated and [facility]
[2022-11-07 11:55] LABS: Basophils % 0.1 % (0.1-2.0); Eosinophils # 0.1 K/mm3 (0.0-0.4); Eosinophils % 0.9 % (0.1-12.0); Hematocrit 41.8 % (37.0-47.0); Hemoglobin 13.7 g/dL (12.2-16.2); Lymphocytes # 0.8 K/mm3 (0.7-4.5); Lymphocytes % 8.5 % (10-50); Mean Corpuscular HGB Conc 32.8 g/dL (31.8-35.4); Mean Corpuscular Hemoglobin 27.4 pg (27.0-31.2); Mean Corpuscular Volume 83.4 fl (81-99); Mean Platelet Volume 9.1 fl (7.4-10.4); Monocytes # 0.4 K/mm3 (0.1-1.0); Neutrophils # 8.4 K/mm3 (1.8-7.8); Neutrophils % 86.5 % (37.0-80.0); Platelet Count 387 K/mm3 (142-424); Red Blood Count 5.01 M/mm3 (4.20-5.40); Red Cell Distribution Width 13.7 % (11.5-17.5); White Blood Count 9.7 K/mm3 (4.8-10.8)
[2022-11-07 12:11] LABS: MANUAL DIFFERENTIAL MANUAL DIFFERENTIAL (MANUAL DIFF)
[2022-11-07 12:37] LABS: Erythrocyte Sedimentation Rate 58 mm/hr (0-20)
[2022-11-07 12:59] LABS: Alanine Aminotransferase 28 U/L (12-78); Albumin Level 4.5 g/dl (3.5-5.0); Albumin/Globulin Ratio 1.2 (1.1-1.8); Alkaline Phosphatase 86 U/L (38-126); Anion Gap 20.7 mEq/L (5-15); Aspartate Amino Transferase 28 U/L (14-36); Blood Urea Nitrogen 12 mg/dl (7-17); Calcium 9.4 mg/dl (8.4-10.2); Carbon Dioxide 20 mmol/L (22.0-30.0); Chloride 102 mmol/L (98-107); Chol/HDL Ratio 4.7 (1-3.5); Cholesterol 218 mg/dl (140-200); Estimated Glomerular Filt Rate 83 ml/min (>60); GFR (African American) 100 ML/MIN (>60); Globulin 3.9 g/dL (1.3-3.2); Glucose 299 mg/dl (74-100); HDL Cholesterol 46 mg/dl (40-60); Potassium 4.7 mmoL/L (3.5-5.1); Sodium 138 mmol/L (136-145); Total Protein,Serum 8.4 g/dl (6.3-8.2); Triglycerides 137 mg/dl (30-150); VLDL Cholesterol 27 mg/dL (0-40)
[2022-11-07 13:00] LABS: Lymphocytes % 11 % (10-50); Monocytes % 4 % (2-9); Neutrophils % 85 % (42-76); Platelet Estimate Normal; RBC Morphology Normal; Total Cells Counted 100
[2022-11-07 13:01] LABS: Bilirubin,Total 0.1 mg/dl (0.2-1.3)
[2022-11-07 13:10] LABS: Direct LDL Cholesterol 129.43 mg/dL (100-129)
[2022-11-07 13:23] LABS: 25-OH Vitamin D, Total 38.7 ng/mL (30-100)
[2022-11-07 13:34] LABS: Thyroid Stimulating Hormone 0.47 uIU/mL (0.465-4.68)
[2022-11-07 14:03] LABS: C-Reactive Protein 16.1 mg/L (0-4)
[2022-11-07 16:16] LABS: Hemoglobin A1C 6.4 % (4.0-6.0)
[2022-11-08 13:22] LABS: Anti-Centromere B Antibodies <0.2 AI (0.0-0.9); Anti-Cyclic Citrullinated Pept 9 units (0-19); Anti-DNA (DS) Ab Qn <1 IU/mL (0-9); Anti-Jo-1 <0.2 AI (0.0-0.9); Anti-Smith Antibody <0.2 AI (0.0-0.9); Antichromatin Antibodies 0.6 AI (0.0-0.9); Antiscleroderma-70 Antibodies <0.2 AI (0.0-0.9); RA Latex Turbid. <10.0 IU/mL (<14.0); RNP Antibodies 0.2 AI (0.0-0.9); Sjogren's Anti-SS-A <0.2 AI (0.0-0.9); Sjogren's Anti-SS-B 0.2 AI (0.0-0.9)
[2022-11-10 00:08] LABS: Lupus Reflex Interpretation Comment: (.); PTT-LA 41.1 sec (0.0-43.5); dRVVT 32.7 sec (0.0-47.0)
== END ==
PROVIDERS: PCP Physician Assistant; Visit Provider Physician Assistant
DX: M25.50 Pain in unspecified joint (principal); J06.9 Acute upper respiratory infection, unspecified; R73.09 Other abnormal glucose; R06.02 Shortness of breath; E66.9 Obesity, unspecified; Z68.30 Body mass index [BMI] 30.0-30.9, adult
CPT/HCPCS: 36415; 71046; 80053; 80061; 82306; 83036; 84443; 85007; 85025; 85613; 85651; 86140; 86200; 86225; 86235; 86431

== ENCOUNTER → 2022-11-08 23:35 | Outpatient (CLI) | payer MEDICAID, SELFPAY ==
[2022-11-09 14:36] LABS: Coronavirus 19, PCR Not Detected (NotDetected); Influenza A, PCR Not Detected (NotDetected); Influenza B, PCR Not Detected (NotDetected)
== END ==
PROVIDERS: PCP Physician Assistant; Visit Provider Student in an Organized Health Care Education/Training Program
DX: J32.9 Chronic sinusitis, unspecified (principal)
CPT/HCPCS: 87581; 87632; 87636; 87798

== ENCOUNTER → 2022-12-25 14:05 | Outpatient (CLI) | payer MEDICAID, SELFPAY ==
[2022-12-25 14:49] LABS: Basophils # 0.1 K/mm3 (0-0.2); Basophils % 0.6 % (0.1-2.0); Eosinophils # 0.1 K/mm3 (0.0-0.4); Eosinophils % 1.3 % (0.1-12.0); Hematocrit 42.4 % (37.0-47.0); Hemoglobin 14.6 g/dL (12.2-16.2); Lymphocytes # 2.2 K/mm3 (0.7-4.5); Lymphocytes % 23.8 % (10-50); Mean Corpuscular HGB Conc 34.5 g/dL (31.8-35.4); Mean Corpuscular Volume 84.2 fl (81-99); Monocytes # 0.4 K/mm3 (0.1-1.0); Monocytes % 4.7 % (1.7-9.3); Neutrophils # 6.4 K/mm3 (1.8-7.8); Neutrophils % 69.5 % (37.0-80.0); Platelet Count 292 K/mm3 (142-424); Red Blood Count 5.03 M/mm3 (4.20-5.40); White Blood Count 9.2 K/mm3 (4.8-10.8)
[2022-12-25 15:21] LABS: Anion Gap 16.9 mEq/L (5-15); Blood Urea Nitrogen 6 mg/dl (7-17); Calcium 9.1 mg/dl (8.4-10.2); Carbon Dioxide 23 mmol/L (22.0-30.0); Chloride 101 mmol/L (98-107); Estimated Glomerular Filt Rate 96 ml/min (>60); GFR (African American) 117 ML/MIN (>60); Glucose 127 mg/dl (74-100); Potassium 3.9 mmoL/L (3.5-5.1); Sodium 137 mmol/L (136-145)
== END ==
PROVIDERS: PCP Physician Assistant; Visit Provider Surgery
DX: K64.9 Unspecified hemorrhoids (principal)
CPT/HCPCS: 36415; 80048; 85025

== ENCOUNTER 2023-01-02 08:41 | Day surgery (SDC) | payer MEDICAID, SELFPAY ==
[2022-12-31 14:38] VITALS: BMI 30.7
[2023-01-02] VITALS (11 sets, daily range): BP systolic 112–164; BP diastolic 68–110; PULSE 77–88; RESP 12–18; TEMP 36.2–36.6; O2SAT 93–99
[2023-01-02 10:10] LABS: POC Glucose,Bedside 103 (70-110)
--- NOTE | 2023-01-02 10:50 | P.PNANES_ITS ---
[facility] Disclaimer: The information contained in this section may have been updated after the patient was seen, as this information can be updated by other users. Medical History Abdominal pain Abnormal uterine bleeding Acute viral syndrome Allergies Anxiety Asthma Bilateral shoulder pain Contact dermatitis Contact dermatitis Costochondral separation Depression Dysmenorrhea Eczema Fall Fall Ganglion cyst Hearing loss in right ear Hemorrhoid History of COVID-19 History of deviated nasal septum Left ankle sprain Migraine Muscle spasm Nausea Nausea & vomiting Pityriasis rosea Recurrent pain of right knee Scoliosis Uterine fibroid Surgical History History of cholecystectomy History of surgery HEMORRHOID SX History of surgery RIGHT SHOULDER SX History of surgery DENTAL EXTRACTION History of tonsillectomy and adenoidectomy Status post laparoscopic hysterectomy Bilateral salpingectomy, right oophorectomy - 01/17/22 Family History Other Alcoholism Asthma Cancer Diabetes Heart attack Hyperlipidemia Hypertension Social History (Updated 01/02/23 @ 10:13 by Suzanne Lopez RN) Smoking Status: Current every day smoker tobacco type: cigarettes packs per day: 1 years smoked: 16 second hand exposure: Yes alcohol intake: former counseling provided: none substance use type: denies use current occupational status: disabled Travel in the last 8 weeks: None household members: family and children housing: house current occupation: [employer] current occupational exposures/hazards: No caffeine: Yes [facility] Anesthesia Checklist Patient Identification Patient Identification: Arm Band Structural Data Admitted From: Home Planned Operative Procedure/s: Exam Under Anesthesia, Hemmorrhoidectomy Consent for Planned Operative Procedure(s) Verified: Yes Verified Documents: Surgical Consent and History and Physical NPO Status Verified Time NPO: 00:00 Additional verifications Anesthesia Reactions: No Hx Blood Transfusions: Yes Blood Transfusion Reaction: No Airway Assessment Mallampati Score:: Class II C-Spine Mobility Assessed: Yes TMJ Mobility Assessed: Yes Dentition: Edentulous Neurological Assessment Level of Consciousness: Awake and Alert Anesthesia Plan Anesthesia Risk discussed: Yes Anesthesia Plan: Verified ASA Class: III Anesthesia Type: General
--- NOTE | 2023-01-02 12:13 | EXP.OP.NOTE ---
Date of procedure: 01/02/23 Pre-op Diagnosis:: Bleeding hemorrhoids Post-op Diagnosis:: Same Procedure performed:: Examination under anesthesia Hemorrhoidectomy Surgeon:: Bebo Charles MD Anesthesia: GETA Estimated blood loss (mL): 10 Operative findings:: Mildly dilated cluster of hemorrhoidal cushions along the left inferior lateral margin Mild to moderately dilated cluster of hemorrhoidal cushions along right lateral margin Operative note:: After informed consent was obtained the patient was taken to the operating room and placed in the supine position. General anesthesia was induced and she was then transferred to modified lithotomy position. Her perianal region was prepped and draped in a sterile fashion. Digital rectal exam and inspection confirmed a mildly dilated cluster of hemorrhoidal cushions along the left inferior lateral margin and a mild to moderately dilated cluster of hemorrhoidal cushions along the right lateral margin. Inspection revealed no other significant hemorrhoidal cushions/projections. Electrocautery was utilized to excise each of the above-stated cushions. Hemostasis was achieved with electrocautery and then mucosa at each resection site was reapproximated with running/locking Vicryl suture. Proctosol coated Gelfoam was then placed in the anal canal. Dressings were applied and the patient was transferred to recovery in stable condition. Condition: stable Disposition: PACU Specimens:: Left lateral/inferior hemorrhoidal cushion Right lateral hemorrhoidal cushion Complications:: No immediate
[2023-01-02 12:24] LABS: POC Glucose,Bedside 116 (70-110)
--- NOTE | 2023-01-02 12:40 | EXP.ANES.I ---
[facility] Anesthesia Record Part I Anesthesia Record I Intake, IV Amount: 400 Hydration: Adequate Estimated blood loss (mL): 10 Urine output (mL): 0 Blood Products used (#): none Blood Pressure: 158/110 SaO2: 94 Pulse Rate: 88 Airway Patency: Patent Respiratory Rate: 12 Temperature: 97.1 F Patient is:: Awake, Drowsy and Stable Stable to PACU at:: 12:20
--- NOTE | 2023-01-03 11:02 | P.PNANES_ITS ---
[facility] Anesthesia Record Part II Anesthesia Record Part II Discharge Time: 12:59 Destination: Surgical Day Care (OP Surgery) PACU nurse assessment reviewed?: Yes Patient Condition:: Good Anesthesia Complications:: None Swallowing reflex intact?: Yes Airway Patency: Patent Cyanosis?: No Blood Pressure: 136/90 SaO2: 95 Respiratory Rate: 17 Pulse Rate: 81 Temperature: 97.8 F Mental Status: Alert & Oriented Pain level:: 2 Nausea and/or vomitting:: None Intake, IV Amount: 0 Hydration: Adequate
[2023-01-03 11:03] VITALS: BP 136/90; PULSE 81; RESP 17; TEMP 36.6; O2SAT 95
== END 2023-01-02 13:35 | disposition home or self-care (01) ==
PROVIDERS: PCP Physician Assistant; Visit Provider Surgery
PROC: (CPT 46260; principal; 2023-01-02 10:45)
DX: K64.9 Unspecified hemorrhoids (principal)
CPT/HCPCS: 46260; 45990; 82962; 96374; J2405

== ENCOUNTER 2023-01-08 05:00 | Emergency (ER) | payer MEDICAID, SELFPAY ==
[2023-01-08 05:02] VITALS: BP 136/83; PULSE 111; RESP 20; TEMP 36.9; O2SAT 95; BMI 31.4
[2023-01-08 05:22] VITALS: BP 137/84; PULSE 102; O2SAT 95
--- NOTE | 2023-01-08 05:26 | HMH.EDGENADL ---
Discharge Plan Disposition Patient Disposition: Home, Self-Care Prescriptions Prescriptions: New lidocaine 5 % cream 1 applic topical TID PRN (Reason: pain) Qty: 15 0RF polyethylene glycol 3350 17 gram/dose powder 17 g PO DAILY Qty: 510 5RF Rx Instructions: 17 g (1 dose) twice daily until having soft bowel movements. 1 dose daily from then forward until having 1-2 soft bowel movement daily. No Action albuterol sulfate 90 mcg/actuation HFA aerosol inhaler 2 inh inhalation Q6HP PRN (Reason: Shortness Of Breath) 30 Days Qty: 1 5RF hydrocortisone [Proctocort] 1 % cream 1 applic topical TID PRN (Reason: itching) Qty: 28.4 0RF ondansetron 8 mg tablet,disintegrating 8 mg PO Q8H PRN (Reason: nausea and vomiting) 5 Days Qty: 30 0RF benzonatate 100 mg capsule 100 mg PO BID PRN (Reason: cough) Qty: 20 0RF triamcinolone acetonide 0.1 % cream 1 applic topical BID Qty: 15 0RF ofloxacin 0.3 % drops 10 drp otic (ear) DAILY 7 Days Qty: 5 0RF cetirizine 10 mg tablet 10 mg PO DAILY Dulera 100-5 mcg/actuation HFA aerosol inhaler 100 g inhalation DAILY prazosin 2 mg capsule See Rx Instructions .ROUTE .COMPLEX Qty: 90 3RF Dose Instruction: TAKE ONE CAPSULE BY MOUTH AT BEDTIME Rx Instructions: TAKE ONE CAPSULE BY MOUTH AT BEDTIME buprenorphine-naloxone [Suboxone] 8-2 mg film 2 film sublingual DAILY Hold Instructions: Resume on 01/06/23. hold while on post-op pain meds cyclobenzaprine 10 mg tablet 10 mg PO BID PRN (Reason: muscle spasm) Qty: 180 0RF pregabalin [Lyrica] 150 mg capsule 150 mg PO BID Qty: 60 3RF duloxetine 60 mg capsule,delayed release(DR/EC) 60 mg PO BID Qty: 60 2RF metformin 500 mg tablet extended release 24 hr 500 mg PO DAILY Qty: 90 3RF lisinopril 2.5 mg tablet 2.5 mg PO DAILY Qty: 90 3RF atorvastatin 10 mg tablet 10 mg PO DAILY Qty: 90 3RF aspirin 81 mg tablet,delayed release (DR/EC) 81 mg PO DAILY Qty: 90 3RF (DME) blood-glucose meter Kit See Rx Instructions .Route Qty: 1 0RF Rx Instructions: TEST GLUCOSE BID (DME) lancets [BD Ultra-Fine II Lancets] 30 gauge misc See Rx Instructions .Route Qty: 200 1RF Rx Instructions: TEST GLUCOSE BID alcohol swabs [Alcohol Prep Pads] Pads, Medicated 1 pad topical BID Qty: 200 1RF (DME) FreeStyle Lite Strips Strip See Rx Instructions .Route Qty: 100 12RF Rx Instructions: BID testing hydrocodone-acetaminophen 5-325 mg tablet 1 tab PO Q6H PRN (Reason: post-op pain) Qty: 13 0RF Rx Instructions: Do not take Suboxone while taking hydrocodone/acetaminophen loratadine [Claritin] 10 mg tablet 10 mg PO DAILY Qty: 30 0RF Referrals Follow up/Referrals: Provider,Referral, MD [Referring] - See instructions Activity Restrictions/Add. Instructions Additional Instructions/Restrictions: 2 capfuls of MiraLAX daily for 2 or 3 days until you are having soft, loose bowel movements. Once having regular, soft bowel movements, titrate back to 1 capful daily. If still having loose bowel movements, decrease slightly until having 1-2 soft bowel movements daily, the consistency of soft serve ice cream or toothpaste. Topical lidocaine cream 2-3 times daily. Routine follow-up with general surgery as scheduled and discussed. Call your family doctor to establish care for this visit to the emergency department and schedule follow-up within 48 hours to ensure improvement. If you have any worsening of your condition or any other concerning signs or symptoms, return to the emergency department or your primary care doctor for further evaluation. Clinical Impressions Clinical Impression: Status post hemorrhoidectomy Constipation Qualifiers: Constipation type: unspecified constipation type Qualified Code(s): K59.00 - Constipation, unspecified Discharge ED Provider: Ale[facility]
[2023-01-08 05:31] VITALS: BP 116/72; PULSE 95; O2SAT 97
[2023-01-08 05:32] LABS: Basophils % 0.2 % (0.1-2.0); Eosinophils # 0.1 K/mm3 (0.0-0.4); Eosinophils % 0.4 % (0.1-12.0); Hematocrit 40.7 % (37.0-47.0); Hemoglobin 13.9 g/dL (12.2-16.2); Lymphocytes # 1.4 K/mm3 (0.7-4.5); Lymphocytes % 10.4 % (10-50); Mean Corpuscular HGB Conc 34.2 g/dL (31.8-35.4); Mean Corpuscular Hemoglobin 28.4 pg (27.0-31.2); Mean Corpuscular Volume 83.2 fl (81-99); Mean Platelet Volume 9.5 fl (7.4-10.4); Monocytes # 0.5 K/mm3 (0.1-1.0); Monocytes % 3.8 % (1.7-9.3); Neutrophils # 11.1 K/mm3 (1.8-7.8); Neutrophils % 85.2 % (37.0-80.0); Platelet Count 281 K/mm3 (142-424); Red Blood Count 4.89 M/mm3 (4.20-5.40); Red Cell Distribution Width 14.2 % (11.5-17.5); White Blood Count 13.1 K/mm3 (4.8-10.8)
[2023-01-08 05:33] LABS: MANUAL DIFFERENTIAL MANUAL DIFFERENTIAL (MANUAL DIFF)
[2023-01-08 05:37] LABS: Alanine Aminotransferase 30 U/L (12-78); Albumin Level 4.2 g/dl (3.5-5.0); Albumin/Globulin Ratio 1.2 (1.1-1.8); Alkaline Phosphatase 93 U/L (38-126); Anion Gap 12.9 mEq/L (5-15); Aspartate Amino Transferase 31 U/L (14-36); Bilirubin,Total 0.2 mg/dl (0.2-1.3); Blood Urea Nitrogen 5 mg/dl (7-17); Calcium 8.9 mg/dl (8.4-10.2); Carbon Dioxide 25 mmol/L (22.0-30.0); Chloride 102 mmol/L (98-107); Creatinine Clearance Estimated 160 mL/min (50-200); Estimated Glomerular Filt Rate 96 ml/min (>60); GFR (African American) 117 ML/MIN (>60); Globulin 3.6 g/dL (1.3-3.2); Glucose 170 mg/dl (74-100); Potassium 3.9 mmoL/L (3.5-5.1); Sodium 136 mmol/L (136-145); Total Protein,Serum 7.8 g/dl (6.3-8.2)
[2023-01-08 05:43] LABS: Lactic Acid 1.1 mmol/L (0.7-2.1)
[2023-01-08 06:34] VITALS: BP 112/68; PULSE 86; RESP 18; TEMP 36.9; O2SAT 96
[2023-01-08 06:49] LABS: Lymphocytes % 11 % (10-50); Monocytes % 1 % (2-9); Neutrophils % 88 % (42-76); Total Cells Counted 100
[2023-01-08 06:50] LABS: Platelet Estimate Normal; RBC Morphology Normal
== END 2023-01-08 06:39 | disposition home or self-care (01) ==
PROVIDERS: Emergency Provider Emergency Medicine; PCP Physician Assistant
DX: G89.18 Other acute postprocedural pain (principal); K62.89 Other specified diseases of anus and rectum; K59.00 Constipation, unspecified; F17.210 Nicotine dependence, cigarettes, uncomplicated; J45.909 Unspecified asthma, uncomplicated; Z48.815 Encounter for surgical aftercare following surgery on the digestive system
CPT/HCPCS: 80053; 83605; 85007; 85025; 87040; 96374; 96375; 99285; J2405

== ENCOUNTER → 2023-03-04 23:39 | Outpatient (CLI) | payer MEDICAID, SELFPAY ==
[2023-03-04 17:47] LABS: Coronavirus 19, PCR Not Detected (NotDetected); Influenza A, PCR Not Detected (NotDetected); Influenza B, PCR Not Detected (NotDetected)
[2023-03-04 21:19] LABS: Amphetamine/Metha Screen,Urine Negative ng/ml (<1000); Barbiturates Screen,Urine Negative ng/ml (<200); Benzodiazepines Screen,Urine Negative ng/ml (<200); Cannabinoid Screen,Urine Negative ng/ml (<50); Cocaine Screen,Urine Negative ng/ml (<300); Opiate Screen,Urine Negative ng/ml (<300); Phencyclidine Screen,Urine Negative ng/ml (<25)
[2023-03-04 21:25] LABS: Methadone Screen,Urine Negative ng/ml (<300)
== END ==
LOC: LAB.DROPOF 23:39
PROVIDERS: PCP Physician Assistant; Visit Provider Family Medicine
DX: R06.02 Shortness of breath (principal); G89.29 Other chronic pain
CPT/HCPCS: 80307; 87636

== ENCOUNTER 2023-05-31 18:45 | Emergency (ER) | payer MEDICAID, SELFPAY ==
[2023-05-31 19:00] VITALS: BP 130/78; PULSE 96; RESP 18; TEMP 36.8; O2SAT 98; BMI 30.7
--- NOTE | 2023-05-31 19:06 | XR_ITS ---
PROCEDURE INFORMATION: Exam: XR Left Hand Exam date and time: 05/31/2023 7:29 PM Age: 32 years old Clinical indication: Injury or trauma; Fall; Blunt trauma (contusions or hematomas); Hand; Left TECHNIQUE: Imaging protocol: Radiologic exam of the left hand. Views: 3 or more views. COMPARISON: CR XR HAND LT MIN 3V 11/10/2022 22:53 FINDINGS: Bones/joints: No acute fracture or dislocation. Soft tissues: Normal. IMPRESSION: No acute fracture or dislocation.
--- NOTE | 2023-05-31 19:06 | XR_ITS ---
PROCEDURE INFORMATION: Exam: XR Facial Bones, Minimum of 3 Views, Complete Exam date and time: 05/31/2023 7:24 PM Age: 32 years old Clinical indication: Injury or trauma; Fall; Blunt trauma (contusions or hematomas); Other: Face TECHNIQUE: Imaging protocol: XR of the facial bones, minimum of 3 views. Complete exam. COMPARISON: [facility] CT cervical spine wo con 02/06/2018 17:42 FINDINGS: Sinuses: Well aerated. No opacification. Bones/joints: No acute fractures. Dental: Patient is edentulous. Soft tissues: Unremarkable. IMPRESSION: No acute fractures.
--- NOTE | 2023-05-31 19:06 | XR_ITS ---
PROCEDURE INFORMATION: Exam: XR Left Knee Exam date and time: 05/31/2023 7:31 PM Age: 32 years old Clinical indication: Injury or trauma; Fall; Blunt trauma; Knee; Left TECHNIQUE: Imaging protocol: Radiologic exam of the left knee. Views: 3 views. COMPARISON: CR XR KNEE LT 3V 23/06/2022 13:10 FINDINGS: Bones/joints: No acute fracture or dislocation. Soft tissues: Normal. IMPRESSION: No acute fracture or dislocation.
--- NOTE | 2023-05-31 20:08 | ED_ITS ---
Discharge Plan Disposition Patient Disposition: Home, Self-Care Condition: Good Prescriptions Prescriptions: No Action pregabalin [Lyrica] 150 mg capsule 150 mg PO BID Qty: 60 2RF cyclobenzaprine 10 mg tablet 10 mg PO BID PRN (Reason: muscle spasm) Qty: 60 0RF duloxetine 60 mg capsule,delayed release(DR/EC) 60 mg PO BID Qty: 60 2RF cetirizine 10 mg tablet 10 mg PO DAILY buprenorphine-naloxone [Suboxone] 8-2 mg film 2 film sublingual DAILY Hold Instructions: Resume on 01/06/23. hold while on post-op pain meds lidocaine 5 % cream 1 applic topical TID PRN (Reason: pain) Qty: 15 0RF albuterol sulfate 90 mcg/actuation HFA aerosol inhaler 2 inh inhalation Q6HP PRN (Reason: Shortness Of Breath) 30 Days Qty: 1 5RF Dulera 100-5 mcg/actuation HFA aerosol inhaler 100 inh inhalation DAILY Qty: 8.8 0RF (DME) blood-glucose meter Kit See Rx Instructions .Route Qty: 1 0RF Rx Instructions: TEST GLUCOSE BID (DME) lancets [BD Ultra-Fine II Lancets] 30 gauge misc See Rx Instructions .Route Qty: 200 1RF Rx Instructions: TEST GLUCOSE BID alcohol swabs [Alcohol Prep Pads] Pads, Medicated 1 pad topical BID Qty: 200 1RF (DME) FreeStyle Lite Strips Strip See Rx Instructions .ROUTE .COMPLEX Qty: 100 0RF Dose Instruction: TEST 2 TIMES A DAY Rx Instructions: TEST 2 TIMES A DAY loratadine [Claritin] 10 mg tablet 10 mg PO DAILY Qty: 30 0RF atorvastatin 10 mg tablet 10 mg PO DAILY lisinopril 2.5 mg tablet 2.5 mg PO DAILY Referrals Follow up/Referrals: Be Putnam MD [Primary Care Provider] - See instructions Clinical Impressions Clinical Impression: Fall with injury Qualifiers: Encounter type: initial encounter Qualified Code(s): W19.XXXA - Unspecified fall, initial encounter Instructions Patient Instructions: How To Perform RICE (Rest, Ice, Compress, Elevate) Discharge ED Provider: Carmella Romero [facility] [place] HPI General Stated complaint: AO06/07 fall hit face , LT hand, LT knee Mode of Arrival: Ambulatory Source of Information: Patient Limitations: No Limitations Time Seen by Provider: 05/31/23 19:11 Description of Symptoms (Recalled from Triage Doc. 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 She relates that she hurt her left knee and hand as well, but her face hurts the worst. Related Data Home Medications Medication Instructions Recorded Confirmed cetirizine 10 mg tablet 10 mg PO DAILY allergies 06/27/22 05/31/23 buprenorphine 8 mg-naloxone 2 mg 2 film sublingual DAILY addiction 10/30/22 05/31/23 sublingual film (Suboxone) atorvastatin 10 mg tablet 10 mg PO DAILY 05/31/23 05/31/23 lisinopril 2.5 mg tablet 2.5 mg PO DAILY 05/31/23 05/31/23 Previous Rx's Medication Instructions Recorded loratadine 10 mg tablet (Claritin) 10 mg PO DAILY #30 tabs 04/09/22 alcohol swabs (Alcohol Prep Pads) 1 pad topical BID USE BID TO CHECK 11/12/22 GLUCOSE #200 ea blood-glucose meter #1 ea 11/12/22 lancets 30 gauge (BD Ultra-Fine II #200 ea 11/12/22 Lancets) blood sugar diagnostic (FreeStyle #100 strips 01/08/23 Lite Strips) lidocaine 5 % topical cream 1 applic topical TID PRN pain #15 01/13/23 grams albuterol sulfate 90 mcg/actuation 2 inh inhalation Q6HP PRN 03/04/23 aerosol inhaler Shortness Of Breath 30 days #1 ea mometasone-formoterol HFA 100 100 inh inhalation DAILY Asthma 03/04/23 mcg-5 mcg/actuation aerosol #8.8 grams inhaler (Dulera) cyclobenzaprine 10 mg tablet 10 mg PO BID PRN muscle spasm #60 05/28/23 tabs duloxetine 60 mg capsule,delayed 60 mg PO BID #60 caps 05/28/23 release pregabalin 150 mg capsule (Lyrica) 150 mg PO BID #60 caps 05/28/23 Allergies Allergy/AdvReac Type Severity Reaction Status Date / Time Penicillins [PENICILLINS] Allergy Severe THROAT Verified 05/31/23 19:12 SWELLING, HIVES, VOMITTING amoxicillin [From AUGMENTIN] Allergy Intermediate I-HIVES Verified 05/31/23 19:12 clavulanic acid Allergy Intermediate I-HIVES Verified 05/31/23 19:12 [From AUGMENTIN] diphenhydramine Allergy Intermediate I-HIVES Verified 05/31/23 19:12 [From BENADRYL] ibuprofen [IBUPROFEN] Allergy Intermediate I-HIVES Verified 05/31/23 19:12 metoclopramide [From REGLAN] Allergy Intermediate I-HIVES Verified 05/31/23 19:12 Sulfa (Sulfonamide Allergy Intermediate I-HIVES Verified 05/31/23 19:12 Antibiotics) [SULFA (SULFONAMIDE ANTIBIOTICS)] tetanus toxoid, adsorbed Allergy Intermediate I-RASH Verified 05/31/23 19:12 [TETANUS TOXOID, ADSORBED] naproxen [NAPROXEN] Allergy Unknown Hives, Verified 05/31/23 19:12 Vomiting paroxetine [From PAXIL] Allergy Unknown numbness Verified 05/31/23 19:12 tongue atomoxetine [From Strattera] AdvReac Mild NA-HALLUCIN Verified 05/31/23 19:12 ATIONS Worker's Comp Is this a Worker's Comp case?: No [facility] Disclaimer: The information contained in this section may have been updated after the patient was seen, as this information can be updated by other users. Medical History Acute viral syndrome Fall Muscle spasm Fall Pityriasis rosea Recurrent pain of right knee Contact dermatitis Contact dermatitis Bilateral shoulder pain Dysmenorrhea Depression Anxiety Scoliosis Hearing loss in right ear History of COVID-19 Asthma Migraine Eczema Hemorrhoid Allergies Uterine fibroid Nausea Abdominal pain Abnormal uterine bleeding Left ankle sprain Nausea & vomiting History of deviated nasal septum Costochondral separation Ganglion cyst Surgical History Status post laparoscopic hysterectomy Bilateral salpingectomy, right oophorectomy - 01/17/22 History of surgery DENTAL EXTRACTION History of surgery RIGHT SHOULDER SX History of surgery HEMORRHOID SX History of tonsillectomy and adenoidectomy History of cholecystectomy Family History Other Alcoholism Asthma Cancer Diabetes Heart attack Hyperlipidemia Hypertension Social History Smoking Status: Current every day smoker tobacco type: cigarettes packs per day: 1 years smoked: 16 second hand exposure: Yes alcohol intake: former counseling provided: none substance use type: denies use current occupational status: disabled Travel in the last 8 weeks: None household members: family and children housing: house current occupation: [employer] current occupational exposures/hazards: No caffeine: Yes ROS Obtained: Yes All systems reviewed & no additional complaints except as documented Constitutional Constitutional: Reports system reviewed and no additional complaints, except as documented Eyes Eyes: Reports system reviewed and no additional complaints, except as documented ENT Ears, Nose, Mouth, and Throat: Reports system reviewed and no additional complaints, except as documented Cardiovascular Cardiovascular: Reports system reviewed and no additional complaints, except as documented Respiratory Respiratory: Reports system reviewed and no additional complaints, except as documented Gastrointestinal Gastrointestingal: Reports system reviewed and no additional complaints, except as documented Genitourinary Female Genitourinary: Reports system reviewed and no additional complaints, except as documented Musculoskeletal Musculoskeletal: Reports abnormal gait and Reports arthralgias Integumentary/Breasts Skin/Breast: Reports system reviewed and no additional complaints, except as documented and Reports new lesions Neurologic Neurologic: Reports system reviewed and no additional complaints, except as documented and Reports abnormal gait Endocrine Endocrine: Reports system reviewed and no additional complaints, except as documented Hematologic/Lymphatic Henatologic/Lymphatic: Reports system reviewed and no additional complaints, except as documented Allergic/Immunologic Allergic/Immunologic: Reports system reviewed and no additional complaints, except as documented Physical Exam General General appearance: alert and in no apparent distress Expanded Head Exam Head exam physical: Present contusion Head image: 2 1. tenderness on palpitation Eye Eye exam: Present normal appearance ENT ENT exam: Present normal exam Neck Neck exam: Present normal inspection Chest Chest inspection: Present normal inspection and symmetric chest wall rise Respiratory Respiratory exam: Present normal lung sounds bilaterally Cardiovascular Cardiovascular exam: Present regular rate and normal rhythm Abdominal Exam Abdominal exam: Present soft Back Exam Back exam: Present normal inspection Neurological Exam Neurological exam: Present alert and oriented X3 Psychiatric Psychiatric exam: Present normal affect and normal mood Expanded Skin Exam Distribution: LUE and LLE Description: Present tenderness Comment: Pt has small abrasion on left knee and 2 small places on left pointer finger Lymphatic Lymphatic Findings: no adenopathy Medical Decision Making Donta Inquiry Pt receiving controlled substance: No Donta was queried for this patient: No Vital Signs: 05/31/23 19:00 Temperature 98.3 F Temperature Source Oral Pulse Rate [Right Radial] 96 H Respiratory Rate 18 Blood Pressure [Right Arm] 130/78 Blood Pressure Mean [Right Arm] 95 Blood Pressure Source [Right Arm] Automatic Cuff Blood Pressure Position [Right Arm] Sitting 02 Sat by Pulse Oximetry 98 Oxygen Delivery Method Room Air Orders (Tests/Meds): ORDERS Category Date Time Status Knee XR left 3 views [XR knee LT 3V] Stat Exams 05/31/23 19:06 Completed XR facial bones min 3V Stat Exams 05/31/23 19:06 Completed XR hand LT min 3V Stat Exams 05/31/23 19:06 Completed Radiology Data #1: Image(s): Knee Image Reviewed: Yes I have reviewed radiologist's interpretation Preliminary Findings: No Fracture Seen FINDINGS: Bones/joints: No acute fracture or dislocation. Soft tissues: Normal. IMPRESSION: No acute fracture or dislocation. #2: Image(s): Hand Image Reviewed: Yes I have reviewed radiologist's interpretation Preliminary Findings: No Fracture Seen FINDINGS: Bones/joints: No acute fracture or dislocation. Soft tissues: Normal. IMPRESSION: No acute fracture or dislocation. #3: Image(s): Facial Bones Image Reviewed: Yes I have reviewed radiologist's interpretation Preliminary Findings: No Fracture Seen FINDINGS: Sinuses: Well aerated. No opacification. Bones/joints: No acute fractures. Dental: Patient is edentulous. Soft tissues: Unremarkable. IMPRESSION: No acute fractures.
[2023-05-31 20:20] VITALS: BP 130/78; PULSE 96; RESP 18; TEMP 36.8; O2SAT 98
== END 2023-05-31 20:20 | disposition home or self-care (01) ==
PROVIDERS: Emergency Provider Nurse Practitioner Family; PCP Family Medicine
DX: S09.93XA Unspecified injury of face, initial encounter (principal); M79.642 Pain in left hand; M25.562 Pain in left knee; F17.210 Nicotine dependence, cigarettes, uncomplicated; W10.8XXA Fall (on) (from) other stairs and steps, initial encounter
CPT/HCPCS: 70150; 73130; 73562; 99212; 99214; G0463

== ENCOUNTER 2023-10-13 22:49 | Emergency (ER) | payer MEDICAID, SELFPAY ==
[2023-10-13 22:51] VITALS: BP 132/103; PULSE 92; RESP 18; TEMP 36.6; O2SAT 99; BMI 31.9
--- NOTE | 2023-10-13 23:07 | XR_ITS ---
PROCEDURE INFORMATION: Exam: XR Chest Exam date and time: 10/13/2023 11:54 PM Age: 32 years old Clinical indication: Pain; Chest pressure; Additional info: Cp TECHNIQUE: Imaging protocol: Radiologic exam of the chest. Views: 1 view. COMPARISON: CR XR CHEST 2V 11/07/2022 11:46 AM FINDINGS: Lungs: Unremarkable. No consolidation. Pleural spaces: Unremarkable. No pleural effusion. No pneumothorax. Heart/Mediastinum: Unremarkable. No cardiomegaly. Vasculature: Unremarkable. Bones/joints: Unremarkable. IMPRESSION: No acute findings.
--- NOTE | 2023-10-13 23:07 | CT_ITS ---
PROCEDURE INFORMATION: Exam: CTA Chest With Contrast Exam date and time: 10/14/2023 12:08 AM Age: 32 years old Clinical indication: Pain; Chest pressure; Additional info: Pleuritic cp, tachy TECHNIQUE: Imaging protocol: Computed tomographic angiography of the chest with contrast. Exam focused on the arteries. 3D rendering (Not supervised by radiologist): MIP and/or 3D reconstructed images were created by the technologist. Radiation optimization: All CT scans at this facility use at least one of these dose optimization techniques: automated exposure control; mA and/or kV adjustment per patient size (includes targeted exams where dose is matched to clinical indication); or iterative reconstruction. Contrast material: ISOVUE; Contrast volume: 70 ml; Contrast route: INTRAVENOUS (IV); COMPARISON: CR XR CHEST PORTABLE 10/13/2023 11:54 PM FINDINGS: Pulmonary arteries: Normal. No pulmonary emboli. Aorta: Unremarkable. No aortic aneurysm. No aortic dissection. Lungs: There are subtle ground-glass opacities diffusely throughout both lungs. The findings may represent a mild inflammatory process. Pleural spaces: Unremarkable. No pneumothorax. No pleural effusion. Heart: Unremarkable. No cardiomegaly. No pericardial effusion. Lymph nodes: There is a 10 mm right hilar lymph node image 57 series 5. Slightly more peripherally within the right lower lobe there is a 10 mm hypodense nodule image 61 series 5 which could represent lymph node or pulmonary nodule. Calcified left hilar and mediastinal lymph nodes are noted. Liver: There is hepatic steatosis. The liver is mildly enlarged. Gallbladder and biliary ducts: The gallbladder is absent. There is no biliary ductal dilation. Pancreas: A majority of the pancreatic body and pancreatic tail are absent. No acute findings are evident. Bones/joints: There are moderate degenerative changes of the lower thoracic spine. Soft tissues: Unremarkable. IMPRESSION: 1. No pulmonary embolus. 2. Subtle ground-glass opacity diffusely throughout both lungs may represent a mild inflammatory process. 3. 10 mm soft tissue nodule right infrahilar region may represent a hilar lymph node versus pulmonary nodule. As per Fleischner Society guidelines for follow-up and management of pulmonary nodules greater than 8 mm: Recommend initial follow-up chest CT at 3 months. Consider contrast enhanced chest CT, PET scan and/or biopsy as clinically warranted. 4. Other nonurgent findings as noted.
[2023-10-13] MEDS: ACETAMINOPHEN 500MG TAB 1000 MG PO (23:17)
[2023-10-13] MEDS: DOXYCYCLINE HYCL 100 MG TABLET PO (23:17)
--- NOTE | 2023-10-13 23:22 | ECG_ITS ---
APPROVED REPORT Exam: Resting ECG HR:79 bpm ECG Measurements Heart Rate 79 AXES KS 130 P 66 QRSd 99 QRS 96 QT 382 T 72 QTc 417 Conclusion SINUS RHYTHM BORDERLINE RIGHT AXIS DEVIATION [QRS AXIS > 90] NONSPECIFIC T-WAVE ABNORMALITY No STEMI Electronically signed by : ANGELA CRAIN, 10/14/2023 07:55:15
--- NOTE | 2023-10-13 23:22 | HMH.EDGENADL ---
Discharge Plan Disposition Patient Disposition: Home, Self-Care Condition: Good Prescriptions Prescriptions: New doxycycline hyclate 100 mg capsule 100 mg PO BID 7 Days Qty: 14 0RF No Action azithromycin 250 mg tablet See Rx Instructions PO .COMPLEX Qty: 6 0RF Rx Instructions: For 250 mg dose pack: take 500 mg today (day 1), then 250 mg for 4 days (days 2-5) PO methylprednisolone 4 mg tablets,dose pack See Rx Instructions PO PER PKG DIR Qty: 21 0RF Rx Instructions: PO PER PKG DIR nystatin 100,000 unit/mL suspension 4 ml PO QID 10 Days Qty: 160 1RF Rx Instructions: swish, gargle, and swallow fluconazole 150 mg tablet 150 mg PO ONCE Qty: 1 1RF dextromethorphan-guaifenesin 60-1,200 mg tablet extended release 12 hr 1 tab PO Q12H Qty: 60 0RF benzonatate 200 mg capsule 200 mg PO TID PRN (Reason: cough) Qty: 30 0RF buprenorphine-naloxone [Suboxone] 8-2 mg film 2 film sublingual DAILY pregabalin [Lyrica] 150 mg capsule 150 mg PO BID Qty: 60 0RF albuterol sulfate 90 mcg/actuation HFA aerosol inhaler 2 inh inhalation Q6HP PRN (Reason: Shortness Of Breath) 30 Days Qty: 1 5RF ondansetron 8 mg tablet,disintegrating 8 mg PO Q12H PRN (Reason: nausea and vomiting) Qty: 60 0RF Referrals Follow up/Referrals: Be Putnam MD [Primary Care Provider] - See instructions Activity Restrictions/Add. Instructions Additional Instructions/Restrictions: You were evaluated in the ER. You are appropriate for discharge at this time. Take the prescribed doxycycline as directed. Drink a full glass of water and stay sitting upright for 30 minutes after taking this medication. Take Tylenol/ibuprofen if needed for pain, do not exceed the recommended doses on the bottle. Make an appointment with your primary care physician for reevaluation in 3 days and to get a repeat chest CT scheduled to reevaluate lung nodule. Return to the ER with new, worsening, or otherwise concerning symptoms. Clinical Impressions Clinical Impression: Chest pain, Cellulitis, Lung nodule Print Language Print Language: Italian Discharge ED Provider: Clovis Stover Adult HPI General Chief complaint: PAIN Stated complaint: Knot on back of head,cough,chest congestion Time Seen by Provider: 10/13/23 22:57 Mode of Arrival: Ambulatory Source of Information: Patient Limitations: No Limitations Description of Symptoms (Recalled from ER Triage Doc. by RN): Pt presents with right upper chest discomfort while coughing and deep inspiration. Pt also states she has a knot on the back of her head which was there when she woke up today. Denies any falls or injury, SOA, nausea or vomiting History of Present Illness HPI narrative: 32-year-old female presents to the ER for concerns of right-sided chest pain that is worse with coughing and deep inspiration. She states this started approximately 24 hours ago. No known cardiac history. Patient states she also woke up yesterday with a knot on the back of her head. She states it is tender. She denies any trauma, bug bites, wounds, or other known insult to the back of the head. She denies any fevers, abdominal pain, vomiting, diarrhea, no recent travel, no history of blood clot. Related Data Home Medications ?Medication ?Instructions ?Recorded ?Confirmed buprenorphine 8 mg-naloxone 2 mg 2 film sublingual DAILY addiction 10/30/22 08/20/23 sublingual film (Suboxone) Previous Rx's ?Medication ?Instructions ?Recorded pregabalin 150 mg capsule (Lyrica) 150 mg PO BID #60 caps 08/17/23 albuterol sulfate 90 mcg/actuation 2 inh inhalation Q6HP PRN 08/20/23 aerosol inhaler Shortness Of Breath 30 days #1 ea azithromycin 250 mg tablet See Rx Instructions PO .COMPLEX #6 08/20/23 tabs benzonatate 200 mg capsule 200 mg PO TID PRN cough #30 caps 08/20/23 dextromethorphan-guaifenesin ER 60 1 tab PO Q12H #60 tabs 08/20/23 mg-1,200 mg tab,extend release,12hr fluconazole 150 mg tablet 150 mg PO ONCE #1 tab 08/20/23 methylprednisolone 4 mg tablets in See Rx Instructions PO PER PKG DIR 08/20/23 a dose pack #21 tabs nystatin 100,000 unit/mL oral 4 ml PO QID 10 days #160 mL 08/20/23 suspension ondansetron 8 mg disintegrating 8 mg PO Q12H PRN nausea and 09/23/23 tablet vomiting #60 tabs doxycycline hyclate 100 mg capsule 100 mg PO BID 7 days #14 caps 10/14/23 Allergies Allergy/AdvReac Type Severity Reaction Status Date / Time Penicillins [PENICILLINS] Allergy Severe THROAT Verified 08/20/23 15:25 SWELLING, HIVES, VOMITTING amoxicillin [From AUGMENTIN] Allergy Intermediate I-HIVES Verified 08/20/23 15:25 clavulanic acid Allergy Intermediate I-HIVES Verified 08/20/23 15:25 [From AUGMENTIN] diphenhydramine Allergy Intermediate I-HIVES Verified 08/20/23 15:25 [From BENADRYL] ibuprofen [IBUPROFEN] Allergy Intermediate I-HIVES Verified 08/20/23 15:25 metoclopramide [From REGLAN] Allergy Intermediate I-HIVES Verified 08/20/23 15:25 Sulfa (Sulfonamide Allergy Intermediate I-HIVES Verified 08/20/23 15:25 Antibiotics) [SULFA (SULFONAMIDE ANTIBIOTICS)] tetanus toxoid, adsorbed Allergy Intermediate I-RASH Verified 08/20/23 15:25 [TETANUS TOXOID, ADSORBED] naproxen [NAPROXEN] Allergy Unknown Hives, Verified 08/20/23 15:25 Vomiting paroxetine [From PAXIL] Allergy Unknown numbness Verified 08/20/23 15:25 tongue atomoxetine [From Strattera] AdvReac Mild NA-HALLUCIN Verified 08/20/23 15:25 [facility] Disclaimer: The information contained in this section may have been updated after the patient was seen, as this information can be updated by other users. Medical History Acute viral syndrome Fall Muscle spasm Fall Pityriasis rosea Recurrent pain of right knee Contact dermatitis Contact dermatitis Bilateral shoulder pain Dysmenorrhea Depression Anxiety Scoliosis Hearing loss in right ear History of COVID-19 Asthma Migraine Eczema Hemorrhoid Allergies Uterine fibroid Nausea Abdominal pain Abnormal uterine bleeding Left ankle sprain Nausea & vomiting History of deviated nasal septum Costochondral separation Ganglion cyst Surgical History Status post laparoscopic hysterectomy Bilateral salpingectomy, right oophorectomy - 01/17/22 History of surgery DENTAL EXTRACTION History of surgery RIGHT SHOULDER SX History of surgery HEMORRHOID SX History of tonsillectomy and adenoidectomy History of cholecystectomy Family History Other Alcoholism Asthma Cancer Diabetes Heart attack Hyperlipidemia Hypertension Social History Smoking Status: Current every day smoker tobacco type: cigarettes packs per day: 1 years smoked: 16 second hand exposure: Yes alcohol intake: former counseling provided: none substance use type: denies use current occupational status: disabled Travel in the last 8 weeks: None household members: family and children housing: house current occupation: [employer] current occupational exposures/hazards: No caffeine: Yes ROS Obtained: Yes All systems reviewed & no additional complaints except as documented Constitutional Constitutional: Denies chills, Denies fever(s), Denies headache(s) and Denies weakness Eyes Eyes: Denies change in vision ENT Ears, Nose, Mouth, and Throat: Denies dizziness, Denies headache(s), Denies nasal congestion and Denies sore throat Cardiovascular Cardiovascular: Reports chest pain, Denies dyspnea and Denies leg edema Respiratory Respiratory: Denies cough and Denies dyspnea Gastrointestinal Gastrointestingal: Denies abdominal pain, constipation, diarrhea, nausea or vomiting Genitourinary Female Genitourinary: Denies dysuria Musculoskeletal Musculoskeletal: Denies arthralgias, Denies myalgias, Denies numbness and Denies tingling Integumentary/Breasts Skin/Breast: Denies change in pigmentation and Reports other (Tenderness on posterior scalp) Neurologic Neurologic: Denies dizziness, Denies headache(s), Denies numbness, Denies tingling and Denies weakness Physical Exam General General appearance: alert and in no apparent distress Head Head exam: normocephalic and other (Approximately 1.5 cm diameter raised area on the right posterior scalp with slight erythema, no wound, no mass, no fluctuance, slight induration present.) Eye Eye exam: Present PERRL and EOMI ENT ENT exam: Present mucous membranes moist Neck Neck exam: Present normal inspection and full ROM Chest Chest inspection: Present symmetric chest wall rise; Absent tenderness Respiratory Respiratory exam: Present normal lung sounds bilaterally; Absent respiratory distress, wheezes or stridor Cardiovascular Cardiovascular exam: Present regular rate and normal rhythm Abdominal Exam Abdominal exam: Present soft; Absent distention or tenderness Extremities Exam Extremities exam: Present full ROM Neurological Exam Neurological exam: Present alert and oriented X3; Absent motor sensory deficit Psychiatric Psychiatric exam: Present normal affect and normal mood Skin Skin exam: Present warm and dry Medical Decision Making Medical Records Medical records reviewed: Yes I reviewed the patient's medical records. MR Comment: Multiple medication allergies, history of tobacco use, history of chronic pain, previous shoulder injury Donta Inquiry Pt receiving controlled substance: No Vital Signs: 10/13/23 22:51 Temperature 98 F Temperature Source Oral Pulse Rate [Left] 92 H Respiratory Rate 18 Blood Pressure [Right Arm] 132/103 H Blood Pressure Mean [Right Arm] 112 Blood Pressure Source [Right Arm] Automatic Cuff Blood Pressure Position [Right Arm] Supine 02 Sat by Pulse Oximetry 99 Oxygen Delivery Method Room Air Lab Data Lab Results 10/13/23 23:32: WBC 5.2, RBC 4.68, Hgb 14.0, Hct 40.8, MCV 87.2, MCH 29.9, MCHC 34.3, RDW 13.8, Plt Count 327, MPV 8.8, Neut % (Auto) 49.3, Lymph % (Auto) 39.5, Butler % (Auto) 4.9, Eos % (Auto) 4.9, Baso % (Auto) 1.3, Neut # (Auto) 2.6, Lymph # (Auto) 2.1, Butler # (Auto) 0.3, Eos # (Auto) 0.3, Baso # (Auto) 0.1, PT 12.0, INR 1.08, Sodium 139, Potassium 3.7, Chloride 100, Carbon Dioxide 32 H, Anion Gap 10.7, BUN 4 L, Creatinine 0.80, Estimated Creat Clear 142, Estimated GFR 83, Est GFR ( Amer) 100, Glucose 162 H, Calcium 9.4, Total Bilirubin 0.4, AST 72 H, ALT 61, Alkaline Phosphatase 91, Troponin I < 0.01, Total Protein 8.4 H, Albumin 4.2, Globulin 4.2 H, Albumin/Globulin Ratio 1.0 L 10/14/23 02:11: Troponin I < 0.01 10/13/23 23:32 10/13/23 23:32 Orders (Tests/Meds): ED MEDICATIONS Discontinued Medications Generic Name Dose Route Start Last Admin Trade Name Freq PRN Reason Stop Dose Admin Acetaminophen 1,000 mg 10/13/23 23:07 10/13/23 23:17 Acetaminophen 500mg Tab PO 10/13/23 23:08 1,000 mg ONCE ONE Administration Doxycycline Hyclate 100 mg 10/13/23 23:10 10/13/23 23:17 Doxycycline Hycl 100 Mg Tablet PO 10/13/23 23:11 100 mg ONCE ONE Administration Iopamidol 70 ml 10/14/23 00:13 10/14/23 00:14 Iopamidol-370 (76%);100ml Bottle IV 10/14/23 00:14 70 ml ONCE ONE Administration Sodium Chloride 50 ml 10/14/23 00:13 10/14/23 00:14 0.9 % Sodium Chloride 50 Ml Vial IV 10/14/23 00:14 50 ml ONCE ONE Administration Sodium Chloride 10 ml 10/14/23 00:13 10/14/23 00:14 Sodium Chloride 0.9% 10ml Syr (Rad Only) IV 10/14/23 00:14 10 ml ONCE ONE Administration ORDERS Category Date Time Status CT angio chest PE protocol Stat Cat Scan 10/13/23 23:07 Completed CXR --portable [XR chest portable] Stat Exams 10/13/23 23:07 Completed CBC w/Auto Diff [Complete Blood Count Auto Diff] Stat Lab 10/13/23 23:32 Completed CMP [Comprehensive Metabolic Panel] Stat Lab 10/13/23 23:32 Completed PT INR [Prothrombin Time INR] Stat Lab 10/13/23 23:32 Completed Trop I [Troponin I] Stat Lab 10/13/23 23:32 Completed Troponin I Q3H Lab 10/14/23 02:11 Completed Troponin I Q3H Lab 10/14/23 05:15 Ordered HEART Score History (anamnesis): Slightly suspicious ECG: Normal Age: <45 years Risk factors: 1-2 risk factors Troponin: </= normal limit HEART Score: 1 Medical Decision Narrative: In summary, this 32-year-old female presents to the emergency department today with chest pain, knot on the back of the scalp. On initial evaluation patient is hemodynamically stable, afebrile, mild tenderness to palpation of the posterior scalp with slight area of induration/erythema, no obvious wound, no findings of trauma, cardiopulmonary exam is reassuring though patient is borderline tachycardic, no peripheral edema or calf pain/swelling, remainder of exam benign. Differential diagnosis includes but is not limited to ACS, PE, electrolyte abnormality, I considered the posterior scalp lesion to potentially be cellulitis, abscess, or traumatic injury. Based on exam it is most consistent with mild cellulitis. Based on these concerns, I ordered cardiac workup, CT imaging, serum labs. ECG personally interpreted demonstrates normal sinus rhythm, rate 79, right axis deviation, normal HI and QTc, no STEMI. Patient received doxycycline, acetaminophen for treatment. Labs personally reviewed demonstrate normal CBC, PT/INR normal, CMP unremarkable, nonactionable, initial troponin undetectably low at less than 0.01, reassuring in the setting of unremarkable ECG and low heart score. This is also reassuring against PE causing heart strain. XR personally interpreted demonstrates no acute intrathoracic abnormality, see radiology read for final interpretation. CT imaging personally interpreted demonstrate no PE, subtle groundglass opacities. See radiology read for final interpretation which includes comments about a pulmonary nodule. Patient has been informed of incidental findings. Repeat troponin also less than 0.01. On reassessment patient is appropriate for discharge. She continues to be stable and symptoms are improved. I prescribed doxycycline for outpatient management of scalp cellulitis. Patient was given instructions on symptomatic management, follow up instructions, and return precautions for the emergency department. Patient indicated understanding and was discharged in stable condition. Critical Care Critical Care Time Critical Care Time: No
[2023-10-13 23:43] LABS: Basophils # 0.1 K/mm3 (0-0.2); Basophils % 1.3 % (0.1-2.0); Eosinophils # 0.3 K/mm3 (0.0-0.4); Eosinophils % 4.9 % (0.1-12.0); Hematocrit 40.8 % (37.0-47.0); Lymphocytes # 2.1 K/mm3 (0.7-4.5); Lymphocytes % 39.5 % (10-50); Mean Corpuscular HGB Conc 34.3 g/dL (31.8-35.4); Mean Corpuscular Hemoglobin 29.9 pg (27.0-31.2); Mean Corpuscular Volume 87.2 fl (81-99); Mean Platelet Volume 8.8 fl (7.4-10.4); Monocytes # 0.3 K/mm3 (0.1-1.0); Monocytes % 4.9 % (1.7-9.3); Neutrophils # 2.6 K/mm3 (1.8-7.8); Neutrophils % 49.3 % (37.0-80.0); Platelet Count 327 K/mm3 (142-424); Red Blood Count 4.68 M/mm3 (4.20-5.40); Red Cell Distribution Width 13.8 % (11.5-17.5); White Blood Count 5.2 K/mm3 (4.8-10.8)
[2023-10-14 00:06] LABS: Alanine Aminotransferase 61 U/L (12-78); Albumin Level 4.2 g/dl (3.5-5.0); Alkaline Phosphatase 91 U/L (38-126); Anion Gap 10.7 mEq/L (5-15); Aspartate Amino Transferase 72 U/L (14-36); Bilirubin,Total 0.4 mg/dl (0.2-1.3); Blood Urea Nitrogen 4 mg/dl (7-17); Calcium 9.4 mg/dl (8.4-10.2); Carbon Dioxide 32 mmol/L (22.0-30.0); Chloride 100 mmol/L (98-107); Creatinine Clearance Estimated 142 mL/min (50-200); Estimated Glomerular Filt Rate 83 ml/min (>60); GFR (African American) 100 ML/MIN (>60); Globulin 4.2 g/dL (1.3-3.2); Glucose 162 mg/dl (74-100); Potassium 3.7 mmoL/L (3.5-5.1); Sodium 139 mmol/L (136-145); Total Protein,Serum 8.4 g/dl (6.3-8.2)
[2023-10-14] MEDS: 0.9 % SODIUM CHLORIDE 50 ML VIAL IV (00:14)
[2023-10-14] MEDS: SODIUM CHLORIDE 0.9% 10ML SYR (RAD ONLY) 10 ML IV (00:14)
[2023-10-14] MEDS: IOPAMIDOL-370 (76%);100ML BOTTLE 70 ML IV (00:14)
[2023-10-14 00:22] LABS: Troponin I < 0.01 ng/ml (0.00-0.034)
[2023-10-14 00:37] LABS: INR 1.08 (0.9-1.1)
[2023-10-14 02:39] LABS: Troponin I < 0.01 ng/ml (0.00-0.034)
[2023-10-14 03:06] VITALS: BP 98/66; PULSE 67; RESP 16; TEMP 36.7; O2SAT 96
== END 2023-10-14 03:07 | disposition home or self-care (01) ==
PROVIDERS: Emergency Provider Emergency Medicine; PCP Family Medicine
DX: R07.1 Chest pain on breathing (principal); L03.811 Cellulitis of head [any part, except face]; R91.1 Solitary pulmonary nodule; F17.210 Nicotine dependence, cigarettes, uncomplicated
CPT/HCPCS: 71045; 71275; 80053; 84484; 85025; 85610; 93005; 99285; Q9967

== ENCOUNTER 2024-04-04 07:59 | Emergency (ER) | payer MEDICAID, SELFPAY ==
--- NOTE | 2024-04-04 08:02 | XR_ITS ---
PROCEDURE INFORMATION: Exam: XR Left Ankle Exam date and time: 04/04/2024 8:01 AM Age: 33 years old Clinical indication: Pain; Ankle; Left TECHNIQUE: Imaging protocol: Radiologic exam of the left ankle. Views: 3 or more views. COMPARISON: CR XR ANKLE LT MIN 3V 12/28/2021 1:05 PM FINDINGS: Bones/joints: There is no evidence of acute fracture.There is no evidence of malalignment or dislocation. Soft tissues: Mild soft tissue swelling of the ankle IMPRESSION: There is no evidence of acute fracture.There is no evidence of malalignment or dislocation.
[2024-04-04 08:26] VITALS: BP 137/89; PULSE 105; RESP 18; TEMP 36.6; O2SAT 97; BMI 32.3
--- NOTE | 2024-04-04 08:59 | EXP.UTC ---
Discharge Plan Disposition Patient Disposition: Home, Self-Care Condition: Good Prescriptions Prescriptions: No Action buprenorphine-naloxone [Suboxone] 8-2 mg film 2 film sublingual DAILY cyclobenzaprine 10 mg tablet 10 mg PO BID PRN (Reason: muscle spasm) Qty: 60 3RF duloxetine [Cymbalta] 60 mg capsule,delayed release(DR/EC) 60 mg PO DAILY Qty: 90 3RF albuterol sulfate 90 mcg/actuation HFA aerosol inhaler 2 inh inhalation Q6HP PRN (Reason: Shortness Of Breath) 30 Days Qty: 1 5RF pregabalin [Lyrica] 150 mg capsule 150 mg PO BID Qty: 60 0RF ondansetron 8 mg tablet,disintegrating 8 mg PO Q12H PRN (Reason: nausea and vomiting) Qty: 60 6RF Referrals Follow up/Referrals: Be Putnam MD [Primary Care Provider] - See instructions Activity Restrictions/Add. Instructions Additional Instructions/Restrictions: Perform RICE with ice therapy for 20 minutes at a time at least 3 times a day to assist with pain and swelling. Keep ankle elevated. Take Tylenol as needed for pain. Follow up with PCP if symptoms persist or worsen. Clinical Impressions Clinical Impression: Acute left ankle pain Instructions Patient Instructions: How To Perform RICE (Rest, Ice, Compress, Elevate), DI for Ankle Pain Print Language Print Language: Omani Discharge ED Provider: Carmella Romero [facility] General Stated complaint: left ankle pain Mode of Arrival: Ambulatory Source of Information: Patient Time Seen by Provider: 04/04/24 08:23 Description of Symptoms (Recalled from Triage Doc. by RN): HURT LEFT ANKLE HEENT Symptoms (Recalled from RN notes): No Resp Symptoms (Recalled from RN notes): No Skin Symptoms (Recalled from RN notes): No MS Symptoms (Recalled from RN notes): Yes Functional Status (Recalled from RN notes): HURTS TO WALK ON ANKLE History of Present Illness Provider Complaint: Pt reports that she has not done anything to hurt her ankle but it is painful to touch. Related Data Home Medications ?Medication ?Instructions ?Recorded ?Confirmed buprenorphine 8 mg-naloxone 2 mg 2 film sublingual DAILY addiction 10/30/22 10/20/23 sublingual film (Suboxone) Previous Rx's ?Medication ?Instructions ?Recorded cyclobenzaprine 10 mg tablet 10 mg PO BID PRN muscle spasm #60 09/23/24 tabs duloxetine 60 mg capsule,delayed 60 mg PO DAILY #90 caps 02/11/24 release (Cymbalta) albuterol sulfate 90 mcg/actuation 2 inh inhalation Q6HP PRN 03/11/24 aerosol inhaler Shortness Of Breath 30 days #1 ea pregabalin 150 mg capsule (Lyrica) 150 mg PO BID #60 caps 03/12/24 ondansetron 8 mg disintegrating 8 mg PO Q12H PRN nausea and 03/18/24 tablet vomiting #60 tabs Allergies Allergy/AdvReac Type Severity Reaction Status Date / Time Penicillins (PENICILLINS) Allergy Severe THROAT Verified 10/20/23 11:21 SWELLING, HIVES, VOMITTING amoxicillin (From AUGMENTIN) Allergy Intermediate I-HIVES Verified 10/20/23 11:21 clavulanic acid (From Allergy Intermediate I-HIVES Verified 10/20/23 11:21 AUGMENTIN) diphenhydramine (From Allergy Intermediate I-HIVES Verified 10/20/23 11:21 BENADRYL) ibuprofen (IBUPROFEN) Allergy Intermediate I-HIVES Verified 10/20/23 11:21 metoclopramide (From REGLAN) Allergy Intermediate I-HIVES Verified 10/20/23 11:21 Sulfa (Sulfonamide Allergy Intermediate I-HIVES Verified 10/20/23 11:21 Antibiotics) (SULFA (SULFONAMIDE ANTIBIOTICS)) tetanus toxoid, adsorbed Allergy Intermediate I-RASH Verified 10/20/23 11:21 (TETANUS TOXOID, ADSORBED) naproxen (NAPROXEN) Allergy Unknown Hives, Verified 10/20/23 11:21 Vomiting paroxetine (From PAXIL) Allergy Unknown numbness Verified 10/20/23 11:21 tongue atomoxetine (From Strattera) AdvReac Mild NA-HALLUCIN Verified 10/20/23 11:21 ATIONS Worker's Comp Is this a Worker's Comp case?: No [facility] Disclaimer: The information contained in this section may have been updated after the patient was seen, as this information can be updated by other users. Medical History Acute viral syndrome Fall Muscle spasm Fall Pityriasis rosea Recurrent pain of right knee Contact dermatitis Contact dermatitis Bilateral shoulder pain Dysmenorrhea Depression Anxiety Scoliosis Hearing loss in right ear History of COVID-19 Asthma Migraine Eczema Hemorrhoid Allergies Uterine fibroid Nausea Abdominal pain Abnormal uterine bleeding Left ankle sprain Nausea & vomiting History of deviated nasal septum Costochondral separation Ganglion cyst Surgical History Status post laparoscopic hysterectomy Bilateral salpingectomy, right oophorectomy - 01/17/22 History of surgery DENTAL EXTRACTION History of surgery RIGHT SHOULDER SX History of surgery HEMORRHOID SX History of tonsillectomy and adenoidectomy History of cholecystectomy Family History Other Alcoholism Asthma Cancer Diabetes Heart attack Hyperlipidemia Hypertension Social History Smoking Status: Current every day smoker tobacco type: cigarettes packs per day: 1 years smoked: 16 second hand exposure: Yes alcohol intake: former counseling provided: none substance use type: denies use current occupational status: disabled Travel in the last 8 weeks: None household members: family and children housing: house current occupation: [employer] current occupational exposures/hazards: No caffeine: Yes Have you lived/traveled outside US in past 30 days?: No Contact w/someone who lives/traveled outside US past 30 days?: No Exposure to someone with infectious disease in past 14 days?: No Do you have a fever (greater than 100.4 F or 38 C)?: No Have you tested positive for COVID-19: No Exposed to someone with COVID-19 in past 14 days?: No Do you have a sore throat?: No Do you have a cough?: No Do you have any weakness?: No Do you have any diarrhea?: No Are you experiencing any unusual bleeding?: No Do you have any muscle aches/pain?: No Do you have any abdominal pain?: No Are you experiencing loss of taste or smell?: No ROS Obtained: Yes All systems reviewed & no additional complaints except as documented Constitutional Constitutional: Reports system reviewed and no additional complaints, except as documented Eyes Eyes: Reports system reviewed and no additional complaints, except as documented ENT Ears, Nose, Mouth, and Throat: Reports system reviewed and no additional complaints, except as documented Cardiovascular Cardiovascular: Reports system reviewed and no additional complaints, except as documented Respiratory Respiratory: Reports system reviewed and no additional complaints, except as documented Gastrointestinal Gastrointestingal: Reports system reviewed and no additional complaints, except as documented Genitourinary Female Genitourinary: Reports system reviewed and no additional complaints, except as documented Musculoskeletal Musculoskeletal: Reports system reviewed and no additional complaints, except as documented, Reports as per HPI, Reports arthralgias and Reports joint swelling Integumentary/Breasts Skin/Breast: Reports system reviewed and no additional complaints, except as documented Neurologic Neurologic: Reports system reviewed and no additional complaints, except as documented Endocrine Endocrine: Reports system reviewed and no additional complaints, except as documented Hematologic/Lymphatic Henatologic/Lymphatic: Reports system reviewed and no additional complaints, except as documented Allergic/Immunologic Allergic/Immunologic: Reports system reviewed and no additional complaints, except as documented Physical Exam General General appearance: alert and in no apparent distress Head Head exam: atraumatic and normocephalic Eye Eye exam: Present normal appearance ENT ENT exam: Present normal exam and normal oropharynx Neck Neck exam: Present normal inspection Chest Chest inspection: Present normal inspection and symmetric chest wall rise Respiratory Respiratory exam: Present normal lung sounds bilaterally Cardiovascular Cardiovascular exam: Present regular rate and normal rhythm Abdominal Exam Abdominal exam: Present soft and normal bowel sounds Extremities Exam Extremities exam: Present tenderness Expanded Lower Extremity Exam Left: Hip/Pelvis exam: Present normal inspection Upper leg exam: Present normal inspection Knee exam: Present normal inspection Lower leg exam: Present normal inspection Ankle exam: Present tenderness Foot/toe exam: Present normal inspection Neurovascular/Tendon exam: Present normal capillary refill Gait: observed and limited by pain Back Exam Back exam: Present normal inspection Neurological Exam Neurological exam: Present alert and oriented X3 Psychiatric Psychiatric exam: Present normal affect and normal mood Skin Skin exam: Present warm, dry and intact Lymphatic Lymphatic Findings: no adenopathy Medical Decision Making Medical Records Screening: Per USPSTF and CDC recommendations, given the prevalence of disease in our region, it is our hospital?s policy to screen for HIV and viral Hepatitis for all patients aged 18 and over and those with ongoing risk factors. Donta Inquiry Pt receiving controlled substance: No Donta was queried for this patient: No Vital Signs: 04/04/24 08:26 Temperature 97.9 F Temperature Source Oral Pulse Rate [Left Radial] 105 H Respiratory Rate 18 Blood Pressure [Left Arm] 137/89 Blood Pressure Mean [Left Arm] 105 02 Sat by Pulse Oximetry 97 Orders (Tests/Meds): ORDERS Category Date Time Status Ankle XR - Left minimum 3 Views [XR ankle LT min 3V] Exams 04/04/24 08:02 Completed Stat Radiology Data #1: Image(s): Ankle Image Reviewed: Yes I reviewed the patient's radiology results and Yes I have reviewed radiologist's interpretation FINDINGS: Bones/joints: There is no evidence of acute fracture.There is no evidence of malalignment or dislocation. Soft tissues: Mild soft tissue swelling of the ankle IMPRESSION: There is no evidence of acute fracture.There is no evidence of malalignment or dislocation.
[2024-04-04 09:11] VITALS: BP 137/89; PULSE 105; RESP 18; TEMP 36.6
== END 2024-04-04 09:15 | disposition home or self-care (01) ==
PROVIDERS: Emergency Provider Nurse Practitioner Family; PCP Family Medicine
DX: M25.572 Pain in left ankle and joints of left foot (principal)
CPT/HCPCS: 73610; 99213; G0381

== ENCOUNTER 2024-04-07 06:12 | Emergency (ER) | payer MEDICAID, SELFPAY ==
[2024-04-07 06:21] VITALS: BP 130/94; PULSE 95; RESP 20; TEMP 36.5; O2SAT 100; BMI 31.9
[2024-04-07] MEDS: ONDANSETRON 4MG ODT 8 MG SL (06:24)
--- NOTE | 2024-04-07 06:24 | ED_ITS ---
Discharge Plan Disposition Patient Disposition: Home, Self-Care Condition: Good Prescriptions Prescriptions: New ondansetron 4 mg tablet,disintegrating 4 mg PO Q6H PRN (Reason: nausea and vomiting) Qty: 10 0RF No Action buprenorphine-naloxone [Suboxone] 8-2 mg film 2 film sublingual DAILY cyclobenzaprine 10 mg tablet 10 mg PO BID PRN (Reason: muscle spasm) Qty: 60 3RF duloxetine [Cymbalta] 60 mg capsule,delayed release(DR/EC) 60 mg PO DAILY Qty: 90 3RF albuterol sulfate 90 mcg/actuation HFA aerosol inhaler 2 inh inhalation Q6HP PRN (Reason: Shortness Of Breath) 30 Days Qty: 1 5RF pregabalin [Lyrica] 150 mg capsule 150 mg PO BID Qty: 60 0RF ondansetron 8 mg tablet,disintegrating 8 mg PO Q12H PRN (Reason: nausea and vomiting) Qty: 60 6RF Referrals Follow up/Referrals: Be Putnam MD [Primary Care Provider] - See instructions Activity Restrictions/Add. Instructions Additional Instructions/Restrictions: You were evaluated in the ER and are appropriate for discharge at this time. Take the prescribed ondansetron if needed for nausea or vomiting. Drink plenty of fluids, especially electrolyte drinks like Gatorade or Pedialyte. Also drink water. Make an appointment with your primary care doctor for reevaluation in a few days, return to the ER with new, worsening, or otherwise concerning symptoms. Clinical Impressions Clinical Impression: Nausea & vomiting Stand Alone Forms Stand Alone Forms: Work/School Release Print Language Print Language: Macanese Discharge ED Provider: Clovis Stover General Adult HPI General Chief complaint: Abdominal Pain Stated complaint: abd pain, chills, vomiting Time Seen by Provider: 04/07/24 06:19 History of Present Illness HPI narrative: 33-year-old female with a previous history of GERD, PTSD, prediabetes presents to the ER with emesis. Patient reports she was driving to work when she suddenly became nauseous and started vomiting. She has had 1 episode of nonbloody, nonbilious emesis. She presents ambulatory into the ER drinking a red bull. Patient denies any pain. She states her abdomen is not painful, she has no dysuria or hematuria, she has not had diarrhea. She states her only symptom right now is nausea. She denies headache, dizziness, numbness, tingling, weakness, chest pain, shortness of breath, or any other associated symptoms. Related Data Home Medications ?Medication ?Instructions ?Recorded ?Confirmed buprenorphine 8 mg-naloxone 2 mg 2 film sublingual DAILY addiction 10/30/22 10/20/23 sublingual film (Suboxone) Previous Rx's ?Medication ?Instructions ?Recorded cyclobenzaprine 10 mg tablet 10 mg PO BID PRN muscle spasm #60 12/01/23 tabs duloxetine 60 mg capsule,delayed 60 mg PO DAILY #90 caps 02/11/24 release (Cymbalta) albuterol sulfate 90 mcg/actuation 2 inh inhalation Q6HP PRN 03/11/24 aerosol inhaler Shortness Of Breath 30 days #1 ea pregabalin 150 mg capsule (Lyrica) 150 mg PO BID #60 caps 03/12/24 ondansetron 8 mg disintegrating 8 mg PO Q12H PRN nausea and 03/18/24 tablet vomiting #60 tabs ondansetron 4 mg disintegrating 4 mg PO Q6H PRN nausea and 04/07/24 tablet vomiting #10 tabs Allergies Allergy/AdvReac Type Severity Reaction Status Date / Time Penicillins (PENICILLINS) Allergy Severe THROAT Verified 10/20/23 11:21 SWELLING, HIVES, VOMITTING amoxicillin (From AUGMENTIN) Allergy Intermediate I-HIVES Verified 10/20/23 11:21 clavulanic acid (From Allergy Intermediate I-HIVES Verified 10/20/23 11:21 AUGMENTIN) diphenhydramine (From Allergy Intermediate I-HIVES Verified 10/20/23 11:21 BENADRYL) ibuprofen (IBUPROFEN) Allergy Intermediate I-HIVES Verified 10/20/23 11:21 metoclopramide (From REGLAN) Allergy Intermediate I-HIVES Verified 10/20/23 11:21 Sulfa (Sulfonamide Allergy Intermediate I-HIVES Verified 10/20/23 11:21 Antibiotics) (SULFA (SULFONAMIDE ANTIBIOTICS)) tetanus toxoid, adsorbed Allergy Intermediate I-RASH Verified 10/20/23 11:21 (TETANUS TOXOID, ADSORBED) naproxen (NAPROXEN) Allergy Unknown Hives, Verified 10/20/23 11:21 Vomiting paroxetine (From PAXIL) Allergy Unknown numbness Verified 10/20/23 11:21 tongue atomoxetine (From Strattera) AdvReac Mild NA-HALLUCIN Verified 10/20/23 11:21 [facility] Disclaimer: The information contained in this section may have been updated after the patient was seen, as this information can be updated by other users. Medical History Acute viral syndrome Fall Muscle spasm Fall Pityriasis rosea Recurrent pain of right knee Contact dermatitis Contact dermatitis Bilateral shoulder pain Dysmenorrhea Depression Anxiety Scoliosis Hearing loss in right ear History of COVID-19 Asthma Migraine Eczema Hemorrhoid Allergies Uterine fibroid Nausea Abdominal pain Abnormal uterine bleeding Left ankle sprain Nausea & vomiting History of deviated nasal septum Costochondral separation Ganglion cyst Surgical History Status post laparoscopic hysterectomy Bilateral salpingectomy, right oophorectomy - 01/17/22 History of surgery DENTAL EXTRACTION History of surgery RIGHT SHOULDER SX History of surgery HEMORRHOID SX History of tonsillectomy and adenoidectomy History of cholecystectomy Family History Other Alcoholism Asthma Cancer Diabetes Heart attack Hyperlipidemia Hypertension Social History Smoking Status: Current every day smoker tobacco type: cigarettes packs per day: 1 years smoked: 16 second hand exposure: Yes alcohol intake: former counseling provided: none substance use type: denies use current occupational status: disabled Travel in the last 8 weeks: None household members: family and children housing: house current occupation: [employer] current occupational exposures/hazards: No caffeine: Yes Have you lived/traveled outside US in past 30 days?: No Contact w/someone who lives/traveled outside US past 30 days?: No Exposure to someone with infectious disease in past 14 days?: No Do you have a fever (greater than 100.4 F or 38 C)?: No Have you tested positive for COVID-19: No Exposed to someone with COVID-19 in past 14 days?: No Do you have a sore throat?: No Do you have a cough?: No Do you have any weakness?: No Do you have any diarrhea?: No Are you experiencing any unusual bleeding?: No Do you have any muscle aches/pain?: No Do you have any abdominal pain?: Yes Are you experiencing loss of taste or smell?: No Other Medical History Have you received the Flu Vaccine for this season: No Have you received the Pneumonia Vaccine: No ROS Obtained: Yes Systems reviewed as appropriate & no additional complaints except as documented Per HPI Physical Exam General General appearance: alert and in no apparent distress Comment: Ambulated independently into the ER actively drinking a red bull Head Head exam: atraumatic and normocephalic Eye Eye exam: Present PERRL and EOMI ENT ENT exam: Present mucous membranes moist Neck Neck exam: Present normal inspection and full ROM Chest Chest inspection: Present symmetric chest wall rise Respiratory Respiratory exam: Present normal lung sounds bilaterally; Absent respiratory distress, wheezes or stridor Cardiovascular Cardiovascular exam: Present regular rate and normal rhythm Abdominal Exam Abdominal exam: Present soft; Absent distention, tenderness, guarding or rebound Extremities Exam Extremities exam: Present full ROM Neurological Exam Neurological exam: Present alert and oriented X3; Absent motor sensory deficit Psychiatric Psychiatric exam: Present normal affect and normal mood Skin Skin exam: Present warm and dry Medical Decision Making Medical Records Medical records reviewed: Yes I reviewed the patient's medical records. Screening: Per USPSTF and CDC recommendations, given the prevalence of disease in our region, it is our hospital?s policy to screen for HIV and viral Hepatitis for all patients aged 18 and over and those with ongoing risk factors. MR Comment: Patient recently had [facility] evaluation 3 days ago for ankle pain. Review of this note demonstrates patient did not have any osseous injury. She was discharged with conservative management. Donta Inquiry Pt receiving controlled substance: No Vital Signs: 04/07/24 06:21 Temperature 97.7 F Temperature Source Oral Pulse Rate [Right Brachial] 95 H Respiratory Rate 20 Blood Pressure [Right Arm] 130/94 H Blood Pressure Mean [Right Arm] 106 Blood Pressure Source [Right Arm] Automatic Cuff Blood Pressure Position [Right Arm] Sitting 02 Sat by Pulse Oximetry 100 Oxygen Delivery Method Room Air Orders (Tests/Meds): ED MEDICATIONS Discontinued Medications Generic Name Dose Route Start Last Admin Trade Name Freq PRN Reason Stop Dose Admin Ondansetron HCl 8 mg 04/07/24 06:22 04/07/24 06:24 Ondansetron 4mg Odt SL 04/07/24 06:23 8 mg ONCE ONE Administration ORDERS Category Date Time Status HIV Combo Routine Lab 04/07/24 06:25 Ordered Hepatitis C Ab Qual. W/ RFX Routine Lab 04/07/24 06:25 Ordered Medical Decision Narrative: In summary, this 33-year-old female with comorbidities described in the HPI presents to the emergency department today with nausea, vomiting. On initial evaluation patient is hemodynamically stable, afebrile, alert, oriented, well- hydrated, physical exam is benign, patient does not have any abdominal pain, no tenderness, completely benign abdomen. I believe patient most likely has a viral syndrome causing her nausea and emesis. She does have a history of GERD which could be contributing. I had considered electrolyte abnormality but a single episode of emesis shortly prior to arrival is not likely to cause this, she has no evidence of dehydration, I had also considered other intra-abdominal pathology like cholelithiasis, cholecystitis, appendicitis, , however patient has no pain on arrival and has a benign abdominal exam, she has also had a hysterectomy. She has no urinary symptoms which is reassuring against urinary cause of symptoms. I do not believe patient requires labs or imaging at this time. Zofran ODT was administered. On reassessment patient has not had any additional emesis, she is tolerating oral intake. She is appropriate for discharge at this time. Zofran was prescribed. Patient was given instructions on symptomatic management, follow up instructions, and return precautions for the emergency department. Patient indicated understanding and was discharged in stable condition. Critical Care Critical Care Time Critical Care Time: No
--- NOTE | 2024-04-07 06:25 | PC.NURSE ---
Pt awake and alert Skin pink warm and dry Resp full and easy Speech clear and appropriate. Pt denies abd pain. Abd soft and rounded + bowel sounds x4 Gait steady
[2024-04-07 06:35] VITALS: BP 130/90; PULSE 95; RESP 16; TEMP 36.5; O2SAT 100
== END 2024-04-07 06:38 | disposition home or self-care (01) ==
PROVIDERS: Emergency Provider Emergency Medicine; PCP Family Medicine
DX: R11.2 Nausea with vomiting, unspecified (principal)
CPT/HCPCS: 99283; Q0162

== ENCOUNTER 2024-04-08 19:44 | Emergency (ER) | payer MEDICAID, SELFPAY ==
[2024-04-08 19:45] VITALS: BP 130/91; PULSE 88; RESP 20; TEMP 36.5; O2SAT 95; BMI 32.3
[2024-04-08 20:00] VITALS: BP 127/86; PULSE 80; RESP 15; O2SAT 94
--- NOTE | 2024-04-08 20:06 | CT_ITS ---
PROCEDURE INFORMATION: Exam: CT Abdomen And Pelvis With Contrast Exam date and time: 04/08/2024 8:34 PM Age: 33 years old Clinical indication: Abdominal pain; Additional info: Abd pain/n/v TECHNIQUE: Imaging protocol: Computed tomography of the abdomen and pelvis with contrast. Radiation optimization: All CT scans at this facility use at least one of these dose optimization techniques: automated exposure control; mA and/or kV adjustment per patient size (includes targeted exams where dose is matched to clinical indication); or iterative reconstruction. Contrast material: ISOVUE; Contrast volume: 75 ml; Contrast route: IV; COMPARISON: CT ABDOMEN PELVIS W CON 11/08/2021 4:46 PM FINDINGS: Liver: Liver is mildly enlarged and diffusely fatty in appearance. No significant focal hepatic abnormality. Gallbladder and biliary ducts: The gallbladder is surgically absent. No significant biliary ductal dilation. Pancreas: Normal. No ductal dilation. Spleen: Normal. No splenomegaly. Adrenal glands: Normal. No mass. Kidneys and ureters: Normal. No hydronephrosis. Stomach and bowel: Moderate fecal retention throughout the colon. No bowel wall thickening or evidence of bowel obstruction. Appendix: The appendix is visualized and appears normal. Intraperitoneal space: Unremarkable. No free air. No significant fluid collection. Vasculature: Unremarkable. No abdominal aortic aneurysm. Lymph nodes: Unremarkable. No enlarged lymph nodes. Urinary bladder: Unremarkable as visualized. Reproductive: Uterus is surgically absent. No adnexal abnormality. Bones/joints: Mild lumbar scoliosis. Moderate degenerative changes in the lower thoracic spine. No vertebral body compression. No acute fracture. Moderate degenerative changes in the bilateral sacroiliac joints. Soft tissues: Unremarkable. IMPRESSION: 1. Mild colonic constipation 2. Mildly enlarged, fatty liver
[2024-04-08 20:10] LABS: Coronavirus 19, PCR Not Detected (NotDetected); Influenza A, PCR Not Detected (NotDetected); Influenza B, PCR Not Detected (NotDetected)
[2024-04-08] MEDS: PROMETHAZINE HCL 25MG/ML 1ML VIAL 25 MG IV (20:13)
[2024-04-08] MEDS: SODIUM CHLORIDE 0.9% 10ML VIAL 8 ML IV (20:13)
[2024-04-08] MEDS: FAMOTIDINE 20MG/2ML VIAL 20 MG IV (20:13)
[2024-04-08] MEDS: SODIUM CHLORIDE 0.9% 25ML BAG 25 ML IV (20:13)
[2024-04-08] MEDS: LACTATED RINGERS 1000ML 1,000 ML 999 ML IV (20:14)
[2024-04-08 20:34] LABS: Basophils # 0.1 K/mm3 (0-0.2); Basophils % 0.6 % (0.1-2.0); Eosinophils # 0.2 K/mm3 (0.0-0.4); Hematocrit 44.3 % (37.0-47.0); Hemoglobin 15.1 g/dL (12.2-16.2); Lymphocytes # 1.9 K/mm3 (0.7-4.5); Lymphocytes % 24.4 % (10-50); Mean Corpuscular HGB Conc 34.1 g/dL (31.8-35.4); Mean Corpuscular Hemoglobin 28.5 pg (27.0-31.2); Mean Corpuscular Volume 83.7 fl (81-99); Mean Platelet Volume 10.9 fl (7.4-10.4); Monocytes # 0.4 K/mm3 (0.1-1.0); Monocytes % 5.3 % (1.7-9.3); Neutrophils # 5.2 K/mm3 (1.8-7.8); Neutrophils % 66.4 % (37.0-80.0); Platelet Count 300 K/mm3 (142-424); Red Blood Count 5.29 M/mm3 (4.20-5.40); Red Cell Distribution Width 11.9 % (11.5-17.5); White Blood Count 7.9 K/mm3 (4.8-10.8)
[2024-04-08] MEDS: SODIUM CHLORIDE 0.9% 10ML SYR (RAD ONLY) 10 ML IV (20:38)
[2024-04-08] MEDS: IOPAMIDOL-370 (76%);100ML BOTTLE 75 ML IV (20:38)
[2024-04-08 20:46] LABS: Magnesium 2.1 mg/dl (1.6-2.3)
[2024-04-08 20:47] LABS: Alanine Aminotransferase 58 U/L (12-78); Albumin Level 4.8 g/dl (3.5-5.0); Albumin/Globulin Ratio 1.5 (1.1-1.8); Alkaline Phosphatase 99 U/L (38-126); Anion Gap 13.7 mEq/L (5-15); Aspartate Amino Transferase 59 U/L (14-36); Bilirubin,Total 0.3 mg/dl (0.2-1.3); Blood Urea Nitrogen 8 mg/dl (7-17); Calcium 9.5 mg/dl (8.4-10.2); Carbon Dioxide 28 mmol/L (22.0-30.0); Chloride 102 mmol/L (98-107); Creatinine Clearance Estimated 142 mL/min (50-200); Estimated Glomerular Filt Rate 82 ml/min (>60); GFR (African American) 99 ML/MIN (>60); Globulin 3.3 g/dL (1.3-3.2); Glucose 165 mg/dl (74-100); Lipase 44 U/L (23-300); Potassium 4.7 mmoL/L (3.5-5.1); Sodium 139 mmol/L (136-145); Total Protein,Serum 8.1 g/dl (6.3-8.2)
--- NOTE | 2024-04-08 20:59 | HMH.EDGENADL ---
Discharge Plan Disposition Patient Disposition: Home, Self-Care Condition: Good Prescriptions Prescriptions: New dicyclomine 20 mg tablet 20 mg PO QID PRN (Reason: abdominal pain) Qty: 20 0RF promethazine 25 mg tablet 25 mg PO Q6H PRN (Reason: sedation) Qty: 14 0RF famotidine [Pepcid] 20 mg tablet 20 mg PO DAILY Qty: 30 0RF No Action buprenorphine-naloxone [Suboxone] 8-2 mg film 2 film sublingual DAILY pregabalin [Lyrica] 150 mg capsule 150 mg PO BID Qty: 60 0RF cyclobenzaprine 10 mg tablet 10 mg PO BID PRN (Reason: muscle spasm) Qty: 60 3RF duloxetine [Cymbalta] 60 mg capsule,delayed release(DR/EC) 60 mg PO DAILY Qty: 90 3RF albuterol sulfate 90 mcg/actuation HFA aerosol inhaler 2 inh inhalation Q6HP PRN (Reason: Shortness Of Breath) 30 Days Qty: 1 5RF ondansetron 8 mg tablet,disintegrating 8 mg PO Q12H PRN (Reason: nausea and vomiting) Qty: 60 6RF ondansetron 4 mg tablet,disintegrating 4 mg PO Q6H PRN (Reason: nausea and vomiting) Qty: 10 0RF Referrals Follow up/Referrals: Be Putnam MD [Primary Care Provider] - See instructions Activity Restrictions/Add. Instructions Additional Instructions/Restrictions: You were evaluated in the emergency department today. 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 Take tylenol as needed for pain. Please follow-up closely with your primary care provider. Return to the emergency department for new or worsening symptoms. Clinical Impressions Clinical Impression: Nausea & vomiting, Abdominal pain Stand Alone Forms Stand Alone Forms: Work/School Release Instructions Patient Instructions: DI for Acute Abdominal Pain, DI for Nausea -- Adult Print Language Print Language: Occitan Discharge ED Provider: Li Alcocer General Adult HPI General Chief complaint: Abdominal Pain Stated complaint: Vomiting,Hot & cold Time Seen by Provider: 04/08/24 19:56 Mode of Arrival: Ambulatory Source of Information: Patient Limitations: No Limitations Description of Symptoms (Recalled from ER Triage Doc. by RN): pt reports nausea, vomitting, and abdominal pain since Friday. pt was seen here on friday and prescribed zofran which has not offered her any relief. History of Present Illness HPI narrative: This patient is a 33-year-old female with a history of migraines, anxiety, prior hysterectomy, prior tonsillectomy, prior cholecystectomy, and PTSD presenting to the emergency department for evaluation with concern for nausea, vomiting, and generalized abdominal pain for 2 days. Patient was evaluated here 04/07/2024, given oral Zofran with symptomatic improvement, and discharged home with diagnosis of likely viral gastro enteritis. Since going home, patient states that they have continued to vomit despite taking Zofran and have not been able to keep anything down. They state their abdominal pain is worse, still generalized. No changes in bowel movements, hematemesis, dysuria, or other concerns. Related Data Home Medications ?Medication ?Instructions ?Recorded ?Confirmed buprenorphine 8 mg-naloxone 2 mg 2 film sublingual DAILY addiction 10/30/22 04/08/24 sublingual film (Suboxone) Previous Rx's ?Medication ?Instructions ?Recorded cyclobenzaprine 10 mg tablet 10 mg PO BID PRN muscle spasm #60 12/01/23 tabs duloxetine 60 mg capsule,delayed 60 mg PO DAILY #90 caps 02/11/24 release (Cymbalta) albuterol sulfate 90 mcg/actuation 2 inh inhalation Q6HP PRN 03/11/24 aerosol inhaler Shortness Of Breath 30 days #1 ea ondansetron 8 mg disintegrating 8 mg PO Q12H PRN nausea and 03/18/24 tablet vomiting #60 tabs ondansetron 4 mg disintegrating 4 mg PO Q6H PRN nausea and 04/07/24 tablet vomiting #10 tabs pregabalin 150 mg capsule (Lyrica) 150 mg PO BID #60 caps 04/07/24 dicyclomine 20 mg tablet 20 mg PO QID PRN abdominal pain 04/08/24 #20 tabs famotidine 20 mg tablet (Pepcid) 20 mg PO DAILY #30 tabs 04/08/24 promethazine 25 mg tablet 25 mg PO Q6H PRN sedation #14 tabs 04/08/24 Allergies Allergy/AdvReac Type Severity Reaction Status Date / Time Penicillins (PENICILLINS) Allergy Severe THROAT Verified 10/20/23 11:21 SWELLING, HIVES, VOMITTING amoxicillin (From AUGMENTIN) Allergy Intermediate I-HIVES Verified 10/20/23 11:21 clavulanic acid (From Allergy Intermediate I-HIVES Verified 10/20/23 11:21 AUGMENTIN) diphenhydramine (From Allergy Intermediate I-HIVES Verified 10/20/23 11:21 BENADRYL) ibuprofen (IBUPROFEN) Allergy Intermediate I-HIVES Verified 10/20/23 11:21 metoclopramide (From REGLAN) Allergy Intermediate I-HIVES Verified 10/20/23 11:21 Sulfa (Sulfonamide Allergy Intermediate I-HIVES Verified 10/20/23 11:21 Antibiotics) (SULFA (SULFONAMIDE ANTIBIOTICS)) tetanus toxoid, adsorbed Allergy Intermediate I-RASH Verified 10/20/23 11:21 (TETANUS TOXOID, ADSORBED) naproxen (NAPROXEN) Allergy Unknown Hives, Verified 10/20/23 11:21 Vomiting paroxetine (From PAXIL) Allergy Unknown numbness Verified 10/20/23 11:21 tongue atomoxetine (From Strattera) AdvReac Mild NA-HALLUCIN Verified 10/20/23 11:21 [facility] Disclaimer: The information contained in this section may have been updated after the patient was seen, as this information can be updated by other users. Medical History Acute viral syndrome Fall Muscle spasm Fall Pityriasis rosea Recurrent pain of right knee Contact dermatitis Contact dermatitis Bilateral shoulder pain Dysmenorrhea Depression Anxiety Scoliosis Hearing loss in right ear History of COVID-19 Asthma Migraine Eczema Hemorrhoid Allergies Uterine fibroid Nausea Abdominal pain Abnormal uterine bleeding Left ankle sprain Nausea & vomiting History of deviated nasal septum Costochondral separation Ganglion cyst Surgical History Status post laparoscopic hysterectomy History of surgery History of surgery History of surgery History of tonsillectomy and adenoidectomy History of cholecystectomy Family History Other Alcoholism Asthma Cancer Diabetes Heart attack Hyperlipidemia Hypertension Social History Smoking Status: Never smoker years smoked: 15 second hand exposure: Yes alcohol intake: former counseling provided: none substance use type: denies use current occupational status: disabled Travel in the last 8 weeks: None household members: family and children housing: house current occupation: [employer] current occupational exposures/hazards: No caffeine: Yes Have you lived/traveled outside [place] in past 30 days?: No Contact w/someone who lives/traveled outside [place] past 30 days?: No Exposure to someone with infectious disease in past 14 days?: No Do you have a fever (greater than 100.4 F or 38 C)?: No Have you tested positive for COVID-19: No Exposed to someone with COVID-19 in past 14 days?: No Do you have a sore throat?: No Do you have a cough?: No Do you have any weakness?: No Do you have any diarrhea?: No Are you experiencing any unusual bleeding?: No Do you have any muscle aches/pain?: No Do you have any abdominal pain?: No Are you experiencing loss of taste or smell?: No Other Medical History Have you received the Flu Vaccine for this season: No Have you received the Pneumonia Vaccine: No ROS Obtained: Yes All systems reviewed & no additional complaints except as documented Physical Exam General General appearance: alert and in no apparent distress Head Head exam: atraumatic and normocephalic Eye Eye exam: Present normal appearance, PERRL and EOMI ENT ENT exam: Present normal exam, normal oropharynx, mucous membranes moist and normal external ear exam Neck Neck exam: Present normal inspection, full ROM and trachea midline; Absent tenderness Chest Chest inspection: Present normal inspection and symmetric chest wall rise; Absent tenderness Respiratory Respiratory exam: Present normal lung sounds bilaterally; Absent respiratory distress, wheezes, stridor or accessory muscle use Cardiovascular Cardiovascular exam: Present regular rate and normal rhythm Abdominal Exam Abdominal exam: Present soft; Absent distention, tenderness or guarding Extremities Exam Extremities exam: Present normal inspection, full ROM and normal capillary refill; Absent tenderness or edema Back Exam Back exam: Present normal inspection and full ROM; Absent tenderness Neurological Exam Neurological exam: Present alert, oriented X3, CN II-XII intact and normal gait; Absent motor sensory deficit Psychiatric Psychiatric exam: Present normal affect and normal mood Skin Skin exam: Present warm and dry Medical Decision Making Medical Records Medical records reviewed: Yes I reviewed the patient's medical records. Screening: Per USPSTF and CDC recommendations, given the prevalence of disease in our region, it is our hospital?s policy to screen for HIV and viral Hepatitis for all patients aged 18 and over and those with ongoing risk factors. [place] Inquiry Pt receiving controlled substance: No Vital Signs: 04/08/24 19:45 04/08/24 20:00 04/08/24 21:00 Temperature 97.7 F Temperature Source Oral Pulse Rate 80 70 Pulse Rate [Right] 88 Respiratory Rate 20 15 Blood Pressure 127/86 111/68 Blood Pressure [Right Arm] 130/91 H Blood Pressure Mean 97 82 Blood Pressure Mean [Right Arm] 104 Blood Pressure Source Blood Pressure Position 02 Sat by Pulse Oximetry 95 94 L 95 Oxygen Delivery Method Room Air 04/08/24 22:26 Temperature 97.8 F Temperature Source Oral Pulse Rate 79 Pulse Rate [Right] Respiratory Rate 17 Blood Pressure 114/72 Blood Pressure [Right Arm] Blood Pressure Mean Blood Pressure Mean [Right Arm] Blood Pressure Source Automatic Cuff Blood Pressure Position Sitting 02 Sat by Pulse Oximetry Oxygen Delivery Method Room Air Lab Data Lab results reviewed: Yes I reviewed the patient's lab results. Lab Results 04/08/24 19:56: SARS-CoV-2 (PCR) Not detected, Influenza A Untype (PCR) Not detected, Influenza Type B (PCR) Not detected 04/08/24 20:17: WBC 7.9, RBC 5.29, Hgb 15.1, Hct 44.3, MCV 83.7, MCH 28.5, MCHC 34.1, RDW 11.9, Plt Count 300, MPV 10.9 H, Neut % (Auto) 66.4, Lymph % (Auto) 24.4, [place] % (Auto) 5.3, Eos % (Auto) 3.0, Baso % (Auto) 0.6, Neut # (Auto) 5.2, Lymph # (Auto) 1.9, [place] # (Auto) 0.4, Eos # (Auto) 0.2, Baso # (Auto) 0.1, Sodium 139, Potassium 4.7, Chloride 102, Carbon Dioxide 28, Anion Gap 13.7, BUN 8, Creatinine 0.80, Estimated Creat Clear 142, Estimated GFR 82, Est GFR ( Amer) 99, Glucose 165 H, Calcium 9.5, Magnesium 2.1, Total Bilirubin 0.3, AST 59 H, ALT 58, Alkaline Phosphatase 99, Total Protein 8.1, Albumin 4.8, Globulin 3.3 H, Albumin/Globulin Ratio 1.5, Lipase 44 04/08/24 21:34: Urine Color Yellow, Urine Appearance Clear, Urine pH 7.5, Ur Specific [place] 1.010, Urine Protein Negative, Urine Glucose (UA) Negative, Urine Ketones Negative, Urine Blood Negative, Urine Nitrate Negative, Urine Bilirubin Negative, Urine Urobilinogen 0.2, Ur Leukocyte Esterase Negative, Urine RBC None, Urine WBC 5-10, Ur Squamous Epith Cells 3-5, Urine Bacteria 3+ 04/08/24 20:17 04/08/24 20:17 Orders (Tests/Meds): ED MEDICATIONS Discontinued Medications Generic Name Dose Route Start Last Admin Trade Name Freq PRN Reason Stop Dose Admin Dicyclomine HCl 20 mg 04/08/24 22:11 04/08/24 22:17 Dicyclomine 10mg Capsule PO 04/08/24 22:12 20 mg ONCE ONE Administration Famotidine 20 mg 04/08/24 20:06 04/08/24 20:13 Famotidine 20mg/2ml Vial IV 04/08/24 20:07 20 mg ONCE ONE Administration Lactated Ringer's 1,000 mls @ 999 mls/hr 04/08/24 20:04 04/08/24 20:14 Lactated Ringer's 1000 Ml Bag IV 04/08/24 21:04 999 mls/hr .Q1H1M ONE Administration Iopamidol 75 ml 04/08/24 20:37 04/08/24 20:38 Iopamidol-370 (76%);100ml Bottle IV 04/08/24 20:38 75 ml ONCE ONE Administration Promethazine HCl 25 mg 04/08/24 20:04 04/08/24 20:13 Promethazine Hcl 25mg/Ml 1ml Vial IV 04/08/24 20:05 25 mg ONCE ONE Administration Sodium Chloride 25 ml 04/08/24 20:04 04/08/24 20:13 Sodium Chloride 0.9% 25ml Bag IV 04/08/24 20:05 25 ml ONCE ONE Administration Sodium Chloride 8 ml 04/08/24 20:06 04/08/24 20:13 Sodium Chloride 0.9% 10ml Vial IV 05/08/24 20:05 8 ml NEEDED PRN Administration dilute pepcid Sodium Chloride 10 ml 04/08/24 20:37 04/08/24 20:38 Sodium Chloride 0.9% 10ml Syr (Rad Only) IV 04/08/24 20:38 10 ml ONCE ONE Administration ORDERS Category Date Time Status CT abdomen pelvis w con Stat Cat Scan 04/08/24 20:06 Completed Complete Blood Count Auto Diff Stat Lab 04/08/24 20:17 Completed Comprehensive Metabolic Panel Stat Lab 04/08/24 20:17 Completed Lipase Stat Lab 04/08/24 20:17 Completed MAG [Magnesium] Stat Lab 04/08/24 20:17 Completed Rapid PCR Covid and Flu A/B Stat Lab 04/08/24 19:56 Completed UA [Urinalysis and Microscopic] Stat Lab 04/08/24 21:34 Completed Urine Culture Stat Micro 04/08/24 21:34 Received Medical Decision Narrative: In summary, this patient is a 33-year-old female presenting to the Emergency Department for evaluation of nausea, vomiting, generalized abdominal pain. Differential diagnoses considered include but are not limited to enteritis, colitis, appendicitis, dehydration, CHICHI, pyelonephritis, cystitis, electrolyte derangement. Ruling out the most morbid conditions drove assessment. It should be noted patient's history includes anxiety, PTSD which may not be at goal therapy. This complicates all aspects of care by increasing patient's risk for morbidity. I reviewed patient's past medical records and noted previous evaluation 04/07/2024 for similar symptoms with reassuring exam and discharged with Zofran. Also noted multiple medication allergies, including NSAIDs, Reglan. On exam, the patient is lying in bed in no acute distress. She has benign abdominal exam with no localizable tenderness, rebound, or guarding. Labs are reassuring on cardiac telemetry, and she does not appear clinically dry. Workup included CBC, CMP, lipase, urinalysis, CT abdomen and pelvis. Patient was given IV Phenergan, IV fluids, IV Pepcid for symptomatic improvement. I independently interpreted CT scan prior to the radiologist read and noted no obvious obstructive pattern, no appendicitis. Please see their read for final interpretation. Labs were obtained that demonstrated reassuring CBC with no significant leukocytosis, reassuring chemistry with no significant electrolyte derangements. Kidney function and liver enzymes normal with the exception of mildly elevated AST. Urinalysis is not overtly concerning for infection. On reassessment, patient had good improvement after administration of interventions above and she has had no recurrence of vomiting. She does still have some abdominal pain and cramping, so I administered oral Bentyl. At this time, I feel she is appropriate for discharge home with close follow-up with primary care and strict return precautions. Patient was discharged after all questions were answered with prescriptions for Phenergan and Bentyl. Critical Care Critical Care Time Critical Care Time: No
[2024-04-08 21:00] VITALS: BP 111/68; PULSE 70; O2SAT 95
[2024-04-08 21:38] LABS: Microscopic, Urine URINE MICROSCOPIC (MICROSCOPIC)
[2024-04-08 21:41] LABS: Appearance,Urine CLEAR (Clear); Bilirubin,Urine Negative (Negative); Blood, Urine Negative (Negative); Color,Urine YELLOW (Yellow); Glucose,Urine (UA) Negative (Negative); Ketones,Urine Negative (Negative); Leukocyte Esterase,Urine Negative (Negative); Nitrate,Urine Negative (Negative); PH,Urine 7.5 (5.0-8.5); Protein,Urine Negative (Negative); Urobilinogen,Urine 0.2 EU/dl (0.2)
[2024-04-08 22:14] LABS: Bacteria,Urine 3+ /lpf
[2024-04-08] MEDS: DICYCLOMINE 10MG CAPSULE 20 MG PO (22:17)
[2024-04-08 22:26] VITALS: BP 114/72; PULSE 79; RESP 17; TEMP 36.6; O2SAT 97
== END 2024-04-08 22:28 | disposition home or self-care (01) ==
PROVIDERS: Emergency Provider Emergency Medicine; PCP Family Medicine
DX: R11.2 Nausea with vomiting, unspecified (principal); R10.84 Generalized abdominal pain
CPT/HCPCS: 74177; 80053; 81001; 83690; 83735; 85025; 87086; 87636; 96361; 96374; 99285; J2550; J7120; Q9967; S0028

== ENCOUNTER 2024-04-23 16:43 | Emergency (ER) | payer MEDICAID, SELFPAY ==
[2024-04-23 16:47] VITALS: BP 151/86; PULSE 85; PULSE 89; RESP 16; TEMP 36.3; O2SAT 99; BMI 31.9
--- NOTE | 2024-04-23 16:55 | XR_ITS ---
PROCEDURE INFORMATION: Exam: XR Right Ankle Exam date and time: 04/23/2024 5:00 PM Age: 33 years old Clinical indication: Injury or trauma; Fall; Blunt trauma; Ankle; Right TECHNIQUE: Imaging protocol: Radiologic exam of the right ankle. Views: 3 or more views. COMPARISON: CR XR ANKLE RT MIN 3V 04/23/2024 5:00 PM FINDINGS: Bones/joints: Osseous alignment is normal. No acute fracture. No significant arthritic change. Soft tissues: Normal. IMPRESSION: Negative right ankle
--- NOTE | 2024-04-23 16:57 | PC.NURSE ---
pt brought to rm#12 from triage. ASSESSMENT. pt states she rolled her ankle yesterday. pt c/o R ankle pain that is 7/10 and dull, throbbing and sharp in nature. pt is able to bear weight but it is very painful. pt states the pain radiates distal and proximal to mid [place]varez. pt has not taken anything for pain.
[2024-04-23] MEDS: ACETAMINOPHEN 500MG TAB 1000 MG PO (17:03)
--- NOTE | 2024-04-23 17:08 | ED_ITS ---
Discharge Plan Disposition Patient Disposition: Home, Self-Care Condition: Good Prescriptions Prescriptions: No Action buprenorphine-naloxone [Suboxone] 8-2 mg film 2 film sublingual DAILY pregabalin [Lyrica] 150 mg capsule 150 mg PO BID Qty: 60 0RF cyclobenzaprine 10 mg tablet 10 mg PO BID PRN (Reason: muscle spasm) Qty: 60 3RF duloxetine [Cymbalta] 60 mg capsule,delayed release(DR/EC) 60 mg PO DAILY Qty: 90 3RF albuterol sulfate 90 mcg/actuation HFA aerosol inhaler 2 inh inhalation Q6HP PRN (Reason: Shortness Of Breath) 30 Days Qty: 1 5RF ondansetron 8 mg tablet,disintegrating 8 mg PO Q12H PRN (Reason: nausea and vomiting) Qty: 60 6RF ondansetron 4 mg tablet,disintegrating 4 mg PO Q6H PRN (Reason: nausea and vomiting) Qty: 10 0RF dicyclomine 20 mg tablet 20 mg PO QID PRN (Reason: abdominal pain) Qty: 20 0RF promethazine 25 mg tablet 25 mg PO Q6H PRN (Reason: sedation) Qty: 14 0RF famotidine [Pepcid] 20 mg tablet 20 mg PO DAILY Qty: 30 0RF Referrals Follow up/Referrals: Be Putnam MD [Primary Care Provider] - See instructions Activity Restrictions/Add. Instructions Additional Instructions/Restrictions: Today your evaluated in the emergency department. The imaging of your right ankle is negative for any acute fracture. Please wear the Elliott wrap for 1 week for comfort. Take acetaminophen and ibuprofen [id number] for symptomatic relief please follow-up with your PCP within 7 days. Return to the ED for worsening of condition. Clinical Impressions Clinical Impression: Right ankle sprain Stand Alone Forms Stand Alone Forms: Work/School Release Instructions Patient Instructions: DI for Ankle Pain Print Language Print Language: Bulgarian Discharge ED Provider: Prachi Trinh General Adult HPI General Chief complaint: Extremity Injury, Lower Stated complaint: AO 04/22/24 1030 Injury right ankle Time Seen by Provider: 04/23/24 18:06 Mode of Arrival: Ambulatory Source of Information: Patient Limitations: No Limitations Description of Symptoms (Recalled from ER Triage Doc. by RN): Patient stated she rolled rolled her left ankle yesterday. Stated she heard a pop, the ankle is now swollen, and she has pain. Denies taking any OTC pain medications for the pain. Patient able to bear weight. 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 Patient was walking when her right ankle internally rotated and she felt something pop. No falls no loss of consciousness still able to bear weight on tiptoes on the right foot. Related Data Home Medications ?Medication ?Instructions ?Recorded ?Confirmed buprenorphine 8 mg-naloxone 2 mg 2 film sublingual DAILY addiction 10/30/22 04/23/24 sublingual film (Suboxone) Previous Rx's ?Medication ?Instructions ?Recorded cyclobenzaprine 10 mg tablet 10 mg PO BID PRN muscle spasm #60 12/01/23 tabs duloxetine 60 mg capsule,delayed 60 mg PO DAILY #90 caps 02/11/24 release (Cymbalta) albuterol sulfate 90 mcg/actuation 2 inh inhalation Q6HP PRN 03/11/24 aerosol inhaler Shortness Of Breath 30 days #1 ea ondansetron 8 mg disintegrating 8 mg PO Q12H PRN nausea and 03/18/24 tablet vomiting #60 tabs ondansetron 4 mg disintegrating 4 mg PO Q6H PRN nausea and 04/07/24 tablet vomiting #10 tabs pregabalin 150 mg capsule (Lyrica) 150 mg PO BID #60 caps 04/07/24 dicyclomine 20 mg tablet 20 mg PO QID PRN abdominal pain 04/08/24 #20 tabs famotidine 20 mg tablet (Pepcid) 20 mg PO DAILY #30 tabs 04/08/24 promethazine 25 mg tablet 25 mg PO Q6H PRN sedation #14 tabs 04/08/24 Allergies Allergy/AdvReac Type Severity Reaction Status Date / Time Penicillins (PENICILLINS) Allergy Severe THROAT Verified 04/23/24 17:01 SWELLING, HIVES, VOMITTING amoxicillin (From AUGMENTIN) Allergy Intermediate I-HIVES Verified 04/23/24 17:01 clavulanic acid (From Allergy Intermediate I-HIVES Verified 04/23/24 17:01 AUGMENTIN) diphenhydramine (From Allergy Intermediate I-HIVES Verified 04/23/24 17:01 BENADRYL) ibuprofen (IBUPROFEN) Allergy Intermediate I-HIVES Verified 04/23/24 17:01 metoclopramide (From REGLAN) Allergy Intermediate I-HIVES Verified 04/23/24 17:01 Sulfa (Sulfonamide Allergy Intermediate I-HIVES Verified 04/23/24 17:01 Antibiotics) (SULFA (SULFONAMIDE ANTIBIOTICS)) tetanus toxoid, adsorbed Allergy Intermediate I-RASH Verified 04/23/24 17:01 (TETANUS TOXOID, ADSORBED) naproxen (NAPROXEN) Allergy Unknown Hives, Verified 04/23/24 17:01 Vomiting paroxetine (From PAXIL) Allergy Unknown numbness Verified 04/23/24 17:01 tongue atomoxetine (From Strattera) AdvReac Mild NA-HALLUCIN Verified 04/23/24 17:01 [facility] Disclaimer: The information contained in this section may have been updated after the patient was seen, as this information can be updated by other users. Medical History Acute viral syndrome Fall Muscle spasm Fall Pityriasis rosea Recurrent pain of right knee Contact dermatitis Contact dermatitis Bilateral shoulder pain Dysmenorrhea Depression Anxiety Scoliosis Hearing loss in right ear History of COVID-19 Asthma Migraine Eczema Hemorrhoid Allergies Uterine fibroid Nausea Abdominal pain Abnormal uterine bleeding Left ankle sprain Nausea & vomiting History of deviated nasal septum Costochondral separation Ganglion cyst Surgical History Status post laparoscopic hysterectomy History of surgery History of surgery History of surgery History of tonsillectomy and adenoidectomy History of cholecystectomy Family History Other Alcoholism Asthma Cancer Diabetes Heart attack Hyperlipidemia Hypertension Social History Smoking Status: Current every day smoker tobacco type: cigarettes packs per day: 1 years smoked: 16 second hand exposure: Yes alcohol intake: former counseling provided: none substance use type: denies use current occupational status: disabled Travel in the last 8 weeks: None household members: family and children housing: house current occupation: [employer] current occupational exposures/hazards: No caffeine: Yes Have you lived/traveled outside [place] in past 30 days?: No Contact w/someone who lives/traveled outside [place] past 30 days?: No Exposure to someone with infectious disease in past 14 days?: No Do you have a fever (greater than 100.4 F or 38 C)?: No Have you tested positive for COVID-19: No Exposed to someone with COVID-19 in past 14 days?: No Do you have a sore throat?: No Do you have a cough?: No Do you have any weakness?: No Do you have any diarrhea?: No Are you experiencing any unusual bleeding?: No Do you have any muscle aches/pain?: No Do you have any abdominal pain?: No Are you experiencing loss of taste or smell?: No Other Medical History Have you received the Flu Vaccine for this season: No Have you received the Pneumonia Vaccine: No ROS Obtained: Yes All systems reviewed & no additional complaints except as documented Physical Exam General General appearance: alert Respiratory Respiratory exam: Present respiratory distress Cardiovascular Cardiovascular exam: Present regular rate and normal rhythm Abdominal Exam Abdominal exam: Present soft and distention Extremities Exam Extremities exam: Present tenderness (Right ankle and right lateral malleolus with associated swelling) and joint swelling; Absent full ROM (Decreased range of motion of right ankle) or calf tenderness Neurological Exam Neurological exam: Present alert and oriented X3 Medical Decision Making Medical Records Screening: Per USPSTF and CDC recommendations, given the prevalence of disease in our region, it is our hospital?s policy to screen for HIV and viral Hepatitis for all patients aged 18 and over and those with ongoing risk factors. Donta Inquiry Pt receiving controlled substance: No Vital Signs: 04/23/24 16:47 04/23/24 18:29 04/23/24 19:36 Temperature 97.4 F L 98.3 F Temperature Source Temporal Artery Scan Oral Pulse Rate 65 Pulse Rate [Left Dorsalis Pedis] 85 Pulse Rate [Radial] 89 Respiratory Rate 16 16 Blood Pressure 92/74 L 104/63 L Blood Pressure [R Arm] 151/86 H Blood Pressure Mean [R Arm] 107 Blood Pressure Source [R Arm] Automatic Cuff Blood Pressure Position [R Arm] Sitting 02 Sat by Pulse Oximetry 99 Oxygen Delivery Method Room Air Orders (Tests/Meds): ED MEDICATIONS Discontinued Medications Generic Name Dose Route Start Last Admin Trade Name Freq PRN Reason Stop Dose Admin Acetaminophen 1,000 mg 04/23/24 16:55 02/14/25 17:03 Acetaminophen 500mg Tab PO 04/23/24 16:56 1,000 mg ONCE ONE Administration Oxycodone HCl 5 mg 04/23/24 18:09 04/23/24 18:26 Oxycodone 5mg Immediate Release Tablet PO 04/23/24 18:10 5 mg ONCE ONE Administration ORDERS Category Date Time Status Ankle XR -Right minimum 3 Views [XR ankle RT min 3V] Exams 04/23/24 16:55 Completed Stat Medical Decision Narrative: In summary, this 33-year-old female presents to the emergency department today with traumatic right ankle pain. On initial evaluation patient is hemodynami keyla stable afebrile in no acute distress. Differential diagnosis includes but is not limited to ligamentous injury, fracture or dislocation. Based on these concerns, I ordered right ankle x-ray. XR personally interpreted demonstrates no acute fracture. Patient received Tylenol and 1 dose of oxycodone for pain control On reassessment improvement of symptoms and ambulatory. Patient likely has li gamentous injury of right ankle. Recommended rest ice and compression with elevation and outpatient follow-up with PCP. Patient amenable to discharge. Critical Care Critical Care Time Critical Care Time: No
[2024-04-23] MEDS: OXYCODONE 5MG IMMEDIATE RELEASE TABLET 5 MG PO (18:26)
[2024-04-23 18:29] VITALS: BP 92/74
--- NOTE | 2024-04-23 18:30 | PC.NURSE ---
called radiology for update on xray read
--- NOTE | 2024-04-23 18:34 | PC.NURSE ---
radiology updated that xray is being sent to be read at this time
[2024-04-23 19:36] VITALS: BP 104/63; PULSE 65; RESP 16; TEMP 36.8; O2SAT 94
== END 2024-04-23 19:53 | disposition home or self-care (01) ==
PROVIDERS: Emergency Provider Student in an Organized Health Care Education/Training Program; PCP Family Medicine
DX: S93.401A Sprain of unspecified ligament of right ankle, initial encounter (principal); X50.0XXA Overexertion from strenuous movement or load, initial encounter
CPT/HCPCS: 73610; 99283

== ENCOUNTER 2024-05-09 22:46 | Emergency (ER) | payer MEDICAID, SELFPAY ==
[2024-05-09 22:51] VITALS: BP 139/83; PULSE 136; RESP 20; TEMP 39.3; O2SAT 96; BMI 30.7
[2024-05-09 23:02] LABS: Coronavirus 19, PCR Not Detected (NotDetected); Influenza A, PCR Not Detected (NotDetected); Influenza B, PCR Not Detected (NotDetected)
--- NOTE | 2024-05-09 23:05 | XR_ITS ---
PROCEDURE INFORMATION: Exam: XR Chest Exam date and time: 05/09/2024 11:11 PM Age: 33 years old Clinical indication: Cough; Additional info: Asthma, flu like illness TECHNIQUE: Imaging protocol: Radiologic exam of the chest. Views: 2 views. Total images: 2 COMPARISON: CT ANGIO CHEST PE PROTOCOL 10/14/2023 12:08 AM FINDINGS: Lungs: Unremarkable. No consolidation. No pulmonary vascular congestion or edema. Pleural spaces: Unremarkable. No pleural effusion. No pneumothorax. Heart/Mediastinum: Unremarkable. No cardiomegaly. No mediastinal widening or hilar enlargement. Bones/joints: Unremarkable. IMPRESSION: No radiographically acute cardiopulmonary process.
[2024-05-09] MEDS: IPRATROPIUM/ALBUTEROL 3 ML NEB 6 ML IH (23:06)
--- NOTE | 2024-05-09 23:07 | ED_ITS ---
Discharge Plan Disposition Patient Disposition: Left Against Medical Advice Prescriptions Prescriptions: New prednisone 50 mg tablet 50 mg PO DAILY 5 Days Qty: 5 0RF No Action azithromycin 500 mg tablet 500 mg PO DAILY 5 Days Qty: 5 0RF ltzqbomdleyeqbl-kpbguoucq-PR [Bromfed DM] 2-30-10 mg/5 mL syrup 5 ml PO Q4-6H PRN (Reason: cold symptoms) Qty: 118 0RF buprenorphine-naloxone [Suboxone] 8-2 mg film 2 film sublingual DAILY duloxetine [Cymbalta] 60 mg capsule,delayed release(DR/EC) 60 mg PO DAILY Qty: 90 3RF albuterol sulfate 90 mcg/actuation HFA aerosol inhaler 2 inh inhalation Q6HP PRN (Reason: Shortness Of Breath) 30 Days Qty: 1 5RF pregabalin [Lyrica] 150 mg capsule 150 mg PO BID Qty: 60 0RF ondansetron 4 mg tablet,disintegrating 4 mg PO Q6H PRN (Reason: nausea and vomiting) Qty: 10 0RF Referrals Follow up/Referrals: Be Putnam MD [Primary Care Provider] - See instructions Activity Restrictions/Add. Instructions Additional Instructions/Restrictions: Please follow-up with your primary care provider. Please return to the emergency department if you develop any new or worsening symptoms or become concerned for your health. Please take steroids as prescribed for treatment of your asthma exacerbation. Clinical Impressions Clinical Impression: Asthma exacerbation, Viral infection, Respiratory failure with hypoxia Print Language Print Language: Greenlandic Discharge ED Provider: Marco Navarrete General Adult HPI General Chief complaint: Upper Respiratory Infection Stated complaint: TRAN,Dizziness,sore throat,stomach pain,body aches Time Seen by Provider: 05/09/24 23:00 Mode of Arrival: Ambulatory Source of Information: Patient and Spouse Limitations: No Limitations Description of Symptoms (Recalled from ER Triage Doc. by RN): Pt presents with c/o nausea, bodyaches, cough, sore throat and headache. History of Present Illness HPI narrative: 47-year-old female with history of asthma presents for multiple complaints. She reports that she has been feeling bad for the last 2 to 3 days but got significantly worse today. She reports headache, muscle aches, sore throat, fever at home, shortness of breath. She reports her asthma is typically mild and she only uses an inhaler as needed. Related Data Home Medications ?Medication ?Instructions ?Recorded ?Confirmed buprenorphine 8 mg-naloxone 2 mg 2 film sublingual DAILY addiction 10/30/22 04/27/24 sublingual film (Suboxone) Previous Rx's ?Medication ?Instructions ?Recorded duloxetine 60 mg capsule,delayed 60 mg PO DAILY #90 caps 02/11/24 release (Cymbalta) albuterol sulfate 90 mcg/actuation 2 inh inhalation Q6HP PRN 03/11/24 aerosol inhaler Shortness Of Breath 30 days #1 ea ondansetron 4 mg disintegrating 4 mg PO Q6H PRN nausea and 04/07/24 tablet vomiting #10 tabs azithromycin 500 mg tablet 500 mg PO DAILY 5 days #5 tabs 04/27/24 yprpsvvvcclioxn-fwczjtekqabqwkd-KL 5 ml PO Q4-6H PRN cold symptoms 04/27/24 2 mg-30 mg-10 mg/5 mL oral syrup #118 mL (Bromfed DM) pregabalin 150 mg capsule (Lyrica) 150 mg PO BID #60 caps 05/07/24 prednisone 50 mg tablet 50 mg PO DAILY 5 days #5 tabs 05/10/24 Allergies Allergy/AdvReac Type Severity Reaction Status Date / Time Penicillins (PENICILLINS) Allergy Severe THROAT Verified 04/27/24 15:22 SWELLING, HIVES, VOMITTING amoxicillin (From AUGMENTIN) Allergy Intermediate I-HIVES Verified 04/27/24 15:22 clavulanic acid (From Allergy Intermediate I-HIVES Verified 04/27/24 15:22 AUGMENTIN) diphenhydramine (From Allergy Intermediate I-HIVES Verified 04/27/24 15:22 BENADRYL) ibuprofen (IBUPROFEN) Allergy Intermediate I-HIVES Verified 04/27/24 15:22 metoclopramide (From REGLAN) Allergy Intermediate I-HIVES Verified 04/27/24 15:22 Sulfa (Sulfonamide Allergy Intermediate I-HIVES Verified 04/27/24 15:22 Antibiotics) (SULFA (SULFONAMIDE ANTIBIOTICS)) tetanus toxoid, adsorbed Allergy Intermediate I-RASH Verified 04/27/24 15:22 (TETANUS TOXOID, ADSORBED) naproxen (NAPROXEN) Allergy Unknown Hives, Verified 04/27/24 15:22 Vomiting paroxetine (From PAXIL) Allergy Unknown numbness Verified 04/27/24 15:22 tongue atomoxetine (From Strattera) AdvReac Mild NA-HALLUCIN Verified 04/27/24 15:22 [facility] Disclaimer: The information contained in this section may have been updated after the patient was seen, as this information can be updated by other users. Medical History (Updated 05/10/24 @ 02:36 by Marco Navarrete MD) Strep throat Acute viral syndrome Fall Muscle spasm Fall Pityriasis rosea Recurrent pain of right knee Contact dermatitis Contact dermatitis Bilateral shoulder pain Dysmenorrhea Depression Anxiety Scoliosis Hearing loss in right ear History of COVID-19 Asthma Migraine Eczema Hemorrhoid Allergies Uterine fibroid Nausea Abdominal pain Abnormal uterine bleeding Left ankle sprain Nausea & vomiting History of deviated nasal septum Costochondral separation Ganglion cyst Surgical History Status post laparoscopic hysterectomy History of surgery History of surgery History of surgery History of tonsillectomy and adenoidectomy History of cholecystectomy Family History Other Alcoholism Asthma Cancer Diabetes Heart attack Hyperlipidemia Hypertension Social History Smoking Status: Current every day smoker tobacco type: cigarettes packs per day: 1 years smoked: 16 second hand exposure: Yes alcohol intake: former counseling provided: none substance use type: denies use current occupational status: disabled Travel in the last 8 weeks: None household members: family and children housing: house current occupation: [employer] current occupational exposures/hazards: No caffeine: Yes Have you lived/traveled outside US in past 30 days?: No Contact w/someone who lives/traveled outside US past 30 days?: No Exposure to someone with infectious disease in past 14 days?: No Do you have a fever (greater than 100.4 F or 38 C)?: Yes Have you tested positive for COVID-19: No Exposed to someone with COVID-19 in past 14 days?: No Do you have a sore throat?: Yes Do you have a cough?: Yes Do you have any weakness?: Yes Do you have any diarrhea?: No Are you experiencing any unusual bleeding?: No Do you have any muscle aches/pain?: Yes Do you have any abdominal pain?: Yes Are you experiencing loss of taste or smell?: No Other Medical History Have you received the Flu Vaccine for this season: No Have you received the Pneumonia Vaccine: No ROS Obtained: Yes All systems reviewed & no additional complaints except as documented Physical Exam General General appearance: alert, anxious, in distress (Crying) and obese Head Head exam: atraumatic and normocephalic Eye Eye exam: Present normal appearance, PERRL and EOMI ENT ENT exam: Present normal oropharynx and normal external ear exam Neck Neck exam: Present normal inspection and full ROM Chest Chest inspection: Present normal inspection and symmetric chest wall rise; Absent tenderness Respiratory Respiratory exam: Present wheezes and prolonged expiratory phase Cardiovascular Cardiovascular exam: Present normal rhythm and tachycardia Abdominal Exam Abdominal exam: Present soft; Absent distention, tenderness or guarding Extremities Exam Extremities exam: Present normal inspection; Absent edema or joint swelling Back Exam Back exam: Present normal inspection; Absent tenderness Neurological Exam Neurological exam: Present alert and oriented X3; Absent motor sensory deficit Psychiatric Psychiatric exam: Present normal affect and normal mood Skin Skin exam: Present warm, dry and normal color Lymphatic Lymphatic Findings: no adenopathy Medical Decision Making Medical Records Medical records reviewed: Yes I reviewed the patient's medical records. Screening: Per USPSTF and CDC recommendations, given the prevalence of disease in our region, it is our hospital?s policy to screen for HIV and viral Hepatitis for all patients aged 18 and over and those with ongoing risk factors. Donta Inquiry Pt receiving controlled substance: No Donta was queried for this patient: No Vital Signs: 05/09/24 22:51 05/09/24 23:30 05/10/24 00:15 Temperature 102.8 F H Temperature Source Oral Pulse Rate 138 H 125 H Pulse Rate [Right] 136 H Respiratory Rate 20 21 Blood Pressure 134/84 106/58 L Blood Pressure [Right Arm] 139/83 Blood Pressure Mean 93 74 Blood Pressure Mean [Right Arm] 101 Blood Pressure Source Blood Pressure Source [Right Arm] Automatic Cuff Blood Pressure Position Blood Pressure Position [Right Arm] Sitting 02 Sat by Pulse Oximetry 96 92 L 95 Oxygen Delivery Method Room Air Nasal Cannula Oxygen Flow Rate (LPM) 2 05/10/24 02:58 Temperature 99.0 F Temperature Source Oral Pulse Rate 115 H Pulse Rate [Right] Respiratory Rate 18 Blood Pressure 116/69 Blood Pressure [Right Arm] Blood Pressure Mean Blood Pressure Mean [Right Arm] Blood Pressure Source Automatic Cuff Blood Pressure Source [Right Arm] Blood Pressure Position Sitting Blood Pressure Position [Right Arm] 02 Sat by Pulse Oximetry Oxygen Delivery Method Room Air Oxygen Flow Rate (LPM) Lab Data Lab results reviewed: Yes I reviewed the patient's lab results. Lab Results 05/09/24 22:55: SARS-CoV-2 (PCR) Not detected, Influenza A Untype (PCR) Not detected, Influenza Type B (PCR) Not detected 05/10/24 01:15: WBC 12.7 H, RBC 4.57, Hgb 13.2, Hct 38.4, MCV 84.0, MCH 28.9, MCHC 34.4, RDW 12.0, Plt Count 235, MPV 11.8 H, Neut % (Auto) 86.3 H, Lymph % (Auto) 5.7 L, [place] % (Auto) 6.5, Eos % (Auto) 0.8, Baso % (Auto) 0.4, Neut # (Auto) 11.0 H, Lymph # (Auto) 0.7, [place] # (Auto) 0.8, Eos # (Auto) 0.1, Baso # (Auto) 0.1, D-Dimer < 0.25, Sodium 131 L, Potassium 4.1, Chloride 94 L, Carbon Dioxide 31 H, Anion Gap 10.1, BUN 6 L, Creatinine 0.90, Estimated Creat Clear 120, Estimated GFR 72, Est GFR ( Amer) 87, Glucose 193 H, Calcium 8.8, Total Bilirubin 0.5, AST 93 H, ALT 56, Alkaline Phosphatase 108, Total Protein 8.4 H, Albumin 4.6, Globulin 3.8 H, Albumin/Globulin Ratio 1.2 05/10/24 01:15 05/10/24 01:15 Orders (Tests/Meds): ED MEDICATIONS Discontinued Medications Generic Name Dose Route Start Last Admin Trade Name Freq PRN Reason Stop Dose Admin Acetaminophen 1,000 mg 05/09/24 23:04 05/09/24 23:12 Acetaminophen 500mg Tab PO 05/09/24 23:05 1,000 mg ONCE ONE Administration Albuterol/Ipratropium 6 ml 05/09/24 23:04 05/09/24 23:06 Ipratropium/Albuterol 3 Ml Neb 05/09/24 23:05 6 ml ONCE ONE Administration Lactated Ringer's 1,000 mls @ 999 mls/hr 05/09/24 23:45 05/10/24 00:07 Lactated Ringer's 1000 Ml Bag IV 05/10/24 00:45 999 mls/hr .Q1H1M ERIKA Administration Magnesium Sulfate 2 gm in 50 mls @ 150 mls/hr 05/09/24 23:48 05/10/24 00:07 Magnesium Sulfate 2gm/50ml Premix IV 05/10/24 00:07 150 mls/hr ONCE ONE Administration Ketorolac Tromethamine 30 mg 05/09/24 23:48 05/10/24 00:06 Ketorolac 30mg/Ml Vial IV 05/09/24 23:49 30 mg ONCE ONE Administration Methylprednisolone Sodium Succinate 80 mg 05/09/24 23:04 05/09/24 23:12 Methylprednisolone Sod Succ 125mg Vial IM 05/09/24 23:05 80 mg ONCE ONE Administration Prochlorperazine Edisylate 10 mg 05/09/24 23:48 05/10/24 00:06 Prochlorperazine 10mg/2ml Vial IV 05/09/24 23:49 10 mg ONCE ONE Administration ORDERS Category Date Time Status CXR 2 view (NOT portable) [XR chest 2V] Stat Exams 05/09/24 23:05 Completed CBC w/Auto Diff [Complete Blood Count Auto Diff] Stat Lab 05/10/24 01:15 Completed CMP [Comprehensive Metabolic Panel] Stat Lab 05/10/24 01:15 Completed D-Dimer Stat Lab 05/10/24 01:15 Completed Rapid PCR Covid and Flu A/B Stat Lab 05/09/24 22:55 Completed Medical Decision Narrative: 33-year-old female with history of asthma presents for flulike illness. History was obtained via interactive discussion with patient family chart review. On arrival, patient is febrile to 102, tachycardic, normotensive, satting mid 90s on room air, crying because everything hurts . Full physical exam performed and significant for bilateral wheezing and prolonged expiratory phase Differential includes but is not limited to asthma exacerbation, viral/bacterial pneumonia, flu, PE Patient was given DuoNeb x 2, IV magnesium, Solu-Medrol, Tylenol Toradol Compazine and fluids for symptomatic management and correction of underlying abnormalities. Workup initiated including CBC CMP D-dimer chest x-ray. On re-evaluation, patient remains tachycardic and is mildly high oxygen while sleeping, dropping into the mid 80s. She is only satting 90% while on 2 L nasal cannula. Laboratory workup independently interpreted by me and significant for negative D-dimer, mild leukocytosis, no significant electrolyte derangement, negative COVID flu swab. Imaging independently interpreted by me and significant for viral appearing scattered opacities, no focal consolidation. See radiology read for full review of final results. Given patient history, exam and workup, patient's presentation most likely represents asthma exacerbation with acute hypoxic respiratory failure secondary to a viral infection. Interactive discussion with patient regarding her presentation. I repeatedly encouraged her to stay and be admitted to the hospital because she continues to be hypoxic despite improvement in her lung sounds and symptoms. Patient reports that she is adamant she does not wish to stay in the hospital. Patient was persistently hypoxic, with lowest sats in the low 80s while sleeping and high 80s while awake off oxygen. Despite this, patient is of sound mind and is able to make her own decisions. She was discharged AMA with instructions to follow-up with her PCP since possible or return if she changes her mind. Patient was discharged prescription for steroids for coverage of asthma exacerbation. She reports she has breathing treatments and inhalers at home as needed. Procedures Risk/Benefits of Procedure(s) Were Explained: Yes Critical Care Critical Care Time Critical Care Time: Yes Attestation: On 05/09/24, the high probability of a clinically significant, sudden or life threatening deterioration of the following system(s) required my full and direct attention, intervention and personal management. The time I documented below is in addition to time spent performing reported procedures but includes the following listed in this critical care notation. Total Time Total Critical Care Time: 45
[2024-05-09] MEDS: METHYLPREDNISOLONE SOD SUCC 125MG VIAL 80 MG IM (23:12)
[2024-05-09] MEDS: ACETAMINOPHEN 500MG TAB 1000 MG PO (23:12)
[2024-05-09 23:30] VITALS: BP 134/84; PULSE 138; O2SAT 92
--- NOTE | 2024-05-10 | PC.NURSE ---
Pt was placed on 2L NC for O2 sats 88%
[2024-05-10] MEDS: PROCHLORPERAZINE 10MG/2ML VIAL 10 MG IV (00:06)
[2024-05-10] MEDS: KETOROLAC 30MG/ML VIAL 30 MG IV (00:06)
[2024-05-10] MEDS: MAGNESIUM SULFATE IN WATER 2 GM/50 ML PIGGYBACK IV (00:07)
[2024-05-10] MEDS: LACTATED RINGERS 1000ML 1,000 ML 999 ML IV (00:07)
[2024-05-10 00:15] VITALS: BP 106/58; PULSE 125; RESP 21; O2SAT 95
--- NOTE | 2024-05-10 01:18 | PC.NURSE ---
Dr Navarrete at bedside
--- NOTE | 2024-05-10 01:24 | PC.NURSE ---
Dr Navarrete at bedside, placed pt on RA. pt o2 sat decreased to 83%.
[2024-05-10 01:34] LABS: Basophils # 0.1 K/mm3 (0-0.2); Basophils % 0.4 % (0.1-2.0); Eosinophils # 0.1 K/mm3 (0.0-0.4); Eosinophils % 0.8 % (0.1-12.0); Hematocrit 38.4 % (37.0-47.0); Hemoglobin 13.2 g/dL (12.2-16.2); Lymphocytes # 0.7 K/mm3 (0.7-4.5); Lymphocytes % 5.7 % (10-50); Mean Corpuscular HGB Conc 34.4 g/dL (31.8-35.4); Mean Corpuscular Hemoglobin 28.9 pg (27.0-31.2); Mean Platelet Volume 11.8 fl (7.4-10.4); Monocytes # 0.8 K/mm3 (0.1-1.0); Monocytes % 6.5 % (1.7-9.3); Neutrophils % 86.3 % (37.0-80.0); Platelet Count 235 K/mm3 (142-424); Red Blood Count 4.57 M/mm3 (4.20-5.40); White Blood Count 12.7 K/mm3 (4.8-10.8)
[2024-05-10 01:36] LABS: Albumin Level 4.6 g/dl (3.5-5.0); Chloride 94 mmol/L (98-107); Sodium 131 mmol/L (136-145)
[2024-05-10 01:37] LABS: Potassium 4.1 mmoL/L (3.5-5.1)
[2024-05-10 01:39] LABS: Alanine Aminotransferase 56 U/L (12-78); Albumin/Globulin Ratio 1.2 (1.1-1.8); Anion Gap 10.1 mEq/L (5-15); Aspartate Amino Transferase 93 U/L (14-36); Blood Urea Nitrogen 6 mg/dl (7-17); Carbon Dioxide 31 mmol/L (22.0-30.0); Creatinine Clearance Estimated 120 mL/min (50-200); Estimated Glomerular Filt Rate 72 ml/min (>60); GFR (African American) 87 ML/MIN (>60); Globulin 3.8 g/dL (1.3-3.2); Total Protein,Serum 8.4 g/dl (6.3-8.2)
[2024-05-10 01:40] LABS: Alkaline Phosphatase 108 U/L (38-126); Bilirubin,Total 0.5 mg/dl (0.2-1.3); Calcium 8.8 mg/dl (8.4-10.2); Glucose 193 mg/dl (74-100)
[2024-05-10 02:26] LABS: D-Dimer < 0.25 ug/mL (0.0-0.5)
--- NOTE | 2024-05-10 02:27 | PC.NURSE ---
Pt ambulatory with slow steady gait to and from restroom.
--- NOTE | 2024-05-10 02:40 | PC.NURSE ---
pt signing out AMA. Pt educated on reason for staying at hospital by Dr Navarrete and this RN. Pt educated on risks of leaving hospital, including .
[2024-05-10 02:58] VITALS: BP 116/69; PULSE 115; RESP 18; TEMP 37.2; O2SAT 91
== END 2024-05-10 02:50 | disposition left against medical advice (07) ==
PROVIDERS: Emergency Provider Emergency Medicine; PCP Family Medicine
DX: J96.91 Respiratory failure, unspecified with hypoxia (principal); J45.901 Unspecified asthma with (acute) exacerbation; B34.9 Viral infection, unspecified; R50.9 Fever, unspecified; R51.9 Headache, unspecified; R05.9 Cough, unspecified; R11.0 Nausea; J02.9 Acute pharyngitis, unspecified; M79.10 Myalgia, unspecified site; F17.210 Nicotine dependence, cigarettes, uncomplicated
CPT/HCPCS: 71046; 80053; 85025; 85378; 87636; 96361; 96365; 96372; 96374; 96375; 99291; J0780; J1885; J2919; J3475; J7120; J7620

== ENCOUNTER 2024-09-20 17:30 | Outpatient (CLI) | payer MEDICAID, SELFPAY ==
--- OUTSIDE RECORDS SUMMARY | 2024-09-21 10:00 | XMS_ITS | Clinical Summary ---
Author Organization [facility] Address [address] [place] [address] Care Team Providers Care Adult Psychiatrist Name Role Phone Andre Novoa MD Primary Care Provider + [phone] Allergies Active Allergy Reactions Criticality Noted Date Comments Amoxicillin-Pot Clavulanate Rash,Unknown - Patient states they do not know rxn details Low 10/23/2006 Aspirin Other - please document in the comment field Low 10/23/2006 sick Atomoxetine Other - please document in the comment field Low 10/23/2006 lightheaded Diphenhydramine Unknown - Patient states they do not know rxn details Low 01/19/2019 Ibuprofen Unknown - Patient states they do not know rxn details Low 01/19/2019 Iv Contrast Other - please document in the comment field Low 10/23/2006 It can kill us Paroxetine Unknown - Patient states they do not know rxn details Low 01/19/2019 Penicillins Unknown - Patient states they do not know rxn details Low 01/19/2019 Sulfacetamide Rash Low 10/23/2006 Tetanus Toxoid Other - please document in the comment field,Unknown - Patient states they do not know rxn details Low 10/23/2006 welps Medications GNP PAIN RELIEF EX-STRENGTH 500 MG tablet 01/18/2022 Active ProAir HFA 108 (90 Base) MCG/ACT inhaler 06/19/2021 Active DULoxetine (Cymbalta) [address] capsule 02/04/2022 Active ondansetron ODT (Zofran-ODT) 4 MG disintegrating tablet 11/21/2021 Active prazosin (Minipress) 1 MG capsule 02/04/2022 Active Active Problems No known active problems Family History Medical History Relation Name Comments Diabetes Other 1 Drug abuse Other 2 Hepatitis Other 3 Hyperlipidemia Other 4 Seizures Other 5 Relation Name Status Comments Other 1 Other 2 Other 3 Other 4 Other 5 Social History Tobacco Use Types Packs/Day Years Used Date Smoking Tobacco: Every Day Cigarettes Smokeless Tobacco: Never Tobacco Cessation:Ready to Q uit: Not Asked; Counseling Given: Not Answered Alcohol Use Standard Drinks/Week Comments No 0 (1 standard drink = 0.6 oz pur e alcohol) Comments Unknown Sex and Gender Information Value Date Recorded Sex Assigned at Not on file Legal Sex Female 7:28 PM EDT Gender Identity Not on file Sexual Orientation Not on file Last Filed Vital Signs Vital Sign Reading Time Taken Comments Blood Pressure 116/82 02/13/2022 1:13 PM EST Pulse 94 02/13/2022 1:13 PM EST Temperature 36.8 C (98.2 F) 02/13/2022 1:13 PM EST Respiratory Rate - - Oxygen Saturation - - Inhaled Oxygen Concentration - - Weight 73 kg (161 lb) 02/13/2022 1:13 PM EST Height 167.6 cm (5' 6 ) 02/13/2022 1:13 PM EST Body Mass Index 25.99 02/13/2022 1:13 PM EST Plan of Treatment Upcoming Encounters Date Type Department Care Team (Late st Contact Info) Description 12/10/2024 12:40 PM EDT Consult [facility] [address] [place] [address] Sheri Woods, DO [address] [facility] [address] [place] [address] Health Maintenance Due Date Last Done Comments [facility]-Depression Screening 1989 [facility]-Infant/Child/Adol SDOH Screenings 1989 [facility]-DTaP,Tdap,and Td Vaccines (2 - Tdap) 09/25/2002 09/24/2002 [facility]-Varicella Vaccines (1 of 2 - 13+ 2-dose series) 2002 HPV Vaccines (1 - 3-dose series) 2004 [facility]- SDOH Screenings 11/06/2007 [facility]-Adult SDOH Screenings 11/06/2007 [facility]-Pap Smear 09/09/2016 09/09/2013 [facility]-Cervical Cancer Screening 11/06/2019 [facility]-HPV/Cotest 11/06/2019 09/09/2013 [id number] Vaccine ( season) 2023 10/01/2020, 09/07/2020 [facility]-Influenza Vaccine (#1) 2024 [facility]-Zoster Vaccines (1 of 2) 11/06/2039 [facility]-Hepatitis B Vaccines Completed 004, 10/25/2002, 09/24/2002 [facility]-HIB Vaccines Aged Out No longer e ligible based on patient's age to complete this topic [facility]-Hepatitis A Vaccines Aged Out No longer eligible based on patient's age to complete this topic [facility]-IPV Vaccines Aged Out No longer e ligible based on patient's age to complete this topic [facility]-Pneumococcal Vaccine: Pediatrics (0 to 5 Years) and At-Risk Patients (6 to 49 Years) Aged Out No longer eligible b ased on patient's age to complete this topic [facility]-Rotavirus Vaccines Aged Out No lo nger eligible based on patient's age to complete this topic Procedures Procedure Name Priority Date/Time Associated Diagnosis Comments CYTO DATA CONVERSION Routine 09/09/2013 12:00 AM EDT from Last 3 Months or Most Recently Relevant to Health Maintenance Results * Cytology (09/09/2013 12:00 AM EDT) Specimen obtained by fine needle aspiration procedure (specimen) 09/09/2013 09/09/2013 3:18 PM EDT Narrative SUNQUEST - 09/09/2013 7:02 PM EDT [facility] MR #: [id number] [facility] [address] [place], [place] [address] 1990 (Age: 22) FW Collect Date: 09/09/2013 00:00 Receipt Date: 09/09/2013 15:18 Page 1 DEPARTMENT OF PATHOLOGY AND LABORATORY MEDICINE CYTOPATHOLOGY REPORT Email: [email or web address] ATTENDING MD/Practitioner: Mikhail Gold MD [place] [facility] [place] [facility] Reported: 09/09/2013 19:02 Collected: 09/09/2013 00:00 DIAGNOSIS RIGHT POST-AURICULAR LESION, SUPERFICIAL FNA: - SCANT LYMPHOID TISSUE, SEE COMMENT. COMMENT The smears show a spectrum of lymphocytes, morphologically most compatible with a reactive lymph node. Correlation with imaging is suggested. The needle rinse fluid was unfortunately too scant to send for flow cytometry. If the lesion persists or enlarges over time, consideration for re-aspiration is suggested as clinically indicated. Electronically Signed Out Rosaura Starkey MD PROCEDURES/ADDENDA GROSS DESCRIPTION: Hold 5 ml's bloody fluid CLINICAL INFORMATION: Other Clinical Conditions: Tobacco user: yes CLINICAL DIAGNOSIS Present for several years getting bigger, but waxes and wanes, smokes pack day. General Surgery / FNA performed by staff pathologist: Dr. Julieta Starkey / LP A time out procedure was performed by our service for patient and site verification. Patient tolerated 4 needle passes well without injected anesthesia or known complications. This service has been rendered in part by a resident. A pathologist has personally reviewed the slides/tissue and has rendered and is responsible for the diagnosis that appears on the report. SPECIMEN DESCRIPTION: A: FNA RIGHT POST-AURICULAR DIFF-QUIK x 3, PAP STAIN x 3 ICD: 785.6 ENLARGEMENT OF LYMPH NODES (REACTIVE LYMPHOID HYPERPLASIA - LYMPH NODE) F: A; 83591 ASP INTER, 00567 FNA PATHO SNOMED CODES: A; X02595 [id number] A resident has participated in this service. A pathologist has performed and is responsible for the reported pathologic evaluation. us Historical Provider LAB PATHOLOGY ORDERABLES Final Result SUNQUEST from Last 3 Months or Most Recently Relevant to Health Maintenance Insurance [facility] MED[facility] Care Teams Adult Psychiatrist Relationship Specialty Start Date End Date Andre Novoa MD [address] [place] [id number] PCP - General 07/21/20
--- OUTSIDE RECORDS SUMMARY | 2024-09-21 10:00 | XMS_ITS | Clinical Summary ---
Author Organization [facility] Address [address] [place] [address] Phone [email or web address] Care Team Providers Care Government Documents Librarian Name Role Phone Unavailable Primary Care Provider Unavailabl e Social History Tobacco Use Types Packs/Day Years Used Date Smoking Tobacco: Never Assessed Intimate Partner Violence Answer Date R ecorded Insults You Not on file 02/12/2021 Threatens You Not on file 02/12/2021 Screams at You Not on file 02/12/2021 Physically Hurt Not on file 02/12/2021 Intimate Partner Violence Score Not on file 02/12/2021 Stress Answer Date Recorded Stress in your Life Not on file 01/14/2024 Dealing with Stress 3 01/14/2024 Comments Unknown Sex and Gender Information Value Date Recorded Sex Assigned at Not on file Legal Sex Female 12:22 PM COAGULATOR Gender Identity Not on file Sexual Orientation Not on file Plan of Treatment Health Maintenance Due Date Last Done Comments Dental Cleaning/Exam 1989 HIV Screening 1989 Hepatitis C Screening 1989 Cervical Cancer Screening 2005 Annual Preventive Exam 11/06/2007 Hep B Infection Screening - Triple Screen 11/06/2007 Hepatitis B Immunization (1 of 3 - 19+ 3-dose series) 2008 Tetanus Diphtheria and Pertu ssis Immunization (1 - Tdap) 2008 Covid-19 Immunization (1 - 2 25 season) 2023 Influenza Immunization (#1) 2024 HIB Immunization Aged Out No longer e ligible based on patient's age to complete this topic HPV Immunization Aged Out No longer e ligible based on patient's age to complete this topic Hepatitis A Immunization Aged Out No longer eligible based on patient's age to complete this topic Pneumococcal: Ped (0 to 5 Yr s) and At-Risk Member (6 to 64 Yrs) Aged Out No longer e ligible based on patient's age to complete this topic Polio Immunization Aged Out No longer eligible based on patient's age to complete this topic Varicella Immunization Aged Out No lo nger eligible based on patient's age to complete this topic
== END 2024-09-20 23:59 | disposition home or self-care (01) ==
LOC: LAB.DROPOF 09-21 09:56
PROVIDERS: PCP Nurse Practitioner; Visit Provider Nurse Practitioner
DX: T14.8XXA Other injury of unspecified body region, initial encounter (principal); X58.XXXA Exposure to other specified factors, initial encounter
CPT/HCPCS: 87070; 87077; 87205

== ENCOUNTER 2024-10-03 07:51 | Emergency (ER) | payer MEDICAID, SELFPAY ==
[2024-10-03 07:55] VITALS: BP 132/90; PULSE 101; O2SAT 96
[2024-10-03 08:00] VITALS: BP 117/76; BP 132/90; PULSE 110; PULSE 90; RESP 18; TEMP 36.8; O2SAT 96; O2SAT 97; BMI 30.9
--- OUTSIDE RECORDS SUMMARY | 2024-10-03 08:03 | XMS_ITS | Clinical Summary ---
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
--- OUTSIDE RECORDS SUMMARY | 2024-10-03 08:03 | XMS_ITS | Clinical Summary ---
Author Organization [facility] Address [address] [place] [address] Care Team Providers Care Title One Teacher Name Role Phone Andre Novoa MD Primary Care Provider + [phone] Allergies Active Allergy Reactions Criticality Noted Date [...] Info) Description 12/10/2024 12:40 PM EDT Consult [facility] Primary and Urgent Care [address] [place] [address] Sheri Woods, DO 245 [facility] [address] [place] [address] Health Maintenance Due Date Last Done Comments [facility]Y-Depression Screening 1989 [facility]Y-Infant/Child/Adol SDOH Screenings 1989 [facility]Y-DTaP,Tdap,and Td Vaccines (2 - Tdap) 09/25/2002 09/24/2002 UKY-Varicella Vaccines (1 of 2 - 13+ 2-dose series) 2002 HPV Vaccines (1 - 3-dose series) 2004 [facility]Y- SDOH Screenings 11/06/2007 UKY-Adult SDOH Screenings 11/06/2007 UKY-Pap Smear 09/09/2016 09/09/2013 UKY-Cervical Cancer Screening 11/06/2019 UKY-HPV/Cotest 11/06/2019 09/09/2013 [id number] Vaccine ( season) 2023 10/01/2020, 09/07/2020 UKY-Influenza [...] Narrative SUNQUEST - 09/09/2013 7:02 PM EDT [facility] MR #: [id number] [facility] [address] [place] [address] 1990 (Age: 22) FW Collect Date: 09/09/2013 00:00 Receipt Date: 09/09/2013 15:18 Page 1 DEPARTMENT OF PATHOLOGY AND LABORATORY MEDICINE CYTOPATHOLOGY REPORT Email: [email or web address] [id number] ATTENDING MD/Practitioner: Mikhail Gold MD [place] [facility] [place] [facility] Reported: 09/09/2013 19:02 Collected: 09/09/2013 00:00 DIAGNOSIS [...] LYMPHOID HYPERPLASIA - LYMPH NODE) F: A; 09649 ASP INTER, 03311 FNA PATHO SNOMED CODES: A; B17755 [id number] A resident has participated in this service. A pathologist has performed and is responsible for the reported pathologic evaluation. us Historical Provider LAB PATHOLOGY ORDERABLES Final Result SUNQUEST from Last 3 Months or Most Recently Relevant to Health Maintenance Insurance [facility] MEDICAID Care Teams Title One Teacher Relationship Specialty Start Date End Date Andre Novoa MD [address] [place] [id number] PCP - General 07/21/20
--- NOTE | 2024-10-03 08:05 | HMH.EDGENADL ---
Discharge Plan Disposition Patient Disposition: Home, Self-Care Prescriptions Prescriptions: New clindamycin HCl [Cleocin HCl] 150 mg capsule 450 mg PO Q6H 7 Days Qty: 84 0RF valacyclovir 1 gram tablet 1,000 mg PO TID 7 Days Qty: 21 0RF No Action doxycycline hyclate 100 mg capsule 100 mg PO BID 7 Days Qty: 14 0RF mupirocin [Centany] 2 % ointment 1 applic topical TID Qty: 22 0RF Rx Instructions: apply to wound on thumb as directed buprenorphine-naloxone [Suboxone] 8-2 mg film 2 film sublingual DAILY glimepiride 2 mg tablet 2 mg PO DAILY Qty: 90 3RF albuterol sulfate 90 mcg/actuation HFA aerosol inhaler 2 inh inhalation Q6HP PRN (Reason: Shortness Of Breath) 30 Days Qty: 1 5RF (DME) blood-glucose meter [Blood Glucose Monitoring] Kit See Rx Instructions .ROUTE .MEDSUPPLY Qty: 1 0RF Rx Instructions: Monitor BG TID (DME) Blood Glucose Test Strip See Rx Instructions .ROUTE .MEDSUPPLY Qty: 50 12RF Rx Instructions: Monitor BG TID (DME) lancets [Droplet Lancets] 30 gauge misc See Rx Instructions .ROUTE .MEDSUPPLY Qty: 100 0RF Rx Instructions: Monitor BG TID cyclobenzaprine 10 mg tablet 10 mg PO BID PRN (Reason: muscle spasm) Qty: 60 0RF pregabalin [Lyrica] 150 mg capsule 150 mg PO BID Qty: 60 3RF ondansetron 8 mg tablet,disintegrating 8 mg PO TID PRN (Reason: nausea and vomiting) Qty: 90 3RF Referrals Follow up/Referrals: Be Putnam MD [Primary Care Provider, Family Practice] - See instructions Activity Restrictions/Add. Instructions Additional Instructions/Restrictions: At this time it was felt you are safe to be discharged home. If new or worsening symptoms please do not hesitate to return the emergency department. You were diagnosed with chickenpox today. I have given you antibiotics to prevent secondary bacterial infection on top of it. For pain please take Tylenol 1000 mg every 6 hours and for itching and help with sleep please take Benadryl 50 mg every 6 hours as needed. Oatmeal baths have reportedly help people and may be worthwhile. Please keep the area in her groin cool and dry. Follow-up with your family doctor on Friday or Friday to make sure things are stable or headed in the right direction. Clinical Impressions Clinical Impression: Varicella Instructions Patient Instructions: DI for Skin Abscess Print Language Print Language: Qatari Discharge ED Provider: Marko Castro General Adult HPI General Chief complaint: Skin/Abscess/Foreign Body Stated complaint: Broke out all over and painful Time Seen by Provider: 10/03/24 07:54 History of Present Illness HPI narrative: Patient is a 33-year-old female with past medical history of previous recurrent chickenpox who presents emergency department for evaluation of sores all over her body. Onset was acute over the last 72 hours. Involving the thorax, extremities, groin. Spares the palms and soles. No new exposures, no new medication changes, no one at home with similar symptoms. No oral lesions. No other acute complaints at this time. Lesions are painful and itchy. Please note that above description of symptoms, in this electronic medical record under categorization of recalled from ER triage doctor by RN are reflective of an initial nursing assessment, however, is not reflective of my full history and physical exam that was personally taken and clarified. Consequentially, this preceding description of symptoms, which may include the patient's categorized chief complaint in the EMR, do not reflect my personal clinical impression, and the ultimate description of history of present illness and patient stated complaints should be deferred to this section of the note. Unless stated otherwise or congruent with this section of the note, additional signs, symptoms, or incongruence should be interpreted as inaccurate with my clinical impression. Related Data Home Medications ?Medication ?Instructions ?Recorded ?Confirmed buprenorphine 8 mg-naloxone 2 mg 2 film sublingual DAILY addiction 10/30/22 09/20/24 sublingual film (Suboxone) Held on 01/02/23. Instructions: Resume on 01/06/23. hold while on post-op pain meds Previous Rx's ?Medication ?Instructions ?Recorded albuterol sulfate 90 mcg/actuation 2 inh inhalation Q6HP PRN 07/23/24 aerosol inhaler Shortness Of Breath 30 days #1 ea blood sugar diagnostic (Blood #50 ea 07/23/24 Glucose Test strips) blood-glucose meter (Blood Glucose #1 ea 07/23/24 Monitoring kit) glimepiride 2 mg tablet 2 mg PO DAILY #90 tabs 07/23/24 lancets 30 gauge (Droplet Lancets) #100 ea 07/23/24 cyclobenzaprine 10 mg tablet 10 mg PO BID PRN muscle spasm #60 07/26/24 tabs pregabalin 150 mg capsule (Lyrica) 150 mg PO BID #60 caps 09/08/24 doxycycline hyclate 100 mg capsule 100 mg PO BID 7 days #14 caps 09/20/24 mupirocin 2 % topical ointment 1 applic topical TID #22 grams 09/20/24 (Centany) ondansetron 8 mg disintegrating 8 mg PO TID PRN nausea and 09/20/24 tablet vomiting #90 tabs clindamycin HCl 150 mg capsule 450 mg (3 x 150 mg) PO Q6H 10/03/24 (Cleocin HCl) superimposed infection prevention 7 days #84 caps valacyclovir 1 gram tablet 1,000 mg PO TID varicella 7 days 10/03/24 #21 tabs Allergies Allergy/AdvReac Type Severity Reaction Status Date / Time Penicillins (PENICILLINS) Allergy Severe THROAT Verified 09/20/24 17:27 SWELLING, HIVES, VOMITTING amoxicillin (From AUGMENTIN) Allergy Intermediate I-HIVES Verified 09/20/24 17:27 clavulanic acid (From Allergy Intermediate I-HIVES Verified 09/20/24 17:27 AUGMENTIN) diphenhydramine (From Allergy Intermediate I-HIVES Verified 09/20/24 17:27 BENADRYL) ibuprofen (IBUPROFEN) Allergy Intermediate I-HIVES Verified 09/20/24 17:27 metoclopramide (From REGLAN) Allergy Intermediate I-HIVES Verified 09/20/24 17:27 Sulfa (Sulfonamide Allergy Intermediate I-HIVES Verified 09/20/24 17:27 Antibiotics) (SULFA (SULFONAMIDE ANTIBIOTICS)) tetanus toxoid, adsorbed Allergy Intermediate I-RASH Verified 09/20/24 17:27 (TETANUS TOXOID, ADSORBED) naproxen (NAPROXEN) Allergy Unknown Hives, Verified 09/20/24 17:27 Vomiting paroxetine (From PAXIL) Allergy Unknown numbness Verified 09/20/24 17:27 tongue atomoxetine (From Strattera) AdvReac Mild NA-HALLUCIN Verified 09/20/24 17:[address] [facility] Disclaimer: The information contained in this section may have been updated after the patient was seen, as this information can be updated by other users. Medical History (Updated 10/03/24 @ 08:34 by Marko Castro MD) Cellulitis of thumb, left Problem of extremity Strep throat Acute viral syndrome Fall Muscle spasm Fall Pityriasis rosea Recurrent pain of right knee Contact dermatitis Contact dermatitis Bilateral shoulder pain Dysmenorrhea Depression Anxiety Scoliosis Hearing loss in right ear History of COVID-19 Asthma Migraine Eczema Hemorrhoid Allergies Uterine fibroid Nausea Abdominal pain Abnormal uterine bleeding Left ankle sprain Nausea & vomiting History of deviated nasal septum Costochondral separation Ganglion cyst Surgical History Status post laparoscopic hysterectomy History of surgery History of surgery History of surgery History of tonsillectomy and adenoidectomy History of cholecystectomy Family History Other Alcoholism Asthma Cancer Diabetes Heart attack Hyperlipidemia Hypertension Social History Smoking Status: Current every day smoker tobacco type: cigarettes packs per day: 1 years smoked: 16 second hand exposure: Yes alcohol intake: former counseling provided: none substance use type: denies use current occupational status: disabled Travel in the last 8 weeks?: None household members: family and children housing: house current occupation: [employer] current occupational exposures/hazards: No caffeine: Yes Have you lived/traveled outside US in past 30 days?: No Contact w/someone who lives/traveled outside US past 30 days?: No Exposure to someone with infectious disease in past 14 days?: No Do you have a fever (greater than 100.4 F or 38 C)?: No Have you tested positive for COVID-19?: No Exposed to someone with COVID-19 in past 14 days?: No Do you have a sore throat?: No Do you have a cough?: No Do you have any weakness?: No Do you have any diarrhea?: No Are you experiencing any unusual bleeding?: No Do you have any muscle aches/pain?: No Do you have any abdominal pain?: No Are you experiencing loss of taste or smell?: No Other Medical History Have you received the Flu Vaccine for this season: No Have you received the Pneumonia Vaccine: No ROS Obtained: Yes Systems reviewed as appropriate & no additional complaints except as documented Physical Exam General General appearance: alert and in no apparent distress Head Head exam: atraumatic and normocephalic Eye Eye exam: Present PERRL and EOMI ENT ENT exam: Present normal oropharynx and mucous membranes moist Neck Neck exam: Present normal inspection Chest Chest inspection: Present normal inspection and symmetric chest wall rise Respiratory Respiratory exam: Present normal lung sounds bilaterally; Absent respiratory distress Cardiovascular Cardiovascular exam: Present regular rate and normal rhythm Abdominal Exam Abdominal exam: Present soft; Absent tenderness Extremities Exam Extremities exam: Present normal inspection Neurological Exam Neurological exam: Present alert Psychiatric Psychiatric exam: Present normal affect Skin Skin exam: Present warm, dry and other (Gamer present, scattered pustules some of which are crusted some of which are unopened on an erythematous base about the thorax, extremities, groin. No fluctuance. Gamer present.) Medical Decision Making Medical Records Screening: Per USPSTF and CDC recommendations, given the prevalence of disease in our region, it is our hospital?s policy to screen for HIV and viral Hepatitis for all patients aged 18 and over and those with ongoing risk factors. Donta Inquiry Pt receiving controlled substance: No Vital Signs: 10/03/24 07:55 10/03/24 08:00 10/03/24 08:00 Temperature 98.2 F 98.2 F Temperature Source Oral Pulse Rate 101 H 110 H Pulse Rate [Right] 110 H Respiratory Rate 18 18 Blood Pressure 132/90 132/90 Blood Pressure [Right Arm] 132/90 Blood Pressure Mean [Right Arm] 104 02 Sat by Pulse Oximetry 96 97 97 Oxygen Delivery Method Room Air 10/03/24 08:00 Temperature Temperature Source Pulse Rate 90 Pulse Rate [Right] Respiratory Rate Blood Pressure 117/76 Blood Pressure [Right Arm] Blood Pressure Mean [Right Arm] 02 Sat by Pulse Oximetry 96 Oxygen Delivery Method Room Air Orders (Tests/Meds): ED MEDICATIONS Discontinued Medications Generic Name Dose Route Start Last Admin Trade Name Freq PRN Reason Stop Dose Admin Acetaminophen 1,000 mg 10/03/24 08:24 Acetaminophen 500mg Tab PO 10/03/24 08:25 ONCE ONE Clindamycin HCl 450 mg 10/03/24 08:28 Clindamycin 150mg Capsule PO 10/03/24 08:29 ONCE ONE Oxycodone HCl 5 mg 10/03/24 08:25 Oxycodone 5mg Immediate Release Tablet PO 10/03/24 08:26 ONCE ONE Medical Decision Narrative: In summary patient is a 33-year-old female past medical history described above who presents emergency department for evaluation of skin lesions. Patient is hemodynamically stable nontoxic-appearing upon arrival, afebrile. Scattered pustules on erythematous base in varying stages is strongly consistent with varicella infection. It spares the palms and soles no concern for coxsackie. She does have some lesions in her groin which are inflamed secondary to being in intertriginous areas and education was had as to keep them cool and dry. No concern for deep space infection or NSTI based on history and physical exam. Given this workup with labs and imaging was considered but will be deferred at this time. Patient will be empirically treated with valacyclovir and for superimposed infection with strep will be covered with clindamycin and will follow-up with her family doctor early next week to ensure things are headed in the right direction. For pain control she was instructed to take Tylenol and for the itching to take Benadryl and administer oatmeal baths. Critical Care Critical Care Time Critical Care Time: No
[2024-10-03] MEDS: ACETAMINOPHEN 500MG TAB 1000 MG PO (08:42)
[2024-10-03] MEDS: CLINDAMYCIN 150MG CAPSULE 450 MG PO (08:42)
[2024-10-03] MEDS: OXYCODONE 5MG IMMEDIATE RELEASE TABLET 5 MG PO (08:42)
[2024-10-03 08:45] VITALS: BP 132/90; PULSE 82; RESP 18; TEMP 36.8; O2SAT 97
[2024-10-03] MEDS: KETOROLAC 30MG/ML VIAL 60 MG IM (09:09)
== END 2024-10-03 09:17 | disposition home or self-care (01) ==
PROVIDERS: Emergency Provider Emergency Medicine; PCP Family Medicine
DX: B01.9 Varicella without complication (principal); F17.210 Nicotine dependence, cigarettes, uncomplicated
CPT/HCPCS: 96372; 99283; J1885

== ENCOUNTER 2024-10-22 14:00 | Outpatient (CLI) | payer MEDICAID, SELFPAY ==
--- OUTSIDE RECORDS SUMMARY | 2024-10-25 11:58 | XMS_ITS | Clinical Summary ---
Author Organization [facility] Address [address] [place] [place] [address] Care Team Providers Care Plow Holder Name Role Phone Andre Novoa MD Primary Care Provider + [phone] Allergies Active Allergy Reactions Criticality Noted Date [...] [facility] Primary [facility] Urgent Care [address] [place] [address] Sheri Woods, DO 245 [facility] [address] [place] [address] Health Maintenance Due Date Last Done Comments [facility]Y-Depression Screening 1989 [facility]Y-HIV Screening 1989 [facility]-Hepatitis C Screening 1989 [facility]Y-Infant/Child/Adol SDOH Screenings 1989 [facility]Y-DTaP,Tdap,and Td Vaccine s (2 - Tdap) 09/25/2002 09/24/2002 UKY-Varicella Vaccines (1 of 2 - 13+ 2-dose series) 2002 [facility]Y- SDOH Screenings 11/06/2007 UKY-Adult SDOH Screenings 11/06/2007 UKY-Pap Smear 09/09/2016 09/09/2013 HPV Vaccines (1 - 3-dose SCD M series) 2016 UKY-Cervical Cancer Screening 11/06/2019 UKY-HPV/Cotest 11/06/2019 09/09/2013 [id number] Vaccine (3 - season) 2023 10/01/2020, 09/07/2020 UKY-Influenza Vaccine (#1) 2024 UKY-Zoster Vaccines (1 of 2) 11/06/2039 UKY-Hepatitis B Vaccines Completed 004, 10/25/2002, 09/24/2002 UKY-Obesity Intervention Completed 02/13/2022 UKY-HIB Vaccines Aged Out No longer e [...] Narrative SUNQUEST - 09/09/2013 7:02 PM EDT [facility] MR #: [id number] [facility] [address] [place] [address] 1990 (Age: 22) FW Collect Date: 09/09/2013 00:00 Receipt Date: 09/09/2013 15:18 Page 1 DEPARTMENT OF PATHOLOGY AND LABORATORY MEDICINE CYTOPATHOLOGY REPORT Email: [email or web address] [phone] ATTENDING MD/Practitioner: Mikhail Gold MD Service: [facility] [place] Location: [facility] Reported: 09/09/2013 19:02 Collected: 09/09/2013 [...] LYMPHOID HYPERPLASIA - LYMPH NODE) F: A; 89300 ASP INTER, [address] FNA PATHO SNOMED CODES: A; R48369 S20013 [id number] P1149 A resident has participated in this service. A pathologist has performed and is responsible for the reported pathologic evaluation. us Zzzhistorical Provider LAB PATHOLOGY ORDERABL ES Final Result SUNQUEST from Last 3 Months or Most Recently Relevant to Health Maintenance Insurance [facility] [employer] MEDICA[employer] Care Teams Plow Holder Relationship Specialty Start Date End Date Andre Novoa MD [address] [place] [address] PCP - General 07/21/20
--- OUTSIDE RECORDS SUMMARY | 2024-10-25 11:58 | XMS_ITS | Clinical Summary ---
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 Gender Identity Not on file Sexual Orientation Not on file Plan of Treatment Health Maintenance Due Date Last Done Comments Cervical Cancer Screening Combo 1989 Dental Cleaning/Exam 1989 HIV Screening 1989 HPV / Cotest 1989 Hepatitis C Screening 1989 Pap Testing 1989 HPV Immunization (1 - 2-dose series) 2000 Annual Preventive Exam 11/06/2007 Hep B Infection Screening - Triple Screen 11/06/2007 Hepatitis B Immunization (1 of 3 - 19+ 3-dose series) 2008 Tetanus Diphtheria and Pertu ssis Immunization (1 - Tdap) 2008 Covid-19 Immunization (1 - 2 024-25 season) 2023 Influenza Immunization (#1) 2024 HIB [...]
== END 2024-10-22 23:59 ==
LOC: LAB.DROPOF 10-25 11:56
PROVIDERS: PCP Family Medicine; Visit Provider Family Medicine
DX: E11.9 Type 2 diabetes mellitus without complications (principal)
CPT/HCPCS: 82043; 82570

== ENCOUNTER 2024-11-28 18:49 | Emergency (ER) | payer MEDICAID, SELFPAY ==
[2024-11-28] VITALS (9 sets, daily range): BP systolic 119–156; BP diastolic 83–106; PULSE 76–98; RESP 17; TEMP 37.1; O2SAT 96–99; BMI 30.7
--- OUTSIDE RECORDS SUMMARY | 2024-11-28 19:43 | XMS_ITS | Clinical Summary ---
Author Organization [facility] Address [address] [place] [address] Care Team Providers Care Telegraphic Typewriter Operator Name Role Phone Andre Novoa MD Primary Care Provider + [phone] Allergies Active Allergy Reactions Criticality Noted Date [...] Info) Description 12/10/2024 12:40 PM EDT Consult [facility] Primary and Urgent Care [address] [place] [address] Sheri Woods, DO 245 [facility] [address] [place] [address] Health Maintenance Due Date Last [...] UKY-Cervical Cancer Screening 11/06/2019 UKY-HPV/Cotest 11/06/2019 09/09/2013 [id number] Vaccine (3 - season) 2024 10/01/2020, 09/07/2020 UKY-Influenza Vaccine (#1) 2024 UKY-Zoster [...] Narrative SUNQUEST - 09/09/2013 7:02 PM EDT [facility] MR #: [id number] [facility] [address] [place] [address] 1990 (Age: 22) FW Collect Date: 09/09/2013 00:00 Receipt Date: 09/09/2013 15:18 Page 1 DEPARTMENT OF PATHOLOGY AND LABORATORY MEDICINE CYTOPATHOLOGY REPORT Email: [email or web address] [phone] ATTENDING MD/Practitioner: Mikhail Gold MD Service: [facility] Location: [facility] Reported: 09/09/2013 19:02 Collected: 09/09/2013 00:00 DIAGNOSIS [...] LYMPHOID HYPERPLASIA - LYMPH NODE) F: A; 60994 ASP INTER, [address] FNA PATHO SNOMED CODES: A; G74599 [id number] [id number] A resident has participated in this service. A pathologist has performed and is responsible for the reported pathologic evaluation. us Historical Provider LAB PATHOLOGY ORDERABLES Fin al Result SUNQUEST from Last 3 Months or Most Recently Relevant to Health Maintenance Insurance [facility] MEDICAID Care Teams Telegraphic Typewriter Operator Relationship Specialty Start Date End Date Andre Novoa MD [address] [place] [address] PCP - General 07/21/20
--- OUTSIDE RECORDS SUMMARY | 2024-11-28 19:43 | XMS_ITS | Clinical Summary ---
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
--- NOTE | 2024-11-28 19:46 | CT_ITS ---
PROCEDURE INFORMATION: Exam: CT Right Lower Extremity With Contrast, Knee Exam date and time: 11/28/2024 8:52 PM Age: 34 years old Clinical indication: Swelling or effusion of joint; Knee; Additional info: Right knee swelling, trauma, R/O abscess TECHNIQUE: Imaging protocol: CT of the right lower extremity with intravenous contrast was performed. Exam focused on the knee. Radiation optimization: All CT scans at this facility use at least one of these dose optimization techniques: automated exposure control; mA and/or kV adjustment per patient size (includes targeted exams where dose is matched to clinical indication); or iterative reconstruction. Contrast material: ISOVUE; Contrast volume: 100 ml; Contrast route: IV; COMPARISON: CR XR KNEE RT 3V 05/16/2022 10:07 PM FINDINGS: Bones/joints: No fracture or bone destruction. There is a small right knee joint effusion. Trace synovial enhancement image 4/. Soft tissues: Skin thickening and subcutaneous infiltration image 4/58.. IMPRESSION: 1. No fracture or bone destruction. 2. There is a small right knee joint effusion. 3. Trace synovial enhancement image /. Synovitis or septic joint not excluded. 4. Skin thickening and subcutaneous infiltration image 4/58. Findings may reflect cellulitis.
--- NOTE | 2024-11-28 19:54 | HMH.EDGENADL ---
Discharge Plan Disposition Patient Disposition: Xfer Short-Term Hosp Condition: Fair Prescriptions Prescriptions: No Action doxycycline hyclate 100 mg capsule 100 mg PO BID 7 Days Qty: 14 0RF buprenorphine-naloxone [Suboxone] 8-2 mg film 2 film sublingual DAILY glimepiride 2 mg tablet 2 mg PO DAILY Qty: 90 3RF albuterol sulfate 90 mcg/actuation HFA aerosol inhaler 2 inh inhalation Q6HP PRN (Reason: Shortness Of Breath) 30 Days Qty: 1 5RF (DME) blood-glucose meter [Blood Glucose Monitoring] Kit See Rx Instructions .ROUTE .MEDSUPPLY Qty: 1 0RF Rx Instructions: Monitor BG TID (DME) Blood Glucose Test Strip See Rx Instructions .ROUTE .MEDSUPPLY Qty: 50 12RF Rx Instructions: Monitor BG TID mupirocin [Centany] 2 % ointment 1 applic topical TID Qty: 22 1RF Rx Instructions: apply to wound on thumb as directed ketorolac 10 mg tablet 10 mg PO Q6H PRN (Reason: pain) 4 Days Qty: 16 0RF (DME) Dexcom G7 Sensor Device See Rx Instructions .Route Qty: 3 12RF Rx Instructions: As directed pregabalin [Lyrica] 150 mg capsule 150 mg PO BID Qty: 60 3RF ondansetron 8 mg tablet,disintegrating 8 mg PO TID PRN (Reason: nausea and vomiting) Qty: 90 3RF (DME) lancets [Droplet Lancets] 30 gauge misc See Rx Instructions .ROUTE .MEDSUPPLY Qty: 100 2RF Rx Instructions: Monitor BG TID (DME) Dexcom G7 Manager Government Misc See Rx Instructions .Route Qty: 1 0RF Rx Instructions: As directed Ozempic 0.25 mg or 0.5 mg (2 mg/3 mL) pen injector 0.25 mg SQ WEEKLY Qty: 3 0RF Rx Instructions: for 4 weeks dapagliflozin propanediol [Farxiga] 10 mg tablet 10 mg PO DAILY Qty: 90 3RF cyclobenzaprine 10 mg tablet 10 mg PO BID PRN (Reason: muscle spasm) Qty: 60 0RF valacyclovir 1 gram tablet 1,000 mg PO TID 7 Days Qty: 21 0RF Referrals Follow up/Referrals: Be Putnam MD [Primary Care Provider, Family Practice] - See instructions Clinical Impressions Clinical Impression: Acute pain of right knee, Effusion of right knee Print Language Print Language: Liberian Discharge ED Provider: Aure Stubbs General Adult HPI <Maria Elena Pearson APRN - Last Filed: 11/28/24 22:05> General Chief complaint: Extremity Injury, Lower Stated complaint: Fall 2 weeks ago; R Knee Scab Time Seen by Provider: 11/28/24 19:30 Mode of Arrival: Ambulatory Description of Symptoms (Recalled from ER Triage Doc. by RN): Patient states she fell on her right knee a week ago, states overnight she began to have an open sore on her right knee. Denies drainage. Site has a bruise, with swelling. localized rash or redness present. History of Present Illness HPI narrative: Haleigh Snell is a 34-year-old female past medical history significant for type 2 diabetes, GERD who presents emergency room tonight with complaints of right knee pain. Ms. Snell states that she fell and skinned her knee a couple weeks ago. Had a scab that seem to heal and fall off a few days ago. Then reports that she had significant pain, swelling, and redness that started last night. Acutely worsened today. Reports significant pain with ambulating. Denies any fevers. No purulent drainage from the wound. No trauma yesterday or today to the knee. Has had prior surgery on her knee but had no issues with the healing of that, this was several years ago. Does smoke cigarettes. Denies any alcohol or illicit drug use. Not on blood thinners. Please note that the above description of symptoms, and this electronic medical record under categorization of recalled from ER triage doctor by RN are reflective of an initial nursing assessment, however, is not reflective of my full history and physical exam that was personally taken and clarified. Consequentially, this proceeding description of symptoms, which may include the patient's cauterized chief complaint in the EMR, do not reflect my personal clinical impression, and the ultimate description of the history of present illness stated complaints should be deferred to this section of this note. Unless stated otherwise were congruent with the section of the note, additional signs, symptoms, or incongruence can be interpreted as in or accurate with my clinical impression. Related Data Home Medications ?Medication ?Instructions ?Recorded ?Confirmed buprenorphine 8 mg-naloxone 2 mg 2 film sublingual DAILY addiction 10/30/22 10/22/24 sublingual film (Suboxone) Held on 01/02/23. Instructions: Resume on 01/06/23. hold while on post-op pain meds Previous Rx's ?Medication ?Instructions ?Recorded albuterol sulfate 90 mcg/actuation 2 inh inhalation Q6HP PRN 07/23/24 aerosol inhaler Shortness Of Breath 30 days #1 ea blood sugar diagnostic (Blood #50 ea 07/23/24 Glucose Test strips) blood-glucose meter (Blood Glucose #1 ea 07/23/24 Monitoring kit) glimepiride 2 mg tablet 2 mg PO DAILY #90 tabs 07/23/24 pregabalin 150 mg capsule (Lyrica) 150 mg PO BID #60 caps 09/08/24 doxycycline hyclate 100 mg capsule 100 mg PO BID 7 days #14 caps 09/20/24 ondansetron 8 mg disintegrating 8 mg PO TID PRN nausea and 09/20/24 tablet vomiting #90 tabs valacyclovir 1 gram tablet 1,000 mg PO TID varicella 7 days 10/03/24 #21 tabs blood-glucose sensor (Dexcom G7 #3 ea 10/06/24 Sensor device) ketorolac 10 mg tablet 10 mg PO Q6H PRN pain 4 days #16 10/06/24 tabs lancets 30 gauge (Droplet Lancets) #100 ea 10/06/24 mupirocin 2 % topical ointment 1 applic topical TID #22 grams 10/06/24 (Centany) blood-glucose,journeyman tool and die maker,cont #1 ea 10/12/24 (Dexcom G7 Manager Government) semaglutide 0.25 mg or 0.5 mg (2 0.25 mg (0.368 mL) SQ WEEKLY #3 mL 10/21/24 mg/3 mL) subcutaneous pen injector (Ozempic) Farxiga 10 mg tablet 10 mg PO DAILY #90 tabs 10/22/24 (dapagliflozin propanediol) cyclobenzaprine 10 mg tablet 10 mg PO BID PRN muscle spasm #60 11/17/24 tabs Allergies Allergy/AdvReac Type Severity Reaction Status Date / Time Penicillins (PENICILLINS) Allergy Severe THROAT Verified 10/22/24 13:34 SWELLING, HIVES, VOMITTING amoxicillin (From AUGMENTIN) Allergy Intermediate I-HIVES Verified 10/22/24 13:34 clavulanic acid (From Allergy Intermediate I-HIVES Verified 10/22/24 13:34 AUGMENTIN) diphenhydramine (From Allergy Intermediate I-HIVES Verified 10/22/24 13:34 BENADRYL) ibuprofen (IBUPROFEN) Allergy Intermediate I-HIVES Verified 10/22/24 13:34 metoclopramide (From REGLAN) Allergy Intermediate I-HIVES Verified 10/22/24 13:34 Sulfa (Sulfonamide Allergy Intermediate I-HIVES Verified 10/22/24 13:34 Antibiotics) (SULFA (SULFONAMIDE ANTIBIOTICS)) tetanus toxoid, adsorbed Allergy Intermediate I-RASH Verified 10/22/24 13:34 (TETANUS TOXOID, ADSORBED) naproxen (NAPROXEN) Allergy Unknown Hives, Verified 10/22/24 13:34 Vomiting paroxetine (From PAXIL) Allergy Unknown numbness Verified 10/22/24 13:34 tongue atomoxetine (From Strattera) AdvReac Mild NA-HALLUCIN Verified 10/22/24 13:34 ATIONS [facility] <Maria Elena Pearson, HEAD CHAR FILTER TANK TENDER - Last Filed: 11/28/24 22:05> [facility] Disclaimer: The information contained in this section may have been updated after the patient was seen, as this information can be updated by other users. Medical History Cellulitis of thumb, left Problem of extremity Strep throat Acute viral syndrome Fall Muscle spasm Fall Pityriasis rosea Recurrent pain of right knee Contact dermatitis Contact dermatitis Bilateral shoulder pain Dysmenorrhea Depression Anxiety Scoliosis Hearing loss in right ear History of COVID-19 Asthma Migraine Eczema Hemorrhoid Allergies Uterine fibroid Nausea Abdominal pain Abnormal uterine bleeding Left ankle sprain Nausea & vomiting History of deviated nasal septum Costochondral separation Ganglion cyst Surgical History Status post laparoscopic hysterectomy Bilateral salpingectomy, right oophorectomy - 01/17/22 History of surgery DENTAL EXTRACTION History of surgery RIGHT SHOULDER SX History of surgery HEMORRHOID SX History of tonsillectomy and adenoidectomy History of cholecystectomy Family History Other Alcoholism Asthma Cancer Diabetes Heart attack Hyperlipidemia Hypertension Social History (Updated 10/22/24 @ 13:35 by Clare Mansfield MA) Smoking Status: Current every day smoker tobacco type: cigarettes packs per day: 1 years smoked: 16 second hand exposure: Yes alcohol intake: former counseling provided: none substance use type: denies use current occupational status: disabled Travel in the last 8 weeks?: None household members: family and children housing: house current occupation: [employer] current occupational exposures/hazards: No caffeine: Yes Have you lived/traveled outside [place] in past 30 days?: No Contact w/someone who lives/traveled outside US past 30 days?: No Exposure to someone with infectious disease in past 14 days?: No Do you have a fever (greater than 100.4 F or 38 C)?: No Have you tested positive for COVID-19?: No Exposed to someone with COVID-19 in past 14 days?: No Do you have a sore throat?: No Do you have a cough?: No Do you have any weakness?: No Do you have any diarrhea?: No Are you experiencing any unusual bleeding?: No Do you have any muscle aches/pain?: No Do you have any abdominal pain?: No Are you experiencing loss of taste or smell?: No Other Medical History Have you received the Flu Vaccine for this season: No Have you received the Pneumonia Vaccine: No <Maria Elena Pearson APRN - Last Filed: 11/28/24 22:05> ROS Obtained: Yes All systems reviewed & no additional complaints except as documented <Aure Stubbs DO - Last Filed: 11/29/24 00:14> ROS Obtained: Yes All systems reviewed & no additional complaints except as documented and Yes Systems reviewed as appropriate & no additional complaints except as documented Physical Exam <Maria Elena Pearson APRN - Last Filed: 11/28/24 22:05> General General appearance: alert and in no apparent distress Head Head exam: atraumatic, normocephalic and normal inspection Eye Eye exam: Present normal appearance, PERRL and EOMI ENT ENT exam: Present normal exam, normal oropharynx, mucous membranes moist, TM's normal bilaterally and normal external ear exam Neck Neck exam: Present normal inspection, full ROM and trachea midline; Absent meningismus or lymphadenopathy Chest Chest inspection: Present normal inspection and symmetric chest wall rise; Absent tenderness Respiratory Respiratory exam: Present normal lung sounds bilaterally; Absent respiratory distress Cardiovascular Cardiovascular exam: Present regular rate and normal rhythm; Absent JVD Abdominal Exam Abdominal exam: Present soft and normal bowel sounds; Absent distention, tenderness or guarding Extremities Exam Extremities exam: Present other (Right knee with edema, erythema, very tender to palpation, no purulent drainage,) Back Exam Back exam: Present normal inspection; Absent tenderness Neurological Exam Neurological exam: Present alert and oriented X3 Psychiatric Psychiatric exam: Present normal affect and normal mood Skin Skin exam: Present warm, dry, intact and normal color Lymphatic Lymphatic Findings: no adenopathy <Aure Stubbs, DO - Last Filed: 11/29/24 00:14> Extremities Exam Extremities exam: Present other (Right knee with edema, erythema, very tender to palpation, no purulent drainage, decreased ROM with active and passive ROM) Medical Decision Making <Maria Elena Pearson APRN - Last Filed: 11/28/24 22:05> Medical Records Screening: Per USPSTF and CDC recommendations, given the prevalence of disease in our region, it is our hospital?s policy to screen for HIV and viral Hepatitis for all patients aged 18 and over and those with ongoing risk factors. Vital Signs: 11/28/24 19:30 11/28/24 20:00 11/28/24 20:30 Temperature 98.8 F Temperature Source Oral Pulse Rate 88 83 Respiratory Rate 17 Blood Pressure 141/89 H 133/88 02 Sat by Pulse Oximetry 96 97 97 11/28/24 21:00 11/28/24 21:30 11/28/24 22:00 Temperature Temperature Source Pulse Rate 85 76 81 Respiratory Rate Blood Pressure 140/83 119/87 140/102 H 02 Sat by Pulse Oximetry 99 97 99 11/28/24 22:45 11/28/24 23:01 11/28/24 23:30 Temperature Temperature Source Pulse Rate 76 86 98 H Respiratory Rate Blood Pressure 128/94 H 154/106 H 156/99 H 02 Sat by Pulse Oximetry 98 96 98 11/29/24 00:00 11/29/24 00:30 11/29/24 01:00 Temperature Temperature Source Pulse Rate 94 H 95 H 86 Respiratory Rate Blood Pressure 155/94 H 133/87 134/94 H 02 Sat by Pulse Oximetry 98 97 97 Lab Data Lab Results 11/28/24 19:53: WBC 6.3, RBC 5.13, Hgb 14.4, Hct 42.3, MCV 82.5, MCH 28.1, MCHC 34.0, RDW 13.5, Plt Count 296, MPV 11.5 H, Neut % (Auto) 55.2, Lymph % (Auto) 33.0, Mifflin % (Auto) 7.4, Eos % (Auto) 3.6, Baso % (Auto) 0.6, Neut # (Auto) 3.5, Lymph # (Auto) 2.1, Mifflin # (Auto) 0.5, Eos # (Auto) 0.2, Baso # (Auto) 0.0, ESR 19, Sodium 137, Potassium 3.6, Chloride 99, Carbon Dioxide 30, Anion Gap 11.6, BUN 3 L, Creatinine 0.90, Estimated Creat Clear 119, Estimated GFR 71, Est GFR ( Amer) 86, Glucose 83, Calcium 9.3, Total Bilirubin 0.6, AST 44 H, ALT 29, Alkaline Phosphatase 58, Total Protein 8.6 H, Albumin 4.6, Globulin 4.0 H, Albumin/Globulin Ratio 1.2 11/28/24 19:53 11/28/24 19:53 Orders (Tests/Meds): ED MEDICATIONS Generic Name Dose Route Start Last Admin Trade Name Freq PRN Reason Stop Dose Admin Nicotine 21 mg 11/28/24 23:45 11/28/24 23:39 Nicotine 21mg/24hr Patch TD 12/28/24 23:44 21 mg DAILY ERIKA Administration Sodium Chloride 10 ml 11/28/24 20:58 11/28/24 21:02 Sodium Chloride 0.9% 10ml Syr (Rad Only) IV 12/28/24 20:57 10 ml NEEDED PRN Administration Maintain IV Site Discontinued Medications Generic Name Dose Route Start Last Admin Trade Name Freq PRN Reason Stop Dose Admin Iopamidol 100 ml 11/28/24 20:58 11/28/24 21:02 Iopamidol-370 (76%);100ml Bottle IV 11/28/24 20:59 100 ml ONCE ONE Administration Morphine Sulfate 2 mg 11/28/24 19:46 11/28/24 19:58 Morphine 2mg/Ml Syringe IV 11/28/24 19:47 2 mg ONCE ONE Administration Morphine Sulfate 4 mg 11/29/24 01:36 Morphine 4mg/Ml Syringe IV 11/29/24 01:37 ONCE ONE Ondansetron HCl 4 mg 11/28/24 19:48 11/28/24 19:58 Ondansetron 4mg/2ml Vial IV 11/28/24 19:49 4 mg ONCE ONE Administration Sodium Chloride 40 ml 11/28/24 20:58 11/28/24 21:02 0.9 % Sodium Chloride 50 Ml Vial IV 11/28/24 20:59 40 ml ONCE ONE Administration ORDERS Category Date Time Status CT knee RT w con Stat Cat Scan 11/28/24 19:46 Completed POCUS Point of Care (ER Only) Stat Exams 11/28/24 20:23 Completed CBC w/Auto Diff [Complete Blood Count Auto Diff] Stat Lab 11/28/24 19:53 Completed CMP [Comprehensive Metabolic Panel] Stat Lab 11/28/24 19:53 Completed ESR [Erythrocyte Sedimentation Rate] Stat Lab 11/28/24 19:53 Completed Medical Decision Narrative: In summary patient is an 34-year-old female who presents emergency department for evaluation of right knee pain, swelling, redness. Symptoms abruptly started yesterday, acutely worsened today. Denies any fever. No purulent drainage. Patient is hemodynamically stable upon arrival, afebrile. Unremarkable nonfocal physical exam except for erythema, edema, noted to the right knee. Differential diagnosis includes joint effusion, cellulitis, abscess of the knee. Initial workup will be conducted with hematologic labs, CT of the right lower extremity with contrast, pain management with morphine. Initial interventions include pain medications. Initial workup reviewed by me hematologic labs unremarkable for any signs or symptoms of infection. Unfortunately, the machine that runs CRP is down until tomorrow. CT of the right knee was ordered, pending final read. Have turned care over to my attending ER physician who will follow-up on the CT. Plan is to discharge patient home on oral antibiotics as long as the CT is negative for any severe acute findings. Upon repeat evaluation [patient had acceptable resolution of symptoms, had persistent pain for which additional events were conducted (describe interventions), tolerated p.o., was ambulatory, etc.]. Given this [patient is appropriate for discharge at this time will be discharged with a prescription for? The case was discussed with hospital medicine regarding management they will meet the patient in the service for continued evaluation at this time? Etc.] <Aure Stubbs, DO - Last Filed: 11/29/24 00:14> Medical Records Medical records reviewed: Yes I reviewed the patient's medical records. Donta Inquiry Pt receiving controlled substance: No Vital Signs: 11/28/24 19:30 11/28/24 20:00 11/28/24 20:30 Temperature 98.8 F Temperature Source Oral Pulse Rate 88 83 Respiratory Rate 17 Blood Pressure 141/89 H 133/88 02 Sat by Pulse Oximetry 96 97 97 11/28/24 21:00 11/28/24 21:30 11/28/24 22:00 Temperature Temperature Source Pulse Rate 85 76 81 Respiratory Rate Blood Pressure 140/83 119/87 140/102 H 02 Sat by Pulse Oximetry 99 97 99 11/28/24 22:45 11/28/24 23:01 11/28/24 23:30 Temperature Temperature Source Pulse Rate 76 86 98 H Respiratory Rate Blood Pressure 128/94 H 154/106 H 156/99 H 02 Sat by Pulse Oximetry 98 96 98 11/29/24 00:00 11/29/24 00:30 11/29/24 01:00 Temperature Temperature Source Pulse Rate 94 H 95 H 86 Respiratory Rate Blood Pressure 155/94 H 133/87 134/94 H 02 Sat by Pulse Oximetry 98 97 97 Lab Data Lab results reviewed: Yes I reviewed the patient's lab results. Lab Results 11/28/24 19:53: WBC 6.3, RBC 5.13, Hgb 14.4, Hct 42.3, MCV 82.5, MCH 28.1, MCHC 34.0, RDW 13.5, Plt Count 296, MPV 11.5 H, Neut % (Auto) 55.2, Lymph % (Auto) 33.0, Mifflin % (Auto) 7.4, Eos % (Auto) 3.6, Baso % (Auto) 0.6, Neut # (Auto) 3.5, Lymph # (Auto) 2.1, Mifflin # (Auto) 0.5, Eos # (Auto) 0.2, Baso # (Auto) 0.0, ESR 19, Sodium 137, Potassium 3.6, Chloride 99, Carbon Dioxide 30, Anion Gap 11.6, BUN 3 L, Creatinine 0.90, Estimated Creat Clear 119, Estimated GFR 71, Est GFR ( Amer) 86, Glucose 83, Calcium 9.3, Total Bilirubin 0.6, AST 44 H, ALT 29, Alkaline Phosphatase 58, Total Protein 8.6 H, Albumin 4.6, Globulin 4.0 H, Albumin/Globulin Ratio 1.2 Orders (Tests/Meds): ED MEDICATIONS Generic Name Dose Route Start Last Admin Trade Name Freq PRN Reason Stop Dose Admin Nicotine 21 mg 11/28/24 23:45 11/28/24 23:39 Nicotine 21mg/24hr Patch TD 12/28/24 23:44 21 mg DAILY ERIKA Administration Sodium Chloride 10 ml 11/28/24 20:58 11/28/24 21:02 Sodium Chloride 0.9% 10ml Syr (Rad Only) IV 12/28/24 20:57 10 ml NEEDED PRN Administration Maintain IV Site Discontinued Medications Generic Name Dose Route Start Last Admin Trade Name Freq PRN Reason Stop Dose Admin Iopamidol 100 ml 11/28/24 20:58 11/28/24 21:02 Iopamidol-370 (76%);100ml Bottle IV 11/28/24 20:59 100 ml ONCE ONE Administration Morphine Sulfate 2 mg 11/28/24 19:46 11/28/24 19:58 Morphine 2mg/Ml Syringe IV 11/28/24 19:47 2 mg ONCE ONE Administration Morphine Sulfate 4 mg 11/29/24 01:36 Morphine 4mg/Ml Syringe IV 11/29/24 01:37 ONCE ONE Ondansetron HCl 4 mg 11/28/24 19:48 11/28/24 19:58 Ondansetron 4mg/2ml Vial IV 11/28/24 19:49 4 mg ONCE ONE Administration Sodium Chloride 40 ml 11/28/24 20:58 11/28/24 21:02 0.9 % Sodium Chloride 50 Ml Vial IV 11/28/24 20:59 40 ml ONCE ONE Administration ORDERS Category Date Time Status CT knee RT w con Stat Cat Scan 11/28/24 19:46 Completed POCUS Point of Care (ER Only) Stat Exams 11/28/24 20:23 Completed CBC w/Auto Diff [Complete Blood Count Auto Diff] Stat Lab 11/28/24 19:53 Completed CMP [Comprehensive Metabolic Panel] Stat Lab 11/28/24 19:53 Completed ESR [Erythrocyte Sedimentation Rate] Stat Lab 11/28/24 19:53 Completed Medical Decision Narrative: In summary patient is an 34-year-old female who presents emergency department for evaluation of right knee pain, swelling, redness. Symptoms abruptly started yesterday, acutely worsened today. Denies any fever. No purulent drainage. Patient is hemodynamically stable upon arrival, afebrile. Unremarkable nonfocal physical exam except for erythema, edema, noted to the right knee. Differential diagnosis includes joint effusion, cellulitis, abscess of the knee. Initial workup will be conducted with hematologic labs, CT of the right lower extremity with contrast, pain management with morphine. Initial interventions include pain medications. Initial workup reviewed by me hematologic labs unremarkable for any signs or symptoms of infection. Unfortunately, the machine that runs CRP is down until tomorrow. CT of the right knee was ordered, pending final read. Have turned care over to my attending ER physician who will follow-up on the CT. Plan is to discharge patient home on oral antibiotics as long as the CT is negative for any severe acute findings. Aure Stubbs, DO I assumed care of the patient at 2200. Patient's labs were reviewed and interpreted by myself: CBC showed no leukocytosis, hemoglobin was stable. ESR 19. CMP unremarkable. Unable to obtain CRP. Bedside ultrasound was performed that did show small knee effusion. Patient's labs were reviewed and interpreted by myself: CT scan of the right knee showed a right knee effusion with some synovial enhancement. Unfortunately, we are unable to run synovial fluid until the morning I do not have orthopedics to manage a septic joint at this time therefore I did discuss with for transfer however they are on divert. Given patient's pain with passive and active range of motion with concern for possible septic joint I do feel that patient warrants transfer for arthrocentesis and orthopedic consult. Patient was handed off to the oncoming provider Dr. Stover pending transfer. <Clovis Stover MD - Last Filed: 11/29/24 01:48> Vital Signs: 11/28/24 19:30 11/28/24 20:00 11/28/24 20:30 Temperature 98.8 F Temperature Source Oral Pulse Rate 88 83 Respiratory Rate 17 Blood Pressure 141/89 H 133/88 02 Sat by Pulse Oximetry 96 97 97 11/28/24 21:00 11/28/24 21:30 11/28/24 22:00 Temperature Temperature Source Pulse Rate 85 76 81 Respiratory Rate Blood Pressure 140/83 119/87 140/102 H 02 Sat by Pulse Oximetry 99 97 99 11/28/24 22:45 11/28/24 23:01 11/28/24 23:30 Temperature Temperature Source Pulse Rate 76 86 98 H Respiratory Rate Blood Pressure 128/94 H 154/106 H 156/99 H 02 Sat by Pulse Oximetry 98 96 98 11/29/24 00:00 11/29/24 00:30 11/29/24 01:00 Temperature Temperature Source Pulse Rate 94 H 95 H 86 Respiratory Rate Blood Pressure 155/94 H 133/87 134/94 H 02 Sat by Pulse Oximetry 98 97 97 Lab Data Lab Results 11/28/24 19:53: WBC 6.3, RBC 5.13, Hgb 14.4, Hct 42.3, MCV 82.5, MCH 28.1, MCHC 34.0, RDW 13.5, Plt Count 296, MPV 11.5 H, Neut % (Auto) 55.2, Lymph % (Auto) 33.0, Mifflin % (Auto) 7.4, Eos % (Auto) 3.6, Baso % (Auto) 0.6, Neut # (Auto) 3.5, Lymph # (Auto) 2.1, Mifflin # (Auto) 0.5, Eos # (Auto) 0.2, Baso # (Auto) 0.0, ESR 19, Sodium 137, Potassium 3.6, Chloride 99, Carbon Dioxide 30, Anion Gap 11.6, BUN 3 L, Creatinine 0.90, Estimated Creat Clear 119, Estimated GFR 71, Est GFR ( Amer) 86, Glucose 83, Calcium 9.3, Total Bilirubin 0.6, AST 44 H, ALT 29, Alkaline Phosphatase 58, Total Protein 8.6 H, Albumin 4.6, Globulin 4.0 H, Albumin/Globulin Ratio 1.2 Orders (Tests/Meds): ED MEDICATIONS Generic Name Dose Route Start Last Admin Trade Name Freq PRN Reason Stop Dose Admin Nicotine 21 mg 11/28/24 23:45 11/28/24 23:39 Nicotine 21mg/24hr Patch TD 12/28/24 23:44 21 mg DAILY ERIKA Administration Sodium Chloride 10 ml 11/28/24 20:58 11/28/24 21:02 Sodium Chloride 0.9% 10ml Syr (Rad Only) IV 12/28/24 20:57 10 ml NEEDED PRN Administration Maintain IV Site Discontinued Medications Generic Name Dose Route Start Last Admin Trade Name Carli PRN Reason Stop Dose Admin Iopamidol 100 ml 11/28/24 20:58 11/28/24 21:02 Iopamidol-370 (76%);100ml Bottle IV 11/28/24 20:59 100 ml ONCE ONE Administration Morphine Sulfate 2 mg 11/28/24 19:46 11/28/24 19:58 Morphine 2mg/Ml Syringe IV 11/28/24 19:47 2 mg ONCE ONE Administration Morphine Sulfate 4 mg 11/29/24 01:36 Morphine 4mg/Ml Syringe IV 11/29/24 01:37 ONCE ONE Ondansetron HCl 4 mg 11/28/24 19:48 11/28/24 19:58 Ondansetron 4mg/2ml Vial IV 11/28/24 19:49 4 mg ONCE ONE Administration Sodium Chloride 40 ml 11/28/24 20:58 11/28/24 21:02 0.9 % Sodium Chloride 50 Ml Vial IV 11/28/24 20:59 40 ml ONCE ONE Administration ORDERS Category Date Time Status CT knee RT w con Stat Cat Scan 11/28/24 19:46 Completed POCUS Point of Care (ER Only) Stat Exams 11/28/24 20:23 Completed CBC w/Auto Diff [Complete Blood Count Auto Diff] Stat Lab 11/28/24 19:53 Completed CMP [Comprehensive Metabolic Panel] Stat Lab 11/28/24 19:53 Completed ESR [Erythrocyte Sedimentation Rate] Stat Lab 11/28/24 19:53 Completed Medical Decision Narrative: In summary patient is an 34-year-old female who presents emergency department for evaluation of right knee pain, swelling, redness. Symptoms abruptly started yesterday, acutely worsened today. Denies any fever. No purulent drainage. Patient is hemodynamically stable upon arrival, afebrile. Unremarkable nonfocal physical exam except for erythema, edema, noted to the right knee. Differential diagnosis includes joint effusion, cellulitis, abscess of the knee. Initial workup will be conducted with hematologic labs, CT of the right lower extremity with contrast, pain management with morphine. Initial interventions include pain medications. Initial workup reviewed by me hematologic labs unremarkable for any signs or symptoms of infection. Unfortunately, the machine that runs CRP is down until tomorrow. CT of the right knee was ordered, pending final read. Have turned care over to my attending ER physician who will follow-up on the CT. Plan is to discharge patient home on oral antibiotics as long as the CT is negative for any severe acute findings. Aure Stubbs, DO I assumed care of the patient at 2200. Patient's labs were reviewed and interpreted by myself: CBC showed no leukocytosis, hemoglobin was stable. ESR 19. CMP unremarkable. Unable to obtain CRP. Bedside ultrasound was performed that did show small knee effusion. Patient's labs were reviewed and interpreted by myself: CT scan of the right knee showed a right knee effusion with some synovial enhancement. Unfortunately, we are unable to run synovial fluid until the morning I do not have orthopedics to manage a septic joint at this time therefore I did discuss with for transfer however they are on divert. Given patient's pain with passive and active range of motion with concern for possible septic joint I do feel that patient warrants transfer for arthrocentesis and orthopedic consult. Patient was handed off to the oncoming provider Dr. Stover pending transfer. Stover: I assumed care of this patient from Dr. Stubbs and agree with her assessment and plan. Patient is currently resting comfortably with no systemic signs of infection but I do agree that I have high concern for septic joint on the right though other differentials include cellulitis, traumatic effusion, gout. With history of IV drug use and acute onset of symptoms I have increased concern for truly septic joint but as documented above am unable to perform synovial fluid analysis at this time and do not have Ortho on-call. Dr. Stubbs had attempted to reach Dr. Levi by phone but was unsuccessful so we are working on finding an accepting facility. We called [facility] and they do not have any bed availability. We called [facility] and they recommended outpatient follow-up which I do not believe is appropriate for this patient given her clinical situation and she also does not have any personal transportation so she has no way to get to the Ortho office tomorrow outpatient. This is not a reasonable option for her. We reached out to [facility] who does not have any Ortho beds available. We also were going to reach out to [facility] but patient is concerned that she is on probation and not supposed to leave the state. She did notify her p.o. that she may have to leave the [facility] for medical emergency but I am reaching out to [facility]. After long discussion with [facility] and on-call orthopedist Dr. Saha, he would like this patient to be transferred ER to ER to [facility] if possible so that synovial analysis can be completed there and then if he needs to be consulted they can do so through the ER but he would prefer her to not be a direct admission. I believe this is reasonable if [facility] is willing to accept the patient as an ER to ER transfer. Transfer center reached out to their ER physician Dr. Alcantara and I spoke with him by phone reviewing this patient's current situation, presentation, and my inability to perform arthrocentesis and synovial fluid analysis at this time as well as lack of orthopedic coverage at this time. He graciously accepted this patient for ER to ER transfer to [facility]. I updated the patient about this and she is very grateful. She is having increasing pain in the knee again so morphine is being administered. Patient was reassessed immediately prior to transfer and remained hemodynamically stable, GCS 15, pain is better controlled since receiving morphine. She is protecting her airway, saturating well on room air and appropriate for BLS transfer at this time. She was transferred in stable condition. Critical Care <Aure Stubbs, DO - Last Filed: 11/29/24 00:14> Critical Care Time Critical Care Time: No
[2024-11-28] MEDS: ONDANSETRON 4MG/2ML VIAL 4 MG IV (19:58)
[2024-11-28] MEDS: MORPHINE 2MG/ML SYRINGE 2 MG IV (19:58)
[2024-11-28 20:10] LABS: Hematocrit 42.3 % (37.0-47.0); Hemoglobin 14.4 g/dL (12.2-16.2); Immature Granulocytes % 0.2 %; Mean Corpuscular HGB Conc 34.0 g/dL (31.8-35.4); Mean Corpuscular Hemoglobin 28.1 pg (27.0-31.2); Mean Corpuscular Volume 82.5 fl (81-99); Nucleated Red Blood Cells % 0 %; Platelet Count 296 K/mm3 (142-424); Red Blood Count 5.13 M/mm3 (4.20-5.40); Red Cell Distribution Width-SD 40.6 fL; White Blood Count 6.3 K/mm3 (4.8-10.8)
[2024-11-28 20:16] LABS: Chloride 99 mmol/L (98-107)
[2024-11-28 20:17] LABS: Albumin Level 4.6 g/dl (3.5-5.0); Potassium 3.6 mmoL/L (3.5-5.1); Sodium 137 mmol/L (136-145)
[2024-11-28 20:19] LABS: Blood Urea Nitrogen 3 mg/dl (7-17); Creatinine Clearance Estimated 119 mL/min (50-200); Creatinine,Serum 0.90 mg/dl (0.52-1.04); Estimated Glomerular Filt Rate 71 ml/min (>60); GFR (African American) 86 ML/MIN (>60)
[2024-11-28 20:20] LABS: Alanine Aminotransferase 29 U/L (12-78); Albumin/Globulin Ratio 1.2 (1.1-1.8); Alkaline Phosphatase 58 U/L (38-126); Anion Gap 11.6 mEq/L (5-15); Aspartate Amino Transferase 44 U/L (14-36); Bilirubin,Total 0.6 mg/dl (0.2-1.3); Calcium 9.3 mg/dl (8.4-10.2); Carbon Dioxide 30 mmol/L (22.0-30.0); Globulin 4.0 g/dL (1.3-3.2); Glucose 83 mg/dl (74-100); Total Protein,Serum 8.6 g/dl (6.3-8.2)
[2024-11-28] MEDS: IOPAMIDOL-370 (76%);100ML BOTTLE 100 ML IV (21:02)
[2024-11-28] MEDS: SODIUM CHLORIDE 0.9% 10ML SYR (RAD ONLY) 10 ML IV (21:02)
[2024-11-28] MEDS: 0.9 % SODIUM CHLORIDE 50 ML VIAL 40 ML IV (21:02)
[2024-11-28] MEDS: NICOTINE 21MG/24HR PATCH 21 MG TD (23:39)
[2024-11-29] VITALS (12 sets, daily range): BP systolic 113–155; BP diastolic 72–94; PULSE 75–97; RESP 16; TEMP 36.8; O2SAT 91–98
--- NOTE | 2024-11-29 01:48 | PC.NURSE ---
Report called to Radha at [facility]
[2024-11-29] MEDS: MORPHINE 4MG/ML SYRINGE 4 MG IV (01:49)
== END 2024-11-29 05:26 | disposition short-term general hospital (02) ==
PROVIDERS: Nurse Practitioner Acute Care; Emergency Provider Student in an Organized Health Care Education/Training Program; PCP Family Medicine
DX: M25.561 Pain in right knee (principal); M25.461 Effusion, right knee; E11.9 Type 2 diabetes mellitus without complications; F17.210 Nicotine dependence, cigarettes, uncomplicated; W19.XXXA Unspecified fall, initial encounter
CPT/HCPCS: 73701; 80053; 85025; 85651; 96374; 96375; 96376; 99285; J2270; J2405; Q9967

== ENCOUNTER 2024-12-11 23:08 | Emergency (ER) | payer MEDICAID, SELFPAY ==
--- NOTE | 2024-12-11 23:21 | HMH.EDGENADL ---
Discharge Plan Disposition Patient Disposition: Home, Self-Care Prescriptions Prescriptions: New prednisone 50 mg tablet 50 mg PO DAILY 5 Days Qty: 5 0RF No Action doxycycline hyclate 100 mg capsule 100 mg PO BID 7 Days Qty: 14 0RF buprenorphine-naloxone [Suboxone] 8-2 mg film 2 film sublingual DAILY glimepiride 2 mg tablet 2 mg PO DAILY Qty: 90 3RF albuterol sulfate 90 mcg/actuation HFA aerosol inhaler 2 inh inhalation Q6HP PRN (Reason: Shortness Of Breath) 30 Days Qty: 1 5RF (DME) blood-glucose meter [Blood Glucose Monitoring] Kit See Rx Instructions .ROUTE .MEDSUPPLY Qty: 1 0RF Rx Instructions: Monitor BG TID (DME) Blood Glucose Test Strip See Rx Instructions .ROUTE .MEDSUPPLY Qty: 50 12RF Rx Instructions: Monitor BG TID mupirocin [Centany] 2 % ointment 1 applic topical TID Qty: 22 1RF Rx Instructions: apply to wound on thumb as directed ketorolac 10 mg tablet 10 mg PO Q6H PRN (Reason: pain) 4 Days Qty: 16 0RF (DME) Dexcom G7 Sensor Device See Rx Instructions .Route Qty: 3 12RF Rx Instructions: As directed semaglutide 0.25 mg or 0.5 mg(2 mg/1.5 mL) pen injector 0.5 mg SQ WEEKLY Qty: 1.5 2RF pregabalin [Lyrica] 150 mg capsule 150 mg PO BID Qty: 60 3RF ondansetron 8 mg tablet,disintegrating 8 mg PO TID PRN (Reason: nausea and vomiting) Qty: 90 3RF (DME) lancets [Droplet Lancets] 30 gauge misc See Rx Instructions .ROUTE .MEDSUPPLY Qty: 100 2RF Rx Instructions: Monitor BG TID (DME) Dexcom G7 Filter Press Pumper Misc See Rx Instructions .Route Qty: 1 0RF Rx Instructions: As directed Ozempic 0.25 mg or 0.5 mg (2 mg/3 mL) pen injector 0.25 mg SQ WEEKLY Qty: 3 0RF Rx Instructions: for 4 weeks dapagliflozin propanediol [Farxiga] 10 mg tablet 10 mg PO DAILY Qty: 90 3RF cyclobenzaprine 10 mg tablet 10 mg PO BID PRN (Reason: muscle spasm) Qty: 60 0RF valacyclovir 1 gram tablet 1,000 mg PO TID 7 Days Qty: 21 0RF Referrals Follow up/Referrals: Be Putnam MD [Primary Care Provider, Family Practice] - See instructions Activity Restrictions/Add. Instructions Additional Instructions/Restrictions: Please follow-up with your primary care provider. Please return to the emergency department if you develop any new or worsening symptoms or become concerned for your health. Please take steroids as prescribed for treatment of asthma exacerbation. Clinical Impressions Clinical Impression: COVID-19 Asthma exacerbation Qualifiers: Asthma severity: mild Stand Alone Forms Stand Alone Forms: Work/School Release Print Language Print Language: Romansh Discharge ED Provider: Marco Navarrete General Adult HPI General Chief complaint: Upper Respiratory Infection Stated complaint: cough, congetsion, sore throat, runny nose, aches Time Seen by Provider: 12/11/24 23:20 History of Present Illness HPI narrative: 34 history diabetes and asthma presents for cough fever shortness of breath. She reports that she has been exposed to COVID and wants to get checked out. She reports her throat has been sore and she feels a little bit more short of breath than normal. Denies significant cough. Related Data Home Medications ?Medication ?Instructions ?Recorded ?Confirmed buprenorphine 8 mg-naloxone 2 mg 2 film sublingual DAILY addiction 10/30/22 10/22/24 sublingual film (Suboxone) Held on 01/02/23. Instructions: Resume on 01/06/23. hold while on post-op pain meds Previous Rx's ?Medication ?Instructions ?Recorded albuterol sulfate 90 mcg/actuation 2 inh inhalation Q6HP PRN 07/23/24 aerosol inhaler Shortness Of Breath 30 days #1 ea blood sugar diagnostic (Blood #50 ea 07/23/24 Glucose Test strips) blood-glucose meter (Blood Glucose #1 ea 07/23/24 Monitoring kit) glimepiride 2 mg tablet 2 mg PO DAILY #90 tabs 07/23/24 pregabalin 150 mg capsule (Lyrica) 150 mg PO BID #60 caps 09/08/24 doxycycline hyclate 100 mg capsule 100 mg PO BID 7 days #14 caps 09/20/24 ondansetron 8 mg disintegrating 8 mg PO TID PRN nausea and 09/20/24 tablet vomiting #90 tabs valacyclovir 1 gram tablet 1,000 mg PO TID varicella 7 days 10/03/24 #21 tabs blood-glucose sensor (Dexcom G7 #3 ea 10/06/24 Sensor device) ketorolac 10 mg tablet 10 mg PO Q6H PRN pain 4 days #16 10/06/24 tabs lancets 30 gauge (Droplet Lancets) #100 ea 10/06/24 mupirocin 2 % topical ointment 1 applic topical TID #22 grams 10/06/24 (Centany) blood-glucose,cap and stud machine operator,cont #1 ea 10/12/24 (Dexcom G7 Filter Press Pumper) semaglutide 0.25 mg or 0.5 mg (2 0.25 mg (0.368 mL) SQ WEEKLY #3 mL 10/21/24 mg/3 mL) subcutaneous pen injector (Ozempic) Farxiga 10 mg tablet 10 mg PO DAILY #90 tabs 10/22/24 (dapagliflozin propanediol) cyclobenzaprine 10 mg tablet 10 mg PO BID PRN muscle spasm #60 11/17/24 tabs semaglutide 0.25 mg or 0.5 mg (2 0.5 mg (0.374 mL) SQ WEEKLY #1.5 mL 12/06/24 mg/1.5 mL) subcutaneous pen injector prednisone 50 mg tablet 50 mg PO DAILY 5 days #5 tabs 12/12/24 Allergies Allergy/AdvReac Type Severity Reaction Status Date / Time Penicillins (PENICILLINS) Allergy Severe THROAT Verified 10/22/24 13:34 SWELLING, HIVES, VOMITTING amoxicillin (From AUGMENTIN) Allergy Intermediate I-HIVES Verified 10/22/24 13:34 clavulanic acid (From Allergy Intermediate I-HIVES Verified 10/22/24 13:34 AUGMENTIN) diphenhydramine (From Allergy Intermediate I-HIVES Verified 10/22/24 13:34 BENADRYL) ibuprofen (IBUPROFEN) Allergy Intermediate I-HIVES Verified 10/22/24 13:34 metoclopramide (From REGLAN) Allergy Intermediate I-HIVES Verified 10/22/24 13:34 Sulfa (Sulfonamide Allergy Intermediate I-HIVES Verified 10/22/24 13:34 Antibiotics) (SULFA (SULFONAMIDE ANTIBIOTICS)) tetanus toxoid, adsorbed Allergy Intermediate I-RASH Verified 10/22/24 13:34 (TETANUS TOXOID, ADSORBED) naproxen (NAPROXEN) Allergy Unknown Hives, Verified 10/22/24 13:34 Vomiting paroxetine (From PAXIL) Allergy Unknown numbness Verified 10/22/24 13:34 tongue atomoxetine (From Strattera) AdvReac Mild NA-HALLUCIN Verified 10/22/24 13:34 [facility] Disclaimer: The information contained in this section may have been updated after the patient was seen, as this information can be updated by other users. Medical History Cellulitis of thumb, left Problem of extremity Strep throat Acute viral syndrome Fall Muscle spasm Fall Pityriasis rosea Recurrent pain of right knee Contact dermatitis Contact dermatitis Bilateral shoulder pain Dysmenorrhea Depression Anxiety Scoliosis Hearing loss in right ear History of COVID-19 Asthma Migraine Eczema Hemorrhoid Allergies Uterine fibroid Nausea Abdominal pain Abnormal uterine bleeding Left ankle sprain Nausea & vomiting History of deviated nasal septum Costochondral separation Ganglion cyst Surgical History Status post laparoscopic hysterectomy Bilateral salpingectomy, right oophorectomy - 01/17/22 History of surgery DENTAL EXTRACTION History of surgery RIGHT SHOULDER SX History of surgery HEMORRHOID SX History of tonsillectomy and adenoidectomy History of cholecystectomy Family History Other Alcoholism Asthma Cancer Diabetes Heart attack Hyperlipidemia Hypertension Social History (Updated 10/22/24 @ 13:35 by Clare Mansfield MA) Smoking Status: Current every day smoker tobacco type: cigarettes packs per day: 1 years smoked: 16 second hand exposure: Yes alcohol intake: former counseling provided: none substance use type: denies use current occupational status: disabled Travel in the last 8 weeks?: None household members: family and children housing: house current occupation: [employer] current occupational exposures/hazards: No caffeine: Yes Have you lived/traveled outside US in past 30 days?: No Contact w/someone who lives/traveled outside US past 30 days?: No Exposure to someone with infectious disease in past 14 days?: No Do you have a fever (greater than 100.4 F or 38 C)?: No Have you tested positive for COVID-19?: No Exposed to someone with COVID-19 in past 14 days?: Yes Do you have a sore throat?: Yes Do you have a cough?: Yes Do you have any weakness?: No Do you have any diarrhea?: No Are you experiencing any unusual bleeding?: No Do you have any muscle aches/pain?: Yes Do you have any abdominal pain?: No Are you experiencing loss of taste or smell?: No Other Medical History Have you received the Flu Vaccine for this season: No Have you received the Pneumonia Vaccine: No ROS Obtained: Yes All systems reviewed & no additional complaints except as documented Physical Exam General General appearance: alert and in no apparent distress Head Head exam: atraumatic and normocephalic Eye Eye exam: Present normal appearance, PERRL and EOMI ENT ENT exam: Present normal oropharynx and normal external ear exam Neck Neck exam: Present normal inspection and full ROM Chest Chest inspection: Present normal inspection and symmetric chest wall rise; Absent tenderness Respiratory Respiratory exam: Present wheezes (Mild diffuse wheezes); Absent respiratory distress Cardiovascular Cardiovascular exam: Present regular rate and normal rhythm Abdominal Exam Abdominal exam: Present soft; Absent distention, tenderness or guarding Extremities Exam Extremities exam: Present normal inspection; Absent edema or joint swelling Back Exam Back exam: Present normal inspection; Absent tenderness Neurological Exam Neurological exam: Present alert and oriented X3; Absent motor sensory deficit Psychiatric Psychiatric exam: Present normal affect and normal mood Skin Skin exam: Present warm, dry and normal color Lymphatic Lymphatic Findings: no adenopathy Medical Decision Making Medical Records Medical records reviewed: Yes I reviewed the patient's medical records. Screening: Per USPSTF and CDC recommendations, given the prevalence of disease in our region, it is our hospital?s policy to screen for HIV and viral Hepatitis for all patients aged 18 and over and those with ongoing risk factors. Donta Inquiry Pt receiving controlled substance: No Donta was queried for this patient: No Vital Signs: 12/11/24 23:32 12/12/24 00:25 12/12/24 00:31 Temperature 98.3 F Temperature Source Oral Pulse Rate 75 80 Pulse Rate [Radial] 89 Respiratory Rate 18 Blood Pressure 124/84 105/74 L Blood Pressure [Right Arm] 112/71 Blood Pressure Mean [Right Arm] 84 Blood Pressure Position Blood Pressure Position [Right Arm] Sitting 02 Sat by Pulse Oximetry 97 97 97 Oxygen Delivery Method Room Air 10/05/25 01:02 Temperature 98.9 F Temperature Source Oral Pulse Rate 74 Pulse Rate [Radial] Respiratory Rate 16 Blood Pressure 105/74 L Blood Pressure [Right Arm] Blood Pressure Mean [Right Arm] Blood Pressure Position Sitting Blood Pressure Position [Right Arm] 02 Sat by Pulse Oximetry Oxygen Delivery Method Room Air Lab Data Lab results reviewed: Yes I reviewed the patient's lab results. Lab Results 12/11/24 23:38: SARS-CoV-2 (PCR) Detected A, Influenza A Untype (PCR) Not detected, Influenza Type B (PCR) Not detected Orders (Tests/Meds): ED MEDICATIONS Discontinued Medications Generic Name Dose Route Start Last Admin Trade Name Freq PRN Reason Stop Dose Admin Prednisone 40 mg 12/11/24 23:28 12/11/24 23:43 Prednisone 20mg Tab PO 12/11/24 23:29 40 mg ONCE ONE Administration ORDERS Category Date Time Status CXR 2 view (NOT portable) [XR chest 2V] Stat Exams 12/11/24 23:28 Completed Rapid PCR Covid and Flu A/B Stat Lab 12/11/24 23:38 Completed Medical Decision Narrative: 34-year-old female with history of asthma and diabetes presents for viral symptoms with recent COVID exposure. History was obtained via interactive discussion with patient, chart review. On arrival, patient is [afebrile, hemodynamically stable, satting appropriately, alert, oriented x4, GCS 15], moving all extremities spontaneously. Full physical exam performed and significant for mild wheezing bilaterally without prolonged expiratory phase or respiratory distress. Clear oropharynx. Differential includes but is not limited to viral/bacterial pneumonia, asthma exacerbation. Patient was given p.o. prednisone. I offered her a breathing treatment but she says she has a inhaler at home and she does not feel that bad right now. Workup initiated including two-view chest x-ray, COVID flu swab. On re-evaluation, patient [remains afebrile, HD stable.] Laboratory workup independently interpreted by me and significant for positive COVID swab. Imaging independently interpreted by me and significant for viral appearance, no obvious bacterial pneumonia.. See radiology read for full review of final results. Given patient history, exam and workup, patient's presentation most likely represents mild asthma exacerbation secondary to COVID. These findings were communicated to patient and she was discharged in stable condition with prescription for prednisone. Return precautions given.. Procedures Risk/Benefits of Procedure(s) Were Explained: Yes Critical Care Critical Care Time Critical Care Time: No
--- OUTSIDE RECORDS SUMMARY | 2024-12-11 23:27 | XMS_ITS | Clinical Summary ---
Author Organization [facility] Address [address] [place] [address] Care Team Providers Care Netbackup Admin Name Role Phone Andre Novoa MD Primary Care Provider + [phone] Allergies Active Allergy Reactions Criticality Noted Date [...] Active Active Problems No known active problems Encounters Date Type Department Care Team Description 11/28/2024 Orders Only External Location [address] [place] [address] Provider, External from Last 3 Months Family History Medical History Relation Name Comments [...] Sign Reading Time Taken Comments Blood Pressure 150/90 11/28/2024 11:56 PM EDT Pulse 80 11/28/2024 11:56 PM EDT Temperature 36.8 C (98.2 F) 02/13/2022 1:13 PM EST Respiratory Rate - - Oxygen Saturation - - Inhaled Oxygen Concentration - - Weight 73 kg (161 lb) 02/13/2022 1:13 PM EST Height 167.6 cm (5' 6 ) 02/13/2022 1:13 PM EST Body Mass Index 25.99 02/13/2022 1:13 PM EST Plan of Treatment Health Maintenance Due Date Last Done Comments [facility]-Depression Screening 1989 [facility]-HIV Screening 1989 [facility]-Hepatitis C Screening 1989 [facility]-/Child/Adol SDOH Screenings 1989 [facility]-DTaP,Tdap,and Td Vaccine s (2 - Tdap) 09/25/2002 09/24/2002 [facility]-Varicella Vaccines (1 of 2 - 13+ 2-dose series) 2002 [facility]- SDOH Screenings 11/06/2007 [facility]-Adult SDOH Screenings 11/06/2007 [facility]-Pap Smear 09/09/2016 09/09/2013 HPV Vaccines (1 - 3-dose SCD M series) 2016 [facility]-Cervical Cancer Screening 11/06/2019 [facility]-HPV/Cotest 11/06/2019 09/09/2013 [id number] Vaccine ( season) 2024 10/01/2020, 09/07/2020 [facility]-Influenza Vaccine (#1) [...] Procedure Name Priority Date/Time Associated Diagnosis Comments CT OUTSIDE IMAGES 11/28/2024 8:5 2 PM EDT CYTO DATA CONVERSION Routine 09/09/2013 12:00 AM EDT from Last 3 Months or Most Recently Relevant to Health Maintenance Results * CT OUTSIDE IMAGES (11/28/2024 8:52 PM EDT) Anatomical Region Laterality Modality Computed Tomogra phy 11/28/2024 8:52 PM EDT us External Provider IMG CT PROCEDURES Edited Resul t - Final * Cytology (09/09/2013 12:00 AM EDT) Specimen obtained by fine needle aspiration procedure (specimen) 09/09/2013 09/09/2013 3:18 PM EDT Narrative SUNQUEST - 09/09/2013 7:02 PM EDT [facility] MR #: [id number] [facility] [address] [place], [place] [address] 1990 (Age: 22) FW Collect Date: 09/09/2013 00:00 Receipt Date: 09/09/2013 15:18 Page 1 DEPARTMENT OF PATHOLOGY AND LABORATORY MEDICINE CYTOPATHOLOGY REPORT Email: [email or web address] [phone] ATTENDING MD/Practitioner: Mikhail Gold MD Service: [facility] Location: [facility] Reported: 09/09/2013 19:02 Collected: 09/09/2013 00:00 [...] LYMPHOID HYPERPLASIA - LYMPH NODE) F: A; 48732 ASP INTER, [address]118 FNA PATHO SNOMED CODES: A; [id number] A resident has participated in this service. A pathologist has performed and is responsible for the reported pathologic evaluation. us Historical Provider LAB PATHOLOGY ORDERABLES Fin al Result SUNQUEST from Last 3 Months or Most Recently Relevant to Health Maintenance Insurance [employer] Care Teams Netbackup Admin Relationship Specialty Start Date End Date Andre Novoa MD [address] [place] [id number] PCP - General 07/21/20
--- OUTSIDE RECORDS SUMMARY | 2024-12-11 23:27 | XMS_ITS | Clinical Summary ---
Author Organization [facility] Address [address] [place] [address] Phone [email or web address] Care Team Providers Care President And Ceo Name Role Phone Unavailable Primary Care Provider [...] on file Legal Sex Female 12:22 PM [employer] Gender Identity Not on file Sexual Orientation [...] on patient's age to complete this topic Pneumococcal Immunization Aged Out No longer eligible based on patient's age to complete this topic Polio Immunization Aged Out No longer eligible based on patient's age to complete this topic Varicella Immunization Aged Out No lo nger eligible based on patient's age to complete this topic
--- OUTSIDE RECORDS SUMMARY | 2024-12-11 23:27 | XMS_ITS | Encounter Summary ---
Author Organization [facility] Address [address] [place] [address] Care Team Providers Care Ship'S Pilot Name Role Phone Andre Novoa MD Primary Care Provider + [phone] Encounter Details Date Type Department Care Team ([facility] st Contact Info) Description 11/28/2024 Orders Only External Location [address] [place] [address] Provider, External Social History Tobacco Use Types Packs/Day Years Used Date Smoking Tobacco: Every Day Cigarettes Smokeless Tobacco: Never Alcohol Use Standard Drinks/Week Comments No 0 (1 standard drink = 0.6 oz pur e alcohol) Comments Unknown Sex and Gender Information Value Date Recorded Sex Assigned at Not on file Legal Sex Female 7:28 PM EDT Gender Identity Not on file Sexual Orientation Not on file documented as of this encounter Plan of Treatment Not on file documented as of this encounter Procedures Procedure Name Priority Date/Time Associated Diagnosis Comments CT OUTSIDE IMAGES 11/28/2024 8:52 PM EDT documented in this encounter Results * CT OUTSIDE IMAGES (11/28/2024 8:52 PM EDT) Anatomical Region Laterality Modality Computed Tomogra phy 11/28/2024 8:52 PM EDT us External Provider IMG CT PROCEDURES Edited Resul t - Final documented in this encounter Visit Diagnoses Not on filedocumented in this encounter Additional Health Concerns Assessment Noted Time A fall risk assessment has been complete d for the patient 02/13/2022 1:13 PM EST documented as of this encounter Care Teams Ship'S Pilot Relationship Specialty Start Date End Date Andre Novoa MD [address] [facility] [place] [id number] PCP - General 07/21/20 documented as of this encounter
--- NOTE | 2024-12-11 23:28 | XR_ITS ---
PROCEDURE INFORMATION: Exam: XR Chest Exam date and time: 12/12/2024 12:23 AM Age: 34 years old Clinical indication: Shortness of breath; Additional info: Viral symptoms, asthma, abnormal breath sounds TECHNIQUE: Imaging protocol: Radiologic exam of the chest. Views: 2 views. Total images: 2 COMPARISON: CR XR CHEST 2V 05/09/2024 11:11 PM FINDINGS: Lungs: Unremarkable. No consolidation. No pulmonary vascular congestion or edema. Pleural spaces: Unremarkable. No pleural effusion. No pneumothorax. Heart/Mediastinum: Unremarkable. No cardiomegaly. No mediastinal widening or hilar enlargement. Bones/joints: Mild thoracolumbar scoliosis. Stable chest wall structures. Mild degenerative changes of the thoracolumbar spine. Soft tissues: Breast attenuation artifact. IMPRESSION: No radiographically acute cardiopulmonary process.
[2024-12-11 23:32] VITALS: BP 112/71; PULSE 89; RESP 18; TEMP 36.8; O2SAT 97; BMI 30.7
[2024-12-11 23:48] LABS: Influenza A, PCR Not Detected (NotDetected); Influenza B, PCR Not Detected (NotDetected)
[2024-12-12 00:21] LABS: Coronavirus 19, PCR Detected (NotDetected)
[2024-12-12 00:25] VITALS: BP 124/84; PULSE 75; O2SAT 97
[2024-12-12 00:31] VITALS: BP 105/74; PULSE 80; O2SAT 97
[2024-12-12 01:02] VITALS: BP 105/74; PULSE 74; RESP 16; TEMP 37.2; O2SAT 100
== END 2024-12-12 01:03 | disposition home or self-care (01) ==
PROVIDERS: Emergency Provider Emergency Medicine; PCP Family Medicine
DX: U07.1 COVID-19 (principal); R06.02 Shortness of breath; F17.210 Nicotine dependence, cigarettes, uncomplicated
CPT/HCPCS: 71046; 87636; 99283

== ENCOUNTER 2024-12-14 10:29 | Observation (INO) | payer MEDICAID, SELFPAY ==
[2024-12-14 10:30] VITALS: BP 156/112; PULSE 137; RESP 18; TEMP 36.4; O2SAT 99; BMI 29.9
--- OUTSIDE RECORDS SUMMARY | 2024-12-14 10:33 | XMS_ITS | Clinical Summary ---
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
--- OUTSIDE RECORDS SUMMARY | 2024-12-14 10:33 | XMS_ITS | Encounter Summary ---
Author Organization Healthcare Address [address] [place] [address] Care Team Providers Care Ranch Rider Name Role Phone Andre Novoa MD Primary Care Provider + [phone] Encounter Details Date Type Department Care Team ([facility] st Contact Info) Description 11/28/2024 Orders Only External Location [address] [place] [address] Provider, External Social History Tobacco Use Types [...] documented as of this encounter Care Teams Ranch Rider Relationship Specialty Start Date End Date Andre Novoa MD [address] [facility] [place] [address] PCP - General 07/21/20 documented as of this encounter
--- OUTSIDE RECORDS SUMMARY | 2024-12-14 10:33 | XMS_ITS | Clinical Summary ---
Author Organization [facility] Address [address] [place] [address] Care Team Providers Care Filler Sifter Helper Name Role Phone Andre Novoa MD Primary Care Provider + [phone] Allergies Active Allergy Reactions Criticality Noted Date [...] Description 11/28/2024 Orders Only External Location [address] [place] [address] Provider, External from Last 3 [...] [facility]-Cervical Cancer Screening 11/06/2019 [facility]-HPV/Cotest 11/06/2019 09/09/2013 [id number] Vaccine ( season) 2024 10/01/2020, 09/07/2020 [facility]-Influenza [...] Narrative SUNQUEST - 09/09/2013 7:02 PM EDT [facility] MR #: [id number] [facility] [address] [place], [place] [address] 1990 (Age: 22) FW Collect Date: 09/09/2013 00:00 Receipt Date: 09/09/2013 15:18 Page 1 DEPARTMENT OF PATHOLOGY AND LABORATORY MEDICINE CYTOPATHOLOGY REPORT Email: [email or web address] [phone] ATTENDING MD/Practitioner: Mikhail Gold MD Service: [facility] Location: [facility] Reported: 09/09/2013 19:02 Collected: 09/09/2013 00:00 DIAGNOSIS [...] LYMPHOID HYPERPLASIA - LYMPH NODE) F: A; 00082 ASP INTER, 57550 FNA PATHO SNOMED CODES: A; [id number] A resident has participated in this service. A pathologist has performed and is responsible for the reported pathologic evaluation. us Historical Provider LAB PATHOLOGY ORDERABLES Fin al Result SUNQUEST from Last 3 Months or Most Recently Relevant to Health Maintenance Insurance [facility] MEDICAID Care Teams Filler Sifter Helper Relationship Specialty Start Date End Date Andre Novoa MD [address] [place] [id number] PCP - General 07/21/20
--- NOTE | 2024-12-14 10:34 | PC.NURSE ---
Per our CATRACHO Rivera we will hold off on EKG at this time.
--- NOTE | 2024-12-14 10:36 | XR_ITS ---
FINAL REPORT TECHNIQUE: Single view chest CLINICAL HISTORY: septic COMPARISON: 12/12/2024 FINDINGS: A single view of the chest was obtained. The heart and mediastinum are within normal limits. There are low lung volumes. The lungs are clear. There is no pneumothorax. IMPRESSION: No acute cardiopulmonary process. Reviewed, Interpreted and Dictated by Clara Dubose MD Transcribed by [place] New Authenticated and [facility]
--- NOTE | 2024-12-14 10:44 | ED_ITS ---
<Statement entered by Hang Nair DO - 12/15/24 16:53> I was consulted by the JOSE A, and we discussed the complexity of problems being addressed. I approved the treatment and management plan for this patient's care in the emergency department, thus performing a substantive portion of the medical decision making. This is a patient that came in with encephalopathy. On evaluation she was not participatory in any kind of exam. She is very angry and will only say goddamn and stop . I have asked on multiple occasions whether there is any chance that she could have used any illicit drugs or overdose on any medications at home and her family says no. On examination her pupils are quite large. Otherwise her vital signs are normal. With normal vital signs and only large pupils this does not fit with any particular toxidrome. We obtained CT scans that were negative as well as a and extensive laboratory workup that was negative. While the patient was in the emergency department she became physically aggressive with staff. We had to administer 5 mg of droperidol and 5 mg of Versed. Once we obtain control of her aggressive behavior with these medications we were able to perform a catheterized urine sample to test for a urine drug screen and urinalysis. Patient was ultimately admitted to the internal medicine service for further evaluation and management. I would like to note that while the patient was in the emergency department her partner voiced concerns for malingering and suggested that this was intentional behavior Hang Nair DO Discharge Plan Disposition Patient Disposition: Admitted Clinical Impressions Clinical Impression: COVID-19, Altered mental status, Encephalitis Discharge ED Provider: Hang Nair General Adult HPI General Chief complaint: Altered Mental Status Stated complaint: AMS Time Seen by Provider: 12/14/24 10:32 Mode of Arrival: EMS Source of Information: Significant Other Description of Symptoms (Recalled from ER Triage Doc. by RN): Reports that the patient was diagnosed with COVID a couple of days ago. states the patient was fine last night and then this morning she began to push her away, stripped of her clothing, talking out of her head and rocking back and forth. History of Present Illness HPI narrative: 34-year-old female presents to the ED via EMS for being diagnosed with COVID 3 to 4 days ago here in the ED. states the patient was fine last night and this morning began to have combative moments, she stripped all her clothes off and they became concerned. Patient has had fevers off and on for the past 3 to 4 days. She has had no food or meds for the past 3 days. She does have a history of diabetes, asthma, respiratory failure, PTSD among others. Patient arrives to the ED appearing very scared and not speaking to anyone. She is alert but not speaking. She has not been combative at this time. Related Data Home Medications ?Medication ?Instructions ?Recorded ?Confirmed buprenorphine 8 mg-naloxone 2 mg 2 film sublingual TRES LY addiction 10/30/22 10/22/24 sublingual film (Suboxone) Held on 01/02/23. Instructions: Resume on 01/06/23. hold while on post-op pain meds Previous Rx's ?Medication ?Instructions ?Recorded albuterol sulfate 90 mcg/actuation 2 inh inhalation Q6 HP PRN 07/23/24 aerosol inhaler Shortness Of Breath 30 days #1 ea blood sugar diagnostic (Blood #50 ea 07/23/24 Glucose Test strips) blood-glucose meter (Blood Glucose #1 ea 07/23/24 Monitoring kit) glimepiride 2 mg tablet 2 mg PO DAILY #90 tabs 07/23 pregabalin 150 mg capsule (Lyrica) 150 mg PO BID #60 c aps 09/08/24 doxycycline hyclate 100 mg capsule 100 mg PO BID 7 day s #14 caps 09/20/24 ondansetron 8 mg disintegrating 8 mg PO TID PRN nausea and 09/20/24 tablet vomiting #90 tabs valacyclovir 1 gram tablet 1,000 mg PO TID varicella 7 days 10/03/24 #21 tabs blood-glucose sensor (Dexcom G7 #3 ea 10/06/24 Sensor device) ketorolac 10 mg tablet 10 mg PO Q6H PRN pain 4 days #16 10/06/24 tabs lancets 30 gauge (Droplet Lancets) #100 ea 10/06/24 mupirocin 2 % topical ointment 1 applic topical TID #2 2 grams 10/06/24 (Centany) blood-glucose,equipment maintenance technician,cont #1 ea 10/12/24 (Dexcom G7 Animal Care Specialist) semaglutide 0.25 mg or 0.5 mg (2 0.25 mg (0.368 mL) SQ WEEKLY #3 mL 10/21/24 mg/3 mL) subcutaneous pen injector (Ozempic) Farxiga 10 mg tablet 10 mg PO DAILY #90 tabs 10/08 08/01 (dapagliflozin propanediol) cyclobenzaprine 10 mg tablet 10 mg PO BID PRN muscle s pasm #60 11/17/24 tabs semaglutide 0.25 mg or 0.5 mg (2 0.5 mg (0.374 mL) SQ WEEKLY #1.5 mL 12/06/24 mg/1.5 mL) subcutaneous pen injector prednisone 50 mg tablet 50 mg PO DAILY 5 days #5 tab s 12/12/24 Allergies Allergy/AdvReac Type Severity Reaction Status Date / Time Penicillins (PENICILLINS) Allergy Severe THROAT Verified 10/22/24 13:34 SWELLING, HIVES, VOMITTING amoxicillin (From AUGMENTIN) Allergy Intermediate I-HIVES Verified 10/22/24 13:34 clavulanic acid (From Allergy Intermediate I-HIVES Verified 10/22/24 13:34 AUGMENTIN) diphenhydramine (From Allergy Intermediate I-HIVES Verified 10/22/24 13:34 BENADRYL) ibuprofen (IBUPROFEN) Allergy Intermediate I-HIVES Verified 10/22/24 13:34 metoclopramide (From REGLAN) Allergy Intermediate I-HIVES Verified 10/22/24 13:34 Sulfa (Sulfonamide Allergy Intermediate I-HIVES Verified 10/22/24 13:34 Antibiotics) (SULFA (SULFONAMIDE ANTIBIOTICS)) tetanus toxoid, adsorbed Allergy Intermediate I-RASH Verified 10/22/24 13:34 (TETANUS TOXOID, ADSORBED) naproxen (NAPROXEN) Allergy Unknown Hives, Verified 10/22/24 13:34 Vomiting paroxetine (From PAXIL) Allergy Unknown numbness Verified 10/22/24 13:34 tongue atomoxetine (From Strattera) AdvReac Mild NA-HALLUCIN Verified 10/22/24 13:34 [facility] Disclaimer: The information contained in this section may have been updated after the patient was seen, as this information can be updated by other users. Medical History (Updated 12/14/24 @ 16:03 by Kathleen Escoto APRN) Dehydration Cellulitis of thumb, left Problem of extremity Strep throat Acute viral syndrome Fall Muscle spasm Fall Pityriasis rosea Recurrent pain of right knee Contact dermatitis Contact dermatitis Bilateral shoulder pain Dysmenorrhea Depression Anxiety Scoliosis Hearing loss in right ear History of COVID-19 Asthma Migraine Eczema Hemorrhoid Allergies Uterine fibroid Nausea Abdominal pain Abnormal uterine bleeding Left ankle sprain Nausea & vomiting History of deviated nasal septum Costochondral separation Ganglion cyst Surgical History Status post laparoscopic hysterectomy History of surgery History of surgery History of surgery History of tonsillectomy and adenoidectomy History of cholecystectomy Family History Other Alcoholism Asthma Cancer Diabetes Heart attack Hyperlipidemia Hypertension Social History (Updated 10/22/24 @ 13:35 by Clare Mansfield MA) Smoking Status: Current every day smoker tobacco type: cigarettes packs per day: 1 years smoked: 16 second hand exposure: Yes alcohol intake: former counseling provided: none substance use type: denies use current occupational status: disabled Travel in the last 8 weeks?: None household members: family and children housing: house current occupation: [employer] current occupational exposures/hazards: No caffeine: Yes Have you lived/traveled outside US in past 30 days?: No Contact w/someone who lives/traveled outside US past 30 days?: No Exposure to someone with infectious disease in past 14 days?: No Do you have a fever (greater than 100.4 F or 38 C)?: No Have you tested positive for COVID-19?: No Exposed to someone with COVID-19 in past 14 days?: No Do you have a sore throat?: No Do you have a cough?: No Do you have any weakness?: No Do you have any diarrhea?: No Are you experiencing any unusual bleeding?: No Do you have any muscle aches/pain?: No Do you have any abdominal pain?: No Are you experiencing loss of taste or smell?: No Other Medical History Have you received the Flu Vaccine for this season: No Have you received the Pneumonia Vaccine: No ROS Obtained: Yes Systems reviewed as appropriate & no additional complaints except as documented Physical Exam General General appearance: alert Head Head exam: normocephalic Eye Eye exam: Present PERRL and EOMI ENT ENT exam: Present mucous membranes dry Neck Neck exam: Present full ROM Respiratory Respiratory exam: Present normal lung sounds bilaterally Cardiovascular Cardiovascular exam: Present tachycardia Abdominal Exam Abdominal exam: Present soft and normal bowel sounds Extremities Exam Extremities exam: Present full ROM Neurological Exam Neurological exam: Present alert Psychiatric Psychiatric exam: Present agitated and anxious Skin Skin exam: Present warm and dry Medical Decision Making Medical Records Screening: Per USPSTF and CDC recommendations, given the prevalence of disease in our region, it is our hospital?s policy to screen for HIV and viral Hepatitis for all patients aged 18 and over and those with ongoing risk factors. Donta Inquiry Pt receiving controlled substance: No Donta was queried for this patient: No Vital Signs: 12/14/24 10:30 12/14/24 10:59 12/14/24 11:30 Temperature 97.5 F L Temperature Source Axillary Pulse Rate 105 H Pulse Rate [Radial] 137 H Respiratory Rate 18 Blood Pressure 151/104 H 146/93 H Blood Pressure [Right Arm] 156/112 H Blood Pressure Mean 111 Blood Pressure Mean [Right Arm] 126 Blood Pressure Source [Right Arm] Automatic Cuff Blood Pressure Position [Right Arm] Sitting 02 Sat by Pulse Oximetry 99 99 99 Oxygen Delivery Method Room Air 12/14/24 12:30 12/14/24 14:38 Temperature Temperature Source Pulse Rate 123 H 108 H Pulse Rate [Radial] Respiratory Rate Blood Pressure 143/89 H 135/92 H Blood Pressure [Right Arm] Blood Pressure Mean 107 Blood Pressure Mean [Right Arm] Blood Pressure Source [Right Arm] Blood Pressure Position [Right Arm] 02 Sat by Pulse Oximetry 96 Oxygen Delivery Method Lab Data Lab Results 12/14/24 10:43: WBC 9.3, RBC 5.87 H, Hgb 16.3 H, Hct 47.4 H, MCV 80.7 L, MCH 27.8, MCHC 34.4, RDW 13.3, Plt Count 397, MPV 11.4 H, Neut % (Auto) 77.8, Lymph % (Auto) 16.3, Garrard % (Auto) 5.5, Eos % (Auto) 0.1, Baso % (Auto) 0.2, Neut # (Auto) 7.2, Lymph # (Auto) 1.5, Garrard # (Auto) 0.5, Eos # (Auto) 0.0, Baso # (Auto) 0.0, PT 13.6 H, INR 1.25 H, APTT 28.6, Sodium 139, Potassium 4.3, Chloride 101, Carbon Dioxide 20 L, Anion Gap 22.3 H, BUN 13, Creatinine 0.80, Estimated Creat Clear 127, Estimated GFR 82, Est GFR ( Amer) 99, Glucose 168 H, Hemoglobin A1c 6.5 H, Lactate 1.9, Calcium 9.8, Phosphorus 4.0, Magnesium 2.5 H, Total Bilirubin 0.8, AST 36, ALT 38, Alkaline Phosphatase 108, Troponin I < 0.01, Total Protein 8.9 H, Albumin 4.8, Globulin 4.1 H, Albumin/Globulin Ratio 1.2, Lipase 59, Salicylates < 1.0 L, Acetaminophen < 10 L, Plasma/Serum Alcohol < 10, Acetone Level None detected 12/14/24 10:46: VBG pH 7.52 H, VBG pCO2 27.9 L, VBG pO2 41.3 H, VBG HCO3 22.2 L, VBG Total CO2 23.0, VBG O2 Saturation 82.6 H, VBG Base Excess -0.7, VBG Lactic Acid 2.6 H 12/14/24 14:33: Urine Color Yellow, Urine Appearance Clear, Urine pH 6.5, Ur Specific Lovelady 1.010, Urine Protein Negative, Urine Glucose (UA) Negative, Urine Ketones 2+, Urine Blood Negative, Urine Nitrate Negative, Urine Bilirubin Negative, Urine Urobilinogen 0.2, Ur Leukocyte Esterase Negative, Urine RBC None, Urine WBC None, Ur Squamous Epith Cells None, Urine Bacteria None, Urine Opiates Screen Negative, Urine Methadone Screen Negative, Ur Barbituates Screen Negative, Ur Phencyclidine Scrn Negative, Ur Amphetamines Screen Negative, U Benzodiazepines Scrn Negative, Urine Cocaine Screen Negative, U Marijuana (THC) Screen Negative 12/14/24 14:37: Troponin I < 0.01 12/14/24 10:43 12/14/24 10:43 Orders (Tests/Meds): ED MEDICATIONS Generic Name Dose Route Start Last Admin Trade Name Freq PRN Reason Stop Dose Admin Acetaminophen 650 mg 12/14/24 15:43 Acetaminophen 325mg Tab PO 01/13/25 15:42 Q4HP PRN Fever or Mild Pain (1-3) Albuterol/Ipratropium 3 ml 12/14/24 15:49 Ipratropium/Albuterol 3 Ml Neb IH 01/13/25 15:48 Q6HP PRN Shortness Of Breath Enoxaparin Sodium 40 mg 10/08/25 09:00 Enoxaparin 40mg/0.4ml Syringe SUBCUT 01/14/25 08:59 DAILY ERIKA Lactated Ringer's 1,000 mls @ 150 mls/hr 12/14/24 15:45 Lactated Ringer's 1000 Ml Bag IV 01/13/25 15:44 .Q6H40M [facility] Insulin Human Lispro 0 unit 12/14/24 16:30 Humalog 100 Units/Ml 10ml Vial (Ssi) SUBCUT 01/13/25 16:29 ACHS [facility] Protocol Nicotine 21 mg 12/14/24 15:43 Nicotine 21mg/24hr Patch TD 01/13/25 15:42 DAILYP PRN Nicotine Cravings Ondansetron HCl 4 mg 12/14/24 15:43 Ondansetron 4mg/2ml Vial IV 01/13/25 15:42 Q8HP PRN Nausea Sodium Chloride 10 ml 12/14/24 12:05 12/14/24 12:06 Sodium Chloride 0.9% 10ml Syr (Rad Only) IV 01/13/25 12:04 10 ml NEEDED PRN Administration Maintain IV Site Discontinued Medications Generic Name Dose Route Start Last Admin Trade Name Freq PRN Reason Stop Dose Admin Droperidol 5 mg 12/14/24 14:11 12/14/24 14:20 Droperidol 5mg/2ml Vial IM 12/14/24 14:12 5 mg ONCE ONE Administration Sodium Chloride 1,000 mls @ 999 mls/hr 12/14/24 10:33 12/14/24 14:07 Sod Chlor 0.9% 1000ml Bag IV 12/14/24 11:33 Infused .Q1H1M ONE Infusion Iopamidol 80 ml 12/14/24 12:05 12/14/24 12:06 Iopamidol-370 (76%);100ml Bottle IV 12/14/24 12:06 80 ml ONCE ONE Administration Midazolam HCl 5 mg 12/14/24 14:11 12/14/24 14:20 Midazolam 5mg/Ml 1ml Vial IM 12/14/24 14:12 5 mg ONCE ONE Administration Ondansetron HCl 4 mg 12/14/24 10:51 12/14/24 10:52 Ondansetron 4mg/2ml Vial IV 12/14/24 10:52 4 mg ONCE ONE Administration Sodium Chloride 50 ml 12/14/24 12:05 12/14/24 12:06 0.9 % Sodium Chloride 50 Ml Vial IV 12/14/24 12:06 50 ml ONCE ONE Administration ORDERS Category Date Time Status CT abdomen pelvis w con Stat Cat Scan 12/14/24 11:[address] angio chest PE protocol Stat Cat Scan 12/14/24 11:[address] head/brain wo con Stat Cat Scan 12/14/24 11:06 Completed XR chest portable Stat Exams 12/14/24 10:36 Completed Acetaminophen Stat Lab 12/14/24 10:43 Completed Acetone, Serum (Rapid) Stat Lab 12/14/24 10:43 Completed CBC [Complete Blood Count Auto Diff] Stat Lab 12/14/24 10:43 Completed Complete Blood Count Auto Diff AMLAB Lab 12/15/24 06:00 Ordered Complete Blood Count Auto Diff AMLAB Lab 12/16/24 06:00 Ordered Comprehensive Metabolic Panel AMLAB Lab 12/15/24 06:00 Ordered Comprehensive Metabolic Panel AMLAB Lab 12/16/24 06:00 Ordered Comprehensive Metabolic Panel Stat Lab 12/14/24 10:43 Completed Drug Screen,Urine Stat Lab 12/14/24 14:33 Completed Ethyl Alcohol Stat Lab 12/14/24 10:43 Completed Hemoglobin A1C Stat Lab 12/14/24 10:43 Completed Lactic Acid Follow Up (RFLX 1) Stat Lab 12/14/24 14:58 Ordered Lactic Acid Stat Lab 12/14/24 10:43 Completed Lipase Stat Lab 12/14/24 10:43 Completed Magnesium AMLAB Lab 12/15/24 06:00 Ordered Magnesium AMLAB Lab 12/16/24 06:00 Ordered Magnesium Stat Lab 12/14/24 10:43 Completed Osmolality Stat Lab 12/14/24 10:43 Received PT INR [Prothrombin Time INR] Stat Lab 12/14/24 10:43 Completed PTT [Activated Partial Thrombo Time] Stat Lab 12/14/24 10:43 Completed Phosphorous Stat Lab 12/14/24 10:43 Completed Rapid PCR Covid and Flu A/B Stat Lab 12/14/24 10:47 Ordered Salicylate Stat Lab 12/14/24 10:43 Completed TSH [Thyroid Stimulating Hormone] Stat Lab 12/14/24 10:43 Received Trop I [Troponin I] Stat Lab 12/14/24 10:43 Completed Troponin I Q3H Lab 12/14/24 14:37 Completed Troponin I Q3H Lab 12/14/24 16:45 Ordered Urinalysis and Microscopic Stat Lab 12/14/24 14:33 Completed Blood Culture Stat Micro 12/14/24 10:44 Received Venous Blood Gas Stat RT 12/14/24 10:46 Completed 12-lead EKG Request [ECG Request] Stat Y 12/14/24 10:31 Ordered Medical Decision Narrative: patient is a 34-year-old female presenting to the emergency department for evaluation of COVID, fever on and off and possible dehydration. Patient is hemodynamically stable and appears ill afebrile. Differential diagnosis includes overdose, sepsis, hypoglycemia, among others. Workup will be conducted with hematologic labs, specific imaging, provocative tests. Initial inventions include crystalloid bolus patient has been evaluated by myself and by Dr. Nair. We have discussed with family including and mother at bedside whether she has taken and any illicit drugs or meds. Anytime we touch patient to do IV or blood draw patient screams no, GD cursing . She continuously yells the same thing and then adds other curse words and says Im serious, stop GD . Patient is trying to hit staff as they are trying to get an IV or help patient with her blankets. Nursing staff went in the room to help patient up to get a urine at the bedside commode and patient kept yelling curse words and thrashing in the bed. asked to speak with Dr. Nair personally in the hallway and told him that she believes this is an act. Initial workup reviewed by me hematologic labs are remarkable for white count of 9.3, pH of 7.52, pCO2 27.9, PaO2 41.3 and gap of 22.2 glucose was 168, urine was negative including urine drug screen aspirin level was less than 1 and Tylenol level less than 10 and alcohol level was less than 10.. Scans were nonactionable at this time. Patient continues to yell profanities. I have talked to Dr. Jeffries for admission. He accepts patient for admission for encephalopathy of unknown origin. Patient safe for discharge home Critical Care Critical Care Time Critical Care Time: No
[2024-12-14] MEDS: ONDANSETRON 4MG/2ML VIAL 4 MG IV (10:52)
[2024-12-14] MEDS: 0.9 % SODIUM CHLORIDE 1000ML 1,000 ML 999 ML IV (10:53)
[2024-12-14 10:54] LABS: VBG HCO3 22.2 mmol/L (23-30); VBG PCO2 27.9 mmol/L (35-51); VBG PH 7.52 mmol/L (7.31-7.41); VBG PO2 41.3 mmol/L (28-40)
[2024-12-14 10:58] LABS: Lactate Venous 2.6 mmol/L (0.4-2.0)
[2024-12-14 10:58] LABS: Hematocrit 47.4 % (37.0-47.0); Hemoglobin 16.3 g/dL (12.2-16.2); Immature Granulocytes % 0.1 %; Mean Corpuscular HGB Conc 34.4 g/dL (31.8-35.4); Mean Corpuscular Hemoglobin 27.8 pg (27.0-31.2); Mean Corpuscular Volume 80.7 fl (81-99); Nucleated Red Blood Cells % 0 %; Platelet Count 397 K/mm3 (142-424); Red Blood Count 5.87 M/mm3 (4.20-5.40); Red Cell Distribution Width-SD 39.1 fL; White Blood Count 9.3 K/mm3 (4.8-10.8)
[2024-12-14 10:59] VITALS: BP 151/104; PULSE 105; O2SAT 99
--- NOTE | 2024-12-14 11:06 | CT_ITS ---
FINAL REPORT TECHNIQUE: Thin section axial images are obtained through the abdomen and pelvis after intravenous contrast. Reconstruction images were obtained from the axial data. Exam was performed using dose reduction techniques. This study was performed with techniques to keep radiation doses as low as reasonably achievable (ALARA). Individualized dose reduction techniques using automated exposure control or adjustment of mA and/or kV according to the patient's size were employed. CLINICAL HISTORY: sepsis COMPARISON: 04/08/2024 FINDINGS: LIVER: Fatty infiltration of the liver is present. No focal lesion. GALLBLADDER/BILIARY SYSTEM: The gallbladder has been surgically removed. No biliary dilatation. SPLEEN: Unremarkable. PANCREAS: The tail of the pancreas is somewhat truncated, which was present on the prior exam. The head of the pancreas appears normal. ADRENALS: Unremarkable. KIDNEYS/URETERS/BLADDER: No hydronephrosis, renal mass, or renal stone. Unremarkable urinary bladder. GI TRACT: No small bowel obstruction or dilatation. Normal appendix. A large amount of retained stool is present in the colon. PELVIC ORGANS: Unremarkable for age. The uterus is absent. LYMPH NODES/RETROPERITONEUM/MESENTERY: No lymphadenopathy. No abdominal aortic aneurysm. ABDOMINAL WALL: The abdominal wall is intact. FREE FLUID: No ascites. BONES: No acute osseous abnormality. IMPRESSION: Diffuse fatty infiltration of the liver without a focal lesion. The tail of the pancreas is truncated, which is stable. The head of the pancreas appears normal. Large amount of retained stool. Reviewed, Interpreted and Dictated by Clara Dubose MD Transcribed by Lashae Bird Authenticated and [facility]
--- NOTE | 2024-12-14 11:06 | CT_ITS ---
FINAL REPORT TECHNIQUE: Thin section axial images were obtained from skull base to vertex without contrast. Coronal and sagittal reconstruction images were obtained from the axial data. Exam was performed using dose reduction techniques such as automated exposure control, adjustment of the mA and kV according to patient size, and use of iterative reconstruction technique. CLINICAL HISTORY: altered COMPARISON: None FINDINGS: There is limitation of overall image quality secondary to patient positioning. There is no mass effect or midline shift. There is no hydrocephalus. There is no intracranial hemorrhage. The posterior fossa is without acute abnormality. The basilar cisterns are preserved. No large acute cortical infarct is identified. There is complete ossification right maxillary sinus. No acute osseous abnormality is identified. IMPRESSION: No acute intracranial abnormality identified. Complete opacification of the right maxillary sinus. Reviewed, Interpreted and Dictated by Clara Dubose MD Transcribed by Lashae Bird Authenticated and [facility]
--- NOTE | 2024-12-14 11:06 | CT_ITS ---
FINAL REPORT TECHNIQUE: Axial imaging of the chest is obtained after the administration of contrast. 3-D MIP reformatted images were also obtained and reviewed per PE protocol. This study was performed with techniques to keep radiation doses as low as reasonably achievable (ALARA). Individualized dose reduction techniques using automated exposure control or adjustment of mA and/or kV according to the patient's size were employed. CLINICAL HISTORY: tachycardia COMPARISON: 10/14/2023 FINDINGS: Overall exam quality is limited. The pulmonary arteries are well filled within the limits of the examination. There is no evidence of pulmonary embolus. There is no aortic dissection. Heart size is normal. There is no axillary lymphadenopathy. There are mildly prominent AP window nodes, which are stable. There are mildly enlarged right hilar nodes, that are also stable. The lungs are clear. There is no pleural or pericardial effusion. No acute osseous abnormality. IMPRESSION: No evidence of pulmonary embolism or aortic dissection within the limits of the exam. Reviewed, Interpreted and Dictated by Clara Dubose MD Transcribed by Lashae Bird Authenticated and [facility]
[2024-12-14 11:07] LABS: Activated Partial Thrombo Time 28.6 seconds (22.8-30.6); INR 1.25 (0.9-1.1); Prothrombin Time 13.6 seconds (10.1-12.5)
[2024-12-14 11:13] LABS: Alanine Aminotransferase 38 U/L (12-78); Albumin Level 4.8 g/dl (3.5-5.0); Albumin/Globulin Ratio 1.2 (1.1-1.8); Alkaline Phosphatase 108 U/L (38-126); Anion Gap 22.3 mEq/L (5-15); Aspartate Amino Transferase 36 U/L (14-36); Bilirubin,Total 0.8 mg/dl (0.2-1.3); Blood Urea Nitrogen 13 mg/dl (7-17); Calcium 9.8 mg/dl (8.4-10.2); Carbon Dioxide 20 mmol/L (22.0-30.0); Chloride 101 mmol/L (98-107); Creatinine Clearance Estimated 127 mL/min (50-200); Creatinine,Serum 0.80 mg/dl (0.52-1.04); Estimated Glomerular Filt Rate 82 ml/min (>60); GFR (African American) 99 ML/MIN (>60); Globulin 4.1 g/dL (1.3-3.2); Glucose 168 mg/dl (74-100); Lipase 59 U/L (23-300); Magnesium 2.5 mg/dl (1.6-2.3); Potassium 4.3 mmoL/L (3.5-5.1); Sodium 139 mmol/L (136-145); Total Protein,Serum 8.9 g/dl (6.3-8.2)
[2024-12-14 11:14] LABS: Phosphorous 4.0 mg/dl (2.5-4.5)
[2024-12-14 11:23] LABS: Acetaminophen < 10 ug/ml (10-30); Salicylate < 1.0 mg/dL (2.0-20.0)
[2024-12-14 11:27] LABS: Troponin I < 0.01 ng/ml (0.00-0.034)
[2024-12-14 11:30] VITALS: BP 146/93; O2SAT 99
[2024-12-14 11:58] LABS: Hemoglobin A1C 6.5 % (4.0-6.0)
[2024-12-14] MEDS: SODIUM CHLORIDE 0.9% 10ML SYR (RAD ONLY) 10 ML IV (12:06)
[2024-12-14] MEDS: IOPAMIDOL-370 (76%);100ML BOTTLE 80 ML IV (12:06)
[2024-12-14] MEDS: 0.9 % SODIUM CHLORIDE 50 ML VIAL IV (12:06)
[2024-12-14 12:30] VITALS: BP 143/89; PULSE 123
[2024-12-14 12:56] LABS: Acetone, Serum (Rapid) None Detected (None Detect)
--- NOTE | 2024-12-14 14:06 | PC.NURSE ---
Attempted to obtain urine sample multiple times. Patient is being combative any time she is touched. made aware.
--- NOTE | 2024-12-14 14:19 | PC.NURSE ---
Patient combative, swinging at staff yelling stop.
[2024-12-14] MEDS: droPERidol 5MG/2ML VIAL 5 MG IM (14:20)
[2024-12-14] MEDS: MIDAZOLAM 5MG/ML 1ML VIAL 5 MG IM (14:20)
[2024-12-14 14:38] VITALS: BP 135/92; PULSE 108; O2SAT 96
[2024-12-14 14:40] LABS: Microscopic, Urine URINE MICROSCOPIC (MICROSCOPIC)
[2024-12-14 14:54] LABS: Bilirubin,Urine Negative (Negative); Color,Urine YELLOW (Yellow); Glucose,Urine (UA) Negative (Negative); Ketones,Urine 2+ (Negative); Leukocyte Esterase,Urine Negative (Negative); PH,Urine 6.5 (5.0-8.5); Protein,Urine Negative (Negative); Specific Gravity, Urine 1.010 (1.005-1.030); Urobilinogen,Urine 0.2 EU/dl (0.2)
[2024-12-14 14:58] LABS: Reflex Lactic Add Lactic Reflex
[2024-12-14 15:02] LABS: Barbiturates Screen,Urine Negative ng/ml (<200)
[2024-12-14 15:03] LABS: Benzodiazepines Screen,Urine Negative ng/ml (<200)
[2024-12-14 15:04] LABS: Amphetamine/Metha Screen,Urine Negative ng/ml (<1000); Methadone Screen,Urine Negative ng/ml (<300)
[2024-12-14 15:06] LABS: Opiate Screen,Urine Negative ng/ml (<300)
[2024-12-14 15:07] LABS: Phencyclidine Screen,Urine Negative ng/ml (<25)
--- NOTE | 2024-12-14 15:08 | PC.NURSE ---
Unable to obtain repeat lactic and troponin related to patient being combative.
[2024-12-14 15:17] LABS: Troponin I < 0.01 ng/ml (0.00-0.034)
--- NOTE | 2024-12-14 15:47 | PC.NURSE ---
maid supervisor contacted for bed.
--- NOTE | 2024-12-14 15:50 | P.HP_ITS ---
<Statement entered by Eben Jeffries MD - 12/17/24 11:59> Agree with plan of care as outlined by the CONTINUOUS DRYOUT OPERATOR HELPER. History of Present Illness *Admission Date: 12/14/24 *Reason for visit:: Altered mental status *History of present illness: Natividad Snell is a 34-year-old female who presented to the emergency department today via EMS due to altered mental status. Patient's spouse is at bedside and states patient was diagnosed with COVID on 12/11/24 and has been feeling sick since then. Patient states today she began to strip off all of her close and her words were not making sense. EMS was called and patient was brought to the ED; patient's also states that she has been combative and that she has had fevers over the last 3 to 4 days, little p.o. intake, including not taking her medication. Patient has a significant history of type 2 diabete s, asthma, PTSD, and history of drug abuse currently on Suboxone. Upon my assessment patient neither alert or oriented. She does not respond to stimuli. She received droperidol and Versed in the emergency department due to combative behavior. Discussed patient's condition with at bedside who states that she believes this could possibly be an act. She states that this is very unlike her. When asked if the patient may have taken any medications or drugs, she states that she is sure she did not. Her spouse also states that she has not had her Suboxone in approximately 4 days. Patient remains hemodynamically stable, vital signs within normal limits. Patient had CT scan of head, abdomen/pelvis, chest, and chest x-ray?all of which were unremarkable for any acute findings. Urine drug screen was negative. CBC shows no leukocytosis, slightly hemoconcentrated with elevated hemoglobin and hematocrit. CMP shows no electrolyte abnormalities, elevated blood glucose. Unable to obtain an EKG in the ED due to patient's combative behavior. [facility] Disclaimer: The information contained in this section may have been updated after the patient was seen, as this information can be updated by other users. Medical History (Updated 12/16/24 @ 08:34 by Kathleen Escoto APRN) Dehydration Cellulitis of thumb, left Problem of extremity Strep throat Acute viral syndrome Fall Muscle spasm Fall Pityriasis rosea Recurrent pain of right knee Contact dermatitis Contact dermatitis Bilateral shoulder pain Dysmenorrhea Depression Anxiety Scoliosis Hearing loss in right ear History of COVID-19 Asthma Migraine Eczema Hemorrhoid Allergies Uterine fibroid Nausea Abdominal pain Abnormal uterine bleeding Left ankle sprain Nausea & vomiting History of deviated nasal septum Costochondral separation Ganglion cyst Surgical History Status post laparoscopic hysterectomy History of surgery History of surgery History of surgery History of tonsillectomy and adenoidectomy History of cholecystectomy Family History Other Alcoholism Asthma Cancer Diabetes Heart attack Hyperlipidemia Hypertension Social History (Updated 10/22/24 @ 13:35 by Clare Mansfield MA) Smoking Status: Current every day smoker tobacco type: cigarettes packs per day: 1 years smoked: 16 second hand exposure: Yes alcohol intake: former counseling provided: none substance use type: denies use current occupational status: disabled Travel in the last 8 weeks?: None household members: family and children housing: house current occupation: [employer] current occupational exposures/hazards: No caffeine: Yes Have you lived/traveled outside [place] in past 30 days?: No Contact w/someone who lives/traveled outside US past 30 days?: No Exposure to someone with infectious disease in past 14 days?: No Do you have a fever (greater than 100.4 F or 38 C)?: No Have you tested positive for COVID-19?: No Exposed to someone with COVID-19 in past 14 days?: No Do you have a sore throat?: No Do you have a cough?: No Do you have any weakness?: No Do you have any diarrhea?: No Are you experiencing any unusual bleeding?: No Do you have any muscle aches/pain?: No Do you have any abdominal pain?: No Are you experiencing loss of taste or smell?: No Other Medical History Have you received the Flu Vaccine for this season: No Have you received the Pneumonia Vaccine: No Review of Systems Review of Systems Review of systems:: unable to obtain Meds Home Medications and Allergies Home Medications ?Medication ?Instructions ?Recorded ?Confirmed ?Type albuterol sulfate 90 mcg/actuation 2 inh inhalation Q6 HP PRN 07/23/24 12/15/24 Rx aerosol inhaler Shortness Of Breath 30 days #1 ea blood sugar diagnostic (Blood #50 ea 07/23/24 10/22/24 Rx Glucose Test strips) blood-glucose meter (Blood Glucose #1 ea 07/23/2410/08 Rx Monitoring kit) pregabalin 150 mg capsule (Lyrica) 150 mg PO BID #60 c aps 09/08/24 12/15/24 Rx blood-glucose sensor (Dexcom G7 #3 ea 10/06/24 5 Rx Sensor device) lancets 30 gauge (Droplet Lancets) #100 ea 10/06/24 Rx blood-glucose,director of flight operations,cont #1 ea 10/12/24 10/22/24 Rx (Dexcom G7 Hoop Bending Machine Operator) semaglutide 0.25 mg or 0.5 mg (2 0.5 mg (0.374 mL) SQ WEEKLY #1.5 mL 12/06/24 12/15/24 Rx mg/1.5 mL) subcutaneous pen injector prednisone 50 mg tablet 50 mg PO DAILY 5 days #5 tab s 12/12/24 12/15/24 Rx buprenorphine 8 mg-naloxone 2 mg 2 film sublingual TRES LY 12/15/24 12/15/24 History sublingual film cyclobenzaprine 10 mg tablet 10 mg PO BIDP PRN muscle spasm 12/15/24 12/15/24 History ondansetron 8 mg disintegrating 8 mg PO TIDP PRN nause a and 12/15/24 12/15/24 History tablet vomiting New Prescriptions to Start Prescriptions: Allergies Allergy/AdvReac Type Severity Reaction Status Date / Time Penicillins (PENICILLINS) Allergy Severe THROAT Verified 10/22/24 13:34 SWELLING, HIVES, VOMITTING amoxicillin (From AUGMENTIN) Allergy Intermediate I-HIVES Verified 10/22/24 13:34 clavulanic acid (From Allergy Intermediate I-HIVES Verified 10/22/24 13:34 AUGMENTIN) diphenhydramine (From Allergy Intermediate I-HIVES Verified 10/22/24 13:34 BENADRYL) ibuprofen (IBUPROFEN) Allergy Intermediate I-HIVES Verified 10/22/24 13:34 metoclopramide (From REGLAN) Allergy Intermediate I-HIVES Verified 10/22/24 13:34 Sulfa (Sulfonamide Allergy Intermediate I-HIVES Verified 10/22/24 13:34 Antibiotics) (SULFA (SULFONAMIDE ANTIBIOTICS)) tetanus toxoid, adsorbed Allergy Intermediate I-RASH Verified 10/22/24 13:34 (TETANUS TOXOID, ADSORBED) naproxen (NAPROXEN) Allergy Unknown Hives, Verified 10/22/24 13:34 Vomiting paroxetine (From PAXIL) Allergy Unknown numbness Verified 10/22/24 13:34 tongue atomoxetine (From Strattera) AdvReac Mild NA-HALLUCIN Verified 10/22/24 13:34 ATIONS Exam Data for Last 24 hours Vital signs and Labs for Last 24 Hours: Temp Pulse Resp BP Pulse Ox O2 Del Method 97.5 F L 108 H 18 135/92 H 96 Room Air 12/14/24 10:30 12/14/24 14:38 12/14/24 10:30 12/14/24 14:38 12/14/24 14:38 12/14/24 10:30 Laboratory Results - last 24 hr 12/14/24 10:43: WBC 9.3, RBC 5.87 H, Hgb 16.3 H, Hct 47.4 H, MCV 80.7 L, MCH 27.8, MCHC 34.4, RDW 13.3, Plt Count 397, MPV 11.4 H, Neut % (Auto) 77.8, Lymph % (Auto) 16.3, [place] % (Auto) 5.5, Eos % (Auto) 0.1, Baso % (Auto) 0.2, Neut # (Auto) 7.2, Lymph # (Auto) 1.5, [place] # (Auto) 0.5, Eos # (Auto) 0.0, Baso # (Auto) 0.0, PT 13.6 H, INR 1.25 H, APTT 28.6, Sodium 139, Potassium 4.3, Chloride 101, Carbon Dioxide 20 L, Anion Gap 22.3 H, BUN 13, Creatinine 0.80, Estimated Creat Clear 127, Estimated GFR 82, Est GFR ( Amer) 99, Glucose 168 H, Hemoglobin A1c 6.5 H, Lactate 1.9, Calcium 9.8, Phosphorus 4.0, Magnesium 2.5 H, Total Bilirubin 0.8, AST 36, ALT 38, Alkaline Phosphatase 108, Troponin I < 0.01, Total Protein 8.9 H, Albumin 4.8, Globulin 4.1 H, Albumin/Globulin Ratio 1.2, Lipase 59, Salicylates < 1.0 L, Acetaminophen < 10 L, Plasma/Serum Alcohol < 10, Acetone Level None detected 12/14/24 10:46: VBG pH 7.52 H, VBG pCO2 27.9 L, VBG pO2 41.3 H, VBG HCO3 22.2 L, VBG Total CO2 23.0, VBG O2 Saturation 82.6 H, VBG Base Excess -0.7, VBG Lactic Acid 2.6 H 12/14/24 14:33: Urine Color Yellow, Urine Appearance Clear, Urine pH 6.5, Ur Specific [place] 1.010, Urine Protein Negative, Urine Glucose (UA) Negative, Urine Ketones 2+, Urine Blood Negative, Urine Nitrate Negative, Urine Bilirubin Negative, Urine Urobilinogen 0.2, Ur Leukocyte Esterase Negative, Urine RBC None, Urine WBC None, Ur Squamous Epith Cells None, Urine Bacteria None, Urine Opiates Screen Negative, Urine Methadone Screen Negative, Ur Barbituates Screen Negative, Ur Phencyclidine Scrn Negative, Ur Amphetamines Screen Negative, U Benzodiazepines Scrn Negative, Urine Cocaine Screen Negative, U Marijuana (THC) Screen Negative 12/14/24 14:37: Troponin I < 0.01 I & O for Last 24 hours: Intake & Output 12/11/24 12/12/24 12/13/24 12/14/24 23:59 23:59 23:59 23:59 Intake Total 1000 / 1000 Balance 1000 / 1000 Weight 81.647 kg Constitutional Constitutional: mild distress, average body habitus, combative (When attempting assessment) and somnolent *Routine HEENT Exam Head: Present normocephalic and other (Multiple piercings on base) Eye: Present EOMI ENT: Present mucous membranes moist *Routine Neck Exam Neck: Present supple *Routine Respiratory Exam Respiratory: Present CTA bilaterally and normal respiratory effort; Absent wheezes or crackles *Routine Cardiovascular Exam Cardiovascular: Present Normal S1, Normal S2 and tachycardia; Absent murmur *Routine Abdominal Exam Abdominal: Present soft and normoactive bowel sounds; Absent distended *Routine Rectal Exam Rectal:: deferred *Routine Genitalia Exam Genitalia:: deferred Comment:: Freire catheter in place *Routine Extremities Exam Extremities: Present normal capillary refill; Absent edema *Routine Skin Exam Skin: Present intact and dry Comments: Various healing scrapes/scratches on bilateral lower extremities *Routine Neurological Exam Neurological: Present altered mental status Assessment and Plan *Assessment and plan (1) Encephalopathy acute: Status: Acute Category: Medical Code(s): G93.40 - (2) Altered mental status: Status: Acute Category: Medical Code(s): R41.82 - (3) Diabetes mellitus: Status: Acute Category: Medical Code(s): E11.9 - (4) COVID-19: Status: Acute Category: Medical Code(s): U07.1 - (5) Asthma: Status: Acute Category: Medical Code(s): J45.909 - (6) Tobacco use disorder: Status: Acute Category: Medical Code(s): F17.200 - (7) Dehydration: Status: Resolved Category: Medical Code(s): E86.0 - (8) History of illicit drug use: Status: Acute Category: Social Hx Code(s): F19.91 - Plan Natividad Snell is a 34-year-old female who presented to the emergency department today via EMS due to altered mental status. Patient's spouse is at bedside and states patient was diagnosed with COVID on 12/11/24 and has been feeling sick since then. Patient states today she began to strip off all of her close and her words were not making sense. EMS was called and patient was brought to the ED; patient's also states that she has been combative and that she has had fevers over the last 3 to 4 days, little p.o. intake, including not taking her medication. Patient has a significant history of type 2 diabe seun, asthma, PTSD, and history of drug abuse currently on Suboxone. Upon my assessment patient neither alert or oriented. She does not respond to stimuli. GCS of 6. She received droperidol and Versed in the emergency department due to combative behavior. Discussed patient's condition with at bedside who states that she believes this could possibly be an act. She states that this is very unlike her. When asked if the patient may have taken any medications or drugs, she states that she is sure she did not. Her spouse also states that she has not had her Suboxone in approximately 4 days. Patient remains hemodynamically stable, blood pressure, respirations, O2 saturation within normal limits. Patient is tachycardic heart rate fluctuating between 100?130. Patient had CT scan of head, abdomen/pelvis, chest, and chest x- ray?all of which were unremarkable for any acute findings. Urine drug screen was negative. CBC shows no leukocytosis, slightly hemoconcentrated with elevated hemoglobin and hematocrit. CMP shows no electrolyte abnormalities, elevated blood glucose. Unable to obtain an EKG in the ED due to patient's combative behavior. Due to patient's altered mental status, combative behavior, and likely dehydration I agreed to admit the patient for further observation and care. Plan of care is as follows: # Encephalopathy #Altered mental status ? Patient GCS of 6. Vitals remained stable. Patient did receive Versed and droperidol in the emergency department. Continue to monitor as medication metabolizes. ? Patient's altered mental status could be related to Suboxone withdrawal. ? CBC, CMP, magnesium ordered for the a.m. Will obtain EKG when patient allows. #COVID?19 positive #Asthma ? Patient tested positive for COVID approximately 3 days ago. Per patient's she has had little p.o. intake. Lungs CTA. DuoNebs ordered every 6 hours as needed for wheezing/shortness of breath. #Dehydration ?Patient appears hypovolemic, she received 1 L IV fluids in the ED. Will continue LR at 150 mL/H for IV hydration. #Diabetes mellitus, type II ? ACHS fingersticks, SSI. #Tobacco use disorder #Former opioid use disorder ? Nicotine patches ordered as needed. ? Per patient's spouse patient takes 2 film Suboxone daily. She states she has not had had her Suboxone since Friday. Will reorder Suboxone when patient becomes arousable. Full code Up with assistance VTE?Lovenox 40 mg subcu daily Diabetic diet
[2024-12-14 16:08] VITALS: BP 136/86; PULSE 108; RESP 18; TEMP 36.4; O2SAT 96
--- NOTE | 2024-12-14 16:11 | PC.NURSE ---
arrived by stretcher from ED
[2024-12-14 16:15] VITALS: BMI 30.2
[2024-12-14 16:35] LABS: Thyroid Stimulating Hormone 3.48 uIU/mL (0.465-4.68)
[2024-12-14] MEDS: LACTATED RINGERS 1000ML 1,000 ML 150 ML IV ×2 (17:45→23:40)
[2024-12-14 17:57] LABS: POC Glucose,Bedside 110 gm/dL (70-110)
--- NOTE | 2024-12-14 18:48 | PC.NURSE ---
unable to complete med rec due to pt mentation. unable to verify meds
--- NOTE | 2024-12-14 20:54 | PC.NURSE ---
patient , benjamin called for an update - notified her that the patient is sleeping peacefully.
[2024-12-15 04:00] VITALS: BMI 30.2
[2024-12-15] MEDS: LACTATED RINGERS 1000ML 1,000 ML 150 ML IV ×2 (05:44→17:06)
[2024-12-15 05:48] VITALS: BP 142/91; PULSE 71; RESP 12; TEMP 36.5; O2SAT 97
[2024-12-15 08:00] VITALS: BP 145/77; PULSE 89; RESP 16; TEMP 36.6; O2SAT 98
[2024-12-15 08:39] LABS: Hematocrit 44.3 % (37.0-47.0); Immature Granulocytes % 0.3 %; Mean Corpuscular HGB Conc 32.5 g/dL (31.8-35.4); Mean Corpuscular Hemoglobin 26.7 pg (27.0-31.2); Mean Corpuscular Volume 82.0 fl (81-99); Nucleated Red Blood Cells % 0 %; Platelet Count 307 K/mm3 (142-424); Red Blood Count 5.40 M/mm3 (4.20-5.40); Red Cell Distribution Width-SD 39.4 fL; White Blood Count 7.4 K/mm3 (4.8-10.8)
--- NOTE | 2024-12-15 09:04 | HMH.PHAINT1 ---
Pharmacy Intervention Comments: MEDICATION RECONCILIATION COMPLETED ON PATIENT USING EXTERNAL FILL HISTORY FROM PHARMACY AND BECK REPORT. -STEPHANIE LOGAN, KRISTYD
[2024-12-15 09:42] LABS: Hemoglobin 14.8 g/dL (12.2-16.2)
[2024-12-15 10:19] LABS: Albumin Level 3.8 g/dl (3.5-5.0); Chloride 102 mmol/L (98-107); Potassium 4.0 mmoL/L (3.5-5.1); Sodium 138 mmol/L (136-145)
[2024-12-15 10:22] LABS: Alanine Aminotransferase 23 U/L (12-78); Albumin/Globulin Ratio 1.1 (1.1-1.8); Alkaline Phosphatase 84 U/L (38-126); Anion Gap 14.0 mEq/L (5-15); Aspartate Amino Transferase 37 U/L (14-36); Bilirubin,Total 0.4 mg/dl (0.2-1.3); Calcium 8.4 mg/dl (8.4-10.2); Carbon Dioxide 26 mmol/L (22.0-30.0); Globulin 3.5 g/dL (1.3-3.2); Glucose 101 mg/dl (74-100); Magnesium 2.2 mg/dl (1.6-2.3); Total Protein,Serum 7.3 g/dl (6.3-8.2)
[2024-12-15 11:59] LABS: Blood Urea Nitrogen 12 mg/dl (7-17); Creatinine Clearance Estimated 128 mL/min (50-200); Creatinine,Serum 0.80 mg/dl (0.52-1.04); Estimated Glomerular Filt Rate 82 ml/min (>60); GFR (African American) 99 ML/MIN (>60)
--- NOTE | 2024-12-15 13:31 | P.PN_ITS ---
<Statement entered by Eben Jeffries MD - 12/17/24 11:53> Agree with plan of care as outlined by the PUBLIC HEALTH NUTRITIONIST. Subjective *Date: 12/16/24 *Time: 08:33 Interval history: Patient continues to be somnolent. Will respond intermittently with head shakes yes or no. Will not open eyes, will not respond verbally. When physically assessed patient will not allow you to touch her. Mother is at bedside and states she is unsure what is happening. Will continue to monitor. Medical Exam Vital signs and Labs for Last 24 Hours: Vital Signs Temp Pulse Pulse Resp BP BP Pulse Ox 12/15/24 08:00 98 F 89 16 145/77 H 98 12/15/24 07:00 12/15/24 05:48 97.7 F 71 12 142/91 H 97 12/15/24 05:00 12/15/24 03:00 12/15/24 01:00 12/14/24 23:00 12/14/24 21:00 12/14/24 20:00 12/14/24 18:45 12/14/24 17:00 12/14/24 16:10 12/14/24 16:08 97.5 F L 108 H 18 136/86 12/14/24 14:38 108 H 135/92 H 96 O2 Del Method 12/15/24 08:00 Room Air 12/15/24 07:00 Room Air 12/15/24 05:48 Room Air 12/15/24 05:00 Room Air 12/15/24 03:00 Room Air 12/15/24 01:00 Room Air 12/14/24 23:00 Room Air 12/14/24 21:00 Room Air 12/14/24 20:00 Room Air 12/14/24 18:45 Room Air 12/14/24 17:00 Room Air 12/14/24 16:10 Room Air 12/14/24 16:08 Room Air 12/14/24 14:38 Intake and Output 12/14/24 12/15/24 12/15/24 23:59 07:59 15:59 Intake Total 1000 / 2000 1000 / 1000 Output Total 300 / 300 Balance 700 / 1700 1000 / 1000 Intake: Intake, Total IV Amount 1000 / 2000 1000 / 1000 Lactated Ringers 1000ML 1,000 1000 / 1000 1000 / 1000 ml @ 150 mls/hr IV .[id number] [facility] Rx#:[id number] Output: Output, Urine Amount 300 / 300 Other: Number of Unmeasured Voids 0 Weight 82.463 kg 82.464 kg Patient Weight 12/15/24 23:59 Weight 82.464 kg Laboratory Results - last 24 hr 12/14/24 10:43: TSH 3.48 12/14/24 14:33: Urine Color Yellow, Urine Appearance Clear, Urine pH 6.5, Ur Specific [place] 1.010, Urine Protein Negative, Urine Glucose (UA) Negative, Urine Ketones 2+, Urine Blood Negative, Urine Nitrate Negative, Urine Bilirubin Negative, Urine Urobilinogen 0.2, Ur Leukocyte Esterase Negative, Urine RBC None, Urine WBC None, Ur Squamous Epith Cells None, Urine Bacteria None, Urine Opiates Screen Negative, Urine Methadone Screen Negative, Ur Barbituates Screen Negative, Ur Phencyclidine Scrn Negative, Ur Amphetamines Screen Negative, U Benzodiazepines Scrn Negative, Urine Cocaine Screen Negative, U Marijuana (THC) Screen Negative 12/14/24 14:37: Troponin I < 0.01 12/14/24 17:44: POC Glucose 110 12/15/24 07:55: WBC 7.4, RBC 5.40, Hgb 14.8, Hct 44.3, MCV 82.0, MCH 26.7 L, MCHC 32.5, RDW 13.2, Plt Count 307, MPV 11.6 H, Neut % (Auto) 68.9, Lymph % (Auto) 19.7, [place] % (Auto) 9.0, Eos % (Auto) 1.6, Baso % (Auto) 0.5, Neut # (Auto) 5.1, Lymph # (Auto) 1.5, [place] # (Auto) 0.7, Eos # (Auto) 0.1, Baso # (Auto) 0.0, Sodium 138, Potassium 4.0, Chloride 102, Carbon Dioxide 26, Anion Gap 14.0, BUN 12, Creatinine 0.80, Estimated Creat Clear 128, Estimated GFR 82, Est GFR ( Amer) 99, Glucose 101 H D, Calcium 8.4, Magnesium 2.2 D, Total Bilirubin 0.4, AST 37 H, ALT 23 D, Alkaline Phosphatase 84, Total Protein 7.3, Albumin 3.8 D, Globulin 3.5 H, Albumin/Globulin Ratio 1.1 I & O for Labs for Last 24 Hours: Intake & Output 12/12/24 12/13/24 12/14/24 12/15/24 23:59 23:59 23:59 23:59 Intake Total 1999 / 1999 1000 / 1000 Output Total 300 / 300 Balance 1700 / 1700 1000 / 1000 Weight 82.463 kg 82.464 kg Microbiology Reports for the Last 24 Hours: Microbiology 12/14/24 10:40 Blood Blood Culture - Preliminary NO GROWTH AFTER 24 HOURS 12/14/24 10:44 Blood Blood Culture - Preliminary NO GROWTH AFTER 24 HOURS Constitutional: Present no acute distress and somnolent Head: Present atraumatic Eyes: Present as per HPI and eye discharge ENT: Present normal exam Comment:: Multiple facial piercings Neck: Present normal inspection Comment:: Unable to assess Comment:: Unable to assess GI: Present soft; Absent distention Rectal (female): Present deferred (female): Present deferred Extremities: Present normal inspection; Absent edema Skin: Present intact and dry Assessment and Plan *Assessment and plan (1) Encephalopathy acute: Status: Acute Category: Medical Code(s): G93.40 - (2) Altered mental status: Status: Acute Category: Medical Code(s): R41.82 - (3) Diabetes mellitus: Status: Acute Category: Medical Code(s): E11.9 - (4) COVID-19: Status: Acute Category: Medical Code(s): U07.1 - (5) Asthma: Status: Acute Category: Medical Code(s): J45.909 - (6) Tobacco use disorder: Status: Acute Category: Medical Code(s): F17.200 - (7) Dehydration: Status: Resolved Category: Medical Code(s): E86.0 - (8) History of illicit drug use: Status: Acute Category: Social Hx Code(s): F19.91 - Plan Natividad Snell is a 34-year-old female who presented to the emergency department via EMS due to altered mental status. Patient's spouse was at bedside and stated patient was diagnosed with COVID on 12/11/24 and has been feeling sick since then. Spouse stated she began to strip off all of her close and her words were not making sense. EMS was called and patient was brought to the ED; patient's also states that she has been combative and that she has had fevers over the last 3 to 4 days, little p.o. intake, including not taking her medication. Patient has a significant history of type 2 diabetes, asthma, PTSD, and history of drug abuse currently on Suboxone. Upon my assessment patient neither alert or oriented. She does not respond to stimuli. GCS of 6. She received droperidol and Versed in the emergency department due to combative behavior. Discussed patient's condition with at bedside who states that she believes this could possibly be an act. She states that this is very unlike her. When asked if the patient may have taken any medications or drugs, she states that she is sure she did not. Her spouse also states that she has not had her Suboxone in approximately 4 days. Patient remains hemodynamically stable, blood pressure, respirations, O2 saturation within normal limits. Patient is tachycardic heart rate fluctuating between 100?130. Patient had CT scan of head, abdomen/pelvis, chest, and chest x- ray?all of which were unremarkable for any acute findings. Urine drug screen was negative. CBC shows no leukocytosis, slightly hemoconcentrated with elevated hemoglobin and hematocrit. CMP shows no electrolyte abnormalities, elevated blood glucose. Unable to obtain an EKG in the ED due to patient's combative behavior. Due to patient's altered mental status, combative behavior, and likely dehydration I agreed to admit the patient for further observation and care. Plan of care is as follows: #Encephalopathy #Altered mental status ? Patient continues to be somnolent, will occasionally answer questions with a head shake yes or no. No verbal responses noted. Patient is not willing to let you assess her. When left alone she is resting with eyes closed. Continuing IV fluids at this time. Patient has not received any medications since admission. Patient mother is at bedside. I believe there is a psychiatric component. Consulted behavioral health for further recommendations. Patient currently does not take any psychiatric medications, although she does have a history of psyc hiatric issues and PTSD per family. ? Patient GCS of 6. Vitals remained stable. Patient did receive Versed and droperidol in the emergency department yesterday afternoon. She remains hemodynamically stable ? Patient's altered mental status could be related to Suboxone withdrawal or possible ingestion of synthetic substance. Patient's mother and spouse both deny that they are aware of any synthetic drug use. ? CBC, CMP, magnesium ordered for the a.m. Will obtain EKG when patient allows. #COVID?19 positive #Asthma ? Patient tested positive for COVID approximately 4 days ago. Per patient's she has had little p.o. intake. DuoNebs ordered every 6 hours as needed for wheezing/shortness of breath. #Dehydration ?Patient appeared hypovolemic, she received 1 L IV fluids in the ED. Will continue LR at 100 mL/H for IV hydration. Diet ordered, patient has not had any p.o. intake since admission. Patient initially had Freire catheter placed in the ED due to AMS, removed today. #Diabetes mellitus, type II ? ACHS fingersticks, SSI. #Tobacco use disorder #Former opioid use disorder ? Nicotine patches ordered as needed. ? Per patient's spouse patient takes 2 film Suboxone daily. She states she has not had had her Suboxone since Friday. Will reorder Suboxone when patient becomes arousable. Full code Up with assistance VTE?Lovenox 40 mg subcu daily Diabetic diet
[2024-12-15 16:00] VITALS: BP 140/93; PULSE 95; RESP 14; TEMP 36.7; O2SAT 96
[2024-12-15 19:51] VITALS: BP 156/82; PULSE 89; RESP 14; TEMP 37.4; O2SAT 97
[2024-12-15 20:10] LABS: POC Glucose,Bedside 116 gm/dL (70-110)
--- NOTE | 2024-12-15 20:14 | PC.NURSE ---
patient responds to painful stimuli and will occasionally open her eyes. rangel catheter pulled at 1000, 400ml in bag at time of removal. Patient has not urinated since rangel removal, bladder scan revealed 352ml, no bladder distention noted. IV fluids paused at this time due to no urinary output. MD muse.
[2024-12-15 22:13] VITALS: BMI 30.2
[2024-12-15] MEDS: ONDANSETRON 4MG/2ML VIAL 4 MG IV (22:36)
[2024-12-16] VITALS: BP 128/74; PULSE 69; RESP 14; TEMP 36.5; O2SAT 95
[2024-12-16 03:36] VITALS: BMI 30.5
[2024-12-16] MEDS: LACTATED RINGERS 1000ML 1,000 ML 100 ML IV (05:40)
[2024-12-16 05:52] LABS: POC Glucose,Bedside 106 gm/dL (70-110)
[2024-12-16 06:36] LABS: Hematocrit 39.5 % (37.0-47.0); Immature Granulocytes % 0.1 %; Mean Corpuscular HGB Conc 33.7 g/dL (31.8-35.4); Mean Corpuscular Hemoglobin 27.3 pg (27.0-31.2); Mean Corpuscular Volume 81.1 fl (81-99); Nucleated Red Blood Cells % 0 %; Platelet Count 296 K/mm3 (142-424); Red Blood Count 4.87 M/mm3 (4.20-5.40); Red Cell Distribution Width-SD 37.8 fL; White Blood Count 7.9 K/mm3 (4.8-10.8)
[2024-12-16 06:40] LABS: Hemoglobin 13.4 g/dL (12.2-16.2)
[2024-12-16 06:51] LABS: Alanine Aminotransferase 42 U/L (12-78); Albumin Level 3.6 g/dl (3.5-5.0); Albumin/Globulin Ratio 1.2 (1.1-1.8); Alkaline Phosphatase 104 U/L (38-126); Anion Gap 13.1 mEq/L (5-15); Aspartate Amino Transferase 88 U/L (14-36); Bilirubin,Total 1.0 mg/dl (0.2-1.3); Blood Urea Nitrogen 11 mg/dl (7-17); Calcium 8.3 mg/dl (8.4-10.2); Carbon Dioxide 24 mmol/L (22.0-30.0); Chloride 100 mmol/L (98-107); Creatinine Clearance Estimated 147 mL/min (50-200); Creatinine,Serum 0.70 mg/dl (0.52-1.04); Estimated Glomerular Filt Rate 95 ml/min (>60); GFR (African American) 115 ML/MIN (>60); Globulin 2.9 g/dL (1.3-3.2); Glucose 111 mg/dl (74-100); Magnesium 2.0 mg/dl (1.6-2.3); Potassium 4.1 mmoL/L (3.5-5.1); Sodium 133 mmol/L (136-145); Total Protein,Serum 6.5 g/dl (6.3-8.2)
[2024-12-16 07:17] LABS: Thyroid Stimulating Hormone 2.37 uIU/mL (0.465-4.68)
[2024-12-16 08:00] VITALS: BP 122/73; PULSE 76; RESP 16; TEMP 36.6; O2SAT 95
--- NOTE | 2024-12-16 09:00 | MR_ITS ---
FINAL REPORT TECHNIQUE: Multiplanar and multisequence imaging of the brain was obtained before and after contrast administration. CLINICAL HISTORY: confusion FINDINGS: Brain parenchymal: There is no mass effect or midline shift. There are no areas of abnormal signal intensity.The cerebellum and brainstem are without acute abnormality. Ventricles: The ventricles are symmetric in size and configuration without hydrocephalus. Extra-axial spaces: No extra-axial fluid collections. Diffusion imaging: No areas of restricted diffusion to suggest acute infarct. Flow voids: Flow voids within the major intracranial vessels are preserved. Soft tissues: There is mucoperiosteal thickening of the right maxillary sinus, likely chronic. No air-fluid levels identified. Post contrast imaging: No abnormal enhancement. IMPRESSION: No acute intracranial abnormality and no pathologic contrast enhancement. Right maxillary sinusitis. Reviewed, Interpreted and Dictated by Clara Dubose MD Transcribed by Ana Paula Lozano Authenticated and [facility]
--- NOTE | 2024-12-16 12:02 | P.DS_ITS ---
<Statement entered by Eben Jeffries MD - 12/17/24 11:50> Agree with plan of care as outlined by the HAMMERSM[facility] HELPER. General Admission date:: 12/14/24 Discharge date: 12/16/24 HPI HPI HPI: Natividad Snell is a 34-year-old female who presented to the emergency department today via EMS due to altered mental status. Patient's spouse is at bedside and states patient was diagnosed with COVID on 12/11/24 and has been feeling sick since then. Patient states today she began to strip off all of her close and her words were not making sense. EMS was called and patient was brought to the ED; patient's also states that she has been combative and that she has had fevers over the last 3 to 4 days, little p.o. intake, including not taking her medication. Patient has a significant history of type 2 diabetes, asthma, PTSD, and history of drug abuse currently on Suboxone. Upon my assessment patient neither alert or oriented. She does not respond to stimuli. She received droperidol and Versed in the emergency department due to combative behavior. Discussed patient's condition with at bedside who states that she believes this could possibly be an act. She states that this is very unlike her. When asked if the patient may have taken any medications or drugs, she states that she is sure she did not. Her spouse also states that she has not had her Suboxone in approximately 4 days. Patient remains hemodynamically stable, vital signs within normal limits. Patient had CT scan of head, abdomen/pelvis, chest, and chest x-ray?all of which were unremarkable for any acute findings. Urine drug screen was negative. CBC shows no leukocytosis, slightly hemoconcentrated with elevated hemoglobin and hematocrit. CMP shows no electrolyte abnormalities, elevated blood glucose. Unable to obtain an EKG in the ED due to patient's combative behavior. Hospital Course Hospital Course Hospital Course: Natividad Snell is a 34-year-old female who presented to the emergency department via EMS due to altered mental status. Patient's spouse was at bedside and stated patient was diagnosed with COVID on 12/11/24 and has been feeling sick since then. Spouse stated she began to strip off all of her close and her words were not making sense. EMS was called and patient was brought to the ED; patient's also states that she has been combative and that she has had fevers over the last 3 to 4 days, little p.o. intake, including not taking her medication. Patient has a significant history of type 2 diabetes, asthma, PTSD, and history of drug abuse currently on Suboxone. Upon my assessment on admission patient neither alert or oriented. She does not respond to stimuli. GCS of 6. She received droperidol and Versed in the emergency department due to combative behavior. Discussed patient's condition with at bedside who states that she believes this could possibly be an act. She states that this is very unlike her. When asked if the patient may have taken any medications or drugs, she states that she is sure she did not. Her spouse also states that she has not had her Suboxone in approximately 4 days. Patient remains hemodynamically stable, blood pressure, respirations, O2 saturation within normal limits. Patient is tachycardic heart rate fluctuating between 100?130. Patient had CT scan of head, abdomen/pelvis, chest, and chest x-ray?all of which were unremarkable for any acute findings. Urine drug screen was negative. CBC shows no leukocytosis, slightly hemoconcentrated with elevated hemoglobin and hematocrit. CMP shows no electrolyte abnormalities, elevated blood glucose. Unable to obtain an EKG in the ED due to patient's combative behavior. Due to patient's altered mental status, combative behavior, and likely dehydration I agreed to admit the patient for further observation and care. Plan of care was as follows: #Encephalopathy, resolved #Altered mental status, resolved ?Assessment this morning reveals patient is alert and oriented. She is responding appropriately to questions. She is hemodynamically stable. She is tolerating a p.o. diet without issues. Discussed with patient if she ingested any synthetic substances or drugs prior to admission. She denies any drug use. ?MRI of brain obtained is unremarkable. ?Behavioral health was consulted due to likelihood of this being a psychiatric issue. Patient was unavailable while behavioral health came to consult. Discussed case with behavioral health REGIONAL TRUCK DRIVER who plans to see patient in the outpatient setting. Patient states she is agreeable. ?No lab abnormalities noted, no leukocytosis, no anemia, normal kidney function, no electrolyte abnormalities. Glucose slightly elevated during admission, not requiring insulin. #COVID?19 positive #Asthma ? Patient tested positive for COVID approximately 5 days ago. Patient lungs CTA, no fever, no chills, no abdominal pain, no vomiting or diarrhea. #Dehydration ? Patient appeared hypovolemic on admission, patient received LR at 100 mL/H during her admission. Patient tolerating p.o. diet without issues at this time. Patient appears euvolemic. #Diabetes mellitus, type II ? A1c 6.5%. Patient currently on Ozempic injection. #Tobacco use disorder #Former opioid use disorder ?Discussed smoking cessation with patient. ? Patient would like her Suboxone. Will reorder home dose of 2 films daily. Total time spent on discharge 32 minutes in counseling, documentation, chart review, and direct care with patient. Exam Data for Last 24 hours Vital signs and Labs for Last 24 Hours: Temp Pulse Resp BP Pulse Ox O2 Del Method 97.9 F 76 16 122/73 95 Room Air 12/16/24 08:00 12/16/24 08:00 12/16/24 08:00 12/16/24 08:00 12/16/24 08:00 12/16/24 10:11 Laboratory Results - last 24 hr 12/15/24 07:55: BUN 12, Creatinine 0.80, Estimated Creat Clear 128, Estimated GFR 82, Est GFR ( Amer) 99 12/15/24 19:58: POC Glucose 116 H 12/16/24 05:44: POC Glucose 106 12/16/24 06:23: WBC 7.9, RBC 4.87, Hgb 13.4, Hct 39.5, MCV 81.1, MCH 27.3, MCHC 33.7, RDW 12.8, Plt Count 296, MPV 10.7 H, Neut % (Auto) 66.7, Lymph % (Auto) 23.6, Christian % (Auto) 7.9, Eos % (Auto) 1.4, Baso % (Auto) 0.3, Neut # (Auto) 5.3, Lymph # (Auto) 1.9, Christian # (Auto) 0.6, Eos # (Auto) 0.1, Baso # (Auto) 0.0, Sodium 133 L, Potassium 4.1, Chloride 100, Carbon Dioxide 24, Anion Gap 13.1, BUN 11, Creatinine 0.70, Estimated Creat Clear 147, Estimated GFR 95, Est GFR ( Amer) 115, Glucose 111 H, Calcium 8.3 L, Magnesium 2.0, Total Bilirubin 1.0, AST 88 H D, ALT 42 D, Alkaline Phosphatase 104, Total Protein 6.5, Albumin 3.6, Globulin 2.9, Albumin/Globulin Ratio 1.2, TSH 2.37 D Temp Pulse Resp BP Pulse Ox 98.2 F 90 18 154/80 H 100 01/18/22 03:51 01/18/22 03:51 01/18/22 03:51 01/18/22 03:51 01/18/22 03:51 I & O for Last 24 hours: Intake & Output 12/13/24 12/14/24 12/15/24 12/16/24 23:59 23:59 23:59 23:59 Intake Total 2000 / 1999 2510 / 2510 730 / 730 Output Total 300 / 300 1000 / 1000 Balance 1700 / 1700 1510 / 1510 730 / 730 Weight 82.463 kg 82.464 kg 83.143 kg Intake & Output 01/15/22 01/16/22 01/17/22 01/18/22 23:59 23:59 23:59 23:59 Intake Total 1000 / 1000 1452 / 1452 Output Total 1450 / 1450 1950 / 1950 Balance -450 / -450 -498 / -498 Weight 160 lb Microbiology Reports for the Last 24 Hours: Microbiology 12/14/24 10:40 Blood Blood Culture - Preliminary NO GROWTH AFTER 48 HOURS 12/14/24 10:44 Blood Blood Culture - Preliminary NO GROWTH AFTER 48 HOURS Constitutional Constitutional: no acute distress, average body habitus, chronically ill appearing and cooperative *Routine HEENT Exam Head: Present normocephalic ENT: Present mucous membranes moist; Absent dentition normal *Routine Neck Exam Neck: Present full ROM *Routine Respiratory Exam Respiratory: Present CTA bilaterally and normal respiratory effort; Absent wheezes or crackles *Routine Cardiovascular Exam Cardiovascular: Present RRR, Normal S1 and Normal S2; Absent murmur *Routine Abdominal Exam Abdominal: Present soft, normoactive bowel sounds and tenderness; Absent distended or guarding *Routine Extremities Exam Extremities: Present full ROM; Absent edema or calf tenderness *Routine Skin Exam Skin: Present intact and dry; Absent rash *Routine Neurological Exam Neurological: Present alert, oriented X3 and moving all extremities Results Data Completed and Pending Labs on day of discharge: Labs from last 24 hours 12/16/24 12/16/24 12/15/24 06:23 05:44 19:58 WBC 7.9 RBC 4.87 Hgb 13.4 Hct 39.5 MCV 81.1 MCH 27.3 MCHC 33.7 RDW 12.8 Plt Count 296 MPV 10.7 H Neut % (Auto) 66.7 Lymph % (Auto) 23.6 Christian % (Auto) 7.9 Eos % (Auto) 1.4 Baso % (Auto) 0.3 Neut # (Auto) 5.3 Lymph # (Auto) 1.9 Christian # (Auto) 0.6 Eos # (Auto) 0.1 Baso # (Auto) 0.0 Sodium 133 L Potassium 4.1 Chloride 100 Carbon Dioxide 24 Anion Gap 13.1 BUN 11 Creatinine 0.70 Estimated Creat Clear 147 Estimated GFR 95 Est GFR ( Amer) 115 Glucose 111 H POC Glucose 106 116 H Calcium 8.3 L Magnesium 2.0 Total Bilirubin 1.0 AST 88 H D ALT 42 D Alkaline Phosphatase 104 Total Protein 6.5 Albumin 3.6 Globulin 2.9 Albumin/Globulin Ratio 1.2 TSH 2.37 D 12/15/24 07:55 WBC RBC Hgb Hct MCV MCH MCHC RDW Plt Count MPV Neut % (Auto) Lymph % (Auto) Christian % (Auto) Eos % (Auto) Baso % (Auto) Neut # (Auto) Lymph # (Auto) Christian # (Auto) Eos # (Auto) Baso # (Auto) Sodium Potassium Chloride Carbon Dioxide Anion Gap BUN 12 Creatinine 0.80 Estimated Creat Clear 128 Estimated GFR 82 Est GFR ( Amer) 99 Glucose POC Glucose Calcium Magnesium Total Bilirubin AST ALT Alkaline Phosphatase Total Protein Albumin Globulin Albumin/Globulin Ratio TSH Preliminary micro results at discharge 12/14/24 10:40 Blood Culture - Preliminary Blood NO GROWTH AFTER 48 HOURS 12/14/24 10:44 Blood Culture - Preliminary Blood NO GROWTH AFTER 48 HOURS DS: Diagnosis Discharge Diagnosis (1) Encephalopathy acute: Status: Acute Code(s): G93.40 - Encephalopathy, unspecified (2) Altered mental status: Status: Acute Code(s): R41.82 - Altered mental status, unspecified (3) Diabetes mellitus: Status: Acute Code(s): E11.9 - Type 2 diabetes mellitus without complications (4) COVID-19: Status: Acute Code(s): U07.1 - COVID-19 (5) Asthma: Status: Acute Code(s): J45.909 - Unspecified asthma, uncomplicated (6) Tobacco use disorder: Status: Acute Code(s): F17.200 - Nicotine dependence, unspecified, uncomplicated (7) Dehydration: Status: Resolved Code(s): E86.0 - Dehydration (8) History of illicit drug use: Status: Acute Code(s): F19.91 - Other psychoactive substance use, unspecified, in remission Meds Home Medications and Allergies Home Medications ?Medication ?Instructions ?Recorded ?Confirmed ?Type albuterol sulfate 90 mcg/actuation 2 inh inhalation Q6 HP PRN 07/23/24 12/15/24 Rx aerosol inhaler Shortness Of Breath 30 days #1 ea blood sugar diagnostic (Blood #50 ea 07/23/24 10/22/24 Rx Glucose Test strips) blood-glucose meter (Blood Glucose #1 ea 07/23/2410/08 Rx Monitoring kit) pregabalin 150 mg capsule (Lyrica) 150 mg PO BID #60 c aps 09/08/24 12/15/24 Rx blood-glucose sensor (Dexcom G7 #3 ea 10/06/24 5 Rx Sensor device) lancets 30 gauge (Droplet Lancets) #100 ea 10/06/24 Rx blood-glucose,amortization schedule clerk,cont #1 ea 10/12/24 10/22/24 Rx (Dexcom G7 Payment Specialist) semaglutide 0.25 mg or 0.5 mg (2 0.5 mg (0.374 mL) SQ WEEKLY #1.5 mL 12/06/24 12/15/24 Rx mg/1.5 mL) subcutaneous pen injector buprenorphine 8 mg-naloxone 2 mg 2 film sublingual TRES LY 12/15/24 12/15/24 History sublingual film cyclobenzaprine 10 mg tablet 10 mg PO BIDP PRN muscle spasm 12/15/24 12/15/24 History ondansetron 8 mg disintegrating 8 mg PO TIDP PRN nause a and 12/15/24 12/15/24 History tablet vomiting New Prescriptions to Start Prescriptions: Allergies Allergy/AdvReac Type Severity Reaction Status Date / Time Penicillins (PENICILLINS) Allergy Severe THROAT Verified 10/22/24 13:34 SWELLING, HIVES, VOMITTING amoxicillin (From AUGMENTIN) Allergy Intermediate I-HIVES Verified 10/22/24 13:34 clavulanic acid (From Allergy Intermediate I-HIVES Verified 10/22/24 13:34 AUGMENTIN) diphenhydramine (From Allergy Intermediate I-HIVES Verified 10/22/24 13:34 BENADRYL) ibuprofen (IBUPROFEN) Allergy Intermediate I-HIVES Verified 10/22/24 13:34 metoclopramide (From REGLAN) Allergy Intermediate I-HIVES Verified 10/22/24 13:34 Sulfa (Sulfonamide Allergy Intermediate I-HIVES Verified 10/22/24 13:34 Antibiotics) (SULFA (SULFONAMIDE ANTIBIOTICS)) tetanus toxoid, adsorbed Allergy Intermediate I-RASH Verified 10/22/24 13:34 (TETANUS TOXOID, ADSORBED) naproxen (NAPROXEN) Allergy Unknown Hives, Verified 10/22/24 13:34 Vomiting paroxetine (From PAXIL) Allergy Unknown numbness Verified 10/22/24 13:34 tongue atomoxetine (From Strattera) AdvReac Mild NA-HALLUCIN Verified 10/22/24 13:34 ATIONS Discharge Plan Disposition Patient Disposition: Home, Self-Care Condition: Fair Follow up Plan Follow up with: Devika Miranda APRN [Advanced Registered [employer] TR[employer] DRIVER, Behavioral Health] - Enter time for follow up Be Putnam MD [Primary Care Provider, [facility]] - Enter time for follow up Prescriptions/Medication Reconciliation: Continued albuterol sulfate 90 mcg/actuation HFA aerosol inhaler 2 inh inhalation Q6HP PRN (Reason: Shortness Of Breath) 30 Days Qty: 1 5RF (DME) blood-glucose meter [Blood Glucose Monitoring] Kit See Rx Instructions .ROUTE .MEDSUPPLY Qty: 1 0RF Rx Instructions: Monitor BG TID (DME) Blood Glucose Test Strip See Rx Instructions .ROUTE .MEDSUPPLY Qty: 50 12RF Rx Instructions: Monitor BG TID (DME) Dexcom G7 Sensor Device See Rx Instructions .Route Qty: 3 12RF Rx Instructions: As directed semaglutide 0.25 mg or 0.5 mg(2 mg/1.5 mL) pen injector 0.5 mg SQ WEEKLY Qty: 1.5 2RF pregabalin [Lyrica] 150 mg capsule 150 mg PO BID Qty: 60 3RF (DME) lancets [Droplet Lancets] 30 gauge misc See Rx Instructions .ROUTE .MEDSUPPLY Qty: 100 2RF Rx Instructions: Monitor BG TID (DME) Dexcom G7 Payment Specialist Misc See Rx Instructions .Route Qty: 1 0RF Rx Instructions: As directed buprenorphine-naloxone 8-2 mg film 2 film sublingual DAILY Patient Comments: dissolve 2 films under the tongue once a day cyclobenzaprine 10 mg tablet 10 mg PO BIDP PRN (Reason: muscle spasm) ondansetron 8 mg tablet,disintegrating 8 mg PO TIDP PRN (Reason: nausea and vomiting) Discontinued prednisone 50 mg tablet 50 mg PO DAILY 5 Days Qty: 5 0RF Problem Reconciliation Problems Reviewed?: Yes Patient Discharge Instructions ACTIVITY: Continue current activity DIET: continue same diet Patient Instructions: DI for Altered Mental Status, DI for COVID-19 (Suspected or Confirmed ), Catheter-Associated Urinary Tract Infection Print Language: Persian Providers Primary Care Provider: Be Putnam Admit Provider: Eben Jeffries Attending Provider: Eben Jeffries
[2024-12-16] MEDS: SODIUM CHLORIDE 0.9% 10ML SYR (RAD ONLY) 10 ML IV (12:38)
[2024-12-16] MEDS: GADOTERIDOL INJ 20ML SYRINGE 17 ML IV (12:38)
[2024-12-16] MEDS: 0.9 % SODIUM CHLORIDE 50 ML VIAL 20 ML IV (12:38)
[2024-12-16 12:59] LABS: POC Glucose,Bedside 113 gm/dL (70-110)
--- NOTE | 2024-12-16 12:59 | EXP.BH.CONS ---
History of Present Illness *Admission Date: 12/14/24 *History of present illness: Natividad Snell is a 34-year-old female who presented to the emergency department today via EMS due to altered mental status. Patient's spouse is at bedside and states patient was diagnosed with COVID on 12/11/24 and has been feeling sick since then. Patient states today she began to strip off all of her close and her words were not making sense. EMS was called and patient was brought to the ED; patient's also states that she has been combative and that she has had fevers over the last 3 to 4 days, little p.o. intake, including not taking her medication. Patient has a significant history of type 2 diabetes, asthma, PTSD, and history of drug abuse currently on Suboxone. Upon my assessment patient neither alert or oriented. She does not respond to stimuli. She received droperidol and Versed in the emergency department due to combative behavior. Discussed patient's condition with at bedside who states that she believes this could possibly be an act. She states that this is very unlike her. When asked if the patient may have taken any medications or drugs, she states that she is sure she did not. Her spouse also states that she has not had her Suboxone in approximately 4 days. Patient remains hemodynamically stable, vital signs within normal limits. Patient had CT scan of head, abdomen/pelvis, chest, and chest x-ray?all of which were unremarkable for any acute findings. Urine drug screen was negative. CBC shows no leukocytosis, slightly hemoconcentrated with elevated hemoglobin and hematocrit. CMP shows no electrolyte abnormalities, elevated blood glucose. Unable to obtain an EKG in the ED due to patient's combative behavior. 12/16/2024 Devika Miranda, Psychiatric Mental Health Nurse Practitioner entry; spoke to RN and Resident on 12/15/2024 patient had come in combative and disoriented. Last use of suboxone (prescribed to pt) was 12/10/24 UDS negative. Current workup was in progress with no metabolic finding for behaviors. Went to see patient today 12/16/24 at 11:30 patient was getting an MRI. Spoke to ALLERGIST IMMUNOLOGIST and social media marketing specialist for patient. ALLERGIST IMMUNOLOGIST stated patient was becoming somewhat more coherent but continued to exhibit mutism behaviors, only minimally reponding to commands. Freire catherter had been removed on 12/15/24 and patient had gotten out of bed and voided independently. Patient was also exhibiting purposeful movements including refusal of medications and physical exam. ALLERGIST IMMUNOLOGIST indicated that per report of pts and mother patient does suffer from psychiatric issues and would benefit from psychiatric care. Patient had also expressed to ALLERGIST IMMUNOLOGIST by way of nod of head she is interested in psychiatric care. ALLERGIST IMMUNOLOGIST feels could be a malingering component to behaviors. I waited in patient room for over half and hour for patient to return but had to get back to practice. I left a card with the patient's RN to let her know to call our office and get an appointment to come in for evaluation. Per ALLERGIST IMMUNOLOGIST it is likely pending no significant findings of MRI she will be discharged from the hospital today. Will check tomorrow and if pt is still admitted will return to hospital to speak to pt. [facility] Disclaimer: The information contained in this section may have been updated after the patient was seen, as this information can be updated by other users. Medical History (Updated 12/16/24 @ 08:34 by Kathleen Escoto APRN) Dehydration Cellulitis of thumb, left Problem of extremity Strep throat Acute viral syndrome Fall Muscle spasm Fall Pityriasis rosea Recurrent pain of right knee Contact dermatitis Contact dermatitis Bilateral shoulder pain Dysmenorrhea Depression Anxiety Scoliosis Hearing loss in right ear History of COVID-19 Asthma Migraine Eczema Hemorrhoid Allergies Uterine fibroid Nausea Abdominal pain Abnormal uterine bleeding Left ankle sprain Nausea & vomiting History of deviated nasal septum Costochondral separation Ganglion cyst Surgical History Status post laparoscopic hysterectomy History of surgery History of surgery History of surgery History of tonsillectomy and adenoidectomy History of cholecystectomy Family History Other Alcoholism Asthma Cancer Diabetes Heart attack Hyperlipidemia Hypertension Social History (Updated 10/22/24 @ 13:35 by Clare Mansfield MA) Smoking Status: Current every day smoker tobacco type: cigarettes packs per day: 1 years smoked: 16 second hand exposure: Yes alcohol intake: former counseling provided: none substance use type: denies use current occupational status: disabled Travel in the last 8 weeks?: None household members: family and children housing: house current occupation: [employer] current occupational exposures/hazards: No caffeine: Yes Have you lived/traveled outside [place] in past 30 days?: No Contact w/someone who lives/traveled outside [place] past 30 days?: No Exposure to someone with infectious disease in past 14 days?: No Do you have a fever (greater than 100.4 F or 38 C)?: No Have you tested positive for COVID-19?: No Exposed to someone with COVID-19 in past 14 days?: No Do you have a sore throat?: No Do you have a cough?: No Do you have any weakness?: No Do you have any diarrhea?: No Are you experiencing any unusual bleeding?: No Do you have any muscle aches/pain?: No Do you have any abdominal pain?: No Are you experiencing loss of taste or smell?: No Meds Home Medications and Allergies Home Medications ?Medication ?Instructions ?Recorded ?Confirmed ?Type albuterol sulfate 90 mcg/actuation 2 inh inhalation Q6HP PRN 07/23/24 12/15/24 Rx aerosol inhaler Shortness Of Breath 30 days #1 ea blood sugar diagnostic (Blood #50 ea 07/23/24 10/22/24 Rx Glucose Test strips) blood-glucose meter (Blood Glucose #1 ea 07/23/24 10/22/24 Rx Monitoring kit) pregabalin 150 mg capsule (Lyrica) 150 mg PO BID #60 caps 09/08/24 12/15/24 Rx blood-glucose sensor (Dexcom G7 #3 ea 10/06/24 10/22/24 Rx Sensor device) lancets 30 gauge (Droplet Lancets) #100 ea 10/06/24 10/22/24 Rx blood-glucose,sawmill moulder operator,cont #1 ea 10/12/24 10/22/24 Rx (Dexcom G7 Electronic Device Monitor) semaglutide 0.25 mg or 0.5 mg (2 0.5 mg (0.374 mL) SQ WEEKLY #1.5 mL 12/06/24 12/15/24 Rx mg/1.5 mL) subcutaneous pen injector prednisone 50 mg tablet 50 mg PO DAILY 5 days #5 tabs 12/12/24 12/15/24 Rx buprenorphine 8 mg-naloxone 2 mg 2 film sublingual DAILY 12/15/24 12/15/24 History sublingual film cyclobenzaprine 10 mg tablet 10 mg PO BIDP PRN muscle spasm 12/15/24 12/15/24 History ondansetron 8 mg disintegrating 8 mg PO TIDP PRN nausea and 12/15/24 12/15/24 History tablet vomiting New Prescriptions to Start Prescriptions: Allergies Allergy/AdvReac Type Severity Reaction Status Date / Time Penicillins (PENICILLINS) Allergy Severe THROAT Verified 10/22/24 13:34 SWELLING, HIVES, VOMITTING amoxicillin (From AUGMENTIN) Allergy Intermediate I-HIVES Verified 10/22/24 13:34 clavulanic acid (From Allergy Intermediate I-HIVES Verified 10/22/24 13:34 AUGMENTIN) diphenhydramine (From Allergy Intermediate I-HIVES Verified 10/22/24 13:34 BENADRYL) ibuprofen (IBUPROFEN) Allergy Intermediate I-HIVES Verified 10/22/24 13:34 metoclopramide (From REGLAN) Allergy Intermediate I-HIVES Verified 10/22/24 13:34 Sulfa (Sulfonamide Allergy Intermediate I-HIVES Verified 10/22/24 13:34 Antibiotics) (SULFA (SULFONAMIDE ANTIBIOTICS)) tetanus toxoid, adsorbed Allergy Intermediate I-RASH Verified 10/22/24 13:34 (TETANUS TOXOID, ADSORBED) naproxen (NAPROXEN) Allergy Unknown Hives, Verified 10/22/24 13:34 Vomiting paroxetine (From PAXIL) Allergy Unknown numbness Verified 10/22/24 13:34 tongue atomoxetine (From Strattera) AdvReac Mild NA-HALLUCIN Verified 10/22/24 13:34 ATIONS
[2024-12-16] MEDS: ONDANSETRON 4MG/2ML VIAL 4 MG IV (13:51)
[2024-12-16] MEDS: PREGABALIN 50MG CAPSULE 150 MG PO (14:25)
[2024-12-16] MEDS: BUPRENORPHINE/NALOXONE 8MG/2MG ODT 2 EACH SL (14:26)
--- NOTE | 2024-12-17 10:05 | SW/DCPLANNER ---
Spoke with patient on the phone. patient stated that she is doing alot better. Patient stated that she is aware of her upcoming appointments. patient stated that she was not prescribed any new medicine. Patient stated that she has no concerns or questions at this time. Randall Mondragon
== END 2024-12-16 16:50 | disposition home or self-care (01) ==
LOC: ER 15:31 → 2ND 15:57
PROVIDERS: Nurse Practitioner; Admitting Provider Student in an Organized Health Care Education/Training Program; Emergency Provider Student in an Organized Health Care Education/Training Program; PCP Family Medicine; Visit Provider Student in an Organized Health Care Education/Training Program
DX: G93.40 Encephalopathy, unspecified (principal); U07.1 COVID-19; J45.909 Unspecified asthma, uncomplicated; E86.0 Dehydration; E11.9 Type 2 diabetes mellitus without complications; F11.91 Opioid use, unspecified, in remission; F17.210 Nicotine dependence, cigarettes, uncomplicated; J32.0 Chronic maxillary sinusitis; K76.0 Fatty (change of) liver, not elsewhere classified; Z88.0 Allergy status to penicillin; Z88.1 Allergy status to other antibiotic agents; Z88.2 Allergy status to sulfonamides; Z88.6 Allergy status to analgesic agent; Z88.7 Allergy status to serum and vaccine; Z88.8 Allergy status to other drugs, medicaments and biological substances; Z79.85 Long-term (current) use of injectable non-insulin antidiabetic drugs; Z79.899 Other long term (current) drug therapy
CPT/HCPCS: 36415; 51702; 51798; 70450; 70553; 71045; 71275; 74177; 80053; 80307; 80320; 80329; 81001; 82009; 82803; 82962; 83036; 83605; 83690; 83735; 83930; 84100; 84443; 84484; 85025; 85610; 85730; 87040; 96361; 96372; 96374; 96375; 96376; 99285; A9576; G0378; J0574; J1790; J2250; J2405; J7030; J7120; Q9967

== ENCOUNTER 2025-01-03 06:26 | Emergency (ER) | payer MEDICAID, SELFPAY ==
--- OUTSIDE RECORDS SUMMARY | 2024-12-24 15:01 | XMS_ITS | Continuity of Care Document ---
Author Organization [facility] Phone Care Team Providers Care Top Former Name Role Phone FLORES MOFFETT Unavailable FLORES MOFFETT Admitting POLLO LEMUS Surgeon UNKNOWN, DR Yi Primary Care Unavailable FLORES MOFFETT Primary Attending [phone] ALLERGIES AND ADVERSE REACTIONS ALLERGIES AND ADVERSE REACTIONS Code System Allergy Substance Adverse Reaction Date Reaction (Severity) Comment Status Reported By Updated [place] [id number] SNOMED CT Sulfa Antibiotics Adverse reaction to substance Not Specified active [id number] on November 29, 2024 10:25:51 AM UTC 27112 RXNorm Augmentin Adverse reaction to substance Not Specified active [id number] on November 29, 2024 10:25:51 AM UTC 5657 RXNorm Ibuprofen Adverse reaction to substance Not Specified active [id number] on November 29, 2024 10:25:51 AM UTC 3498 RXNorm Benadryl Adverse reaction to substance Not Specified active [id number] on November 29, 2024 10:25:51 AM UTC TETANUS TOXOID (Free Text Allergy) Adverse reaction to substance Not Specified active [id number] on November 29, 2024 10:25:51 AM UTC 6915 RXNorm Reglan Adverse reaction to substance Not Specified active [id number] on November 29, 2024 10:25:52 AM UTC 61045 RXNorm Clavulanic Acid Adverse reaction to substance Not Specified active [id number] on November 29, 2024 10:28:14 AM UTC 7235 RXNorm Naproxen Adverse reaction to substance Not Specified active [id number] on November 29, 2024 10:28:14 AM UTC 82224 RXNorm Paxil Adverse reaction to substance Not Specified active [id number] on November 29, 2024 10:28:14 AM UTC Atomoxetine Adverse reaction to substance Not Specified active [id number] on November 29, 2024 10:28:14 AM UTC RESULTS Patient: KEIKO WALKER Date of : November 05 9 LABORATORY RESULTS ORDER 100: GRAM STAIN (LOINC : 664-3) ORDER DATE: November 29, 2024 10:24:00 AM UTC Specimen Source: Body Fluid Specimen Type: Body fluid sa mple PERFORMING LAB: [address] [id number] Result Comment: Final Result Date: November 29, 2024 11:41:00 AM UTC (TECH: MCP) LOINC TEST FLAG [place] [address]-6 Specimen source [Identifier] of Unspecified specimen N SYNOVIAL FLUID November 29, 2024 11:41:00 AM UTC (TECH: MCP) 664-3 Microscopic observation [Identifier] in Unspecified specimen by Gram stain N NO ORGANISMS November 29, 2024 11:41:00 AM UTC (TECH: MCP) 664-3 Microscopic observation [Identifier] in Unspecified specimen by Gram stain N NO WBC'S SEEN NO WBC'S SEEN November 29, 2024 11:41:00 AM UTC (TECH: MCP) 664-3 Microscopic observation [Identifier] in Unspecified specimen by Gram stain N NONE SEEN NONE SEEN November 29, 2024 11:41:00 AM UTC (TECH: MCP) 33310-3 Gram positive bacteria identified [Interpretation] by Probe in Positive blood culture N BY MICRO TECH PASS November 29, 2024 11:41:00 AM UTC (TECH: MCP) 02127-6 Gram negative bacteria identified [Interpretation] by Probe in Positive blood culture N BY MICRO TECH PASS November 29, 2024 11:41:00 AM UTC (TECH: MCP) ORDER 200: CELL COUNT AND DI FF SYNOVIAL (LOINC: 66335-6) ORDER DATE: November 29, 2024 10:24:00 AM UTC Specimen Source: Body Fluid Specimen Type: Body fluid sa mple PERFORMING LAB: [address] [id number] Result Comment: Final Result Date: November 29, 2024 12:38:00 PM UTC (TECH: MCP) LOINC TEST FLAG [place] [address]-0 Specimen source [Identifier] of Synovial fluid N SYNOVIAL FLUID November 29, 2024 12:32:00 PM UTC (TECH: MCP) 48051-7 Color of Synovial fluid N STRAW CLEAR November 29, 2024 12:32:00 PM UTC (TECH: MCP) 32934-5 Appearance of Synovi al fluid N CLEAR CLEAR November 29, 2024 12:32:00 PM UTC (TECH: MCP) 37938-8 Volume of Synovial fluid N 5 mL November 29, 2024 12:38:00 PM UTC (TECH: MCP) 18555-3 Viscosity of Synovia l fluid N VISCOUS November 29, 2024 12:32:00 PM UTC (TECH: MCP) 19380-7 Neutrophils/100 leukocytes in Synovial fluid N 148 /uL November 29, 2024 12:32:00 PM UTC (TECH: MCP) 96000-3 Erythrocytes [#/volu me] in Synovial fluid N 27 /uL November 29, 2024 12:32:00 PM UTC (TECH: MCP) 56155-1 Polymorphonuclear cells/100 leukocytes in Synovial fluid N 20 % November 29, 2024 12:32:00 PM UTC (TECH: MCP) 06054-0 Mononuclear cells/10 0 leukocytes in Synovial fluid N 80 % November 29, 2024 12:32:00 PM UTC (TECH: MCP) ORDER 300: CRYSTALS SNYOVIAL FLUID (LOINC: 6825-4) ORDER DATE: November 29, 2024 10:24:00 AM UTC Specimen Source: Body Fluid Specimen Type: Body fluid sa mple PERFORMING LAB: [address] [id number] Result Comment: November 7:10:00 PM UTC No crystals seen under normal or polarized light. Result Comment: November 30, 2024 7:10:00 PM UTC Performed at: [facility] Result Comment: November 30, 2024 7:10:00 PM UTC [address] [place], [place] [id number] Result Comment: November 30, 2024 7:10:00 PM UTC Correction Warden: Delroy Trotter PhD, Phone: [phone] Result Comment: November 30, 2024 7:10:00 PM UTC Final Result Date: November 30, 2024 10:57:00 AM UTC (TECH: LAB) LOINC TEST FLAG RESULT REFERENCE RANGE UPDA PRAFUL BY 6825-4 Crystals [type] in Body fluid by Light microscopy N Comment None seen November 30 10:57:00 AM UTC (TECH: LAB) ORDER 700: LACTIC ACID (LOIN C: 45414-7) ORDER DATE: November 29, 2024 10:42:00 AM UTC Specimen Source: Plasma Specimen Type: Plasma specim en PERFORMING LAB: [address] [id number] Result Comment: Final Result Date: November 29, 2024 11:16:00 AM UTC (TECH: A/V) LOINC TEST FLAG [place] [address]-7 Lactate [Moles/volume] in Blood N 1.1 mmol/L 0.7 mmol/L - 2.1 mmol/L November 29, 2024 11:16:00 AM UTC (TECH: A/V) ORDER 800: PROCALCITONIN (LO INC: 82735-0) ORDER DATE: November 29, 2024 10:42:00 AM UTC Specimen Source: Plasma Specimen Type: Plasma specim en PERFORMING LAB: [address] [id number] Result Comment: Final Result Date: November 29, 2024 11:30:00 AM UTC (TECH: A/V) LOINC TEST FLAG [place] [address]-4 Procalcitonin [Mass/volume] in Serum or Plasma N <0.05 ng/ml 0.00 ng/ml - 0.50 ng/ml November 29, 2024 11:30:00 AM UTC (TECH: A/V) ORDER 900: CBC W/ AUTO DIFF (LOINC: 26846-5) ORDER DATE: November 29, 2024 10:42:00 AM UTC Specimen Source: Whole Blood Specimen Type: Whole blood s ample PERFORMING LAB: [address] [id number] Result Comment: Final Result Date: November 29, 2024 11:17:00 AM UTC (TECH: MCP) LOINC TEST FLAG RESULT REFERENCE RANGE UPDA PRAFUL BY 6690-2 Leukocytes [#/volume] in Blood by Automated count N 4.67 K/uL 4.5 K/uL - 11.5 K/uL November 29, 2024 11:17:00 AM UTC (TECH: MCP) 789-8 Erythrocytes [#/volume] in Blood by Automated count N 4.94 M/uL 4.0 M/uL - 5.4 M/uL November 29, 2024 11:17:00 AM UTC (TECH: MCP) 718-7 Hemoglobin [Mass/volume] in Blood N 14.0 g/dL 12.0 g/dL - 15.0 g/dL November 29, 2024 11:17:00 AM UTC (TECH: MCP) 4544-3 Hematocrit [Volume Fraction] of Blood by Automated count N 41.1 % 35 % - 49 % November 29, 2024 11:17:00 AM UTC (TECH: MCP) 787-2 Erythrocyte mean corpuscular volume [Entitic volume] by Automated count N 83.2 fL 80.0 fL - 100.0 fL November 29, 2024 11:17:00 AM UTC (TECH: MCP) 785-6 Erythrocyte mean corpuscular hemoglobin [Entitic mass] by Automated count N 28.3 pg 26.0 pg - 32.0 pg November 29, 2024 11:17:00 AM UTC (TECH: MCP) 786-4 Erythrocyte mean corpuscular hemoglobin concentration [Mass/volume] by Automated count N 34.1 g/dL 32.0 g/dL - 36.0 g/dL November 29, 2024 11:17:00 AM UTC (TECH: MCP) 788-0 Erythrocyte distribution width [Ratio] by Automated count N 13.8 % 11.5 % - 14.5 % November 29, 2024 11:17:00 AM UTC (TECH: MCP) 777-3 Platelets [#/volume] in Blood by Automated count N 262 K/uL 142 K/uL - 424 K/uL November 29, 2024 11:17:00 AM UTC (TECH: MCP) 99483-1 Platelet mean volume [Entitic volume] in Blood by Automated count H 10.6 fL 6.8 fL - 10.2 fL November 29, 2024 11:17:00 AM UTC (TECH: MCP) 83725-3 Neutrophils/100 leukocytes in Blood L 42.6 % 50 % - 70 % November 11:17:00 AM UTC (TECH: MCP) 84209-0 Lymphocytes/100 leukocytes in Blood N 41.8 % 18.0 % - 42.0 % November 11:17:00 AM UTC (TECH: MCP) 79208-1 Monocytes/100 leukocytes in Blood N 8.6 % 2.0 % - 11.0 % November 11:17:00 AM UTC (TECH: MCP) 36416-4 Eosinophils/100 leukocytes in Blood H 6.2 % 1.0 % - 3.0 % November 11:17:00 AM UTC (TECH: MCP) 04606-6 Basophils/100 leukocytes in Blood N 0.6 % 0.0 % - 2.0 % November 11:17:00 AM UTC (TECH: MCP) 82054-5 Immature granulocytes/100 leukocytes in Blood by Automated count N 0.2 % 0.0 % - 0.8 % November 29, 2024 11:17:00 AM UTC (TECH: MCP) 73022-0 Nucleated cells [#/volume] in Blood N 0.0 % November 11:17:00 AM UTC (TECH: MCP) 32226-1 Neutrophils [#/volume] in Blood N 1.99 K/uL November 11:17:00 AM UTC (TECH: MCP) 76301-4 Lymphocytes [#/volume] in Blood N 1.95 K/uL November 11:17:00 AM UTC (TECH: MCP) 76476-1 Monocytes [#/volume] in Blood N 0.40 K/uL November 29, 2024 11:17:00 AM UTC (TECH: MCP) 76802-5 Eosinophils [#/volume] in Blood N 0.29 K/uL November 11:17:00 AM UTC (TECH: MCP) 704-7 Basophils [#/volume] in Blood by Automated count N 0.03 K/uL November 29, 2024 11:17:00 AM UTC (TECH: MCP) 84570-4 Immature granulocytes [#/volume] in Blood N 0.01 K/uL November 11:17:00 AM UTC (TECH: MCP) 54324-3 Nucleated cells [#/volume] in Blood N 0.00 k/uL November 11:17:00 AM UTC (TECH: MCP) 28755-9 Manual differential comment [interpretation] in Blood Narrative N NO November 29, 2024 11:17:00 AM UTC (TECH: MCP) ORDER 1000: COMP METABOLIC P MARU (LOINC: 72137-2) ORDER DATE: November 29, 2024 10:42:00 AM UTC Specimen Source: Serum Specimen Type: Serum specime n PERFORMING LAB: [address] [id number] Result Comment: Final Result Date: November 29, 2024 11:17:00 AM UTC (TECH: EAB) LOINC TEST FLAG RESULT REFERENCE RANGE UPDA PRAFUL BY 2951-2 Sodium [Moles/volume ] in Serum or Plasma N 139 mmol/L 137 mmol/L - 147 mmol/L November 29, 2024 11:17:00 AM UTC (TECH: EAB) 2823-3 Potassium [Moles/vol ume] in Serum or Plasma N 4.2 mmol/L 3.5 mmol/L - 5.1 mmol/L November 29, 2024 11:17:00 AM UTC (TECH: EAB) 2075-0 Chloride [Moles/volu me] in Serum or Plasma N 105 mmol/L 98 mmol/L - 110 mmol/L November 29, 2024 11:17:00 AM UTC (TECH: EAB) 8-9 Carbon dioxide, tota l [Moles/volume] in Serum or Plasma N 27 mmol/L 21 mmol/L - 30 mmol/L November 29, 2024 11:17:00 AM UTC (TECH: EAB) 47452-8 Anion gap in Serum o r Plasma N 7 mmol/L 6 mmol/L - 14 mmol/L November 29, 2024 11:17:00 AM UTC (TECH: EAB) 2345-7 Glucose [Mass/volume ] in Serum or Plasma H 120 mg/dL 70 mg/dL - 115 mg/dL November 29, 2024 11:17:00 AM UTC (TECH: EAB) 3094-0 Urea nitrogen [Mass/volume] in Serum or Plasma L <2 mg/dL 7 mg/dL - 17 mg/dL November 29, 2024 11:17:00 AM UTC (TECH: EAB) 2160-0 Creatinine [Mass/vol ume] in Serum or Plasma N 0.8 mg/dL 0.5 mg/dL - 1.5 mg/dL November 29, 2024 11:17:00 AM [facility] (TECH: EAB) 3097-3 Urea nitrogen/Creati nine [Mass Ratio] in Serum or Plasma L 0 10 - 20 November 29, 2024 11:17:00 AM [facility] (TECH: EAB) 07817-4 Glomerular filtratio n rate [Volume Rate/Area] in Serum or Plasma by Creatinine-based formula (MDRD)/1.73 sq M N 98 mL/min >60 November 29, 2024 11:17:00 AM [facility] (TECH: EAB) 77593-7 Osmolality of Serum or Plasma by calculation L 0 mOsmol/Kg 275 mOsmol/Kg - 301 mOsmol/Kg November 29, 2024 11:17:00 AM [facility] (TECH: EAB) 2885-2 Protein [Mass/volume ] in Serum or Plasma N 7.4 g/dL 6.2 g/dL - 8.2 g/dL November 29, 2024 11:17:00 AM [facility] (TECH: EAB) 1751-7 Albumin [Mass/volume ] in Serum or Plasma N 4.0 g/dL 3.5 g/dL - 5.0 g/dL November 29, 2024 11:17:00 AM [facility] (TECH: EAB) 02447-3 Calcium [Mass/volume ] in Serum or Plasma N 8.7 mg/dL 8.5 mg/dL - 10.8 mg/dL November 29, 2024 11:17:00 AM [facility] (TECH: EAB) 1975-2 Bilirubin.total [Mass/volume] in Serum or Plasma N 0.5 mg/dL 0.2 mg/dL - 1.3 mg/dL November 29, 2024 11:17:00 AM [facility] (TECH: EAB) 1920-8 Aspartate aminotransferase [Enzymatic activity/volume] in Serum or Plasma H 37 IU/L 14 IU/L - 36 IU/L November 29, 2024 11:17:00 AM [facility] (TECH: EAB) 1742-6 Alanine aminotransfe rase [Enzymatic activity/volume] in Serum or Plasma N 28 IU/L 0 IU/L - 35 IU/L November 29, 2024 11:17:00 AM [facility] (TECH: EAB) 43593-3 Alkaline phosphatase .bile [Enzymatic activity/volume] in Serum or Plasma N 61 IU/L 38 IU/L - 126 IU/L November 29, 2024 11:17:00 AM UTC (TECH: EAB) LABORATORY NARRATIVE RESULTS Information is not available RADIOLOGY RESULTS ORDER 1100: CHEST 1 VIEW AP (LOINC: 75956-0) ORDER DATE: November 29, 2024 1:17:00 PM UTC PERFORMING LAB: [address] [id number] Final Result Date: November 29, 2024 1:37:23 PM [place] (TECH: COURTNEY STERN) [address] [address] (Phone) IMAGING REPORT Name: WIL ADEN : 1990 Age: 34 Years Patient Type: ER Dept Sex: F Exam Description: CHEST 1 VIEW AP Exam Reason: soa Order Date/Time: 11/29/2024 09:33:33 AM Dictated By: Juan Salter MD Ordering Physician: POLLO LEMUS Attending Physician: FLORES MOFFETT XR CHEST 1 VIEW Reason For Study: soa COMPARISON:None TECHNIQUE An AP portable view of the chest was obtained. FINDINGS An AP portable view of the chest demonstrates clear lungs and a normal heart size. The bony thorax is intact. IMPRESSION: No active disease in the chest. Electronically signed by: Juan Salter MD 11/29/2024 09:37 AM EDT RP [employer] PAGE 1 OF 2 Name: WIL ADEN : 1990 Age: 34 Years Patient Type: ER Dept Sex: F Exam Description: CHEST 1 VIEW AP Exam Reason: soa Order Date/Time: 11/29/2024 09:33:33 AM Name: Juan Salter Provider ID: [id number] PAGE 2 OF 2 PATHOLOGY NARRATIVE RESULTS Information is not available MICROBIOLOGY RESULTS ORDER 400: CULTURE WOUND (LO INC: 6462-6) ORDER DATE: November 29, 2024 10:25:00 AM UTC PERFORMING LAB: [address] [id number] Specimen Source: WOUND Specimen Type: Result Comment: November 30, 2024 2:11:00 PM UTC (TECH: RKM) Isolate:1 Heavy Growth Coagulase Positive Staphylococcus Result Comment: November 30, 2024 2:12:00 PM UTC (TECH: RKM) Isolate 1 is PBP2A Negative This indicates a negative screening test for MRSA.SusceptibilitytTesting to follow. Result Comment: December 01, 2024 10:40:00 AM UTC (TECH: RKM) ds Final Result Date: December 09, 2024 9:38:00 AM UTC (TECH: RKM) ISOLATE #1 Organism: Staphylococcus aureus Result Comment: Final Result Date: December 01, 2024 12:06:00 PM UTC (TECH: RKM) LOINC ANTIBIOTIC JASMINE Interpretation [place] [address]-9 BLACT P POS December 01, 2024 12:06:00 PM UTC (TECH: RKM) 51635-6 Clindamycin S <= 0.5 December 01, 2024 12:06:00 PM UTC (TECH: RKM) 82385-2 Daptomycin S <= 1.0 December 01, 2024 12:06:00 PM UTC (TECH: [employer]) 16900-9 DTEST N NEG December 01, 2024 12:06:00 PM UTC (TECH: [employer]) 34406-7 Erythromycin S <= 0.5 November 12:06:00 PM UTC (TECH: [employer]) 57097-1 Gentamicin S <= 2.0 December 01, 2024 12:06:00 PM UTC (TECH: [employer]) 84636-7 Levofloxacin S <= 1.0 November 12:06:00 PM UTC (TECH: [employer]) 27403-9 Linezolid S <= 1.0 December 01, 2024 12:06:00 PM UTC (TECH: BUILD) 89857-1 Minocycline S <= 1.0 December 01, 2024 12:06:00 PM UTC (TECH: BUILD) 61308-5 Moxifloxacin S <= 0.5 November 12:06:00 PM UTC (TECH: BUILD) 87426-2 Oxacillin S 0.5 December 01, 2024 12:06:00 PM UTC (TECH: BUILD) 94365-3 Penicillin G R >1.0 November 12:06:00 PM UTC (TECH: BUILD) 90808-5 Rifampin S <= 0.5 December 01, 2024 12:06:00 PM UTC (TECH: BUILD) 77789-9 Tetracycline S <= 0.5 November 12:06:00 PM UTC (TECH: BUILD) 24417-0 Trimethoprim/Sulfam ethoxazole S 0.5 December 01, 2024 12:06:00 PM UTC (TECH: BUILD) 17827-0 Vancomycin S 1.0 December 01, 2024 12:06:00 PM UTC (TECH: BUILD) BLOOD ADMIN RESULTS Information is not available MEDICATIONS HOME MEDICATIONS Status RXNORM NDC Medication Dose Route Frequency Dates Comments Reported By Updated By Active 908334 95893 65909 5 buprenorphin e-naloxone 8-2 mg Tablet, Sublingual 0.0 TAB SUBLIN G DAILY Last Dose: Last Dose Unknown; [id number] on 2024 10:39:03 AM [facility] Active 8895141 98111 83268 0 albuterol sulfate 90 mcg/actuatio n Aerosol Powder, Breath Activated 2.0 INH INHALE D Q6HPRN Last Dose: Last Dose Unknown; [id number] [facility] 2024 10:39:03 AM [facility] Active 652135 25727 75496 3 glimepiride 2 mg tablet 1.0 TAB PO DAILY Last Dose: Last Dose Unknown; [id number] on [facility] 2024 10:39:03 AM [facility] Active 751415 75922 50451 4 pregabalin 150 mg capsule 1.0 CAP PO BID Last Dose: Last Dose Unknown; [id number] [facility] 10:39:03 AM [facility] Active 306581 35002 72092 0 ondansetron 8 mg Tablet,disin tegrating 1.0 TAB PO Q8HPRN Last Dose: Last Dose Unknown; [id number] on [facility] 2024 10:39:04 AM [facility] Active 9632956 05606 85476 9 Farxiga 10 mg tablet 1.0 TAB PO DAILY Last Dose: Last Dose Unknown; [id number] on [facility] 2024 10:39:04 AM [facility] Active 3694836 38861 25242 3 semaglutide 0.25 mg or 0.5 mg (2 mg/3 mL) Pen Injector 0.25 MG SUBCUT QWEEK Last Dose: Last Dose Unknown; [id number] on [facility] 2024 10:39:04 AM [facility] DISCHARGE MEDICATIONS Status RXNORM [facility] Medication Dose Route Frequency Dates Dis pense Data Comments Physician Updated By No Discharge Medication Info rmation Available INPATIENT MEDICATIONS Status RXNORM [facility] Medication Dose Route Frequency Rat e Quantity Dates Indication Dispense Data Comments Physician Updated By Valarie inued [id number] 5543 218 lidocaine (XYLOCAINE) 2% SOLN 20.0 ML ONE TIME ONLY Start: 2024 10:26: 00 AM [facility] End: 2024 10:26: 00 AM [facility] ZUHAIR TANNER DO INTERFAC ED [facility] 10:26:00 AM [facility] Valarie inued [id number] 6736 7035 499 vancomycin 1500 MG SOLR 1500. 0 MG INTRAV ENOUS ONE TIME ONLY Start: 2024 10:48: 00 AM UTC End: 2024 10:48: 00 AM [facility] ZUHAIR TANNER DO INTERFAC ED on [facility] 2024 10:48:00 AM [facility] Discont inued 0556717 7131 1604 225 ketorolac (TORADOL) 30 MG/ML SOLN 30.0 MG IV PUSH ONE TIME ONLY Start: 2024 12:03: 00 PM UTC End: 2024 12:03: 00 PM [facility] ZUHAIR TANNER DO INTERFAC ED [facility] 12:02:00 PM [facility] Discont inued 4062150 1337 7020 101 DUONEB 0.5-2.5 MG/3 ML SOLN 3.0 ML INHALE D ONE TIME ONLY Start: 2024 2:26:0 0 PM UTC End: 2024 2:26:0 0 PM [facility] ZUHAIR TANNER DO INTERFAC ED [facility]20[facility] 2:26:00 PM [facility] Discont inued 3308912 6839 8015 925 methylPREDN ISolone sodium succ 125 MG SOLR 125.0 MG IV PUSH ONE TIME ONLY Start: 2024 2:45:0 0 PM UTC End: 2024 2:45:0 0 PM [facility] ZUHAIR TANNER INTERFAC ED on [facility] 2024 2:43:00 PM UT SOCIAL HISTORY SOCIAL HISTORY - Smoking Status SNOMED-CT Social History Element Description Effective Dates Offered Cessation Comment Updated By [id number] Current Tobacco smoking status Unknown If Ever Smoked [id number] on November 29, 2024 10:36:34 AM [facility] SOCIAL HISTORY - Gender Sex: Female SOCIAL HISTORY - Status : status i nformation is not available Intention in Next Year: intention information is not available SOCIAL HISTORY - Assessments Code System Description Status Date Value of Assessment Updated By Comment Assessment Information is no t available SOCIAL HISTORY - [place] Affiliation [place] information is not av ailable SOCIAL HISTORY - Legal Sex Legal Sex information is not available SOCIAL HISTORY - Sexual Behavior Sexual Orientation Gender Identity SNOMED-CT Description SNO MED -CT Description Activity Level No of Partners Partner Type UpdatedBy Information is not available SOCIAL HISTORY - Occupation Occupation information is no t available VITAL SIGNS PATIENT VITAL SIGNS This section displays the mo st recent value for each vital sign as of December 24, 2024 7:01:57 PM UTC Loinc Code Vital Sign Activity Date Result Updated By 8310-5 Body temperature November 29 2:47:00 PM UTC 97.4 [degF] 03361-9 Body weight Measured November 092024 10:24:23 AM UTC 90.0 kg (198.0 lb) [id number] on November 29, 2024 10:24:23 AM UTC 8462-4 Diastolic blood pressure November 29, 2024 2:33:00 PM UTC 65.0 mm[Hg] 8867-4 Heart rate November 29 2:47:00 PM UTC 67 /min 70055-8 Oxygen saturation in Arterial blood by Pulse oximetry November 29, 2024 2:47:00 PM UTC 94.0 % 9279-1 Respiratory rate November 29 2:47:00 PM UTC 17 /min 8480-6 Systolic blood pressure November 29, 2024 2:33:00 PM UTC 101.0 mm[Hg] PEDIATRIC GROWTH CHART - VITAL SIGNS This section displays Head C ircumference Percentile, Weight for Length Percentile and BMI Percentile Loinc Code Pediatric Measure Age (Months) Result Updat ed By No Pediatric Growth Chart Pe rcentile Information Available. HEALTH CONCERNS Problems Concern Status Health Concern problem infor mation not available. Smoking Status Status Years Used Consumed packs p er day Health Concern smoking histo ry information not available. Family History Concern Status Health Concern family histor y information not available. ENCOUNTERS ENCOUNTER INFORMATION Reason for Visit FALL KNEE INJURY Admission November 29, 2024 10:17:[address] [address] Discharge November 29, 2024 3:50:00 PM [facility] C DISCHARGED TO HOME OR SELF CARE ENCOUNTER DIAGNOSES Notes information is not dany ilable. Code System Diagnosis Onset Date Diagnosis information is not available. ABSTRACT DIAGNOSES Code System Diagnosis Updated By Abatement Date M25.561 ICD10 PAIN IN RIGHT KNEE [id number] o n December 02, 2024 2:35:41 AM [facility] L03.115 ICD10 CELLULITIS OF RIGHT LOWER LI MB [id number] on December 02, 2024 2:35:41 AM [facility] F41.9 ICD10 ANXIETY DISORDER, UNSPECIFIE D [id number] on December 02, 2024 2:35:41 AM [facility] F32.A ICD10 DEPRESSION, UNSPECIFIED COH2 992 on December 02, 2024 2:35:41 AM [facility] G43.909 ICD10 MIGRAINE, UNSPEC IFIED, NOT INTRACTABLE, WITHOUT STATUS MIGRAINOSUS [id number] on December 02, 2024 2:35:41 AM [facility] J45.909 ICD10 UNSPECIFIED ASTH MA, UNCOMPLICATED [id number] on December 02, 2024 2:35:41 AM [facility] Z79.899 ICD10 OTHER INPATIENT NURSING AIDE (CURRENT) DRUG THERAPY [id number] on December 02, 2024 2:35:41 AM [facility] Z79.51 ICD10 INPATIENT NURSING AIDE (CURRE NT) USE OF INHALED STEROIDS [id number] on December 02, 2024 2:35:41 AM [facility] Z88.2 ICD10 ALLERGY STATUS TO SULFONAMID ES [id number] on December 02, 2024 2:35:41 AM [facility] Z88.1 ICD10 ALLERGY STATUS T O OTHER ANTIBIOTIC AGENTS [id number] on December 02, 2024 2:35:41 AM [facility] Z88.8 ICD10 ALLERGY STATUS T O OTHER DRUGS, MEDICAMENTS AND BIOLOGICAL SUBSTANCES [id number] on December 02, 2024 2:35:41 AM [facility] Z88.7 ICD10 ALLERGY STATUS T O SERUM AND VACCINE [id number] on December 02, 2024 2:35:41 AM [facility] Z88.0 ICD10 ALLERGY STATUS TO PENICILLIN [id number] on December 02, 2024 2:35:41 AM [facility] CARE TEAM Care Top Former Role FLORES MOFFETT Referring FLORES MOFFETT Admitting POLLO LEMUS Surgeon DR CASTILLO Primary Care FLORES MOFFETT Primary Attending CARE TEAM CARE rectangular tank cooper Role on Team Location Telecom Status Start Date End Bentley e Updated By ALLAN VIDALES MD, MD Surgeon normal November 29, 2024 10:17:00 AM [facility] November 29, 2024 3:50:00 PM [facility] [id number] on December 02, 2024 2:36:02 AM [facility] ZUHAIR IRELAND Referring normal November 29, 2024 10:24:50 AM [facility] November 29, 2024 3:50:00 PM [facility] [id number] on December 02, 2024 2:36:02 AM [facility] ZUHAIR IRELAND Attending normal November 29, 2024 10:24:50 AM [facility] November 29, 2024 3:50:00 PM [facility] [id number] on December 02, 2024 2:36:02 AM [facility] ZUHAIR TANNER DO DO Admitting normal November 29, 2024 10:24:50 AM [facility] November 29, 2024 3:50:00 PM [facility] [id number] on December 02, 2024 2:36:02 AM [facility] UNKNOWN DR AKBAR NAME IN RN PCP normal November 29, 2024 10:18:04 AM [facility] November 29, 2024 3:50:00 PM [facility] [id number] on December 02, 2024 2:36:02 AM [facility]
[2025-01-03 06:27] VITALS: BP 149/104; PULSE 93; RESP 18; TEMP 36.4; O2SAT 98; BMI 33.0
--- NOTE | 2025-01-03 06:34 | CT_ITS ---
FINAL REPORT TECHNIQUE: After the administration of oral and intravenous contrast, axial images were obtained through the abdomen and pelvis by computed tomography. The study was performed with techniques to keep radiation dose as low as reasonably achievable, (ALARA). Individual dose reduction techniques using automated exposure control or adjustment of mA and/or kV according to the patient's size were employed. CLINICAL HISTORY: RLQ/R back pain FINDINGS: Abdomen: The lung bases are clear. The liver parenchyma is homogeneous. The gallbladder is absent. The spleen, pancreas, adrenals and kidneys appear unremarkable. The aorta is normal in caliber. There is no free fluid or adenopathy. There is a large amount of stool throughout the colon. Pelvis: The appendix is normal. The urinary bladder is unremarkable. There is no free fluid or adenopathy. IMPRESSION: Large amount of stool throughout the colon. Otherwise, unremarkable exam. Reviewed, Interpreted and Dictated by Marc Moreno MD Transcribed by [place] [facility] and [facility]
--- NOTE | 2025-01-03 06:34 | HMH.EDGENADL ---
Discharge Plan Disposition Patient Disposition: Home, Self-Care Prescriptions Prescriptions: No Action albuterol sulfate 90 mcg/actuation HFA aerosol inhaler 2 inh inhalation Q6HP PRN (Reason: Shortness Of Breath) 30 Days Qty: 1 5RF (DME) blood-glucose meter [Blood Glucose Monitoring] Kit See Rx Instructions .ROUTE .MEDSUPPLY Qty: 1 0RF Rx Instructions: Monitor BG TID (DME) Blood Glucose Test Strip See Rx Instructions .ROUTE .MEDSUPPLY Qty: 50 12RF Rx Instructions: Monitor BG TID (DME) Dexcom G7 Sensor Device See Rx Instructions .Route Qty: 3 12RF Rx Instructions: As directed semaglutide 0.25 mg or 0.5 mg(2 mg/1.5 mL) pen injector 0.5 mg SQ WEEKLY Qty: 1.5 2RF pregabalin [Lyrica] 150 mg capsule 150 mg PO BID Qty: 60 3RF (DME) lancets [Droplet Lancets] 30 gauge misc See Rx Instructions .ROUTE .MEDSUPPLY Qty: 100 2RF Rx Instructions: Monitor BG TID (DME) Dexcom G7 Account Analyst Misc See Rx Instructions .Route Qty: 1 0RF Rx Instructions: As directed buprenorphine-naloxone 8-2 mg film 2 film sublingual DAILY Patient Comments: dissolve 2 films under the tongue once a day cyclobenzaprine 10 mg tablet 10 mg PO BIDP PRN (Reason: muscle spasm) ondansetron 8 mg tablet,disintegrating 8 mg PO TIDP PRN (Reason: nausea and vomiting) Referrals Follow up/Referrals: Be Putnam MD [Primary Care Provider, Family Practice] - See instructions Activity Restrictions/Add. Instructions Additional Instructions/Restrictions: Your CT scan today showed constipation. I encourage you to take szok-vlg-huzmmek MiraLAX over the next several days until your bowel movements become regular. You can take 1-2 capfuls daily. Follow-up with your primary care physician as needed. If you develop any new or worsening symptoms, or if you become concerned for your health for any reason, return to the emergency department for evaluation Clinical Impressions Clinical Impression: Constipation Instructions Patient Instructions: DI for Acute Abdominal Pain Print Language Print Language: Ukrainian Discharge ED Provider: Marco Navarrete General Adult HPI <Marco Navarrete MD - Last Filed: 01/03/25 06:54> General Chief complaint: Abdominal Pain Stated complaint: Possible Appendix issues; Emesis Time Seen by Provider: 01/03/25 06:34 History of Present Illness HPI narrative: 34-year-old female with history of diabetes, PTSD, presents for right lower quadrant abdominal pain. She reports this been ongoing for last 3 to 4 days. She reports some flank pain as well. Denies fever at home. She was recently started on Ozempic. She has had her gallbladder out but still has her appendix. Denies concern for . Related Data Home Medications ?Medication ?Instructions ?Recorded ?Confirmed buprenorphine 8 mg-naloxone 2 mg 2 film sublingual DAILY 12/15/24 12/15/24 sublingual film cyclobenzaprine 10 mg tablet 10 mg PO BIDP PRN muscle spasm 12/15/24 12/15/24 ondansetron 8 mg disintegrating 8 mg PO TIDP PRN nausea and 12/15/24 12/15/24 tablet vomiting Previous Rx's ?Medication ?Instructions ?Recorded albuterol sulfate 90 mcg/actuation 2 inh inhalation Q6HP PRN 07/23/24 aerosol inhaler Shortness Of Breath 30 days #1 ea blood sugar diagnostic (Blood #50 ea 07/23/24 Glucose Test strips) blood-glucose meter (Blood Glucose #1 ea 07/23/24 Monitoring kit) pregabalin 150 mg capsule (Lyrica) 150 mg PO BID #60 caps 09/08/24 blood-glucose sensor (Dexcom G7 #3 ea 10/06/24 Sensor device) lancets 30 gauge (Droplet Lancets) #100 ea 10/06/24 blood-glucose,mercerizing range feeder,cont #1 ea 10/12/24 (Dexcom G7 Account Analyst) semaglutide 0.25 mg or 0.5 mg (2 0.5 mg (0.374 mL) SQ WEEKLY #1.5 mL 12/06/24 mg/1.5 mL) subcutaneous pen injector Allergies Allergy/AdvReac Type Severity Reaction Status Date / Time Penicillins (PENICILLINS) Allergy Severe THROAT Verified 10/22/24 13:34 SWELLING, HIVES, VOMITTING amoxicillin (From AUGMENTIN) Allergy Intermediate I-HIVES Verified 10/22/24 13:34 clavulanic acid (From Allergy Intermediate I-HIVES Verified 10/22/24 13:34 AUGMENTIN) diphenhydramine (From Allergy Intermediate I-HIVES Verified 10/22/24 13:34 BENADRYL) ibuprofen (IBUPROFEN) Allergy Intermediate I-HIVES Verified 10/22/24 13:34 metoclopramide (From REGLAN) Allergy Intermediate I-HIVES Verified 10/22/24 13:34 Sulfa (Sulfonamide Allergy Intermediate I-HIVES Verified 10/22/24 13:34 Antibiotics) (SULFA (SULFONAMIDE ANTIBIOTICS)) tetanus toxoid, adsorbed Allergy Intermediate I-RASH Verified 10/22/24 13:34 (TETANUS TOXOID, ADSORBED) naproxen (NAPROXEN) Allergy Unknown Hives, Verified 10/22/24 13:34 Vomiting paroxetine (From PAXIL) Allergy Unknown numbness Verified 10/22/24 13:34 tongue atomoxetine (From Strattera) AdvReac Mild NA-HALLUCIN Verified 10/22/24 13:34 ATIONS [facility] <Marco Navarrete MD - Last Filed: 01/03/25 06:54> [facility] Disclaimer: The information contained in this section may have been updated after the patient was seen, as this information can be updated by other users. Medical History (Updated 01/03/25 @ 09:12 by Bryce Kunz MD) Asthma exacerbation Effusion of right knee Acute pain of right knee Varicella Respiratory failure with hypoxia Viral infection Asthma exacerbation Right ankle sprain Abdominal pain Nausea & vomiting Nausea & vomiting Acute left ankle pain Lung nodule Cellulitis Chest pain Fall with injury Prediabetes Bilateral leg numbness Lower extremity pain, bilateral Constipation Nightmares Chronic joint pain Dehydration Cellulitis of thumb, left Problem of extremity Strep throat Acute viral syndrome Fall Muscle spasm Fall Pityriasis rosea Recurrent pain of right knee Contact dermatitis Contact dermatitis Bilateral shoulder pain Dysmenorrhea Depression Anxiety Scoliosis Hearing loss in right ear History of COVID-19 Asthma Migraine Eczema Hemorrhoid Allergies Uterine fibroid Nausea Abdominal pain Abnormal uterine bleeding Left ankle sprain Nausea & vomiting History of deviated nasal septum Costochondral separation Ganglion cyst Surgical History (Updated 12/20/24 @ 00:00 by Wiley Sosa) Status post hemorrhoidectomy Status post laparoscopic hysterectomy History of surgery History of surgery History of surgery History of tonsillectomy and adenoidectomy History of cholecystectomy Family History Other Alcoholism Asthma Cancer Diabetes Heart attack Hyperlipidemia Hypertension Social History (Updated 10/22/24 @ 13:35 by Clare Mansfield MA) Smoking Status: Current every day smoker tobacco type: cigarettes packs per day: 1 years smoked: 16 second hand exposure: Yes alcohol intake: former counseling provided: none substance use type: denies use current occupational status: disabled Travel in the last 8 weeks?: None household members: family and children housing: house current occupation: [employer] current occupational exposures/hazards: No caffeine: Yes Have you lived/traveled outside US in past 30 days?: No Contact w/someone who lives/traveled outside US past 30 days?: No Exposure to someone with infectious disease in past 14 days?: No Do you have a fever (greater than 100.4 F or 38 C)?: No Have you tested positive for COVID-19?: No Exposed to someone with COVID-19 in past 14 days?: No Do you have a sore throat?: No Do you have a cough?: No Do you have any weakness?: Yes Do you have any diarrhea?: Yes Are you experiencing any unusual bleeding?: No Do you have any muscle aches/pain?: No Do you have any abdominal pain?: Yes Are you experiencing loss of taste or smell?: No Other Medical History Have you received the Flu Vaccine for this season: No Have you received the Pneumonia Vaccine: No <Marco Navarrete MD - Last Filed: 01/03/25 06:54> ROS Obtained: Yes All systems reviewed & no additional complaints except as documented Physical Exam <Marco Navarrete MD - Last Filed: 01/03/25 06:54> General General appearance: alert and in no apparent distress Head Head exam: atraumatic and normocephalic Eye Eye exam: Present normal appearance, PERRL and EOMI ENT ENT exam: Present normal oropharynx and normal external ear exam Neck Neck exam: Present normal inspection and full ROM Chest Chest inspection: Present normal inspection and symmetric chest wall rise; Absent tenderness Respiratory Respiratory exam: Present normal lung sounds bilaterally; Absent respiratory distress Cardiovascular Cardiovascular exam: Present regular rate and normal rhythm Abdominal Exam Abdominal exam: Present soft and tenderness (Right lower quadrant); Absent distention or guarding Extremities Exam Extremities exam: Present normal inspection; Absent edema or joint swelling Back Exam Back exam: Present normal inspection; Absent tenderness Neurological Exam Neurological exam: Present alert and oriented X3; Absent motor sensory deficit Psychiatric Psychiatric exam: Present normal affect and normal mood Skin Skin exam: Present warm, dry and normal color Lymphatic Lymphatic Findings: no adenopathy Medical Decision Making <Marco Navarrete MD - Last Filed: 01/03/25 06:54> Medical Records Medical records reviewed: Yes I reviewed the patient's medical records. Screening: Per USPSTF and CDC recommendations, given the prevalence of disease in our region, it is our hospital?s policy to screen for HIV and viral Hepatitis for all patients aged 18 and over and those with ongoing risk factors. Donta Inquiry Pt receiving controlled substance: No Donta was queried for this patient: No Vital Signs: 01/03/25 06:27 01/03/25 06:40 Temperature 97.5 F L Temperature Source Oral Pulse Rate 85 Pulse Rate [Left Radial] 93 H Respiratory Rate 18 Blood Pressure 132/88 Blood Pressure [Right Arm] 149/104 H Blood Pressure Mean [Right Arm] 119 Blood Pressure Source [Right Arm] Automatic Cuff Blood Pressure Position [Right Arm] Supine 02 Sat by Pulse Oximetry 98 98 Oxygen Delivery Method Room Air Lab Data Lab results reviewed: Yes I reviewed the patient's lab results. Lab Results 01/03/25 06:35: Urine Color Yellow, Urine Appearance Clear, Urine pH 6.0, Ur Specific [place] <= 1.005, Urine Protein Negative, Urine Glucose (UA) Negative, Urine Ketones Negative, Urine Blood Negative, Urine Nitrate Negative, Urine Bilirubin Negative, Urine Urobilinogen 1.0, Ur Leukocyte Esterase Negative, Urine RBC None, Urine WBC Occasional, Ur Squamous Epith Cells None, Urine Bacteria None 01/03/25 06:43: WBC 8.1, RBC 4.88, Hgb 13.9, Hct 40.3, MCV 82.6, MCH 28.5, MCHC 34.5, RDW 12.9, Plt Count 369, MPV 10.9 H, Neut % (Auto) 59.1, Lymph % (Auto) 31.0, [place] % (Auto) 6.3, Eos % (Auto) 2.7, Baso % (Auto) 0.5, Neut # (Auto) 4.8, Lymph # (Auto) 2.5, [place] # (Auto) 0.5, Eos # (Auto) 0.2, Baso # (Auto) 0.0, Sodium 133 L, Potassium 3.9, Chloride 96 L, Carbon Dioxide 28, Anion Gap 12.9, BUN 3 L, Creatinine 0.80, Estimated Creat Clear 127, Estimated GFR 82, Est GFR ( Amer) 99, Glucose 102 H, Calcium 8.9, Total Bilirubin 0.3, AST 31, ALT 23, Alkaline Phosphatase 84, Total Protein 8.3 H D, Albumin 3.3 L, Globulin 5.0 H, Albumin/Globulin Ratio 0.7 L, Lipase 50, Serum HCG, Qual Negative, HCV Ab ANDRE w/Rflx PCR Qn Negative, HIV Ag/Ab Combo Qual Negative 01/03/25 06:43 01/03/25 06:43 Orders (Tests/Meds): ED MEDICATIONS Discontinued Medications Generic Name Dose Route Start Last Admin Trade Name Freq PRN Reason Stop Dose Admin Acetaminophen 1,000 mg 01/03/25 06:34 01/03/25 06:53 Acetaminophen 1,000mg/100ml Vial IV 01/03/25 06:35 1,000 mg ONCE ONE Administration Lactated Ringer's 1,000 mls @ 999 mls/hr 01/03/25 06:45 01/03/25 06:54 Lactated Ringer's 1000 Ml Bag IV 01/03/25 07:45 999 mls/hr .Q1H1M ERIKA Administration Iopamidol 75 ml 01/03/25 07:27 01/03/25 07:28 Iopamidol-370 (76%);100ml Bottle IV 01/03/25 07:28 75 ml ONCE ONE Administration Morphine Sulfate 4 mg 01/03/25 06:34 01/03/25 06:51 Morphine 4mg/Ml Syringe IV 01/03/25 06:35 4 mg ONCE ONE Administration Ondansetron HCl 4 mg 01/03/25 06:34 01/03/25 06:51 Ondansetron 4mg/2ml Vial IV 01/03/25 06:35 4 mg ONCE ONE Administration Sodium Chloride 10 ml 01/03/25 07:27 01/03/25 07:28 Sodium Chloride 0.9% 10ml Syr (Rad Only) IV 01/03/25 07:28 10 ml ONCE ONE Administration ORDERS Category Date Time Status CT abdomen pelvis w con Stat Cat Scan 01/03/25 06:34 Taken CBC w/Auto Diff [Complete Blood Count Auto Diff] Stat Lab 01/03/25 06:43 Completed CMP [Comprehensive Metabolic Panel] Stat Lab 01/03/25 06:43 Completed HCG Qualitative, Serum Stat Lab 01/03/25 06:43 Completed HIV Combo Stat Lab 01/03/25 06:43 Completed Hepatitis C Ab Qual. W/ RFX Stat Lab 01/03/25 06:43 Completed Lipase Stat Lab 01/03/25 06:43 Completed UA [Urinalysis and Microscopic] Stat Lab 01/03/25 06:35 Completed Medical Decision Narrative: 34-year-old female with history of of asthma, diabetes presents for 3 days of right lower quadrant abdominal pain. History was obtained via interactive discussion with patient. On arrival, patient is [afebrile, hemodynamically stable, satting appropriately, alert, oriented x4, GCS 15], moving all extremities spontaneously. Full physical exam performed and significant for focal right lower quadrant tenderness. Differential includes but is not limited to appendicitis, UTI, pyelonephritis, septic stone, ovarian pathology. Patient was given morphine Tylenol Zofran LR for symptomatic management and correction of underlying abnormalities. Workup initiated including CBC CMP UA lipase test CT abdomen pelvis with IV contrast. At this time care handed off to oncoming physician. <Bryce Kunz MD - Last Filed: 01/03/25 09:14> Vital Signs: 01/03/25 06:27 01/03/25 06:40 Temperature 97.5 F L Temperature Source Oral Pulse Rate 85 Pulse Rate [Left Radial] 93 H Respiratory Rate 18 Blood Pressure 132/88 Blood Pressure [Right Arm] 149/104 H Blood Pressure Mean [Right Arm] 119 Blood Pressure Source [Right Arm] Automatic Cuff Blood Pressure Position [Right Arm] Supine 02 Sat by Pulse Oximetry 98 98 Oxygen Delivery Method Room Air Lab Data Lab Results 01/03/25 06:35: Urine Color Yellow, Urine Appearance Clear, Urine pH 6.0, Ur Specific [place] <= 1.005, Urine Protein Negative, Urine Glucose (UA) Negative, Urine Ketones Negative, Urine Blood Negative, Urine Nitrate Negative, Urine Bilirubin Negative, Urine Urobilinogen 1.0, Ur Leukocyte Esterase Negative, Urine RBC None, Urine WBC Occasional, Ur Squamous Epith Cells None, Urine Bacteria None 01/03/25 06:43: WBC 8.1, RBC 4.88, Hgb 13.9, Hct 40.3, MCV 82.6, MCH 28.5, MCHC 34.5, RDW 12.9, Plt Count 369, MPV 10.9 H, Neut % (Auto) 59.1, Lymph % (Auto) 31.0, [place] % (Auto) 6.3, Eos % (Auto) 2.7, Baso % (Auto) 0.5, Neut # (Auto) 4.8, Lymph # (Auto) 2.5, [place] # (Auto) 0.5, Eos # (Auto) 0.2, Baso # (Auto) 0.0, Sodium 133 L, Potassium 3.9, Chloride 96 L, Carbon Dioxide 28, Anion Gap 12.9, BUN 3 L, Creatinine 0.80, Estimated Creat Clear 127, Estimated GFR 82, Est GFR ( Amer) 99, Glucose 102 H, Calcium 8.9, Total Bilirubin 0.3, AST 31, ALT 23, Alkaline Phosphatase 84, Total Protein 8.3 H D, Albumin 3.3 L, Globulin 5.0 H, Albumin/Globulin Ratio 0.7 L, Lipase 50, Serum HCG, Qual Negative, HCV Ab ANDRE w/Rflx PCR Qn Negative, HIV Ag/Ab Combo Qual Negative Orders (Tests/Meds): ED MEDICATIONS Discontinued Medications Generic Name Dose Route Start Last Admin Trade Name Nasimq PRN Reason Stop Dose Admin Acetaminophen 1,000 mg 01/03/25 06:34 01/03/25 06:53 Acetaminophen 1,000mg/100ml Vial IV 01/03/25 06:35 1,000 mg ONCE ONE Administration Lactated Ringer's 1,000 mls @ 999 mls/hr 01/03/25 06:45 01/03/25 06:54 Lactated Ringer's 1000 Ml Bag IV 01/03/25 07:45 999 mls/hr .Q1H1M ERIKA Administration Iopamidol 75 ml 01/03/25 07:27 01/03/25 07:28 Iopamidol-370 (76%);100ml Bottle IV 01/03/25 07:28 75 ml ONCE ONE Administration Morphine Sulfate 4 mg 01/03/25 06:34 01/03/25 06:51 Morphine 4mg/Ml Syringe IV 01/03/25 06:35 4 mg ONCE ONE Administration Ondansetron HCl 4 mg 01/03/25 06:34 01/03/25 06:51 Ondansetron 4mg/2ml Vial IV 01/03/25 06:35 4 mg ONCE ONE Administration Sodium Chloride 10 ml 01/03/25 07:27 01/03/25 07:28 Sodium Chloride 0.9% 10ml Syr (Rad Only) IV 01/03/25 07:28 10 ml ONCE ONE Administration ORDERS Category Date Time Status CT abdomen pelvis w con Stat Cat Scan 01/03/25 06:34 Taken CBC w/Auto Diff [Complete Blood Count Auto Diff] Stat Lab 01/03/25 06:43 Completed CMP [Comprehensive Metabolic Panel] Stat Lab 01/03/25 06:43 Completed HCG Qualitative, Serum Stat Lab 01/03/25 06:43 Completed HIV Combo Stat Lab 01/03/25 06:43 Completed Hepatitis C Ab Qual. W/ RFX Stat Lab 01/03/25 06:43 Completed Lipase Stat Lab 01/03/25 06:43 Completed UA [Urinalysis and Microscopic] Stat Lab 01/03/25 06:35 Completed Medical Decision Narrative: 34-year-old female with history of of asthma, diabetes presents for 3 days of right lower quadrant abdominal pain. History was obtained via interactive discussion with patient. On arrival, patient is [afebrile, hemodynamically stable, satting appropriately, alert, oriented x4, GCS 15], moving all extremities spontaneously. Full physical exam performed and significant for focal right lower quadrant tenderness. Differential includes but is not limited to appendicitis, UTI, pyelonephritis, septic stone, ovarian pathology. Patient was given morphine Tylenol Zofran LR for symptomatic management and correction of underlying abnormalities. Workup initiated including CBC CMP UA lipase test CT abdomen pelvis with IV contrast. At this time care handed off to oncoming physician. Bryce Kunz MD At the time my assumption of care, plan was to follow-up patient's workup. Ultimately, patient's workup showed no leukocytosis, no anemia, platelets within normal limits. Mild hyponatremia at 133 but unchanged from 12/16/2024, no CHICHI, glucose normal at 102. Liver enzymes and bilirubin within normal limits. Lipase normal. Negative test. Urinalysis without evidence of infection or blood. CT imaging was interpreted by me personally and demonstrated a large amount of stool throughout the colon but the appendix appears normal. This is consistent with constipation. No other acute findings noted. See radiology report for details. On reassessment, patient is sleeping comfortably. Vitals have remained stable. Given constipation, I am recommending MiraLAX as patient is not currently on any laxative medication. I encouraged her to follow-up with primary care doctor. Return precautions were given. All questions were answered. She was then discharged from the emergency department in stable condition. Procedures <Marco Navarrete MD - Last Filed: 01/03/25 06:54> Risk/Benefits of Procedure(s) Were Explained: Yes Critical Care <Marco Navarrete MD - Last Filed: 01/03/25 06:54> Critical Care Time Critical Care Time: No
--- OUTSIDE RECORDS SUMMARY | 2025-01-03 06:34 | XMS_ITS | Clinical Summary ---
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
--- OUTSIDE RECORDS SUMMARY | 2025-01-03 06:34 | XMS_ITS | Encounter Summary ---
Author Organization Healthcare Address [address] [place] [address] Care Team Providers Care Jigger Operator Name Role Phone Andre Novoa MD Primary Care Provider + [phone] Encounter Details Date Type Department Care Team ([facility] st Contact Info) Description 11/28/2024 Orders Only External Location [address] [place] [address] Provider, External Social History Tobacco Use Types [...] documented as of this encounter Care Teams Jigger Operator Relationship Specialty Start Date End Date Andre Novoa MD [address] [facility] [place] [address] PCP - General 07/21/20 documented as of this encounter
--- OUTSIDE RECORDS SUMMARY | 2025-01-03 06:34 | XMS_ITS | Clinical Summary ---
Author Organization [facility] Address [address] [place] [address] Care Team Providers Care Band Bias Machine Operator Name Role Phone Andre Novoa MD Primary Care Provider + [phone] Allergies Active Allergy Reactions Criticality Noted Date [...] Description 11/28/2024 Orders Only External Location [address] [place] [address] Provider, External from Last 3 [...] [facility]-Cervical Cancer Screening 11/06/2019 [facility]-HPV/Cotest 11/06/2019 09/09/2013 [id number] Vaccine ( season) 2024 10/01/2020, 09/07/2020 [facility]-Influenza [...] PM EDT [facility] MR #: [id number] [facility] [place], [place] [address] 1990 (Age: 22) FW Collect Date: 09/09/2013 00:00 Receipt Date: 09/09/2013 15:18 Page 1 DEPARTMENT OF PATHOLOGY AND LABORATORY MEDICINE CYTOPATHOLOGY REPORT Email: [email or web address] ATTENDING MD/Practitioner: Mikhail Gold MD Service: [facility] [facility] Reported: 09/09/2013 19:02 Collected: [...] LYMPHOID HYPERPLASIA - LYMPH NODE) F: A; 53203 ASP INTER, [id number] FNA PATHO SNOMED CODES: A; [id number] A resident has participated in this service. A pathologist has performed and is responsible for the reported pathologic evaluation. us Historical Provider LAB PATHOLOGY ORDERABLES Fin al Result SUNQUEST from Last 3 Months or Most Recently Relevant to Health Maintenance Insurance [facility] MEDICAID Care Teams Band Bias Machine Operator Relationship Specialty Start Date End Date Andre Novoa MD [address] [place] [id number] PCP - General 07/21/20
[2025-01-03 06:40] VITALS: BP 132/88; PULSE 85; O2SAT 98
[2025-01-03 06:48] LABS: Microscopic, Urine URINE MICROSCOPIC (MICROSCOPIC)
[2025-01-03 06:50] LABS: Hematocrit 40.3 % (37.0-47.0); Hemoglobin 13.9 g/dL (12.2-16.2); Immature Granulocytes % 0.4 %; Mean Corpuscular HGB Conc 34.5 g/dL (31.8-35.4); Mean Corpuscular Hemoglobin 28.5 pg (27.0-31.2); Mean Corpuscular Volume 82.6 fl (81-99); Nucleated Red Blood Cells % 0 %; Platelet Count 369 K/mm3 (142-424); Red Blood Count 4.88 M/mm3 (4.20-5.40); Red Cell Distribution Width-SD 38.9 fL; White Blood Count 8.1 K/mm3 (4.8-10.8)
[2025-01-03] MEDS: MORPHINE 4MG/ML SYRINGE 4 MG IV (06:51)
[2025-01-03] MEDS: ONDANSETRON 4MG/2ML VIAL 4 MG IV (06:51)
[2025-01-03] MEDS: ACETAMINOPHEN 1,000MG/100ML VIAL 1000 MG IV (06:53)
[2025-01-03] MEDS: LACTATED RINGERS 1000ML 1,000 ML 999 ML IV (06:54)
[2025-01-03 07:00] LABS: Albumin Level 3.3 g/dl (3.5-5.0); Chloride 96 mmol/L (98-107)
[2025-01-03 07:01] LABS: Potassium 3.9 mmoL/L (3.5-5.1); Sodium 133 mmol/L (136-145)
[2025-01-03 07:02] LABS: HCG Qualitative, Serum Negative (Negative)
[2025-01-03 07:03] LABS: Alanine Aminotransferase 23 U/L (12-78); Anion Gap 12.9 mEq/L (5-15); Aspartate Amino Transferase 31 U/L (14-36); Blood Urea Nitrogen 3 mg/dl (7-17); Carbon Dioxide 28 mmol/L (22.0-30.0); Creatinine Clearance Estimated 127 mL/min (50-200); Creatinine,Serum 0.80 mg/dl (0.52-1.04); Estimated Glomerular Filt Rate 82 ml/min (>60); GFR (African American) 99 ML/MIN (>60); Lipase 50 U/L (23-300)
[2025-01-03 07:04] LABS: Albumin/Globulin Ratio 0.7 (1.1-1.8); Alkaline Phosphatase 84 U/L (38-126); Bilirubin,Total 0.3 mg/dl (0.2-1.3); Calcium 8.9 mg/dl (8.4-10.2); Globulin 5.0 g/dL (1.3-3.2); Glucose 102 mg/dl (74-100); Total Protein,Serum 8.3 g/dl (6.3-8.2)
[2025-01-03 07:06] LABS: Bilirubin,Urine Negative (Negative); Color,Urine YELLOW (Yellow); Glucose,Urine (UA) Negative (Negative); Ketones,Urine Negative (Negative); Leukocyte Esterase,Urine Negative (Negative); PH,Urine 6.0 (5.0-8.5); Protein,Urine Negative (Negative); Specific Gravity, Urine <= 1.005 (1.005-1.030); Urobilinogen,Urine 1.0 EU/dl (0.2)
[2025-01-03 07:13] LABS: WBC,Urine Occasional #/hpf (0-3)
--- NOTE | 2025-01-03 07:25 | PC.NURSE ---
PT TO CT
[2025-01-03] MEDS: IOPAMIDOL-370 (76%);100ML BOTTLE 75 ML IV (07:28)
[2025-01-03] MEDS: SODIUM CHLORIDE 0.9% 10ML SYR (RAD ONLY) 10 ML IV (07:28)
--- NOTE | 2025-01-03 07:33 | PC.NURSE ---
PT RETURNED FROM CT
[2025-01-03 07:52] LABS: Hepatitis C Ab Qual. W/ RFX NEGATIVE (Negative)
[2025-01-03 09:14] VITALS: BP 96/59; PULSE 96; RESP 18; TEMP 36.8; O2SAT 93
== END 2025-01-03 09:29 | disposition home or self-care (01) ==
PROVIDERS: Emergency Provider Emergency Medicine; PCP Family Medicine
DX: R10.31 Right lower quadrant pain (principal); K59.00 Constipation, unspecified; F17.210 Nicotine dependence, cigarettes, uncomplicated
CPT/HCPCS: 74177; 80053; 81001; 83690; 84703; 85025; 86803; 87389; 96361; 96374; 96375; 99285; J0131; J2270; J2405; J7120; Q9967

== ENCOUNTER 2025-01-07 22:48 | Emergency (ER) | payer MEDICAID, SELFPAY ==
[2025-01-07 23:02] VITALS: BP 154/100; PULSE 86; RESP 18; TEMP 36.7; O2SAT 99; BMI 29.2
--- OUTSIDE RECORDS SUMMARY | 2025-01-07 23:17 | XMS_ITS | Encounter Summary ---
Author Organization Healthcare Address [address] [place] [address] Care Team Providers Care Coppersmith Apprentice Name Role Phone Andre Novoa MD Primary Care Provider + [phone] Encounter Details Date Type Department Care Team ([facility] st Contact Info) Description 11/28/2024 Orders Only External Location [address] [place] [address] Provider, External Social History Tobacco Use Types [...] documented as of this encounter Care Teams Coppersmith Apprentice Relationship Specialty Start Date End Date Andre Novoa MD [address] [facility] [place] [id number] PCP - General 07/21/20 documented as of this encounter
--- OUTSIDE RECORDS SUMMARY | 2025-01-07 23:17 | XMS_ITS | Clinical Summary ---
Author Organization [facility] Address [address] [place] [address] Care Team Providers Care Materials Specialist Name Role Phone Andre Novoa MD Primary Care Provider + [phone] Allergies Active Allergy Reactions Criticality Noted Date [...] Description 11/28/2024 Orders Only External Location [address] [place] [address] Provider, External from Last 3 [...] [facility]-Cervical Cancer Screening 11/06/2019 [facility]-HPV/Cotest 11/06/2019 09/09/2013 [id number] Vaccine ( season) 2024 10/01/2020, 09/07/2020 [facility]-Influenza [...] Narrative SUNQUEST - 09/09/2013 7:02 PM EDT [facility] MR #: [id number] [facility] [address], [place] [address] 1990 (Age: 22) FW Collect Date: 09/09/2013 00:00 Receipt Date: 09/09/2013 15:18 Page 1 DEPARTMENT OF PATHOLOGY AND LABORATORY MEDICINE CYTOPATHOLOGY REPORT Email: [email or web address] [phone] ATTENDING MD/Practitioner: Mikhail Gold MD Service: [facility] [place] Location: [facility] Reported: 09/09/2013 19:02 Collected: 09/09/2013 00:00 DIAGNOSIS [...] LYMPHOID HYPERPLASIA - LYMPH NODE) F: A; 14957 ASP INTER, 49090 FNA PATHO SNOMED CODES: A; [id number] A resident has participated in this service. A pathologist has performed and is responsible for the reported pathologic evaluation. us Historical Provider LAB PATHOLOGY ORDERABLES Fin al Result SUNQUEST from Last 3 Months or Most Recently Relevant to Health Maintenance Insurance [facility] MEDICAID Care Teams Materials Specialist Relationship Specialty Start Date End Date Andre Novoa MD [address] [place] [id number] PCP - General 07/21/20
--- OUTSIDE RECORDS SUMMARY | 2025-01-07 23:17 | XMS_ITS | Clinical Summary ---
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
[2025-01-08 00:06] VITALS: BP 118/81; PULSE 78; RESP 16; TEMP 36.9; O2SAT 98
[2025-01-08] MEDS: BACITRACIN ZINC OINT 30GM TUBE TP (00:09)
--- NOTE | 2025-01-08 00:56 | ED_ITS ---
Discharge Plan Disposition Patient Disposition: Home, Self-Care Condition: Good Prescriptions Prescriptions: No Action albuterol sulfate 90 mcg/actuation HFA aerosol inhaler 2 inh inhalation Q6HP PRN (Reason: Shortness Of Breath) 30 Days Qty: 1 5RF (DME) blood-glucose meter [Blood Glucose Monitoring] Kit See Rx Instructions .ROUTE .MEDSUPPLY Qty: 1 0RF Rx Instructions: Monitor BG TID (DME) Blood Glucose Test Strip See Rx Instructions .ROUTE .MEDSUPPLY Qty: 50 12RF Rx Instructions: Monitor BG TID (DME) Dexcom G7 Sensor Device See Rx Instructions .Route Qty: 3 12RF Rx Instructions: As directed semaglutide 0.25 mg or 0.5 mg(2 mg/1.5 mL) pen injector 0.5 mg SQ WEEKLY Qty: 1.5 2RF pregabalin [Lyrica] 150 mg capsule 150 mg PO BID Qty: 60 3RF (DME) lancets [Droplet Lancets] 30 gauge misc See Rx Instructions .ROUTE .MEDSUPPLY Qty: 100 2RF Rx Instructions: Monitor BG TID (DME) Dexcom G7 Career Development Coordinator Misc See Rx Instructions .Route Qty: 1 0RF Rx Instructions: As directed buprenorphine-naloxone 8-2 mg film 2 film sublingual DAILY Patient Comments: dissolve 2 films under the tongue once a day cyclobenzaprine 10 mg tablet 10 mg PO BIDP PRN (Reason: muscle spasm) ondansetron 8 mg tablet,disintegrating 8 mg PO TIDP PRN (Reason: nausea and vomiting) Referrals Follow up/Referrals: Be Putnam MD [Primary Care Provider, Family Practice] - See instructions Activity Restrictions/Add. Instructions Additional Instructions/Restrictions: You were evaluated in the ER and are believed to be appropriate for discharge at this time. Use the provided antibiotic ointment (bacitracin) on the wound twice daily for 1 week. Keep the wound clean and dry. You can shower/bathe like normal. Clean the wound with warm, soapy water twice a day before using the bacitracin ointment. Keep it covered with a Band-Aid. Sutures should be removed in 7 to 10 days. You can go to your PCP for this or come back to the front of the ER and they can be removed here. Follow-up with your primary care doctor for reevaluation. Return to the ER with any new, worsening, or otherwise concerning symptoms including but not limited to signs of infection. Clinical Impressions Clinical Impression: Laceration of forearm, left Instructions Patient Instructions: DI for Laceration Repair Print Language Print Language: [place] Island[place] Discharge ED Provider: Clovis Stover General Adult HPI General Chief complaint: Wound/Laceration Stated complaint: Cut on L arm Time Seen by Provider: 01/07/25 23:10 Mode of Arrival: Ambulatory Source of Information: Patient and Spouse Description of Symptoms (Recalled from ER Triage Doc. by RN): thomas presents for a laceration to the left forearm. patient was trying to open a box when the wash box operator slipped and cut her arm. patient not UTD on tetanus due to allergy. History of Present Illness HPI narrative: 34-year-old female with history of PTSD, illicit substance use, diabetes presents to the ER with a laceration to the left forearm. Patient states they are moving and the wash box operator she was using slipped and cut her left forearm. She reports she immediately applied pressure to stop the bleeding and they came to the ER for evaluation. Patient reports full range of motion and sensation in the hand and fingers distally. No numbness, tingling, or weakness. Patient is not up-to-date on tetanus booster because of an allergy. She states the wash box operator was clean. No other injuries. Patient does not take blood thinners. No other complaints or concerns. Related Data Home Medications ?Medication ?Instructions ?Recorded ?Confirmed buprenorphine 8 mg-naloxone 2 mg 2 film sublingual TRES LY 12/15/24 12/15/24 sublingual film cyclobenzaprine 10 mg tablet 10 mg PO BIDP PRN muscle spasm 12/15/24 12/15/24 ondansetron 8 mg disintegrating 8 mg PO TIDP PRN nause a and 12/15/24 12/15/24 tablet vomiting Previous Rx's ?Medication ?Instructions ?Recorded albuterol sulfate 90 mcg/actuation 2 inh inhalation Q6 HP PRN 07/23/24 aerosol inhaler Shortness Of Breath 30 days #1 ea blood sugar diagnostic (Blood #50 ea 07/23/24 Glucose Test strips) blood-glucose meter (Blood Glucose #1 ea 07/23/24 Monitoring kit) pregabalin 150 mg capsule (Lyrica) 150 mg PO BID #60 c aps 09/08/24 blood-glucose sensor (Dexcom G7 #3 ea 10/06/24 Sensor device) lancets 30 gauge (Droplet Lancets) #100 ea 10/06/24 blood-glucose,aircraft engine dismantler,cont #1 ea 10/12/24 (Dexcom G7 Career Development Coordinator) semaglutide 0.25 mg or 0.5 mg (2 0.5 mg (0.374 mL) SQ WEEKLY #1.5 mL 12/06/24 mg/1.5 mL) subcutaneous pen injector Allergies Allergy/AdvReac Type Severity Reaction Status Date / Time Penicillins (PENICILLINS) Allergy Severe THROAT Verified 10/22/24 13:34 SWELLING, HIVES, VOMITTING amoxicillin (From AUGMENTIN) Allergy Intermediate I-HIVES Verified 10/22/24 13:34 clavulanic acid (From Allergy Intermediate I-HIVES Verified 10/22/24 13:34 AUGMENTIN) diphenhydramine (From Allergy Intermediate I-HIVES Verified 10/22/24 13:34 BENADRYL) ibuprofen (IBUPROFEN) Allergy Intermediate I-HIVES Verified 10/22/24 13:34 metoclopramide (From REGLAN) Allergy Intermediate I-HIVES Verified 10/22/24 13:34 Sulfa (Sulfonamide Allergy Intermediate I-HIVES Verified 10/22/24 13:34 Antibiotics) (SULFA (SULFONAMIDE ANTIBIOTICS)) tetanus toxoid, adsorbed Allergy Intermediate I-RASH Verified 10/22/24 13:34 (TETANUS TOXOID, ADSORBED) naproxen (NAPROXEN) Allergy Unknown Hives, Verified 10/22/24 13:34 Vomiting paroxetine (From PAXIL) Allergy Unknown numbness Verified 10/22/24 13:34 tongue atomoxetine (From Strattera) AdvReac Mild NA-HALLUCIN Verified 10/22/24 13:34 ATIONS PFSH [facility] Disclaimer: The information contained in this section may have been updated after the patient was seen, as this information can be updated by other users. Medical History (Updated 01/08/25 @ 00:02 by Clovis Stover MD) Asthma exacerbation Effusion of right knee Acute pain of right knee Varicella Respiratory failure with hypoxia Viral infection Asthma exacerbation Right ankle sprain Abdominal pain Nausea & vomiting Nausea & vomiting Acute left ankle pain Lung nodule Cellulitis Chest pain Fall with injury Prediabetes Bilateral leg numbness Lower extremity pain, bilateral Constipation Nightmares Chronic joint pain Dehydration Cellulitis of thumb, left Problem of extremity Strep throat Acute viral syndrome Fall Muscle spasm Fall Pityriasis rosea Recurrent pain of right knee Contact dermatitis Contact dermatitis Bilateral shoulder pain Dysmenorrhea Depression Anxiety Scoliosis Hearing loss in right ear History of COVID-19 Asthma Migraine Eczema Hemorrhoid Allergies Uterine fibroid Nausea Abdominal pain Abnormal uterine bleeding Left ankle sprain Nausea & vomiting History of deviated nasal septum Costochondral separation Ganglion cyst Surgical History (Updated 12/20/24 @ 00:00 by Wiley Sosa) Status post hemorrhoidectomy Status post laparoscopic hysterectomy History of surgery History of surgery History of surgery History of tonsillectomy and adenoidectomy History of cholecystectomy Family History Other Alcoholism Asthma Cancer Diabetes Heart attack Hyperlipidemia Hypertension Social History (Updated 10/22/24 @ 13:35 by Clare Mansfield MA) Smoking Status: Current every day smoker tobacco type: cigarettes packs per day: 1 years smoked: 16 second hand exposure: Yes alcohol intake: former counseling provided: none substance use type: denies use current occupational status: disabled Travel in the last 8 weeks?: None household members: family and children housing: house current occupation: [employer] current occupational exposures/hazards: No caffeine: Yes Other Medical History Have you received the Flu Vaccine for this season: No Have you received the Pneumonia Vaccine: No ROS Obtained: Yes Systems reviewed as appropriate & no additional complaints except as documented Per HPI Physical Exam General General appearance: alert and in no apparent distress Head Head exam: atraumatic and normocephalic Eye Eye exam: Present PERRL and EOMI ENT ENT exam: Present mucous membranes moist Neck Neck exam: Present normal inspection and full ROM Chest Chest inspection: Present symmetric chest wall rise Respiratory Respiratory exam: Absent respiratory distress or stridor Cardiovascular Cardiovascular exam: Present regular rate and normal rhythm Extremities Exam Extremities exam: Present full ROM and normal capillary refill; Absent edema or joint swelling Expanded Upper Extremity Exam Left: Arm exam: Present laceration L/R Arms Bottom View: 2 1. 2 cm clean, linear laceration with subcutaneous fat exposed. Neurovascularly intact distally. Deep structures intact. Comment: 2+ radial and ulnar pulses Neurological Exam Neurological exam: Present alert and oriented X3; Absent motor sensory deficit Psychiatric Psychiatric exam: Present normal affect and normal mood Skin Skin exam: Present warm and dry Medical Decision Making Medical Records Medical records reviewed: Yes I reviewed the patient's medical records. Screening: Per USPSTF and CDC recommendations, given the prevalence of disease in our region, it is our hospital?s policy to screen for HIV and viral Hepatitis for all patients aged 18 and over and those with ongoing risk factors. Donta Inquiry Pt receiving controlled substance: No Vital Signs: 01/07/25 23:02 01/08/25 00:06 Temperature 98.0 F 98.4 F Temperature Source Oral Oral Pulse Rate 78 Pulse Rate [Right Radial] 86 Respiratory Rate 18 16 Blood Pressure 118/81 Blood Pressure [Right Arm] 154/100 H Blood Pressure Mean [Right Arm] 118 Blood Pressure Source Automatic Cuff Blood Pressure Source [Right Arm] Automatic Cuff Blood Pressure Position Sitting Blood Pressure Position [Right Arm] Sitting 02 Sat by Pulse Oximetry 99 Oxygen Delivery Method Room Air Room Air Orders (Tests/Meds): ED MEDICATIONS Discontinued Medications Generic Name Dose Route Start Last Admin Trade Name Freq PRN Reason Stop Dose Admin Bacitracin 1 gm 01/08/25 00:00 01/08/25 00:09 Bacitracin Zinc Oint 30gm Tube TP 01/08/25 00:01 1 gm ONCE ONE Administration Lidocaine/Epinephrine 3 ml 01/07/25 23:33 Lidocaine 1% W/Epi 1:100,000 20ml Vial SQ 01/07/25 23:34 ONCE ONE Medical Decision Narrative: In summary, this 34-year-old female with comorbidities described in the HPI presents to the emergency department today with laceration to left forearm. Patient denies SI or HI. On initial evaluation patient is hemodynamically stable, afebrile, overall well-appearing, patient has 2 cm linear laceration on the palmar aspect of the left forearm with subcutaneous fat exposed, deep structures intact, wound is hemostatic at the time of presentation. Neurovascularly intact distally.. Differential diagnosis includes but is not limited to laceration, I considered the possibility of deep structure injury or foreign body but appreciate no evidence of these on thorough inspection of the wound and evaluation. I do not believe labs or imaging are indicated. Wound was thoroughly cleaned, lidocaine with epinephrine used for local infiltration and wound was closed with sutures. Bacitracin applied over the wound and dressing applied. Tdap not administered due to allergy. I do not believe prophylactic antibiotics are indicated. Patient was given instructions on the bacitracin ointment use which was provided to her, wound care instructions, follow-up, and return precautions for the ER. She indicated understanding and the patient was discharged in stable condition Procedures Risk/Benefits of Procedure(s) Were Explained: Yes Laceration Laceration 1: Site: upper extremity Side (If applicable): left Size (cm): 2 Description: linear and clean Depth: involves subcutaneous layer Local Anesthetic: lidocaine 1% and with epi Amount of anesthesia used (mL): 3 Pre-repair: wound explored, irrigated extensively and deep structures intact Skin layer closed with: nylon Size (cm): 4-0 Number of sutures: 3 Technique: simple, interrupted Critical Care Critical Care Time Critical Care Time: No
== END 2025-01-08 00:12 | disposition home or self-care (01) ==
PROVIDERS: Emergency Provider Emergency Medicine; PCP Family Medicine
DX: S51.812A Laceration without foreign body of left forearm, initial encounter (principal); F17.210 Nicotine dependence, cigarettes, uncomplicated; E11.9 Type 2 diabetes mellitus without complications; W26.8XXA Contact with other sharp object(s), not elsewhere classified, initial encounter
CPT/HCPCS: 12001; 99282